=== PATIENT | female | born 1965 | race Caucasian/White ===

== ENCOUNTER 2016-09-07 12:35 | Emergency (ER) | payer BC ==
[2016-09-07 12:40] VITALS: TEMP 97.6
[2016-09-07] MEDS ORDERED: SODIUM CHLORIDE 0.9% 1,000 ML IV STA (13:43)
[2016-09-07 14:39] LABS: Basophils # (A) 0.1 k/uL (0-0.2); Basophils % (A) 1 %; CH 27.9; CHCM 32.5; Eosinophils # (A) 0.1 k/uL (0-0.7); Eosinophils % (A) 1 %; HCT 41.3 % (34.0-46.0); HDW 2.52; HGB 13.2 gm/dL (11.4-16.0); Luc # (Auto) 0.19; Luc % (Auto) 2; Lymphocytes # (A) 1.8 k/uL (1.0-4.8); Lymphocytes % (A) 20 %; MCH 27.5 pg (25.0-35.0); MCHC 31.9 g/dL (31.0-37.0); MCV 86.3 fL (80.0-100.0); Mean Platelet Volume 6.8; Monocytes # (A) 0.5 k/uL (0-1.0); Monocytes % (A) 5 %; Neutrophils # (A) 6.7 k/uL (1.3-7.7); Neutrophils % (A) 72 %; RBC 4.79 m/uL (3.80-5.40); RDW 14.1 % (11.5-15.5); WBC 9.3 k/uL (3.8-10.6); WBC (Perox) 9.73
--- NOTE | 2016-09-07 14:43 | XR ---
EXAMINATION TYPE: XR chest 2V DATE OF EXAM: 09/07/2016 2:33 PM COMPARISON: 05/20/2016 INDICATION: Shortness of breath, history of pulmonary fibrosis TECHNIQUE: Frontal and lateral views of the chest are obtained. FINDINGS: The heart size is normal. The pulmonary vasculature is normal. The lungs are clear. Typical changes of pulmonary fibrosis are not radiographically apparent. EKG le ads overlie the chest. IMPRESSION: 1. No acute pulmonary process.
--- NOTE | 2016-09-07 14:50 | ED ---
General Adult HPI - General Chief complaint: Chest Pain Stated complaint: Chest pain/sob Time Seen by Provider: 09/07/16 13:29 Source: patient, family, RN notes reviewed, old records reviewed Mode of arrival: wheelchair Limitations: no limitations - History of Present Illness Initial comments: Chief complaint and history of present illness is a 51-year-old female with a complaint of discomfort when she takes deep breath or coughs under her left breast area. Pain increases with deep breathing coughing and sometimes palpation. She describes it as having started as a bronchitis several days ago. Patient does have a history of pulmonary fibrosis - Related Data Home Medications Medication Instructions Recorded Confirmed Estradiol 1 mg PO HS 07/16/14 09/07/16 Isosorbide Mononitrate ER [Imdur] 60 mg PO HS 07/16/14 09/07/16 metFORMIN HCL 500 mg PO TID 07/16/14 09/07/16 Albuterol Inhaler [Ventolin Hfa 1 - 2 puff INHALATION RT-Q6H PRN 10/20/15 Inhaler] Aspirin [Adult Low Dose Aspirin EC] 81 mg PO DAILY 10/20/15 09/07/16 Budesonide [Pulmicort] 0.5 mg INHALATION RT-BID 10/20/15 09/07/16 Montelukast [Singulair] 10 mg PO HS 10/20/15 09/07/16 Pantoprazole [Protonix] 40 mg PO DAILY 10/20/15 09/07/16 ALPRAZolam [Xanax] 0.25 mg PO TID PRN 02/27/16 09/07/16 Sertraline [Zoloft] 25 mg PO HS 02/27/16 09/07/16 Albuterol Nebulized [Ventolin 2.5 mg INHALATION RT-QID 09/07/16 09/07/16 Nebulized] Celecoxib [CeleBREX] 200 mg PO BID 09/07/16 09/07/16 Gabapentin [Neurontin] 800 mg PO HS 09/07/16 09/07/16 Hydroxychloroquine Sulfate 200 mg PO BID 09/07/16 09/07/16 [Plaquenil] Latanoprost Ophth [Xalatan 0.005%] 1 drops BOTH EYES HS 09/07/16 09/07/16 Mycophenolate Mofetil [Cellcept] 500 mg PO BID 09/07/16 09/07/16 Previous Rx's Medication Instructions Recorded Azithromycin [Zithromax Z-pack] 250 mg PO DIRECTED #6 tab 09/07/16 methylPREDNISolone Dose Pack 4 mg PO DIRECTED #21 package 09/07/16 [Medrol Dose Pack] Allergies Allergy/AdvReac Type Severity Reaction Status Date / Time meperidine HCl [From Demerol] Allergy Rash/Hives Verified 05/20/16 15:49 propoxyphene napsylate Allergy Dyspnea Verified 05/20/16 15:49 [From Darvocet-N] Review of Systems ROS Statement: Those systems with pertinent positive or pertinent negative responses have been documented in the HPI. Review of systems no complaint of visual acuity changes or headache no neck pain. She has discomfort which is reproducible by taking a deep breath or coughing to the area below her left breast area. No direct injury or trauma no rashes. Early shingles was discussed. No epigastric pain no back pain she is chronically short of breath with pulmonary fibrosis. No nausea no vomiting no significant change in appetite. Lower extremities upper extremity is all normal no neuro deficits complained of. All systems were reviewed. Past medical problems significant for pulmonary fibrosis, COPD for which she uses frequent updrafts. [id number] diabetes mellitus, GERD, hyperlipidemia, hypertension, osteoarthritis, pneumonia, hypothyroidism, patient reports history of heart murmur occasionally. Tract infections. Also scleroderma. Surgeries tonsils and adenoids, gallbladder, heart catheterization 8 years ago without stents being placed. Hysterectomy, right knee replacement left knee osteotomy. Family history cancers include lung, esophagus, thyroid and brain. Patient has ALLERGIES to Darvocet. Patient quit smoking 19 years ago. Denies alcohol use ROS Other: All systems not noted in ROS Statement are negative. Past Medical History Past Medical History: COPD, Diabetes Mellitus, GERD/Reflux, Hyperlipidemia, Hypertension, Osteoarthritis (OA), Pneumonia, Thyroid Disorder Additional Past Medical History / Comment(s): MURMUR, UTI, GOITER, DIASTOLIC DYSFUNCTION,Scleraderma, has had trouble swallowing for past 6 months History of Any Multi-Drug Resistant Organisms: None Reported Past Surgical History: Appendectomy, Cholecystectomy, Heart Catheterization, Hysterectomy, Joint Replacement Additional Past Surgical History / Comment(s): RT KNEE REPLACEMENT, LT KNEE HAS SCREWS IN PLACE Past Anesthesia/Blood Transfusion Reactions: No Reported Reaction Additional Past Anesthesia/Blood Transfusion Reaction / Comment(s): CLAUSTERPHOBIC Past Psychological History: Anxiety Smoking Status: Former smoker Past Alcohol Use History: Occasional Additional Past Alcohol Use History / Comment(s): STARTED SMOKING AT AGE 11, SMOKED 2 PPD THEN QUIT 1997 Past Drug Use History: None Reported - Past Family History Father Family Medical History: Cancer, Diabetes Mellitus Additional Family Medical History / Comment(s): AT AGE 61, CA throughout the body Mother Family Medical History: Cancer, Congestive Heart Failure (CHF), Diabetes Mellitus, Myocardial Infarction ([place]), Thyroid Disorder Additional Family Medical History / Comment(s): Uterine CA General Exam - General Exam Comments Initial Comments: General: The patient is awake and alert, complains of discomfort to the left chest on the left breast area which increases with a deep breathing coughing. No significant change with splinting the area. No rash noted. Mildly productive cough. Vital signs are temperature 97.6 pulse 85 respiratory rate 18 pulse ox 96 room air blood pressure 150/74. Elevated systolic noted. Patient will be following up with her family physician this week. Eye: Pupils are equal, round and reactive to light, extra-ocular movements are intact ; there is normal conjunctiva bilaterally. No signs of icterus. Ears, nose, mouth and throat: There are moist mucous membranes and no oral lesions. Neck: The neck is supple, there is no tenderness . Cardiovascular: There is a regular rate and rhythm. No murmur, rub or gallop is appreciated. Patient reports history of murmur not appreciated on today's exam. Respiratory: Lungs are clear to auscultation, respirations are non-labored, breath sounds are equal. No wheezes, stridor, rales, or rhonchi. History of pulmonary fibrosis. Pain with deep breathing and coughing below the left breast area. Gastrointestinal: Soft, non-distended, non-tender abdomen without masses or organomegaly noted. There is no rebound or guarding present. No CVA tenderness. Bowel sounds are unremarkable. Back: There is no tenderness to palpation in the midline. There is no obvious deformity. No rashes noted. Musculoskeletal: Normal ROM, no tenderness, There is no pedal edema. There is no calf tenderness or swelling. Sensation intact. Pulses equal bilaterally 2+. Neurological: No neuro deficits complained of or noted on exam. Skin: Skin is warm and dry and no rashes or lesions are noted. Limitations: no limitations Course Vital Signs 09/07/16 09/07/16 09/07/16 12:38 12:56 14:42 Temperature 97.6 F Pulse Rate 85 75 Respiratory 18 18 18 Rate Blood Pressure 150/74 142/65 O2 Sat by Pulse 96 100 Oximetry EKG Findings - EKG Comments: EKG Findings:: EKG was done and reviewed at 1244 showing normal sinus rhythm with nonspecific T-wave changes. No acute ST elevation no ectopy. Rate 85 [place] was 148 QRS 84 QT 360 QTc 428. This EKG was compared to one done on 02/27/2016 and they are similar. Medical Decision Making - Medical Decision Making White count is 9.3 hemoglobin 13 hematocrit of 41. Potassium 4.7, BUN 21 creatinine 0.9 with a GFR greater than 60. Troponin less than 0.012. Chest x-ray is done AP and lateral views and reviewed by radiologist his impression is; no acute pulmonary process. As read by Dr. Reed She complains of productive cough. She'll be placed on a Z-Ivan, Medrol Dosepak , also discussed pleuritic pain and costochondritis. She'll take ibuprofen with food. Advised to follow-up with her family physician. - Lab Data Result diagrams: 09/07/16 14:13 09/07/16 14:13 Lab Results 09/07/16 09/07/16 09/07/16 Range/Units 14:13 14:13 14:13 WBC 9.3 (3.8-10.6) k/uL RBC 4.79 (3.80-5.40) m/uL Hgb 13.2 (11.4-16.0) gm/dL Hct 41.3 (34.0-46.0) % MCV 86.3 (80.0-100.0) fL MCH 27.5 (25.0-35.0) pg MCHC 31.9 (31.0-37.0) g/dL RDW 14.1 (11.5-15.5) % Plt Count 305 (150-450) k/uL Neutrophils % 72 % Lymphocytes % 20 % Monocytes % 5 % Eosinophils % 1 % Basophils % 1 % Neutrophils # 6.7 (1.3-7.7) k/uL Lymphocytes # 1.8 (1.0-4.8) k/uL Monocytes # 0.5 (0-1.0) k/uL Eosinophils # 0.1 (0-0.7) k/uL Basophils # 0.1 (0-0.2) k/uL PT (9.0-12.0) sec INR (<1.1) APTT (22.0-30.0) sec Sodium 140 (137-145) mmol/L Potassium 4.7 (3.5-5.1) mmol/L Chloride 102 (98-107) mmol/L Carbon Dioxide 29 (22-30) mmol/L Anion Gap 9 mmol/L BUN 21 H (7-17) mg/dL Creatinine 0.91 (0.52-1.04) mg/dL Est GFR (MDRD) Af Amer >60 (>60 ml/min/1.73 sqM) Est GFR (MDRD) Non-Af >60 (>60 ml/min/1.73 sqM) Glucose 92 (74-99) mg/dL Calcium 9.6 (8.4-10.2) mg/dL Magnesium 1.8 (1.6-2.3) mg/dL Total Bilirubin 0.4 (0.2-1.3) mg/dL AST 18 (14-36) U/L ALT 57 H (9-52) U/L Alkaline Phosphatase 85 (38-126) U/L Total Creatine Kinase 25 L (30-135) U/L CK-MB (CK-2) <0.2 (0.0-2.4) ng/mL CK-MB (CK-2) Rel Index Troponin I <0.012 (0.000-0.034) ng/mL Total Protein 6.7 (6.3-8.2) g/dL Albumin 3.8 (3.5-5.0) g/dL 09/07/16 Range/Units 14:13 WBC (3.8-10.6) k/uL RBC (3.80-5.40) m/uL Hgb (11.4-16.0) gm/dL Hct (34.0-46.0) % MCV (80.0-100.0) fL MCH (25.0-35.0) pg MCHC (31.0-37.0) g/dL RDW (11.5-15.5) % Plt Count (150-450) k/uL Neutrophils % % Lymphocytes % % Monocytes % % Eosinophils % % Basophils % % Neutrophils # (1.3-7.7) k/uL Lymphocytes # (1.0-4.8) k/uL Monocytes # (0-1.0) k/uL Eosinophils # (0-0.7) k/uL Basophils # (0-0.2) k/uL PT 9.7 (9.0-12.0) sec INR 0.9 (<1.1) APTT 22.5 (22.0-30.0) sec Sodium (137-145) mmol/L Potassium (3.5-5.1) mmol/L Chloride (98-107) mmol/L Carbon Dioxide (22-30) mmol/L Anion Gap mmol/L BUN (7-17) mg/dL Creatinine (0.52-1.04) mg/dL Est GFR (MDRD) Af Amer (>60 ml/min/1.73 sqM) Est GFR (MDRD) Non-Af (>60 ml/min/1.73 sqM) Glucose (74-99) mg/dL Calcium (8.4-10.2) mg/dL Magnesium (1.6-2.3) mg/dL Total Bilirubin (0.2-1.3) mg/dL AST (14-36) U/L ALT (9-52) U/L Alkaline Phosphatase (38-126) U/L Total Creatine Kinase (30-135) U/L CK-MB (CK-2) (0.0-2.4) ng/mL CK-MB (CK-2) Rel Index Troponin I (0.000-0.034) ng/mL Total Protein (6.3-8.2) g/dL Albumin (3.5-5.0) g/dL Disposition Clinical Impression: Bronchitis, Costochondritis, acute Disposition: HOME SELF-CARE Condition: Fair Instructions: Costochondritis (ED), Acute Bronchitis (ED) Additional Instructions: Increase adequate fluids. Use ibuprofen with food for muscle aches and pains. Take Z-Ivan until completed as well as Medrol Dosepak. Follow-up with family physician return emergency room as needed Prescriptions: Azithromycin [Zithromax Z-pack] 250 mg PO DIRECTED #6 tab methylPREDNISolone Dose Pack [Medrol Dose Pack] 4 mg PO DIRECTED #21 package Time of Disposition: 15:28
[2016-09-07 14:54] LABS: ALT 57 U/L (9-52); AST 18 U/L (14-36); Alkaline Phosphatase 85 U/L (38-126); Anion Gap 9 mmol/L; Blood Urea Nitrogen 21 mg/dL (7-17); Calcium 9.6 mg/dL (8.4-10.2); Carbon Dioxide 29 mmol/L (22-30); Chloride 102 mmol/L (98-107); Glucose 92 mg/dL (74-99); Magnesium 1.8 mg/dL (1.6-2.3); Non-African American GFR(MDRD) >60 (>60 ml/min/1.73 sqM); Potassium 4.7 mmol/L (3.5-5.1); Sodium 140 mmol/L (137-145); Total Bilirubin 0.4 mg/dL (0.2-1.3); Total Protein 6.7 g/dL (6.3-8.2)
[2016-09-07 14:56] LABS: Creatine Kinase 25 U/L (30-135)
[2016-09-07 15:08] LABS: Creatine Kinase MB <0.2 ng/mL (0.0-2.4); Troponin I <0.012 ng/mL (0.000-0.034)
[2016-09-07] MEDS ORDERED: ACETAMINOPHEN TAB 500 MG TAB PO STA (15:08)
[2016-09-07 15:18] LABS: INR 0.9 (<1.1); Partial Thromboplastin Time 22.5 sec (22.0-30.0); Prothrombin Time 9.7 sec (9.0-12.0)
[2016-09-07 15:53] VITALS: BP 149/72; PULSE 78; RESP 16
== END 2016-09-07 15:53 | disposition home or self-care (01) ==
LOC: EC 12:35
DX: J20.9 Acute bronchitis, unspecified (principal); M94.0 Chondrocostal junction syndrome [Tietze]; J84.10 Pulmonary fibrosis, unspecified; K21.9 Gastro-esophageal reflux disease without esophagitis; E11.9 Type 2 diabetes mellitus without complications; I10 Essential (primary) hypertension; Z98.61 Coronary angioplasty status; Z79.899 Other long term (current) drug therapy; Z79.890 Hormone replacement therapy; Z79.82 Long term (current) use of aspirin; Z79.84 Long term (current) use of oral hypoglycemic drugs; Z79.51 Long term (current) use of inhaled steroids; Z87.891 Personal history of nicotine dependence; Z88.5 Allergy status to narcotic agent
CPT/HCPCS: 36415; 71020; 80053; 82550; 82553; 83735; 83880; 84484; 85025; 85610; 85730; 93005; 96360; 99285

== ENCOUNTER 2016-10-07 18:27 | Emergency (ER) | payer BC ==
[2016-10-07] MEDS ORDERED: IPRATROPIUM-ALBUTEROL 3 ML NEB INHALATION STA (18:51)
[2016-10-07] MEDS ORDERED: methylPREDNISolone SOD SUCCI 125 MG/2 ML VIAL IV STA (18:51)
--- NOTE | 2016-10-07 19:07 | ED ---
General Adult HPI - General Chief complaint: Chest Pain Stated complaint: chest pain Time Seen by Provider: 10/07/16 18:34 Source: patient Mode of arrival: wheelchair Limitations: no limitations - History of Present Illness Initial comments: This is a 51-year-old female with a history of scleroderma with chronic pulmonary disease who presents emergency from for worsening shortness of breath and chest discomfort over the last week. She states that she's been more short of breath and feels like she cannot get air into her lungs. She states that she 's also been having intermittent sharp substernal chest discomfort that is nonradiating. She's had no lightheadedness or nausea or vomiting. She's been using her Pulmicort and albuterol nebulizer at home without any relief. She called her doctor at [facility] who recommended that she come to the emergency room for evaluation. She denies any fevers or chills. No recent sick contacts. She does not have a history of CAD. No history of DVT. No recent travel or surgery. No other complaints. - Related Data Home Medications Medication Instructions Recorded Confirmed Estradiol 1 mg PO HS 07/16/14 10/07/16 Isosorbide Mononitrate ER [Imdur] 60 mg PO HS 07/16/14 10/07/16 metFORMIN HCL 500 mg PO TID 07/16/14 10/07/16 Aspirin [Adult Low Dose Aspirin EC] 81 mg PO DAILY 10/20/15 10/07/16 Budesonide [Pulmicort] 0.5 mg INHALATION RT-BID 10/20/15 10/07/16 Montelukast [Singulair] 10 mg PO HS 10/20/15 10/07/16 Pantoprazole [Protonix] 40 mg PO DAILY 10/20/15 10/07/16 ALPRAZolam [Xanax] 0.25 mg PO TID PRN 02/27/16 10/07/16 Sertraline [Zoloft] 25 mg PO HS 02/27/16 10/07/16 Albuterol Nebulized [Ventolin 2.5 mg INHALATION RT-QID 09/07/16 10/07/16 Nebulized] Celecoxib [CeleBREX] 200 mg PO BID 09/07/16 10/07/16 Gabapentin [Neurontin] 800 mg PO HS 09/07/16 10/07/16 Hydroxychloroquine Sulfate 200 mg PO BID 09/07/16 10/07/16 [Plaquenil] Latanoprost Ophth [Xalatan 0.005%] 1 drops BOTH EYES HS 09/07/16 10/07/16 Mycophenolate Mofetil [Cellcept] 1,000 mg PO BID 09/07/16 10/07/16 Atorvastatin [Lipitor] 10 mg PO HS 10/07/16 10/07/16 amLODIPine [Norvasc] 5 mg PO HS 10/07/16 10/07/16 Previous Rx's Medication Instructions Recorded Ipratropium-Albuterol Nebulize 3 ml INHALATION Q6HR PRN #20 neb 10/07/16 [Duoneb 0.5 mg-3 mg/3 ml Soln] Levofloxacin [Levaquin] 500 mg PO DAILY #6 tab 10/07/16 predniSONE 50 mg PO DAILY #4 tab 10/07/16 Allergies Allergy/AdvReac Type Severity Reaction Status Date / Time meperidine HCl [From Demerol] Allergy Rash/Hives Verified 10/07/16 19:08 propoxyphene napsylate Allergy Dyspnea Verified 10/07/16 19:08 [From Darvocet-N] Review of Systems ROS Statement: Those systems with pertinent positive or pertinent negative responses have been documented in the HPI. ROS Other: All systems not noted in ROS Statement are negative. Past Medical History Past Medical History: COPD, Diabetes Mellitus, GERD/Reflux, Hyperlipidemia, Hypertension, Osteoarthritis (OA), Pneumonia, Thyroid Disorder Additional Past Medical History / Comment(s): MURMUR, UTI, GOITER, DIASTOLIC DYSFUNCTION,Scleraderma, has had trouble swallowing for past 6 months History of Any Multi-Drug Resistant Organisms: None Reported Past Surgical History: Appendectomy, Cholecystectomy, Heart Catheterization, Hysterectomy, Joint Replacement Additional Past Surgical History / Comment(s): RT KNEE REPLACEMENT, LT KNEE HAS SCREWS IN PLACE Past Anesthesia/Blood Transfusion Reactions: No Reported Reaction Additional Past Anesthesia/Blood Transfusion Reaction / Comment(s): CLAUSTERPHOBIC Past Psychological History: Anxiety Smoking Status: Former smoker Past Alcohol Use History: Occasional Additional Past Alcohol Use History / Comment(s): STARTED SMOKING AT AGE 11, SMOKED 2 PPD THEN QUIT 1996 Past Drug Use History: None Reported - Past Family History Father Family Medical History: Cancer, Diabetes Mellitus Additional Family Medical History / Comment(s): AT AGE 61, CA throughout the body Mother Family Medical History: Cancer, Congestive Heart Failure (CHF), Diabetes Mellitus, Myocardial Infarction ([place]), Thyroid Disorder Additional Family Medical History / Comment(s): Uterine CA General Exam - General Exam Comments Initial Comments: Constitutional: Awake alert Appears comfortable Head: Normocephalic atraumatic Eyes: no conjunctival injection No scleral icterus EOMI Neck: No JVD Supple Heart: Regular rate rhythm normal S1-S2 no murmurs Lungs: Decreased breath sounds throughout No wheezing No rales Abdomen: Soft nondistended nontender Extremities: Non edematous DP pulses intact Radial pulses intact Neuro: A&Ox3 No focal neurologic deficits Psych: Appropriate mood and affect Limitations: no limitations Course Vital Signs 10/07/16 10/07/16 10/07/16 18:31 19:08 19:13 Temperature 97.8 F Pulse Rate 88 77 Pulse Rate [ 77 [employer] ] Respiratory 20 18 Rate Blood Pressure 155/69 150/66 O2 Sat by Pulse 99 100 Oximetry 10/07/16 10/07/16 10/07/16 19:15 19:35 20:19 Temperature 97.0 F L Pulse Rate 81 89 90 Pulse Rate [ [employer] ] Respiratory 18 Rate Blood Pressure 149/66 O2 Sat by Pulse 97 Oximetry EKG Findings - EKG Comments: EKG Findings:: EKG showing normal sinus rhythm with a rate of 77. No ST segment changes or T-wave inversions. QTC is 423. No ectopy. Medical Decision Making - Medical Decision Making This is a 51-year-old lady with history of scleroderma who presents emergency department for shortness of breath for the last week. She also has some associated left-sided sharp chest pain. Labwork was reviewed and completely unremarkable. Troponin was negative. X-ray was reviewed and did not show any signs of pneumonia. The patient was able to ambulate around the department without desaturation. She felt improved after DuoNeb. At this time going to send her home with DuoNeb, prednisone, and Levaquin. She'll follow-up with her primary doctor for further evaluation. If she has worsening symptoms she can return the emergency Department. All questions were answered. - Lab Data Result diagrams: 10/07/16 18:50 10/07/16 18:50 Lab Results 10/07/16 10/07/16 10/07/16 Range/Units 18:50 18:50 18:50 WBC (3.8-10.6) k/uL RBC (3.80-5.40) m/uL Hgb (11.4-16.0) gm/dL Hct (34.0-46.0) % MCV (80.0-100.0) fL MCH (25.0-35.0) pg MCHC (31.0-37.0) g/dL RDW (11.5-15.5) % Plt Count (150-450) k/uL Neutrophils % % Lymphocytes % % Monocytes % % Eosinophils % % Basophils % % Neutrophils # (1.3-7.7) k/uL Lymphocytes # (1.0-4.8) k/uL Monocytes # (0-1.0) k/uL Eosinophils # (0-0.7) k/uL Basophils # (0-0.2) k/uL PT 9.5 (9.0-12.0) sec INR 0.9 (<1.1) APTT 22.8 (22.0-30.0) sec D-Dimer 0.36 (<0.60) mg/L FEU Sodium 139 (137-145) mmol/L Potassium 4.7 (3.5-5.1) mmol/L Chloride 104 (98-107) mmol/L Carbon Dioxide 24 (22-30) mmol/L Anion Gap 11 mmol/L BUN 16 (7-17) mg/dL Creatinine 0.99 (0.52-1.04) mg/dL Est GFR (MDRD) Af Amer >60 (>60 ml/min/1.73 sqM) Est GFR (MDRD) Non-Af 59 (>60 ml/min/1.73 sqM) Glucose 119 H (74-99) mg/dL Calcium 9.5 (8.4-10.2) mg/dL Magnesium 1.9 (1.6-2.3) mg/dL Total Bilirubin 0.4 (0.2-1.3) mg/dL AST 40 H (14-36) U/L ALT 66 H (9-52) U/L Alkaline Phosphatase 93 (38-126) U/L CK-MB (CK-2) <0.2 (0.0-2.4) ng/mL Troponin I <0.012 (0.000-0.034) ng/mL Total Protein 7.2 (6.3-8.2) g/dL Albumin 4.0 (3.5-5.0) g/dL Influenza Type A RNA (Not Detectd) Influenza Type B (PCR) (Not Detectd) 10/07/16 10/07/16 Range/Units 18:50 19:00 WBC 7.0 (3.8-10.6) k/uL RBC 4.89 (3.80-5.40) m/uL Hgb 13.4 (11.4-16.0) gm/dL Hct 41.9 (34.0-46.0) % MCV 85.7 (80.0-100.0) fL MCH 27.3 (25.0-35.0) pg MCHC 31.9 (31.0-37.0) g/dL RDW 14.1 (11.5-15.5) % Plt Count 320 (150-450) k/uL Neutrophils % 72 % Lymphocytes % 19 % Monocytes % 4 % Eosinophils % 2 % Basophils % 0 % Neutrophils # 5.0 (1.3-7.7) k/uL Lymphocytes # 1.3 (1.0-4.8) k/uL Monocytes # 0.3 (0-1.0) k/uL Eosinophils # 0.1 (0-0.7) k/uL Basophils # 0.0 (0-0.2) k/uL PT (9.0-12.0) sec INR (<1.1) APTT (22.0-30.0) sec D-Dimer (<0.60) mg/L FEU Sodium (137-145) mmol/L Potassium (3.5-5.1) mmol/L Chloride (98-107) mmol/L Carbon Dioxide (22-30) mmol/L Anion Gap mmol/L BUN (7-17) mg/dL Creatinine (0.52-1.04) mg/dL Est GFR (MDRD) Af Amer (>60 ml/min/1.73 sqM) Est GFR (MDRD) Non-Af (>60 ml/min/1.73 sqM) Glucose (74-99) mg/dL Calcium (8.4-10.2) mg/dL Magnesium (1.6-2.3) mg/dL Total Bilirubin (0.2-1.3) mg/dL AST (14-36) U/L ALT (9-52) U/L Alkaline Phosphatase (38-126) U/L CK-MB (CK-2) (0.0-2.4) ng/mL Troponin I (0.000-0.034) ng/mL Total Protein (6.3-8.2) g/dL Albumin (3.5-5.0) g/dL Influenza Type A RNA Not Detected (Not Detectd) Influenza Type B (PCR) Not Detected (Not Detectd) Disposition Clinical Impression: Scleroderma, Bronchitis Disposition: HOME SELF-CARE Condition: Stable Instructions: Bronchospasm (ED) Prescriptions: Ipratropium-Albuterol Nebulize [Duoneb 0.5 mg-3 mg/3 ml Soln] 3 ml INHALATION Q6HR PRN #20 neb PRN Reason: Shortness Of Breath Levofloxacin [Levaquin] 500 mg PO DAILY #6 tab predniSONE 50 mg PO DAILY #4 tab Referrals: Murray Braun DO [Primary Care Provider] - 1-2 days
[2016-10-07 19:10] VITALS: RESP 18
[2016-10-07 19:19] LABS: ALT 66 U/L (9-52); AST 40 U/L (14-36); Alkaline Phosphatase 93 U/L (38-126); Anion Gap 11 mmol/L; Blood Urea Nitrogen 16 mg/dL (7-17); Calcium 9.5 mg/dL (8.4-10.2); Carbon Dioxide 24 mmol/L (22-30); Chloride 104 mmol/L (98-107); Glucose 119 mg/dL (74-99); Magnesium 1.9 mg/dL (1.6-2.3); Non-African American GFR(MDRD) 59 (>60 ml/min/1.73 sqM); Potassium 4.7 mmol/L (3.5-5.1); Sodium 139 mmol/L (137-145); Total Bilirubin 0.4 mg/dL (0.2-1.3); Total Protein 7.2 g/dL (6.3-8.2)
[2016-10-07 19:20] LABS: Basophils % (A) 0 %; CH 27.5; CHCM 32.2; Eosinophils # (A) 0.1 k/uL (0-0.7); Eosinophils % (A) 2 %; HCT 41.9 % (34.0-46.0); HDW 2.63; HGB 13.4 gm/dL (11.4-16.0); Luc # (Auto) 0.24; Luc % (Auto) 3; Lymphocytes # (A) 1.3 k/uL (1.0-4.8); Lymphocytes % (A) 19 %; MCH 27.3 pg (25.0-35.0); MCHC 31.9 g/dL (31.0-37.0); MCV 85.7 fL (80.0-100.0); Mean Platelet Volume 6.3; Monocytes # (A) 0.3 k/uL (0-1.0); Monocytes % (A) 4 %; Neutrophils % (A) 72 %; RBC 4.89 m/uL (3.80-5.40); RDW 14.1 % (11.5-15.5); WBC (Perox) 7.13
[2016-10-07 19:23] LABS: INR 0.9 (<1.1); Partial Thromboplastin Time 22.8 sec (22.0-30.0); Prothrombin Time 9.5 sec (9.0-12.0)
[2016-10-07 19:37] LABS: Creatine Kinase MB <0.2 ng/mL (0.0-2.4); Troponin I <0.012 ng/mL (0.000-0.034)
[2016-10-07 20:20] VITALS: PULSE 90
[2016-10-07] MEDS ORDERED: LEVOFLOXACIN 500 MG TAB PO STA (20:34)
--- NOTE | 2016-10-07 20:55 | XR ---
EXAMINATION TYPE: XR chest 2V DATE OF EXAM: 10/07/2016 7:53 PM COMPARISON: 09/07/2016 HISTORY: Shortness of breath TECHNIQUE: Frontal and lateral views of the chest are obtained. FINDINGS: Scattered senescent parenchymal changes noted. Hyperinflation compatible with COPD. No evidence for infiltrate. No evidence for atelectasis. Heart size is stable. Mediastinal structures are stable and grossly unremarkable. No evidence for hilar prominence. Degenerative changes dorsal spine. IMPRESSION: 1. No evidence for acute pulmonary disease.
[2016-10-07 21:25] VITALS: BP 150/67; TEMP 97.7
== END 2016-10-07 21:25 | disposition home or self-care (01) ==
LOC: EC 18:27
DX: J40 Bronchitis, not specified as acute or chronic (principal); J98.01 Acute bronchospasm; M34.9 Systemic sclerosis, unspecified; R07.89 Other chest pain; E11.9 Type 2 diabetes mellitus without complications; K21.9 Gastro-esophageal reflux disease without esophagitis; E78.5 Hyperlipidemia, unspecified; I10 Essential (primary) hypertension; M19.90 Unspecified osteoarthritis, unspecified site; F41.9 Anxiety disorder, unspecified; Z87.891 Personal history of nicotine dependence; Z79.3 Long term (current) use of hormonal contraceptives; Z79.82 Long term (current) use of aspirin; Z79.84 Long term (current) use of oral hypoglycemic drugs; Z79.899 Other long term (current) drug therapy; Z88.5 Allergy status to narcotic agent
CPT/HCPCS: 36415; 94640; 93005; 85379; 80053; 82553; 83735; 84484; 85025; 85610; 85730; 87502; 71020; 99285; 96374; J2930

== ENCOUNTER 2017-01-11 11:31 | Emergency (ER) | payer BC ==
[2017-01-11 11:46] VITALS: RESP 18
[2017-01-11] MEDS ORDERED: RX INFO: IV CONTRAST WAS GIVEN 1 EACH MISC MISCELLANE PRN (12:00)
[2017-01-11] MEDS ORDERED: SODIUM CHLORIDE 0.9% 1,000 ML IV STA (12:00)
--- NOTE | 2017-01-11 12:04 | ED ---
General Adult HPI - General Chief complaint: Neuro Symptoms/Deficit Stated complaint: rt side numbness Time Seen by Provider: 01/11/17 11:54 Source: patient, RN notes reviewed Mode of arrival: wheelchair Limitations: no limitations - History of Present Illness Initial comments: Patient is a pleasant 51-year-old female presenting to the emergency department with right sided heaviness. Onset was around 10 AM. Patient's right leg was noticed to be heavy and this remains unchanged. Patient states within the past half hour she has also noticed her right arm having heaviness. Patient feels somewhat dizzy. No loss of sensation. No confusion. No visual change. No history of similar symptoms previously. No trauma. - Related Data Home Medications Medication Instructions Recorded Confirmed Estradiol 1 mg PO HS 07/16/14 01/11/17 Isosorbide Mononitrate ER [Imdur] 60 mg PO HS 07/16/14 01/11/17 metFORMIN HCL 500 mg PO TID 07/16/14 01/11/17 Aspirin [Adult Low Dose Aspirin EC] 81 mg PO DAILY 10/20/15 01/11/17 Budesonide [Pulmicort] 0.5 mg INHALATION RT-BID 10/20/15 01/11/17 Montelukast [Singulair] 10 mg PO HS 10/20/15 01/11/17 Pantoprazole [Protonix] 40 mg PO DAILY 10/20/15 01/11/17 ALPRAZolam [Xanax] 0.25 mg PO TID PRN 02/27/16 01/11/17 Sertraline [Zoloft] 25 mg PO HS 02/27/16 01/11/17 Celecoxib [CeleBREX] 200 mg PO BID PRN 09/07/16 01/11/17 Gabapentin [Neurontin] 400 mg PO BID 09/07/16 01/11/17 Hydroxychloroquine Sulfate 200 mg PO BID 09/07/16 01/11/17 [Plaquenil] Latanoprost Ophth [Xalatan 0.005%] 1 drops BOTH EYES HS 09/07/16 01/11/17 Atorvastatin [Lipitor] 10 mg PO HS 10/07/16 01/11/17 amLODIPine [Norvasc] 5 mg PO HS 10/07/16 01/11/17 Albuterol Inhaler [Ventolin Hfa 2 puff INHALATION RT-Q6H PRN 01/11/17 01/11/17 Inhaler] Diltiazem HCl [Diltiazem ER] 120 mg PO HS 01/11/17 01/11/17 HYDROcodone/APAP 5-325MG [[place] 1 tab PO Q4HR PRN 01/11/17 01/11/17 5-325] Ibuprofen [Motrin] 800 mg PO Q6H PRN 01/11/17 01/11/17 Previous Rx's Medication Instructions Recorded Ipratropium-Albuterol Nebulize 3 ml INHALATION Q6HR PRN #20 neb 10/07/16 [Duoneb 0.5 mg-3 mg/3 ml Soln] Allergies Allergy/AdvReac Type Severity Reaction Status Date / Time meperidine HCl [From Demerol] Allergy Rash/Hives Verified 01/11/17 11:46 propoxyphene napsylate Allergy Dyspnea Verified 01/11/17 11:46 [From Darvocet-N] Review of Systems ROS Statement: Those systems with pertinent positive or pertinent negative responses have been documented in the HPI. ROS Other: All systems not noted in ROS Statement are negative. Constitutional: Denies: fever Eyes: Denies: eye pain ENT: Denies: ear pain Respiratory: Denies: cough Cardiovascular: Denies: chest pain Endocrine: Denies: fatigue Gastrointestinal: Denies: abdominal pain Genitourinary: Denies: dysuria Musculoskeletal: Denies: back pain Skin: Denies: rash Neurological: Reports: weakness. Denies: headache, confusion Past Medical History Past Medical History: COPD, Diabetes Mellitus, GERD/Reflux, Hyperlipidemia, Hypertension, Osteoarthritis (OA), Pneumonia, Thyroid Disorder Additional Past Medical History / Comment(s): MURMUR, UTI, GOITER, DIASTOLIC DYSFUNCTION,Scleraderma, has had trouble swallowing for past 6 months History of Any Multi-Drug Resistant Organisms: None Reported Past Surgical History: Appendectomy, Cholecystectomy, Heart Catheterization, Hysterectomy, Joint Replacement Additional Past Surgical History / Comment(s): RT KNEE REPLACEMENT, LT KNEE HAS SCREWS IN PLACE Past Anesthesia/Blood Transfusion Reactions: No Reported Reaction Additional Past Anesthesia/Blood Transfusion Reaction / Comment(s): CLAUSTERPHOBIC Past Psychological History: Anxiety Smoking Status: Former smoker Past Alcohol Use History: Occasional Additional Past Alcohol Use History / Comment(s): STARTED SMOKING AT AGE 11, SMOKED 2 PPD THEN QUIT 1996 Past Drug Use History: None Reported - Past Family History Father Family Medical History: Cancer, Diabetes Mellitus Additional Family Medical History / Comment(s): AT AGE 61, CA throughout the body Mother Family Medical History: Cancer, Congestive Heart Failure (CHF), Diabetes Mellitus, Myocardial Infarction ([place]), Thyroid Disorder Additional Family Medical History / Comment(s): Uterine CA General Exam Limitations: no limitations General appearance: alert, in no apparent distress Head exam: Present: atraumatic Eye exam: Present: normal appearance, PERRL, EOMI. Absent: nystagmus ENT exam: Present: normal oropharynx Neck exam: Present: normal inspection Respiratory exam: Present: normal lung sounds bilaterally Cardiovascular Exam: Present: regular rate, normal rhythm GI/Abdominal exam: Present: soft. Absent: distended, tenderness Extremities exam: Present: normal inspection Neurological exam: Present: alert Expanded Neurological exam: Present: protecting the airway Speech: Present: fluid speech Cranial nerves: EOM's Intact: Normal, Facial Sensation: Normal Sensory exam: Upper Extremity Light Touch: Normal, Lower Extremity Light Touch: Normal Motor strength exam: RUE: 4, LUE: 5, RLE: 3, LLE: 5 Eye Response: (4) open spontaneously Motor Response: (6) obeys commands Verbal Response: (5) oriented Psychiatric exam: Present: normal affect, normal mood Skin exam: Present: normal color Course Vital Signs 01/11/17 01/11/17 01/11/17 11:41 11:57 12:12 Temperature 97.4 F L Pulse Rate 88 86 84 Respiratory 18 18 18 Rate Blood Pressure 149/68 181/79 148/63 O2 Sat by Pulse 99 99 99 Oximetry 01/11/17 01/11/17 01/11/17 12:27 12:42 12:57 Temperature Pulse Rate 90 86 888 H Respiratory 18 18 18 Rate Blood Pressure 154/70 147/68 169/74 O2 Sat by Pulse 99 98 99 Oximetry - Reevaluation(s) Reevaluation #1: 01/11/17 12:00 Code stroke was called 01/11/17 12:32 CT report still pending 01/11/17 12:45 Patient does not have apparent contraindication to tPA however has a low NIH scale. Recommendation will be deferred to neuro interventionalist . Reportedly he is reviewing the films at this time. 01/11/17 12:58 Dr. Paredes and patient have decided they would like to have TPA done. Patient again reevaluated and has no further questions for me. Patient was warned of risks associated with tPA including or disability. TPA order was placed and pharmacy was notified. Patient will be transferred to [facility]. 01/11/17 13:08 Case was discussed with Dr. Larios at [facility] who will accept transfer. Exclusion criteria for TPA were reviewed. EKG Findings - EKG Comments: EKG Findings:: Normal sinus rhythm 83. CA 160. QRS 78. QT 360. QTC 423. Normal axis. Normal QRS. Normal ST-T. Medical Decision Making - Lab Data Result diagrams: 01/11/17 11:59 01/11/17 11:59 Lab Results 01/11/17 01/11/17 01/11/17 Range/Units 11:59 11:59 11:59 WBC 7.9 (3.8-10.6) k/uL RBC 4.79 (3.80-5.40) m/uL Hgb 13.3 (11.4-16.0) gm/dL Hct 40.1 (34.0-46.0) % MCV 83.6 (80.0-100.0) fL MCH 27.7 (25.0-35.0) pg MCHC 33.2 (31.0-37.0) g/dL RDW 14.1 (11.5-15.5) % Plt Count 290 (150-450) k/uL Neutrophils % 76 % Lymphocytes % 15 % Monocytes % 3 % Eosinophils % 2 % Basophils % 0 % Neutrophils # 6.0 (1.3-7.7) k/uL Lymphocytes # 1.2 (1.0-4.8) k/uL Monocytes # 0.3 (0-1.0) k/uL Eosinophils # 0.2 (0-0.7) k/uL Basophils # 0.0 (0-0.2) k/uL PT (9.0-12.0) sec INR (<1.1) APTT (22.0-30.0) sec Sodium 141 (137-145) mmol/L Potassium 4.7 (3.5-5.1) mmol/L Chloride 108 H (98-107) mmol/L Carbon Dioxide 23 (22-30) mmol/L Anion Gap 10 mmol/L BUN 13 (7-17) mg/dL Creatinine 0.80 (0.52-1.04) mg/dL Est GFR (MDRD) Af Amer >60 (>60 ml/min/1.73 sqM) Est GFR (MDRD) Non-Af >60 (>60 ml/min/1.73 sqM) Glucose 129 H (74-99) mg/dL POC Glucose (mg/dL) (75-99) mg/dL POC Glu Production Laborer ID Calcium 9.7 (8.4-10.2) mg/dL Total Bilirubin 0.3 (0.2-1.3) mg/dL AST 44 H (14-36) U/L ALT 93 H (9-52) U/L Alkaline Phosphatase 114 (38-126) U/L Total Creatine Kinase 55 (30-135) U/L CK-MB (CK-2) 0.4 (0.0-2.4) ng/mL CK-MB (CK-2) Rel Index 0.7 Troponin I <0.012 (0.000-0.034) ng/mL Total Protein 7.0 (6.3-8.2) g/dL Albumin 4.0 (3.5-5.0) g/dL 01/11/17 01/11/17 Range/Units 11:59 12:41 WBC (3.8-10.6) k/uL RBC (3.80-5.40) m/uL Hgb (11.4-16.0) gm/dL Hct (34.0-46.0) % MCV (80.0-100.0) fL MCH (25.0-35.0) pg MCHC (31.0-37.0) g/dL RDW (11.5-15.5) % Plt Count (150-450) k/uL Neutrophils % % Lymphocytes % % Monocytes % % Eosinophils % % Basophils % % Neutrophils # (1.3-7.7) k/uL Lymphocytes # (1.0-4.8) k/uL Monocytes # (0-1.0) k/uL Eosinophils # (0-0.7) k/uL Basophils # (0-0.2) k/uL PT 9.5 (9.0-12.0) sec INR 0.9 (<1.1) APTT 22.6 (22.0-30.0) sec Sodium (137-145) mmol/L Potassium (3.5-5.1) mmol/L Chloride (98-107) mmol/L Carbon Dioxide (22-30) mmol/L Anion Gap mmol/L BUN (7-17) mg/dL Creatinine (0.52-1.04) mg/dL Est GFR (MDRD) Af Amer (>60 ml/min/1.73 sqM) Est GFR (MDRD) Non-Af (>60 ml/min/1.73 sqM) Glucose (74-99) mg/dL POC Glucose (mg/dL) 96 (75-99) mg/dL POC Glu Production Laborer ID Janell Cuevas Calcium (8.4-10.2) mg/dL Total Bilirubin (0.2-1.3) mg/dL AST (14-36) U/L ALT (9-52) U/L Alkaline Phosphatase (38-126) U/L Total Creatine Kinase (30-135) U/L CK-MB (CK-2) (0.0-2.4) ng/mL CK-MB (CK-2) Rel Index Troponin I (0.000-0.034) ng/mL Total Protein (6.3-8.2) g/dL Albumin (3.5-5.0) g/dL - Radiology Data Radiology results: report reviewed (Computed tomography scan of brain shows no acute process) Critical Care Time Critical Care Time: Yes Total Critical Care Time: 44 Disposition Clinical Impression: Cerebrovascular accident Disposition: OTHER INSTITUTION NOT DEFINED Referrals: Murray Braun DO [Primary Care Provider] - 1-2 days Time of Disposition: 12:59 - Out of Hospital Transfer - Req. Specs Out of Hospital Transfer - Requested Specifics: Other Emergency Center
[2017-01-11 12:27] LABS: Basophils % (A) 0 %; CH 27.6; CHCM 33.2; Eosinophils # (A) 0.2 k/uL (0-0.7); Eosinophils % (A) 2 %; HCT 40.1 % (34.0-46.0); HDW 2.78; HGB 13.3 gm/dL (11.4-16.0); Luc # (Auto) 0.22; Luc % (Auto) 3; Lymphocytes # (A) 1.2 k/uL (1.0-4.8); Lymphocytes % (A) 15 %; MCH 27.7 pg (25.0-35.0); MCHC 33.2 g/dL (31.0-37.0); MCV 83.6 fL (80.0-100.0); Mean Platelet Volume 6.1; Monocytes # (A) 0.3 k/uL (0-1.0); Monocytes % (A) 3 %; Neutrophils % (A) 76 %; RBC 4.79 m/uL (3.80-5.40); RDW 14.1 % (11.5-15.5); WBC 7.9 k/uL (3.8-10.6); WBC (Perox) 7.79
[2017-01-11 12:30] LABS: INR 0.9 (<1.1); Partial Thromboplastin Time 22.6 sec (22.0-30.0); Prothrombin Time 9.5 sec (9.0-12.0)
[2017-01-11 12:33] LABS: ALT 93 U/L (9-52); AST 44 U/L (14-36); Alkaline Phosphatase 114 U/L (38-126); Anion Gap 10 mmol/L; Blood Urea Nitrogen 13 mg/dL (7-17); Calcium 9.7 mg/dL (8.4-10.2); Carbon Dioxide 23 mmol/L (22-30); Chloride 108 mmol/L (98-107); Glucose 129 mg/dL (74-99); Non-African American GFR(MDRD) >60 (>60 ml/min/1.73 sqM); Potassium 4.7 mmol/L (3.5-5.1); Sodium 141 mmol/L (137-145); Total Bilirubin 0.3 mg/dL (0.2-1.3)
--- NOTE | 2017-01-11 12:41 | CT ---
EXAMINATION TYPE: CT brain wo con for TPA DATE OF EXAM: 01/11/2017 COMPARISON: NONE HISTORY: Rt side weakness CT DLP: 1755 mGycm Automated exposure control for dose reduction was used. FINDINGS: There is no acute intracranial hemorrhage, mass effect, or midline shift identified. The ventricles and sulci are within normal limits in size. The globes are intact and the visualized sinuses are rem arkable for possible mucus retention cyst left maxillary sinus.. IMPRESSION: No acute intracranial hemorrhage, mass effect, or midline shift is seen.
[2017-01-11 12:42] LABS: Glucose,Whole Blood 96 mg/dL (75-99)
[2017-01-11 12:55] LABS: Creatine Kinase 55 U/L (30-135)
[2017-01-11] MEDS ORDERED: ALTEPLASE BOLUS 9 MG in EMPTY SYRINGE 1 SYR IV STA (12:58)
[2017-01-11] MEDS ORDERED: tPA (Alteplase) PER PHARMACY 1 EACH MISC MISCELLANE PRN (12:58)
[2017-01-11] MEDS ORDERED: ALTEPLASE 79 MG in EMPTY BAG 1 BAG IV STA ×2 (12:58→13:02)
--- NOTE | 2017-01-11 13:04 | CT ---
EXAMINATION TYPE: CT angio head neck DATE OF EXAM: 01/11/2017 HISTORY: Rt side weakness, neuro deficit per order. COMPARISON: NONE CT DLP: 1755 mGycm. Automated Exposure Control for Dose Reduction was Utilized. TECHNIQUE: CTA scan of the neck is performed with IV Contrast, patient injected with 65 mL of Omnipa que 350, axial images are obtained, coronal and sagittal reformatted images are reviewed. Three-D rec onstructed images are created on an independent workstation and reviewed. FINDINGS: Carotid/Vascular Structures: There is three-vessel origin from the aortic arch. Left subclavian arter y shows mild mixed plaque at origin without significant stenosis. No significant plaque in the aortic arch is identified. Right common carotid artery shows normal origin from the right brachiocephalic artery. There is no si gnificant focal plaque or stenosis in right common or internal carotid artery including at level of r ight carotid bulb. Patent right external carotid artery is seen without significant stenosis. The left common carotid artery shows slightly more tortuous medial course distally at roughly C4 vert ebral body level seen near axial image 71. There is no significant focal plaque or stenosis in left c ommon or internal carotid arteries including at level of left carotid bulb. There is patent left exte rnal carotid artery without significant stenosis. Vertebral arteries are patent to basilar junction. There is no significant plaque or stenosis identif ied. There is no significant focal stenosis or aneurysmal change in the posterior circulation. There is small caliber but patent right posterior communicating artery. There is hypoplastic left posterior communicating artery identified. Images of the anterior circulation show hypoplastic anterior communicating artery. No significant foc al stenosis or aneurysmal change is seen. Other: There is 6 mm mucous retention cyst or polyp in the posterior inferior left maxillary sinus. There is straightening of cervical spine with moderate spurring and disc space narrowing at C5-C6 and C6-C7 levels. There is some fat replaced atrophy of submandibular and more prominent involving parotid glands noted bilaterally. IMPRESSION: 1. No significant focal plaque or stenosis in common or internal carotid arteries bilaterally. 2. No aneurysmal change or significant focal stenosis at level of [place].
[2017-01-11 13:06] LABS: Creatine Kinase MB 0.4 ng/mL (0.0-2.4); Troponin I <0.012 ng/mL (0.000-0.034)
--- NOTE | 2017-01-11 13:11 | XR ---
EXAMINATION TYPE: XR chest 1V portable DATE OF EXAM: 01/11/2017 COMPARISON: Prior chest x-ray 10/07/2016 HISTORY: Altered mental status, right-sided numbness TECHNIQUE: Single frontal view of the chest is obtained. FINDINGS: There is no focal air space opacity, pleural effusion, or pneumothorax seen. The cardiac silhouette size is within normal limits. There are overlying cardiac leads. The osseous structures are intact. IMPRESSION: Stable exam, no acute abnormalities evident.
[2017-01-11 13:42] VITALS: BP 165/68; PULSE 88; TEMP 98.2
== END 2017-01-11 13:47 | disposition short-term general hospital (02) ==
LOC: EC 11:31
DX: I63.9 Cerebral infarction, unspecified (principal); E78.5 Hyperlipidemia, unspecified; I10 Essential (primary) hypertension; M19.90 Unspecified osteoarthritis, unspecified site; E11.9 Type 2 diabetes mellitus without complications; J44.9 Chronic obstructive pulmonary disease, unspecified; Z79.51 Long term (current) use of inhaled steroids; Z88.5 Allergy status to narcotic agent; Z87.891 Personal history of nicotine dependence; Z79.82 Long term (current) use of aspirin; Z79.84 Long term (current) use of oral hypoglycemic drugs; Z79.899 Other long term (current) drug therapy
CPT/HCPCS: 99285; 37195; 96360; 36415; 93005; 80053; 82550; 82553; 84484; 85025; 85610; 85730; 71010; 70496; 70450; 70498; J2997; Q9967

== ENCOUNTER → 2017-02-11 | Outpatient (CLI) | payer BC ==
--- NOTE | 2017-02-14 08:43 | MM ---
Reason for exam: screening (asymptomatic). Last mammogram was performed 1 year ago. History: Patient is postmenopausal. Family history of breast cancer in paternal aunt at age 45 and breast cancer in paternal grandmother at age 60. Taking estrogen for 17 years beginning at age 35. Physical Findings: A clinical breast exam by your physician is recommended on an annual basis and results should be correlated with mammographic findings. MG Screening Mammo w CAD Bilateral CC and MLO view(s) were taken. Prior study comparison: February 11, 2016, bilateral MG screening mammo w CAD. February 05, 2015, bilateral MG screening mammo w CAD. January 15, 2013, bilateral digital screening mammo w/CAD. There are scattered fibroglandular densities. There is chronic nodularity in the right breast. There is no discrete abnormality. ASSESSMENT: Benign, BI-RAD 2 RECOMMENDATION: Routine screening mammogram of both breasts in 1 year.
== END | disposition home or self-care (01) ==
LOC: RADMAMWWP 13:26
PROVIDERS: ATTEND Family Medicine
DX: Z12.31 Encounter for screening mammogram for malignant neoplasm of breast (principal)

== ENCOUNTER 2017-04-04 12:47 | Emergency (ER) | payer BC ==
[2017-04-04 12:50] VITALS: BP 145/82; PULSE 97; RESP 18; TEMP 97.5
[2017-04-04] MEDS ORDERED: ORPHENADRINE 30 MG/ML 2 ML VIAL IM STA (13:17)
[2017-04-04] MEDS ORDERED: methylPREDNISolone SOD SUCCI 125 MG/2 ML VIAL IM STA (13:17)
[2017-04-04] MEDS ORDERED: KETOROLAC 60 MG/2 ML VIAL IM STA (13:17)
--- NOTE | 2017-04-04 13:39 | ED ---
General Adult HPI - General Chief complaint: Back Pain/Injury Stated complaint: leg & back pain Time Seen by Provider: 04/04/17 13:11 Source: patient, RN notes reviewed Mode of arrival: wheelchair Limitations: no limitations - History of Present Illness Initial comments: 52-year-old female presents to the emergency Department chief complaint of left- sided back pain. Patient states she's had this back pain for about a month now. Patient states she's had back pain for a long time. Patient states in the left side and radiates down her left leg. Patient denies any loss of bowel or bladder function with this. Patient denies any fever chills. Patient states he is pain. Patient states there is no falls traumas or injuries. Patient denies ever seen a doctor for this back pain in the past. Patient denies any nausea or vomiting associated with the pain. He should not home without much relief to the discomfort. Patient states she was concerned due to the continued pain so she thought that she should be seen. Patient states has appointment with her doctor on the fifth for evaluation. Patient denies any recent fever, chills, shortness of breath, chest pain, abdominal pain, nausea vomiting, numbness or tingling, dysuria or hematuria, constipation or diarrhea, headaches or visual changes, or any other current symptoms. - Related Data Home Medications Medication Instructions Recorded Confirmed Estradiol 1 mg PO HS 07/16/14 01/11/17 Isosorbide Mononitrate ER [Imdur] 60 mg PO HS 07/16/14 01/11/17 metFORMIN HCL 500 mg PO TID 07/16/14 01/11/17 Aspirin [Adult Low Dose Aspirin EC] 81 mg PO DAILY 10/20/15 01/11/17 Budesonide [Pulmicort] 0.5 mg INHALATION RT-BID 10/20/15 01/11/17 Montelukast [Singulair] 10 mg PO HS 10/20/15 01/11/17 Pantoprazole [Protonix] 40 mg PO DAILY 10/20/15 01/11/17 ALPRAZolam [Xanax] 0.25 mg PO TID PRN 02/27/16 01/11/17 Sertraline [Zoloft] 25 mg PO HS 02/27/16 01/11/17 Celecoxib [CeleBREX] 200 mg PO BID PRN 09/07/16 01/11/17 Gabapentin [Neurontin] 400 mg PO BID 09/07/16 01/11/17 Hydroxychloroquine Sulfate 200 mg PO BID 09/07/16 01/11/17 [Plaquenil] Latanoprost Ophth [Xalatan 0.005%] 1 drops BOTH EYES HS 09/07/16 01/11/17 Atorvastatin [Lipitor] 10 mg PO HS 10/07/16 01/11/17 amLODIPine [Norvasc] 5 mg PO HS 10/07/16 01/11/17 Albuterol Inhaler [Ventolin Hfa 2 puff INHALATION RT-Q6H PRN 01/11/17 01/11/17 Inhaler] Diltiazem HCl [Diltiazem ER] 120 mg PO HS 01/11/17 01/11/17 HYDROcodone/APAP 5-325MG [[place] 1 tab PO Q4HR PRN 01/11/17 01/11/17 5-325] Ibuprofen [Motrin] 800 mg PO Q6H PRN 01/11/17 01/11/17 Previous Rx's Medication Instructions Recorded Ipratropium-Albuterol Nebulize 3 ml INHALATION Q6HR PRN #20 neb 10/07/16 [Duoneb 0.5 mg-3 mg/3 ml Soln] Allergies Allergy/AdvReac Type Severity Reaction Status Date / Time meperidine HCl [From Demerol] Allergy Rash/Hives Verified 04/04/17 12:50 propoxyphene napsylate Allergy Dyspnea Verified 04/04/17 12:50 [From Darvocet-N] Review of Systems ROS Statement: Those systems with pertinent positive or pertinent negative responses have been documented in the HPI. ROS Other: All systems not noted in ROS Statement are negative. Past Medical History Past Medical History: COPD, Diabetes Mellitus, GERD/Reflux, Hyperlipidemia, Hypertension, Osteoarthritis (OA), Pneumonia, Thyroid Disorder Additional Past Medical History / Comment(s): MURMUR, UTI, GOITER, DIASTOLIC DYSFUNCTION,Scleraderma, has had trouble swallowing for past 6 months History of Any Multi-Drug Resistant Organisms: None Reported Past Surgical History: Appendectomy, Cholecystectomy, Heart Catheterization, Hysterectomy, Joint Replacement Additional Past Surgical History / Comment(s): RT KNEE REPLACEMENT, LT KNEE HAS SCREWS IN PLACE Past Anesthesia/Blood Transfusion Reactions: No Reported Reaction Additional Past Anesthesia/Blood Transfusion Reaction / Comment(s): CLAUSTERPHOBIC Past Psychological History: Anxiety Smoking Status: Former smoker Past Alcohol Use History: Occasional Past Drug Use History: None Reported - Past Family History Father Family Medical History: Cancer, Diabetes Mellitus Additional Family Medical History / Comment(s): AT AGE 61, CA throughout the body Mother Family Medical History: Cancer, Congestive Heart Failure (CHF), Diabetes Mellitus, Myocardial Infarction ([place]), Thyroid Disorder Additional Family Medical History / Comment(s): Uterine CA General Exam Limitations: no limitations General appearance: alert Head exam: Present: atraumatic, normocephalic, normal inspection ENT exam: Present: normal exam, mucous membranes moist Neck exam: Present: normal inspection. Absent: tenderness, meningismus, lymphadenopathy Respiratory exam: Present: normal lung sounds bilaterally. Absent: respiratory distress, wheezes, rales, rhonchi, stridor Cardiovascular Exam: Present: regular rate, normal rhythm, normal heart sounds. Absent: systolic murmur, diastolic murmur, rubs, gallop, clicks Extremities exam: Present: normal inspection, full ROM, normal capillary refill. Absent: tenderness, pedal edema, joint swelling, calf tenderness Back exam: Present: normal inspection, full ROM, paraspinal tenderness (left). Absent: rash noted Expanded Back exam: Negative Straight Leg Raising: Left, Right Neurological exam: Present: alert, oriented X3 Psychiatric exam: Present: normal affect, normal mood Skin exam: Present: warm, dry, intact, normal color. Absent: rash Course Vital Signs 04/04/17 12:48 Temperature 97.5 F L Pulse Rate 97 Respiratory 18 Rate Blood Pressure 145/82 O2 Sat by Pulse 95 Oximetry Medical Decision Making - Medical Decision Making 52-year-old female presents for left-sided back pain. xray reviewed and discussed results. at this time started on medications and discussed follow up and return parameters. patient in agreement with plan. return parameters and follow up discussed. - Radiology Data Radiology results: report reviewed, image reviewed Disposition Clinical Impression: Sciatica, left side, Degenerative disc disease Disposition: HOME SELF-CARE Condition: Stable Instructions: Sciatica (ED), Lower Back Exercises (ED) Additional Instructions: Please use medication as discussed. Please follow up with family doctor if symptoms have not improved over the next two days. Please return to the emergency room if your symptoms increase or worsen or for any other concerns. Referrals: Murray Braun DO [Primary Care Provider] - 1-2 days Time of Disposition: 14:10
--- NOTE | 2017-04-04 14:03 | XR ---
EXAMINATION TYPE: XR lumbar spine 2 or 3V DATE OF EXAM: 04/04/2017 CLINICAL HISTORY: Chronic back pain with left radiculopathy TECHNIQUE: Frontal, lateral, and oblique images of the lumbar spine are obtained. COMPARISON: 06/04/2010 MR lumbar spine FINDINGS: The right 12th rib is incidentally noted to be hypoplastic. There are 5 lumbar type verteb ral bodies identified. The lumbar spine shows satisfactory alignment without evidence of acute fract ure or dislocation. Vertebral body heights are maintained. Intervertebral disc space narrowing is see n at L4-L5. Mild facet arthropathy is present at L2-L3, L3-L4, L4-5 and L5-S1. Small anterior osteoph ytes are seen within the thoracic spine. Atherosclerosis is noted of the abdominal aorta. The oblique images appear within normal limits. The overlying soft tissue appears unremarkable. Cholecystectomy clips reside within the right upper quadrant. IMPRESSION: 1. No acute fracture or dislocation is seen in the lumbar spine. 2. Multilevel degenerative disc disease as described above.
== END 2017-04-04 14:20 | disposition home or self-care (01) ==
LOC: EC 12:47
DX: M54.32 Sciatica, left side (principal); M51.36 Other intervertebral disc degeneration, lumbar region; E11.9 Type 2 diabetes mellitus without complications; J44.9 Chronic obstructive pulmonary disease, unspecified; K21.9 Gastro-esophageal reflux disease without esophagitis; E78.5 Hyperlipidemia, unspecified; F41.9 Anxiety disorder, unspecified; M19.90 Unspecified osteoarthritis, unspecified site; E07.9 Disorder of thyroid, unspecified; Z79.84 Long term (current) use of oral hypoglycemic drugs; Z87.891 Personal history of nicotine dependence; Z79.82 Long term (current) use of aspirin; Z79.51 Long term (current) use of inhaled steroids; Z79.899 Other long term (current) drug therapy; Z88.5 Allergy status to narcotic agent
CPT/HCPCS: 72100; 99283; 96372 ×3; J2360; J2930; J1885

== ENCOUNTER → 2017-04-09 | Outpatient (CLI) | payer BC ==
--- NOTE | 2017-04-09 17:43 | MR ---
EXAMINATION TYPE: MR lumbar spine wo con DATE OF EXAM: 04/09/2017 COMPARISON: MRI lumbar spine June 04, 2010. Lumbar spine x-ray April 04, 2017. HISTORY: Back pain radiates into lt thigh x 2 mos, no trauma TECHNIQUE: Multiplanar, multisequence imaging of the lumbar spine is performed without IV contrast. FINDINGS: Sagittal images of the lumbar spine show vertebral body heights and alignment to appear sat isfactory. The intervertebral discs demonstrate normal heights and hydration. No suspicious posterio r disc herniations are seen on sagittal images. The conus medullaris is normal remains position and s ignal ending at superior L1 level. The bone marrow signal intensity is within normal limits. No sign ificant spurring is seen. Axial images show the T12-L1 and L1-L2 levels to remain within normal limits. Axial images at L2-L3 and L3-L4 levels redemonstrated mild broad disc bulges but spinal canal is pres erved and bilateral neural foramina are patent. Axial images at L4-L5 level show more prominent mild to moderate facet degenerative changes bilateral ly. Spinal canal is preserved. Bilateral neural foramina are patent. Axial images at L5-S1 level show mild facet degenerative changes bilaterally. Spinal canal is preserv ed. Bilateral neural foramina are patent. No suspicious retroperitoneal findings are seen. IMPRESSION: New facet arthropathy in the lower lumbar spine. Stable mild degenerative changes in the mid lumbar spine. No significant or new finding is seen to account for patient's left-sided radiculop athy type symptoms however.
== END ==
LOC: RADMRIMAIN 13:30
PROVIDERS: ATTEND Family Medicine
DX: M47.26 Other spondylosis with radiculopathy, lumbar region (principal); M46.86 Other specified inflammatory spondylopathies, lumbar region
CPT/HCPCS: 72148

== ENCOUNTER → 2017-04-25 | Outpatient (CLI) | payer BC | END | disposition home or self-care (01) | LOC: RADMRIMAIN 13:06 | PROVIDERS: ATTEND Orthopaedic Surgery Orthopaedic Surgery of the Spine | DX: Z53.9 Procedure and treatment not carried out, unspecified reason (principal) ==

== ENCOUNTER 2017-08-20 18:12 | Emergency (ER) | payer BC, OTHER ==
[2017-08-20] MEDS ORDERED: SODIUM CHLORIDE 0.9% 500 ML IV ONE (18:16)
--- NOTE | 2017-08-20 18:18 | ED ---
General Adult HPI - General Stated complaint: Fall Time Seen by Provider: 08/20/17 18:14 Source: patient, EMS, RN notes reviewed, old records reviewed - History of Present Illness Initial comments: 52-year-old female presents for evaluation of syncopal episode. Patient was standing, reached above her head did feel dizzy and passed out. She does recall hitting her head on the way down. She is complaining of some mild headache and left-sided neck pain. Patient denies any preceding palpitations or chest pain. She denies current chest pain. Denies nausea vomiting or diarrhea. Patient has been eating and drinking normally throughout the day. No fever. Patient has past medical history of scleroderma and tachycardia for which she takes diltiazem. - Related Data Home Medications Medication Instructions Recorded Confirmed Estradiol 1 mg PO HS 07/16/14 08/20/17 Isosorbide Mononitrate ER [Imdur] 60 mg PO HS 07/16/14 08/20/17 metFORMIN HCL 500 mg PO TID 07/16/14 08/20/17 Aspirin [Adult Low Dose Aspirin EC] 81 mg PO DAILY 10/20/15 08/20/17 Budesonide [Pulmicort] 0.5 mg INHALATION RT-BID 10/20/15 08/20/17 Montelukast [Singulair] 10 mg PO HS 10/20/15 08/20/17 Pantoprazole [Protonix] 80 mg PO DAILY 10/20/15 08/20/17 ALPRAZolam [Xanax] 0.25 mg PO TID PRN 02/27/16 08/20/17 Celecoxib [CeleBREX] 200 mg PO BID 09/07/16 08/20/17 Gabapentin [Neurontin] 400 mg PO TID 09/07/16 08/20/17 Hydroxychloroquine Sulfate 200 mg PO BID 09/07/16 08/20/17 [Plaquenil] Latanoprost Ophth [Xalatan 0.005%] 1 drops BOTH EYES HS 09/07/16 08/20/17 Diltiazem HCl [Diltiazem ER] 120 mg PO HS 01/11/17 08/20/17 Ibuprofen [Motrin] 800 mg PO Q6H PRN 01/11/17 08/20/17 Atorvastatin [Lipitor] 40 mg PO DAILY 08/20/17 08/20/17 Cetirizine HCl [Zyrtec] 10 mg PO HS 08/20/17 08/20/17 DULoxetine HCL [Cymbalta] 60 mg PO DAILY 08/20/17 08/20/17 Ipratropium-Albuterol Nebulize 3 ml INHALATION RT-QID PRN 08/20/17 08/20/17 [Duoneb 0.5 mg-3 mg/3 ml Soln] Allergies Allergy/AdvReac Type Severity Reaction Status Date / Time meperidine HCl [From Demerol] Allergy Rash/Hives Verified 08/20/17 18:44 propoxyphene napsylate Allergy Dyspnea Verified 08/20/17 18:44 [From Darvocet-N] Review of Systems ROS Statement: Those systems with pertinent positive or pertinent negative responses have been documented in the HPI. ROS Other: All systems not noted in ROS Statement are negative. Past Medical History Past Medical History: COPD, Diabetes Mellitus, GERD/Reflux, Hyperlipidemia, Hypertension, Osteoarthritis (OA), Pneumonia, Thyroid Disorder Additional Past Medical History / Comment(s): MURMUR, UTI, GOITER, DIASTOLIC DYSFUNCTION,Scleraderma, has had trouble swallowing for past 6 months History of Any Multi-Drug Resistant Organisms: None Reported Past Surgical History: Appendectomy, Cholecystectomy, Heart Catheterization, Hysterectomy, Joint Replacement Additional Past Surgical History / Comment(s): RT KNEE REPLACEMENT, LT KNEE HAS SCREWS IN PLACE Past Anesthesia/Blood Transfusion Reactions: No Reported Reaction Additional Past Anesthesia/Blood Transfusion Reaction / Comment(s): CLAUSTERPHOBIC Past Psychological History: Anxiety Smoking Status: Former smoker Past Alcohol Use History: Occasional Past Drug Use History: None Reported - Past Family History Father Family Medical History: Cancer, Diabetes Mellitus Additional Family Medical History / Comment(s): AT AGE 61, CA throughout the body Mother Family Medical History: Cancer, Congestive Heart Failure (CHF), Diabetes Mellitus, Myocardial Infarction ([place]), Thyroid Disorder Additional Family Medical History / Comment(s): Uterine CA General Exam General appearance: alert, in no apparent distress Head exam: Present: atraumatic, normocephalic Eye exam: Present: normal appearance, PERRL ENT exam: Present: normal exam Neck exam: Present: normal inspection. Absent: tenderness, meningismus Respiratory exam: Present: normal lung sounds bilaterally. Absent: respiratory distress, wheezes Cardiovascular Exam: Present: regular rate, normal rhythm GI/Abdominal exam: Present: soft, distended. Absent: tenderness, guarding Extremities exam: Present: normal inspection, normal capillary refill. Absent: pedal edema Back exam: Present: normal inspection. Absent: full ROM Neurological exam: Present: alert, oriented X3, CN II-XII intact, other (No ataxia). Absent: motor sensory deficit Psychiatric exam: Present: normal affect, normal mood Skin exam: Present: warm, dry, intact Course Vital Signs 08/20/17 08/20/17 08/20/17 18:17 18:43 20:33 Temperature 98 F Pulse Rate 77 78 Pulse Rate [ 85 Sitting] Pulse Rate [ 100 Standing] Pulse Rate [ 83 Supine] Respiratory 18 18 Rate Blood Pressure 139/78 142/65 Blood Pressure 135/86 [Sitting] Blood Pressure 150/100 [Standing] Blood Pressure 132/85 [Supine] O2 Sat by Pulse 97 97 Oximetry EKG Findings - EKG Comments: EKG Findings:: EKG shows normal sinus rhythm, ventricular rate 81, DC 144, QRS duration 80, QTC 446, no signs of ischemia or infarction Medical Decision Making - Medical Decision Making 52-year-old female presenting with syncopal episode and fall while standing and reaching into a cupboard. Patient did have minor head trauma. Head CT is obtained, negative for intracranial hemorrhage, CT cervical spine negative for fracture subluxation. Chest x-ray shows no acute findings. Hemoglobin stable 12.0, white blood cell count mildly elevated 11.4, d-dimer is negative) normal limits, troponin negative, urinalysis is clear no signs of infection, EKG is negative for arrhythmia or ischemia. On reevaluation, patient remains asymptomatic. She does have an implantable manager monitoring. Patient is offered observation for further evaluation, she declines. She prefers to be discharged. She will call her checking clerk on Tuesday and find out if her implantable monitor can be interpreted. She will follow-up with her primary care physician. Patient will not drive until she is further evaluated. Diagnosis syncope - Lab Data Result diagrams: 08/20/17 18:37 08/20/17 18:37 Lab Results 08/20/17 08/20/17 08/20/17 Range/Units 18:37 18:37 18:37 WBC 11.4 H (3.8-10.6) k/uL RBC 4.65 (3.80-5.40) m/uL Hgb 12.0 (11.4-16.0) gm/dL Hct 38.5 (34.0-46.0) % MCV 82.8 (80.0-100.0) fL MCH 25.7 (25.0-35.0) pg MCHC 31.1 (31.0-37.0) g/dL RDW 14.1 (11.5-15.5) % Plt Count 346 (150-450) k/uL Neutrophils % 76 % Lymphocytes % 17 % Monocytes % 4 % Eosinophils % 1 % Basophils % 0 % Neutrophils # 8.8 H (1.3-7.7) k/uL Lymphocytes # 2.0 (1.0-4.8) k/uL Monocytes # 0.4 (0-1.0) k/uL Eosinophils # 0.1 (0-0.7) k/uL Basophils # 0.0 (0-0.2) k/uL Hypochromasia Slight PT (9.0-12.0) sec INR (<1.2) APTT (22.0-30.0) sec D-Dimer (<0.60) mg/L FEU Sodium 140 (137-145) mmol/L Potassium 4.4 (3.5-5.1) mmol/L Chloride 104 (98-107) mmol/L Carbon Dioxide 27 (22-30) mmol/L Anion Gap 9 mmol/L BUN 20 H (7-17) mg/dL Creatinine 0.90 (0.52-1.04) mg/dL Est GFR (MDRD) Af Amer >60 (>60 ml/min/1.73 sqM) Est GFR (MDRD) Non-Af >60 (>60 ml/min/1.73 sqM) Glucose 106 H (74-99) mg/dL Calcium 9.6 (8.4-10.2) mg/dL Magnesium 1.9 (1.6-2.3) mg/dL Total Bilirubin 0.3 (0.2-1.3) mg/dL AST 15 (14-36) U/L ALT 32 (9-52) U/L Alkaline Phosphatase 72 (38-126) U/L Total Creatine Kinase 50 (30-135) U/L CK-MB (CK-2) 0.3 (0.0-2.4) ng/mL CK-MB (CK-2) Rel Index 0.6 Troponin I <0.012 (0.000-0.034) ng/mL Total Protein 6.4 (6.3-8.2) g/dL Albumin 3.7 (3.5-5.0) g/dL Urine Color Urine Appearance (Clear) Urine pH (5.0-8.0) Ur Specific [place] (1.001-1.035) Urine Protein (Negative) Urine Glucose (UA) (Negative) Urine Ketones (Negative) Urine Blood (Negative) Urine Nitrite (Negative) Urine Bilirubin (Negative) Urine Urobilinogen (<2.0) mg/dL Ur Leukocyte Esterase (Negative) 08/20/17 08/20/17 Range/Units 18:37 19:31 WBC (3.8-10.6) k/uL RBC (3.80-5.40) m/uL Hgb (11.4-16.0) gm/dL Hct (34.0-46.0) % MCV (80.0-100.0) fL MCH (25.0-35.0) pg MCHC (31.0-37.0) g/dL RDW (11.5-15.5) % Plt Count (150-450) k/uL Neutrophils % % Lymphocytes % % Monocytes % % Eosinophils % % Basophils % % Neutrophils # (1.3-7.7) k/uL Lymphocytes # (1.0-4.8) k/uL Monocytes # (0-1.0) k/uL Eosinophils # (0-0.7) k/uL Basophils # (0-0.2) k/uL Hypochromasia PT 9.4 (9.0-12.0) sec INR 0.9 (<1.2) APTT 19.5 L (22.0-30.0) sec D-Dimer 0.21 (<0.60) mg/L FEU Sodium (137-145) mmol/L Potassium (3.5-5.1) mmol/L Chloride (98-107) mmol/L Carbon Dioxide (22-30) mmol/L Anion Gap mmol/L BUN (7-17) mg/dL Creatinine (0.52-1.04) mg/dL Est GFR (MDRD) Af Amer (>60 ml/min/1.73 sqM) Est GFR (MDRD) Non-Af (>60 ml/min/1.73 sqM) Glucose (74-99) mg/dL Calcium (8.4-10.2) mg/dL Magnesium (1.6-2.3) mg/dL Total Bilirubin (0.2-1.3) mg/dL AST (14-36) U/L ALT (9-52) U/L Alkaline Phosphatase (38-126) U/L Total Creatine Kinase (30-135) U/L CK-MB (CK-2) (0.0-2.4) ng/mL CK-MB (CK-2) Rel Index Troponin I (0.000-0.034) ng/mL Total Protein (6.3-8.2) g/dL Albumin (3.5-5.0) g/dL Urine Color Light Yellow Urine Appearance Clear (Clear) Urine pH 5.5 (5.0-8.0) Ur Specific [place] 1.006 (1.001-1.035) Urine Protein Negative (Negative) Urine Glucose (UA) Negative (Negative) Urine Ketones Negative (Negative) Urine Blood Negative (Negative) Urine Nitrite Negative (Negative) Urine Bilirubin Negative (Negative) Urine Urobilinogen <2.0 (<2.0) mg/dL Ur Leukocyte Esterase Negative (Negative) Disposition Clinical Impression: Syncope, Syncope and collapse, Dehydration Disposition: HOME SELF-CARE Condition: Stable Instructions: Syncope (ED) Additional Instructions: Patient will follow-up with her checking clerk and primary care physician. Return with worsening or changing symptoms. Referrals: Murray Braun DO [Primary Care Provider] - 1-2 days Time of Disposition: 21:08
[2017-08-20 18:19] VITALS: RESP 18; TEMP 98
[2017-08-20] MEDS ORDERED: SODIUM CHLORIDE 0.9% 1,000 ML IV SCH (18:30)
[2017-08-20 18:53] LABS: Basophils % (A) 0 %; Eosinophils # (A) 0.1 k/uL (0-0.7); Eosinophils % (A) 1 %; HCT 38.5 % (34.0-46.0); Hypochromasia Slight; Lymphocytes % (A) 17 %; MCH 25.7 pg (25.0-35.0); MCHC 31.1 g/dL (31.0-37.0); MCV 82.8 fL (80.0-100.0); Mean Platelet Volume 6.3; Monocytes # (A) 0.4 k/uL (0-1.0); Monocytes % (A) 4 %; Neutrophils # (A) 8.8 k/uL (1.3-7.7); Neutrophils % (A) 76 %; Platelet Count 346 k/uL (150-450); RBC 4.65 m/uL (3.80-5.40); RDW 14.1 % (11.5-15.5); WBC 11.4 k/uL (3.8-10.6)
[2017-08-20 19:04] LABS: ALT 32 U/L (9-52); AST 15 U/L (14-36); Albumin 3.7 g/dL (3.5-5.0); Alkaline Phosphatase 72 U/L (38-126); Anion Gap 9 mmol/L; Blood Urea Nitrogen 20 mg/dL (7-17); Calcium 9.6 mg/dL (8.4-10.2); Carbon Dioxide 27 mmol/L (22-30); Chloride 104 mmol/L (98-107); Glucose 106 mg/dL (74-99); Magnesium 1.9 mg/dL (1.6-2.3); Potassium 4.4 mmol/L (3.5-5.1); Sodium 140 mmol/L (137-145); Total Bilirubin 0.3 mg/dL (0.2-1.3); Total Protein 6.4 g/dL (6.3-8.2)
--- NOTE | 2017-08-20 19:10 | CT ---
EXAMINATION TYPE: CT brain hiro vences DATE OF EXAM: 08/20/2017 COMPARISON: NONE HISTORY: Syncopal episode today with posterior head injury. CT DLP: 1641.90 mGycm Automated exposure control for dose reduction was used. TECHNIQUE: CT scan of the head and cervical spine are performed without contrast. FINDINGS: There is no acute intracranial hemorrhage, mass effect, or midline shift identified. The ventricles and sulci are within normal limits in size. The globes are intact and the visualized sin uses are clear. There are bilateral small frontal hygromas identified. Cervical spine is visualized in its entirety from C1 through upper thoracic levels and demonstrates s atisfactory alignment without evidence of acute fracture or dislocation. Prevertebral soft tissue ap pears within normal limits. The C1-C2 articulation is unremarkable. IMPRESSION: 1. There is no acute fracture or dislocation evident in the cervical spine. 2. No acute intracranial hemorrhage, mass effect, or midline shift is seen.
--- NOTE | 2017-08-20 19:16 | XR ---
EXAMINATION TYPE: XR chest 2V DATE OF EXAM: 08/20/2017 COMPARISON: January 11, 2017 HISTORY: Syncope TECHNIQUE: Frontal and lateral views of the chest are obtained. FINDINGS: There is no focal air space opacity, pleural effusion, or pneumothorax seen. The cardiac silhouette size is within normal limits. The osseous structures are intact. IMPRESSION: No acute cardiopulmonary process.
[2017-08-20 19:20] LABS: Creatine Kinase 50 U/L (30-135)
[2017-08-20 19:32] LABS: Creatine Kinase MB 0.3 ng/mL (0.0-2.4); Troponin I <0.012 ng/mL (0.000-0.034)
[2017-08-20 19:42] LABS: D-Dimer 0.21 mg/L FEU (<0.60); INR 0.9 (<1.2); Prothrombin Time 9.4 sec (9.0-12.0)
[2017-08-20 19:43] LABS: Partial Thromboplastin Time 19.5 sec (22.0-30.0)
[2017-08-20 19:48] LABS: Appearance,Urine Clear (Clear); Bilirubin,Urine Negative (Negative); Blood,Urine Negative (Negative); Color,Urine Light Yellow; Glucose,Urine (UA) Negative (Negative); Ketones,Urine Negative (Negative); Leukocyte Esterase,Urine Negative (Negative); Nitrite,Urine Negative (Negative); PH, Urine 5.5 (5.0-8.0); Protein,Urine Negative (Negative); Specific Gravity,Urine 1.006 (1.001-1.035); Urobilinogen,Urine <2.0 mg/dL (<2.0)
[2017-08-20 21:22] VITALS: BP 144/69; PULSE 73
== END 2017-08-20 21:21 | disposition home or self-care (01) ==
LOC: EC 18:12
DX: S09.90XA Unspecified injury of head, initial encounter (principal); E86.0 Dehydration; R55 Syncope and collapse; M54.2 Cervicalgia; D72.829 Elevated white blood cell count, unspecified; J44.9 Chronic obstructive pulmonary disease, unspecified; E11.9 Type 2 diabetes mellitus without complications; K21.9 Gastro-esophageal reflux disease without esophagitis; E78.5 Hyperlipidemia, unspecified; I10 Essential (primary) hypertension; M19.90 Unspecified osteoarthritis, unspecified site; F41.9 Anxiety disorder, unspecified; Z87.891 Personal history of nicotine dependence; Z88.5 Allergy status to narcotic agent; Z79.82 Long term (current) use of aspirin; Z79.84 Long term (current) use of oral hypoglycemic drugs; Z79.51 Long term (current) use of inhaled steroids; Z79.1 Long term (current) use of non-steroidal anti-inflammatories (NSAID); Z79.899 Other long term (current) drug therapy; W01.198A Fall on same level from slipping, tripping and stumbling with subsequent striking against other object, initial encounter
CPT/HCPCS: 36415; 70450; 71046; 72125; 80053; 81003; 82550; 82553; 83735; 84484; 85025; 85379; 85610; 85730; 93005; 96360; 96361; 99285

== ENCOUNTER 2018-01-30 14:12 | Emergency (ER) | payer OTHER ==
[2018-01-30] MEDS ORDERED: SODIUM CHLORIDE 0.9% 1,000 ML IV STA (14:22)
[2018-01-30 14:26] VITALS: RESP 18
--- NOTE | 2018-01-30 14:27 | ED ---
General Adult HPI - General Stated complaint: head pressure Time Seen by Provider: 01/30/18 14:14 Source: patient, EMS, RN notes reviewed, old records reviewed - History of Present Illness Initial comments: 53-year-old female with multiple medical problems including previous CVA, scleroderma, hypertension, neuromuscular disease, and mitochondrial disease presenting with chief complaint of generalized weakness, head pressure, and worsening right upper extremity weakness. 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 She did receive TPA at that time with no improvement. She was later found to have neuromuscular disease and mitochondrial disease. She does have baseline right-sided weakness, however weakness today is worse. 3-1/2 -4 hours prior to arrival patient states that she developed head pressure and fullness, no specific headache or pain. She also reports some lightheadedness and generalized fatigue and weakness. Patient is currently on aspirin. She does have a portable ventilator that she uses as needed for dyspnea. Denies syncopal episode, denies abdominal pain or nausea vomiting. - Related Data Home Medications Medication Instructions Recorded Confirmed Estradiol 1 mg PO HS 07/16/14 01/30/18 Isosorbide Mononitrate ER [Imdur] 60 mg PO HS 07/16/14 01/30/18 metFORMIN HCL 500 mg PO TID 07/16/14 01/30/18 Aspirin [Adult Low Dose Aspirin EC] 81 mg PO DAILY 10/20/15 01/30/18 Budesonide [Pulmicort] 0.5 mg INHALATION RT-BID 10/20/15 01/30/18 Montelukast [Singulair] 10 mg PO HS 10/20/15 01/30/18 Pantoprazole [Protonix] 80 mg PO DAILY 10/20/15 01/30/18 ALPRAZolam [Xanax] 0.25 mg PO TID PRN 02/27/16 01/30/18 Gabapentin [Neurontin] 800 mg PO TID 09/07/16 01/30/18 Hydroxychloroquine Sulfate 200 mg PO BID 09/07/16 01/30/18 [Plaquenil] Latanoprost Ophth [Xalatan 0.005%] 1 drops BOTH EYES HS 09/07/16 01/30/18 Diltiazem HCl [Diltiazem ER] 120 mg PO HS 01/11/17 01/30/18 Ibuprofen [Motrin] 800 mg PO Q6H PRN 01/11/17 01/30/18 Atorvastatin [Lipitor] 40 mg PO DAILY 08/20/17 01/30/18 Cetirizine HCl [Zyrtec] 10 mg PO HS 08/20/17 01/30/18 Ipratropium-Albuterol Nebulize 3 ml INHALATION RT-QID PRN 08/20/17 01/30/18 [Duoneb 0.5 mg-3 mg/3 ml Soln] Albuterol Nebulized [Ventolin 2.5 mg INHALATION RT-Q6H PRN 11/17/17 01/30/18 Nebulized] DULoxetine HCL [Cymbalta] 30 mg PO DAILY 11/17/17 01/30/18 DULoxetine HCL [Cymbalta] 60 mg PO DAILY 01/30/18 01/30/18 HYDROcodone/APAP 10-325MG [[place] 1 tab PO Q6HR PRN 01/30/18 01/30/18 10-325] Allergies Allergy/AdvReac Type Severity Reaction Status Date / Time meperidine HCl [From Demerol] Allergy Rash/Hives Verified 01/30/18 15:17 propoxyphene napsylate Allergy Dyspnea Verified 01/30/18 15:17 [From Darvocet-N] Review of Systems ROS Statement: Those systems with pertinent positive or pertinent negative responses have been documented in the HPI. ROS Other: All systems not noted in ROS Statement are negative. Past Medical History Past Medical History: COPD, Diabetes Mellitus, GERD/Reflux, Hyperlipidemia, Hypertension, Osteoarthritis (OA), Pneumonia, Thyroid Disorder Additional Past Medical History / Comment(s): MURMUR, UTI, GOITER, DIASTOLIC DYSFUNCTION,Scleraderma, has had trouble swallowing for past 6 months History of Any Multi-Drug Resistant Organisms: None Reported Past Surgical History: Appendectomy, Cholecystectomy, Heart Catheterization, Hysterectomy, Joint Replacement Additional Past Surgical History / Comment(s): RT KNEE REPLACEMENT, LT KNEE HAS SCREWS IN PLACE Past Anesthesia/Blood Transfusion Reactions: No Reported Reaction Additional Past Anesthesia/Blood Transfusion Reaction / Comment(s): CLAUSTERPHOBIC Past Psychological History: Anxiety Smoking Status: Former smoker Past Alcohol Use History: Occasional Past Drug Use History: None Reported - Past Family History Father Family Medical History: Cancer, Diabetes Mellitus Additional Family Medical History / Comment(s): AT AGE 61, CA throughout the body Mother Family Medical History: Cancer, Congestive Heart Failure (CHF), Diabetes Mellitus, Myocardial Infarction ([place]), Thyroid Disorder Additional Family Medical History / Comment(s): Uterine CA General Exam General appearance: alert, in no apparent distress Head exam: Present: atraumatic, normocephalic Eye exam: Present: normal appearance, PERRL, EOMI ENT exam: Present: normal exam, mucous membranes dry Neck exam: Present: normal inspection, tenderness, meningismus Respiratory exam: Present: decreased breath sounds. Absent: respiratory distress Cardiovascular Exam: Present: regular rate, normal rhythm GI/Abdominal exam: Present: soft. Absent: distended, tenderness, guarding Extremities exam: Present: normal inspection, normal capillary refill. Absent: pedal edema Neurological exam: Present: alert, oriented X3, CN II-XII intact, motor sensory deficit (Patient has right upper extremity drift and right lower extremity drift. NIH of 3. With mild ataxia in the right upper extremity) Psychiatric exam: Present: normal affect, normal mood Skin exam: Present: warm, dry, intact. Absent: cyanosis, diaphoretic Course Vital Signs 01/30/18 14:24 Temperature 97.4 F L Pulse Rate 74 Respiratory 18 Rate Blood Pressure 175/74 O2 Sat by Pulse 97 Oximetry - Reevaluation(s) Reevaluation #1: 01/30/18 15:45 Repeat NIH shows improvement of drift in right lower extremity. She has mild drift in the right upper extremity and improved ataxia. EKG Findings - EKG Comments: EKG Findings:: EKG: Normal sinus rhythm, low-voltage QRS rate of 83, [place] interval 154, QRS duration 84, QTC 451, no signs of ST segment elevation or depression Medical Decision Making - Medical Decision Making 53-year-old female presenting with worsening right upper extremity weakness. And head pressure, and lightheadedness. Patient has multiple medical problems including scleroderma, mitochondrial disease, neuromuscular respiratory failure and previous CVA. She follows with neurology at [facility]. On exam patient does have weakness in the right. She states this is worse from her baseline. 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 In my opinion patient is not a TPA candidate given her history and low NIH, as well as improving symptoms while in the emergency department. Head CT is obtained, this is negative for intracranial hemorrhage or mass effect. Chest x-ray negative for acute cardiopulmonary disease. CBC, and CMP are unremarkable. Given the patient's history she will be transferred to [facility] for further evaluation. Accepting physician is Dr. Garcia. - Lab Data Result diagrams: 01/30/18 14:20 01/30/18 14:20 Lab Results 01/30/18 01/30/18 01/30/18 Range/Units 14:20 14:20 14:20 WBC 9.3 (3.8-10.6) k/uL RBC 4.50 (3.80-5.40) m/uL Hgb 11.8 (11.4-16.0) gm/dL Hct 36.4 (34.0-46.0) % MCV 80.8 (80.0-100.0) fL MCH 26.3 (25.0-35.0) pg MCHC 32.5 (31.0-37.0) g/dL RDW 15.8 H (11.5-15.5) % Plt Count 357 (150-450) k/uL Neutrophils % 76 % Lymphocytes % 15 % Monocytes % 4 % Eosinophils % 2 % Basophils % 0 % Neutrophils # 7.1 (1.3-7.7) k/uL Lymphocytes # 1.4 (1.0-4.8) k/uL Monocytes # 0.4 (0-1.0) k/uL Eosinophils # 0.2 (0-0.7) k/uL Basophils # 0.0 (0-0.2) k/uL PT (9.0-12.0) sec INR (<1.2) APTT (22.0-30.0) sec Sodium 136 L (137-145) mmol/L Potassium 4.5 (3.5-5.1) mmol/L Chloride 101 (98-107) mmol/L Carbon Dioxide 23 (22-30) mmol/L Anion Gap 12 mmol/L BUN 18 H (7-17) mg/dL Creatinine 0.88 (0.52-1.04) mg/dL Est GFR (CKD-EPI)AfAm 87 (>60 ml/min/1.73 sqM) Est GFR (CKD-EPI)NonAf 75 (>60 ml/min/1.73 sqM) Glucose 107 H (74-99) mg/dL Calcium 9.4 (8.4-10.2) mg/dL Total Bilirubin 0.4 (0.2-1.3) mg/dL AST 26 (14-36) U/L ALT 41 (9-52) U/L Alkaline Phosphatase 97 (38-126) U/L Total Creatine Kinase 57 (30-135) U/L CK-MB (CK-2) 0.4 (0.0-2.4) ng/mL CK-MB (CK-2) Rel Index 0.7 Troponin I <0.012 (0.000-0.034) ng/mL Total Protein 6.2 L (6.3-8.2) g/dL Albumin 3.7 (3.5-5.0) g/dL Urine Color Urine Appearance (Clear) Urine pH (5.0-8.0) Ur Specific [place] (1.001-1.035) Urine Protein (Negative) Urine Glucose (UA) (Negative) Urine Ketones (Negative) Urine Blood (Negative) Urine Nitrite (Negative) Urine Bilirubin (Negative) Urine Urobilinogen (<2.0) mg/dL Ur Leukocyte Esterase (Negative) 01/30/18 01/30/18 Range/Units 14:20 14:20 WBC (3.8-10.6) k/uL RBC (3.80-5.40) m/uL Hgb (11.4-16.0) gm/dL Hct (34.0-46.0) % MCV (80.0-100.0) fL MCH (25.0-35.0) pg MCHC (31.0-37.0) g/dL RDW (11.5-15.5) % Plt Count (150-450) k/uL Neutrophils % % Lymphocytes % % Monocytes % % Eosinophils % % Basophils % % Neutrophils # (1.3-7.7) k/uL Lymphocytes # (1.0-4.8) k/uL Monocytes # (0-1.0) k/uL Eosinophils # (0-0.7) k/uL Basophils # (0-0.2) k/uL PT 9.5 (9.0-12.0) sec INR 1.0 (<1.2) APTT 21.8 L (22.0-30.0) sec Sodium (137-145) mmol/L Potassium (3.5-5.1) mmol/L Chloride (98-107) mmol/L Carbon Dioxide (22-30) mmol/L Anion Gap mmol/L BUN (7-17) mg/dL Creatinine (0.52-1.04) mg/dL Est GFR (CKD-EPI)AfAm (>60 ml/min/1.73 sqM) Est GFR (CKD-EPI)NonAf (>60 ml/min/1.73 sqM) Glucose (74-99) mg/dL Calcium (8.4-10.2) mg/dL Total Bilirubin (0.2-1.3) mg/dL AST (14-36) U/L ALT (9-52) U/L Alkaline Phosphatase (38-126) U/L Total Creatine Kinase (30-135) U/L CK-MB (CK-2) (0.0-2.4) ng/mL CK-MB (CK-2) Rel Index Troponin I (0.000-0.034) ng/mL Total Protein (6.3-8.2) g/dL Albumin (3.5-5.0) g/dL Urine Color Light Yellow Urine Appearance Clear (Clear) Urine pH 5.5 (5.0-8.0) Ur Specific [place] 1.004 (1.001-1.035) Urine Protein Negative (Negative) Urine Glucose (UA) Negative (Negative) Urine Ketones Negative (Negative) Urine Blood Negative (Negative) Urine Nitrite Negative (Negative) Urine Bilirubin Negative (Negative) Urine Urobilinogen <2.0 (<2.0) mg/dL Ur Leukocyte Esterase Negative (Negative) Disposition Clinical Impression: Right arm weakness Disposition: OTHER INSTITUTION NOT DEFINED Condition: Stable Is patient prescribed a controlled substance at d/c from ED?: No Referrals: Murray Braun DO [Primary Care Provider] - 1-2 days Decision to Admit Reason: Admit from EC Decision Date: 01/30/18 Decision Time: 15:59 - Out of Hospital Transfer - Req. Specs Out of Hospital Transfer - Requested Specifics: Other Emergency Center ( Transfer to [facility])
[2018-01-30 14:50] LABS: Basophils % (A) 0 %; Eosinophils # (A) 0.2 k/uL (0-0.7); Eosinophils % (A) 2 %; HCT 36.4 % (34.0-46.0); HGB 11.8 gm/dL (11.4-16.0); Lymphocytes # (A) 1.4 k/uL (1.0-4.8); Lymphocytes % (A) 15 %; MCH 26.3 pg (25.0-35.0); MCHC 32.5 g/dL (31.0-37.0); MCV 80.8 fL (80.0-100.0); Mean Platelet Volume 6.1; Monocytes # (A) 0.4 k/uL (0-1.0); Monocytes % (A) 4 %; Neutrophils # (A) 7.1 k/uL (1.3-7.7); Neutrophils % (A) 76 %; Platelet Count 357 k/uL (150-450); RDW 15.8 % (11.5-15.5); WBC 9.3 k/uL (3.8-10.6)
[2018-01-30 15:02] LABS: Appearance,Urine Clear (Clear); Bilirubin,Urine Negative (Negative); Blood,Urine Negative (Negative); Color,Urine Light Yellow; Glucose,Urine (UA) Negative (Negative); Ketones,Urine Negative (Negative); Leukocyte Esterase,Urine Negative (Negative); Nitrite,Urine Negative (Negative); PH, Urine 5.5 (5.0-8.0); Protein,Urine Negative (Negative); Specific Gravity,Urine 1.004 (1.001-1.035); Urobilinogen,Urine <2.0 mg/dL (<2.0)
[2018-01-30 15:03] LABS: Albumin 3.7 g/dL (3.5-5.0); Calcium 9.4 mg/dL (8.4-10.2); Potassium 4.5 mmol/L (3.5-5.1); Total Bilirubin 0.4 mg/dL (0.2-1.3); Total Protein 6.2 g/dL (6.3-8.2)
--- NOTE | 2018-01-30 15:09 | CT ---
EXAMINATION TYPE: CT brain wo con DATE OF EXAM: 01/30/2018 COMPARISON: Prior CT brain 08/20/2017 HISTORY: Dizziness and right sided weakness. CT DLP: 1067.8 mGycm Automated exposure control for dose reduction was used. Helical acquisition through the brain. FINDINGS: The calvarium is intact. Minimal inflammatory change noted in the maxillary sinus on the left as on p rior. There is no hemorrhage or hydrocephalus. Brain density is maintained. No mass effect. IMPRESSION: NO ACUTE ABNORMALITY IS EVIDENT
[2018-01-30 15:12] LABS: Creatine Kinase 57 U/L (30-135)
[2018-01-30 15:16] LABS: Prothrombin Time 9.5 sec (9.0-12.0)
--- NOTE | 2018-01-30 15:17 | XR ---
EXAMINATION TYPE: XR chest 2V DATE OF EXAM: 01/30/2018 COMPARISON: Prior chest x-ray 11/17/2017 HISTORY: Altered mental status TECHNIQUE: Frontal and lateral views of the chest are obtained. FINDINGS: There is no focal air space opacity, pleural effusion, or pneumothorax seen. The cardiac silhouette size is unchanged. Surgical clips are present in the right upper quadrant. There are over lying cardiac leads. Elevation of the right hemidiaphragm is stable. The osseous structures are intac t. IMPRESSION: No acute cardiopulmonary process.
[2018-01-30 15:20] LABS: Partial Thromboplastin Time 21.8 sec (22.0-30.0)
[2018-01-30 15:24] LABS: Creatine Kinase MB 0.4 ng/mL (0.0-2.4); Troponin I <0.012 ng/mL (0.000-0.034)
[2018-01-30] MEDS ORDERED: ASPIRIN 325 MG TAB PO STA (15:33)
[2018-01-30] MEDS ORDERED: KETOROLAC 30 MG/ML 1 ML VIAL IVP STA (15:33)
[2018-01-30] MEDS ORDERED: GABAPENTIN 400 MG CAP PO STA (15:34)
[2018-01-30 16:56] VITALS: BP 161/57; PULSE 89
[2018-01-30 16:57] VITALS: TEMP 98
== END 2018-01-30 17:04 | disposition other institution (70) ==
LOC: EC 14:12
DX: R53.1 Weakness (principal); R42 Dizziness and giddiness; J44.9 Chronic obstructive pulmonary disease, unspecified; E11.9 Type 2 diabetes mellitus without complications; K21.9 Gastro-esophageal reflux disease without esophagitis; E78.5 Hyperlipidemia, unspecified; I10 Essential (primary) hypertension; M19.90 Unspecified osteoarthritis, unspecified site; E07.9 Disorder of thyroid, unspecified; F41.9 Anxiety disorder, unspecified; Z87.891 Personal history of nicotine dependence; Z86.73 Personal history of transient ischemic attack (TIA), and cerebral infarction without residual deficits; Z90.49 Acquired absence of other specified parts of digestive tract; Z90.710 Acquired absence of both cervix and uterus; Z96.651 Presence of right artificial knee joint; Z98.890 Other specified postprocedural states; Z79.51 Long term (current) use of inhaled steroids; Z79.82 Long term (current) use of aspirin; Z79.84 Long term (current) use of oral hypoglycemic drugs; Z79.899 Other long term (current) drug therapy; Z88.5 Allergy status to narcotic agent
CPT/HCPCS: 36415; 93005; 80053; 82550; 82553; 84484; 85025; 85610; 85730; 81003; 71046; 70450; 99285; 96374; 96361; J1885

== ENCOUNTER → 2018-03-13 | Outpatient (CLI) | payer OTHER ==
--- NOTE | 2018-03-14 08:23 | MM ---
Reason for exam: clinical finding. Last mammogram was performed 1 year and 1 month ago. History: Patient is postmenopausal. Family history of breast cancer in paternal aunt at age 45 and breast cancer in paternal grandmother at age 60. Taking estrogen for 17 years beginning at age 35. Indicated problem(s): pain in both breasts. Physical Findings: Nurse did not find any significant physical abnormalities on exam. MG Diagnostic Mammo w CAD [place] Bilateral CC and MLO view(s) were taken. Prior study comparison: February 11, 2017, bilateral MG screening mammo w CAD. February 11, 2016, bilateral MG screening mammo w CAD. The breast tissue is almost entirely fat. There is chronic nodularity in the right breast. No significant new findings when compared with previous films. These results were verbally communicated with the patient and result sheet given to the patient on 03/13/18. ASSESSMENT: Negative, BI-RAD 1 RECOMMENDATION: Routine screening mammogram of both breasts in 1 year. Manage on a clinical basis with regard to bilateral breast pain.
== END | disposition home or self-care (01) ==
LOC: RADMAMWWP 15:18
PROVIDERS: ATTEND Family Medicine
DX: N64.4 Mastodynia (principal)
CPT/HCPCS: 77066

== ENCOUNTER → 2019-03-22 | Outpatient (CLI) | payer MEDICARE, OTHER ==
--- NOTE | 2019-03-23 09:04 | MM ---
Reason for exam: screening (asymptomatic). Last mammogram was performed 1 year ago. History: Patient is postmenopausal. Family history of breast cancer in paternal aunt at age 45 and breast cancer in paternal grandmother at age 60. Taking estrogen for 17 years beginning at age 35. Physical Findings: A clinical breast exam by your physician is recommended on an annual basis and results should be correlated with mammographic findings. MG 3D Screening Mammo W/Cad Bilateral CC and MLO view(s) were taken. Prior study comparison: March 13, 2018, bilateral MG diagnostic mammo w CAD [facility]. February 11, 2017, bilateral MG screening mammo w CAD. There are scattered fibroglandular densities. No suspicious abnormality. No significant changes when compared with prior studies. ASSESSMENT: Negative, BI-RAD 1 RECOMMENDATION: Routine screening mammogram of both breasts in 1 year.
== END | disposition home or self-care (01) ==
LOC: RADMAMWWP 15:58
PROVIDERS: ATTEND Family Medicine
DX: Z12.31 Encounter for screening mammogram for malignant neoplasm of breast (principal)
CPT/HCPCS: 77063; 77067

== ENCOUNTER 2019-08-29 16:18 | Inpatient (IN) | payer MEDICARE, OTHER ==
[2019-08-29] MEDS ORDERED: IPRATROPIUM 0.5 MG/2.5 ML NEBU INHALATION STA (16:56)
[2019-08-29] MEDS ORDERED: ALBUTEROL NEBULIZED 2.5 MG/3 ML INHALATION STA (16:56)
--- NOTE | 2019-08-29 17:00 | ED ---
General Adult HPI - General Chief complaint: Shortness of Breath Stated complaint: PENNIE Time Seen by Provider: 08/29/19 16:52 Source: patient, RN notes reviewed, old records reviewed Mode of arrival: wheelchair Limitations: no limitations - History of Present Illness Initial comments: 54-year-old female history of COPD and mitochondrial disease presenting with dyspnea. Patient has had a mild nonproductive cough for several days. She is maintained on a home ventilator which she uses for assistance as well as home oxygen. She follows with pulmonology and follows with [facility]. Patient reports some mild central chest pain which she describes as a tightness. She has no history of CAD, no history of CHF. She has a history of COPD. She denies fever or chills. Denies lower extremity pain or swelling. - Related Data Home Medications Medication Instructions Recorded Confirmed Estradiol 1 mg PO HS 07/16/14 01/30/18 Isosorbide Mononitrate ER [Imdur] 60 mg PO HS 07/16/14 01/30/18 metFORMIN HCL 500 mg PO TID 07/16/14 01/30/18 Aspirin [Adult Low Dose Aspirin EC] 81 mg PO DAILY 10/20/15 01/30/18 Budesonide [Pulmicort] 0.5 mg INHALATION RT-BID 10/20/15 01/30/18 Montelukast [Singulair] 10 mg PO HS 10/20/15 01/30/18 Pantoprazole [Protonix] 80 mg PO DAILY 10/20/15 01/30/18 ALPRAZolam [Xanax] 0.25 mg PO TID PRN 02/27/16 01/30/18 Gabapentin [Neurontin] 800 mg PO TID 09/07/16 01/30/18 Hydroxychloroquine Sulfate 200 mg PO BID 09/07/16 01/30/18 [Plaquenil] Latanoprost Ophth [Xalatan 0.005%] 1 drops BOTH EYES HS 09/07/16 01/30/18 Diltiazem HCl [Diltiazem ER] 120 mg PO HS 01/11/17 01/30/18 Ibuprofen [Motrin] 800 mg PO Q6H PRN 01/11/17 01/30/18 Atorvastatin [Lipitor] 40 mg PO DAILY 08/20/17 01/30/18 Cetirizine HCl [Zyrtec] 10 mg PO HS 08/20/17 01/30/18 Ipratropium-Albuterol Nebulize 3 ml INHALATION RT-QID PRN 08/20/17 01/30/18 [Duoneb 0.5 mg-3 mg/3 ml Soln] Albuterol Nebulized [Ventolin 2.5 mg INHALATION RT-Q6H PRN 11/17/17 01/30/18 Nebulized] DULoxetine HCL [Cymbalta] 30 mg PO DAILY 11/17/17 01/30/18 DULoxetine HCL [Cymbalta] 60 mg PO DAILY 01/30/18 01/30/18 HYDROcodone/APAP 10-325MG [[place] 1 tab PO Q6HR PRN 01/30/18 01/30/18 10-325] Allergies Allergy/AdvReac Type Severity Reaction Status Date / Time meperidine HCl [From Demerol] Allergy Rash/Hives Verified 08/29/19 16:27 propoxyphene napsylate Allergy Dyspnea Verified 08/29/19 16:27 [From Darvocet-N] Review of Systems ROS Statement: Those systems with pertinent positive or pertinent negative responses have been documented in the HPI. ROS Other: All systems not noted in ROS Statement are negative. Past Medical History Past Medical History: COPD, Diabetes Mellitus, GERD/Reflux, Hyperlipidemia, Hypertension, Osteoarthritis (OA), Pneumonia, Thyroid Disorder Additional Past Medical History / Comment(s): MURMUR, UTI, GOITER, DIASTOLIC DYSFUNCTION,Scleraderma, has had trouble swallowing for past 6 months, mitochondrial myopathy, chronic pulmonary failure, kidney disease stage III History of Any Multi-Drug Resistant Organisms: None Reported Past Surgical History: Appendectomy, Cholecystectomy, Heart Catheterization, Hysterectomy, Joint Replacement Additional Past Surgical History / Comment(s): RT KNEE REPLACEMENT, LT KNEE HAS SCREWS IN PLACE Past Anesthesia/Blood Transfusion Reactions: No Reported Reaction Additional Past Anesthesia/Blood Transfusion Reaction / Comment(s): CLAUSTERPHOBIC Past Psychological History: Anxiety Smoking Status: Former smoker Past Alcohol Use History: None Reported, Occasional Past Drug Use History: None Reported - Past Family History Father Family Medical History: Cancer, Diabetes Mellitus Additional Family Medical History / Comment(s): AT AGE 61, CA throughout the body Mother Family Medical History: Cancer, Congestive Heart Failure (CHF), Diabetes Mellitus, Myocardial Infarction ([place]), Thyroid Disorder Additional Family Medical History / Comment(s): Uterine CA General Exam Limitations: no limitations General appearance: alert, in no apparent distress Head exam: Present: atraumatic, normocephalic Eye exam: Present: normal appearance, PERRL ENT exam: Present: normal exam Neck exam: Present: normal inspection. Absent: tenderness, meningismus Respiratory exam: Present: respiratory distress, decreased breath sounds. Absent: wheezes, rhonchi, stridor Cardiovascular Exam: Present: regular rate, normal rhythm GI/Abdominal exam: Present: soft. Absent: distended, tenderness Extremities exam: Present: normal inspection, normal capillary refill. Absent: pedal edema, calf tenderness Neurological exam: Present: alert, oriented X3, CN II-XII intact. Absent: motor sensory deficit Psychiatric exam: Present: normal affect, normal mood Skin exam: Present: warm, dry, intact. Absent: cyanosis, diaphoretic Course Vital Signs 08/29/19 08/29/19 08/29/19 16:27 17:21 17:35 Temperature 97.8 F Pulse Rate 94 87 89 Respiratory 20 20 20 Rate Blood Pressure 139/75 O2 Sat by Pulse 100 Oximetry 08/29/19 18:52 Temperature Pulse Rate 101 H Respiratory 18 Rate Blood Pressure 142/62 O2 Sat by Pulse 98 Oximetry EKG Findings - EKG Comments: EKG Findings:: EKG: Normal sinus rhythm, artifact in V3 and V4, no definitive signs of ischemia, rate of 91, NV interval 162, QRS duration 76, QTC 435 Medical Decision Making - Lab Data Result diagrams: 08/29/19 16:45 08/29/19 16:45 Lab Results 08/29/19 08/29/19 08/29/19 Range/Units 16:45 16:45 16:45 WBC 10.4 (3.8-10.6) k/uL RBC 4.91 (3.80-5.40) m/uL Hgb 12.7 (11.4-16.0) gm/dL Hct 38.8 (34.0-46.0) % MCV 79.1 L (80.0-100.0) fL MCH 25.8 (25.0-35.0) pg MCHC 32.7 (31.0-37.0) g/dL RDW 14.6 (11.5-15.5) % Plt Count 360 (150-450) k/uL Neutrophils % 79 % Lymphocytes % 13 % Monocytes % 3 % Eosinophils % 2 % Basophils % 1 % Neutrophils # 8.3 H (1.3-7.7) k/uL Lymphocytes # 1.4 (1.0-4.8) k/uL Monocytes # 0.3 (0-1.0) k/uL Eosinophils # 0.2 (0-0.7) k/uL Basophils # 0.1 (0-0.2) k/uL Hypochromasia Slight PT (9.0-12.0) sec INR (<1.2) APTT (22.0-30.0) sec Sodium 138 (137-145) mmol/L Potassium 4.4 (3.5-5.1) mmol/L Chloride 102 (98-107) mmol/L Carbon Dioxide 25 (22-30) mmol/L Anion Gap 11 mmol/L BUN 18 H (7-17) mg/dL Creatinine 0.87 (0.52-1.04) mg/dL Est GFR (CKD-EPI)AfAm 87 (>60 ml/min/1.73 sqM) Est GFR (CKD-EPI)NonAf 75 (>60 ml/min/1.73 sqM) Glucose 172 H (74-99) mg/dL Plasma Lactic Acid Carlos 1.9 (0.7-2.0) mmol/L Calcium 9.7 (8.4-10.2) mg/dL Total Bilirubin 0.4 (0.2-1.3) mg/dL AST 35 (14-36) U/L ALT 64 H (4-34) U/L Alkaline Phosphatase 171 H (38-126) U/L Troponin I (0.000-0.034) ng/mL NT-Pro-B Natriuret Pep pg/mL Total Protein 7.5 (6.3-8.2) g/dL Albumin 4.5 (3.5-5.0) g/dL 08/29/19 08/29/19 08/29/19 Range/Units 16:45 16:45 16:45 WBC (3.8-10.6) k/uL RBC (3.80-5.40) m/uL Hgb (11.4-16.0) gm/dL Hct (34.0-46.0) % MCV (80.0-100.0) fL MCH (25.0-35.0) pg MCHC (31.0-37.0) g/dL RDW (11.5-15.5) % Plt Count (150-450) k/uL Neutrophils % % Lymphocytes % % Monocytes % % Eosinophils % % Basophils % % Neutrophils # (1.3-7.7) k/uL Lymphocytes # (1.0-4.8) k/uL Monocytes # (0-1.0) k/uL Eosinophils # (0-0.7) k/uL Basophils # (0-0.2) k/uL Hypochromasia PT 9.4 (9.0-12.0) sec INR 0.9 (<1.2) APTT 21.5 L (22.0-30.0) sec Sodium (137-145) mmol/L Potassium (3.5-5.1) mmol/L Chloride (98-107) mmol/L Carbon Dioxide (22-30) mmol/L Anion Gap mmol/L BUN (7-17) mg/dL Creatinine (0.52-1.04) mg/dL Est GFR (CKD-EPI)AfAm (>60 ml/min/1.73 sqM) Est GFR (CKD-EPI)NonAf (>60 ml/min/1.73 sqM) Glucose (74-99) mg/dL Plasma Lactic Acid Carlos (0.7-2.0) mmol/L Calcium (8.4-10.2) mg/dL Total Bilirubin (0.2-1.3) mg/dL AST (14-36) U/L ALT (4-34) U/L Alkaline Phosphatase (38-126) U/L Troponin I <0.012 (0.000-0.034) ng/mL NT-Pro-B Natriuret Pep 38 pg/mL Total Protein (6.3-8.2) g/dL Albumin (3.5-5.0) g/dL Disposition Clinical Impression: Chest pain, Chronic obstructive pulmonary disease with acute exacerbation, Dysp gabriel Disposition: ADMITTED IP TO THIS HOSP Condition: Stable Is patient prescribed a controlled substance at d/c from ED?: No Referrals: Murray Braun DO [Primary Care Provider] - 1-2 days Decision to Admit Reason: Admit from EC Decision Date: 08/29/19 Decision Time: 19:05
[2019-08-29 17:09] LABS: Basophils # (A) 0.1 k/uL (0-0.2); Basophils % (A) 1 %; Eosinophils # (A) 0.2 k/uL (0-0.7); Eosinophils % (A) 2 %; HCT 38.8 % (34.0-46.0); HGB 12.7 gm/dL (11.4-16.0); Hypochromasia Slight; Lymphocytes # (A) 1.4 k/uL (1.0-4.8); Lymphocytes % (A) 13 %; MCH 25.8 pg (25.0-35.0); MCHC 32.7 g/dL (31.0-37.0); MCV 79.1 fL (80.0-100.0); Mean Platelet Volume 6.7; Monocytes # (A) 0.3 k/uL (0-1.0); Monocytes % (A) 3 %; Neutrophils # (A) 8.3 k/uL (1.3-7.7); Neutrophils % (A) 79 %; Platelet Count 360 k/uL (150-450); RBC 4.91 m/uL (3.80-5.40); RDW 14.6 % (11.5-15.5); WBC 10.4 k/uL (3.8-10.6)
[2019-08-29 17:31] LABS: Albumin 4.5 g/dL (3.5-5.0); Calcium 9.7 mg/dL (8.4-10.2); Potassium 4.4 mmol/L (3.5-5.1); Total Bilirubin 0.4 mg/dL (0.2-1.3); Total Protein 7.5 g/dL (6.3-8.2)
[2019-08-29 17:32] LABS: INR 0.9 (<1.2); Prothrombin Time 9.4 sec (9.0-12.0)
[2019-08-29 17:43] LABS: Partial Thromboplastin Time 21.5 sec (22.0-30.0)
--- NOTE | 2019-08-29 18:05 | XR ---
EXAMINATION TYPE: XR chest 1V portable DATE OF EXAM: 08/29/2019 COMPARISON: 01/30/2018 HISTORY: Altered mental status. Difficulty breathing TECHNIQUE: FINDINGS: There is poor inspiration. There is no definite pleural effusion. There is no heart failure . Heart size is probably normal. There are chest leads. IMPRESSION: Exam limited due to patient size. No definite acute lung disease. Normal heart. No change .
[2019-08-29] MEDS ORDERED: HYDROcodone/APAP 10-325MG 1 EACH TAB PO ONE (18:55)
[2019-08-29] MEDS ORDERED: IPRATROPIUM-ALBUTEROL 3 ML NEB INHALATION PRN (18:59)
[2019-08-29] MEDS ORDERED: ALPRAZolam 0.25 MG TAB PO PRN (19:00)
[2019-08-29] MEDS ORDERED: ASPIRIN 325 MG TAB PO STA (19:02)
[2019-08-29] MEDS: IPRATROPIUM-ALBUTEROL 3 ML NEB INHALATION SCH (20:22)
[2019-08-29 20:51] LABS: Glucose,Whole Blood 204 mg/dL (75-99)
[2019-08-29] MEDS ORDERED: DILTIAZEM CD 120 MG CAP.ER.24H PO SCH (21:00)
[2019-08-29] MEDS: INSULIN ASPART (NovoLOG) 100 UNIT/ML VIAL SQ SCH (21:28)
[2019-08-29] MEDS: LATANOPROST 0.005% OPHTH DROPS 2.5 ML BTL BOTH EYES SCH (21:28)
[2019-08-29] MEDS: GABAPENTIN 400 MG CAP PO SCH (21:29)
[2019-08-29] MEDS: HYDROXYCHLOROQUINE SULFATE 200 MG TAB PO SCH (21:29)
[2019-08-29] MEDS: PANTOPRAZOLE 40 MG TABLET PO SCH (21:29)
[2019-08-29] MEDS: LORATADINE 10 MG TAB PO SCH (21:29)
[2019-08-29] MEDS: MONTELUKAST 10 MG TAB PO SCH (21:29)
[2019-08-29] MEDS: DILTIAZEM CD 240 MG CAP.ER.24H PO SCH (21:29)
[2019-08-29] MEDS: ISOSORBIDE MONONITRATE ER 60 MG TAB.ER.24H PO SCH (21:29)
[2019-08-29] MEDS: DULoxetine HCL 60 MG CAPSULE.DR PO SCH (21:29)
[2019-08-29] MEDS: metFORMIN 500 MG TAB PO SCH (21:29)
[2019-08-30 06:22] LABS: Glucose,Whole Blood 169 mg/dL (75-99)
[2019-08-30] MEDS: INSULIN ASPART (NovoLOG) 100 UNIT/ML VIAL SQ SCH ×4 (06:44→20:51)
[2019-08-30] MEDS: PANTOPRAZOLE 40 MG TABLET PO SCH ×2 (06:44→16:33)
[2019-08-30] MEDS: IPRATROPIUM-ALBUTEROL 3 ML NEB INHALATION SCH ×4 (07:29→20:16)
[2019-08-30] MEDS: GABAPENTIN 400 MG CAP PO SCH ×3 (08:53→20:51)
[2019-08-30] MEDS: ATORVASTATIN 40 MG TAB PO SCH (08:53)
[2019-08-30] MEDS: ASPIRIN 81 MG PO SCH (08:53)
[2019-08-30] MEDS: AZITHROMYCIN 500 MG TAB PO SCH (08:53)
[2019-08-30] MEDS: FUROSEMIDE 20 MG TAB PO SCH (08:53)
[2019-08-30] MEDS: FLUTICASONE 50MCG/SPRAY NASAL 16GM EA NOSTRIL SCH (08:53)
[2019-08-30] MEDS: HYDROXYCHLOROQUINE SULFATE 200 MG TAB PO SCH ×2 (08:54→20:52)
[2019-08-30] MEDS: metFORMIN 500 MG TAB PO SCH ×3 (08:54→20:52)
[2019-08-30] MEDS: HYDROcodone/APAP 10-325MG 1 EACH TAB PO PRN ×2 (08:54→16:33)
--- NOTE | 2019-08-30 12:48 | ECHOF ---
Referral Reason: MEASUREMENTS -------- HEIGHT: 165.1 cm WEIGHT: 102.1 kg BP: 115/56 RVIDd: 2.7 cm (< 3.3) IVSd: 1.3 cm (0.6 - 1.1) LVIDd: 4.1 cm (3.9 - 5.3) LVPWd: 1.3 cm (0.6 - 1.1) IVSs: 2.0 cm LVIDs: 2.7 cm LVPWs: 1.5 cm LA Diam: 3.5 cm (2.7 - 3.8) LAESV Index (A-L): 14.10 ml/m Ao Diam: 2.6 cm (2.0 - 3.7) AV Cusp: 1.7 cm (1.5 - 2.6) MV EXCURSION: 15.944 mm (> 18.000) MV EF SLOPE: 49 mm/s (70 - 150) EPSS: 0.5 cm MV E Federico: 0.75 m/s MV DecT: 256 ms MV A Federico: 1.09 m/s MV E/A Ratio: 0.69 RAP: 5.00 mmHg RVSP: 29.49 mmHg FINDINGS -------- Sinus rhythm. This was a technically difficult study with suboptimal views. The left ventricular size is normal. There is mild concentric left ventricular hypertrophy. Overa ll left ventricular systolic function is normal with, an EF between 60 - 65 %. The right ventricle is normal in size. Normal LA size by volume 22+/-6 ml/m2. The right atrium is normal in size. 5 ml of Lumason was utilized for enhancement of images. Interatrial and interventricular septum intact. The aortic valve is trileaflet and appears structurally normal. There is trace mitral regurgitation. Mild tricuspid regurgitation present. Right ventricular systolic pressure is normal at < 35 mmHg. The pulmonic valve was not well visualized. The aortic root size is normal. IVC Not well visulized. There is no pericardial effusion. CONCLUSIONS -------- 1. Sinus rhythm. 2. This was a technically difficult study with suboptimal views. 3. The left ventricular size is normal. 4. There is mild concentric left ventricular hypertrophy. 5. Overall left ventricular systolic function is normal with, an EF between 60 - 65 %. 6. The right ventricle is normal in size. 7. Normal LA size by volume 22+/-6 ml/m2. 8. The right atrium is normal in size. 9. 5 ml of Lumason was utilized for enhancement of images. 10. Interatrial and interventricular septum intact. 11. The aortic valve is trileaflet and appears structurally normal. 12. There is trace mitral regurgitation. 13. Mild tricuspid regurgitation present. 14. Right ventricular systolic pressure is normal at < 35 mmHg. 15. The pulmonic valve was not well visualized. 16. The aortic root size is normal. 17. IVC Not well visulized. 18. There is no pericardial effusion. OVER[employer] CLE[employer]ER MAINTAINER: Gretta Morris RDCS
[2019-08-30 12:57] LABS: Glucose,Whole Blood 169 mg/dL (75-99)
--- NOTE | 2019-08-30 14:50 | P.CRDCN ---
History of Present Illness History of present illness: This is Fidelia Sanchez PA-C dictating a consult on this patient The patient was interviewed and examined by me as well as by Dr. Grubbs Case discussed with Dr. 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 Atypical chest discomfort, mild tenderness to palpation on exam, troponins negative, no acute changes noted on EKG Mitochondrial myopathy Pulmonary hypertension Diabetes Dyslipidemia Hypertension PLAN: Repeat echocardiogram has been ordered, follow up on results Continue current cardiac medication regimen Repeat lipid panel, consider cutting back on atorvastatin given her history of mitochondrial disease Consider repeating stress test either as an inpatient or as an outpatient once her breathing improves HPI Patient is a 54-year-old female with a past medical history significant for mitochondrial myopathy, COPD, scleroderma, pulmonary hypertension, diabetes, hypertension, and dyslipidemia who presented with complaints of dyspnea. She follows with Dr. Mendez in the office. At the time that the patient was seen and examined she was wearing BiPAP so history was difficult to obtain. He states she has been progressively more short of breath as well as a cough. She has also had intermittent chest tightness. He presented to the emergency department for further evaluation. Chest x-ray showed no definite pleural effusion and no signs of heart failure. EKG showed sinus mechanism with no definite ST or T- wave abnormalities. Troponins have been negative 2. Patient was admitted for treatment of COPD exacerbation and started on BiPAP. Patient seen and examined resting in bed, remains on BiPAP. States her breathing has improved somewhat but she is still short of breath. She continues to admission chest discomfort. No dizziness or palpitations. ROS: No fevers, chills or rigors, Positive for cough, no nausea, vomiting or diarrhea, no hematuria, dysuria, Positive for muscle aches no strokes or seizures, no skin lesions. EXAMINATION: Patient is afebrile, pulse in the 80s, respirations 16, blood pressure 141/66, oxygen saturation 98 percent Patient seen and examined in bed, on BiPAP Mild tenderness to palpation under the left breast over the rib cage to the sternum Breath sounds bilaterally Heart is regular, no audible murmurs No lower extremity edema REVIEW OF LABS, ECG & MEDICAL DATA WBC 10.4, hemoglobin 12.7, platelets 360, potassium 4.4, BUN 18, creatinine 0.87, ALT elevated at 64, alkaline phosphatase elevated at 171 BNP 38 Troponin negative 2 Previous cath in 2013 showed normal coronary arteries Previous echocardiogram in June 2019 showed Past Medical History Past Medical History: COPD, Diabetes Mellitus, GERD/Reflux, Hyperlipidemia, Hypertension, Osteoarthritis (OA), Pneumonia, Thyroid Disorder Additional Past Medical History / Comment(s): MURMUR, UTI, GOITER, DIASTOLIC DYSFUNCTION,Scleraderma, has had trouble swallowing for past 6 months, mitochondrial myopathy, chronic pulmonary failure, kidney disease stage III History of Any Multi-Drug Resistant Organisms: None Reported Past Surgical History: Appendectomy, Cholecystectomy, Heart Catheterization, Hysterectomy, Joint Replacement Additional Past Surgical History / Comment(s): RT KNEE REPLACEMENT, LT KNEE HAS SCREWS IN PLACE Past Anesthesia/Blood Transfusion Reactions: No Reported Reaction Additional Past Anesthesia/Blood Transfusion Reaction / Comment(s): CLAUSTERPHOBIC Past Psychological History: Anxiety Smoking Status: Former smoker Past Alcohol Use History: None Reported, Occasional Additional Past Alcohol Use History / Comment(s): STARTED SMOKING AT AGE 11, SMOKED 2 PPD THEN QUIT 1996 Past Drug Use History: None Reported - Past Family History Father Family Medical History: Cancer, Diabetes Mellitus Additional Family Medical History / Comment(s): AT AGE 61, CA throughout the body Mother Family Medical History: Cancer, Congestive Heart Failure (CHF), Diabetes Mellitus, Myocardial Infarction ([place]), Thyroid Disorder Additional Family Medical History / Comment(s): Uterine CA Medications and Allergies Home Medications Medication Instructions Recorded Confirmed Type Isosorbide Mononitrate ER [Imdur] 60 mg PO HS 07/16/14 08/29/19 History metFORMIN HCL 1,000 mg PO TID 07/16/14 08/29/19 History Aspirin [Adult Low Dose Aspirin EC] 81 mg PO DAILY 10/20/15 08/29/19 History Montelukast [Singulair] 10 mg PO HS 10/20/15 08/29/19 History Pantoprazole [Protonix] 40 mg PO BID 10/20/15 08/29/19 History ALPRAZolam [Xanax] 0.25 mg PO BID PRN 02/27/16 08/29/19 History Gabapentin [Neurontin] 800 mg PO TID 09/07/16 08/29/19 History Hydroxychloroquine Sulfate 200 mg PO BID 09/07/16 08/29/19 History [Plaquenil] Latanoprost Ophth [Xalatan 0.005%] 1 drop BOTH EYES HS 09/07/16 08/29/19 History Ibuprofen [Motrin] 800 mg PO Q8H PRN 01/11/17 08/29/19 History Atorvastatin [Lipitor] 40 mg PO DAILY 08/20/17 08/29/19 History Cetirizine HCl [Zyrtec] 10 mg PO HS 08/20/17 08/29/19 History Ipratropium-Albuterol Nebulize 3 ml INHALATION RT-QID 08/20/17 08/29/19 History [Duoneb 0.5 mg-3 mg/3 ml Soln] DULoxetine HCL [Cymbalta] 120 mg PO HS 01/30/18 08/29/19 History HYDROcodone/APAP 10-325MG [[place] 1 tab PO Q4H PRN 01/30/18 08/29/19 History 10-325] Budesonide [Pulmicort Flexhaler] 2 puff INHALATION RT-BID PRN 08/29/19 08/29/19 History Diltiazem HCl [Diltiazem HCl 24Hr 240 mg PO HS 08/29/19 08/29/19 History ER] Fluticasone Nasal Mark [Flonase 2 spray EA NOSTRIL DAILY 08/29/19 08/29/19 History Nasal Mark] Furosemide [Lasix] 20 mg PO DAILY 08/29/19 08/29/19 History Allergies Allergy/AdvReac Type Severity Reaction Status Date / Time meperidine HCl [From Demerol] Allergy Rash/Hives Verified 08/29/19 19:20 propoxyphene napsylate Allergy Dyspnea Verified 08/29/19 19:20 [From Darvocet-N] Physical Exam Vitals: Vital Signs Temp Pulse Pulse Resp BP BP Pulse Ox 08/30/19 11:37 89 08/30/19 11:27 88 08/30/19 08:35 96.6 F L 85 16 141/66 98 08/30/19 07:41 85 08/30/19 07:32 82 08/30/19 03:28 98.2 F 85 18 115/56 96 08/29/19 23:20 98 F 89 20 130/78 97 08/29/19 21:49 98.1 F 94 22 158/72 94 L 08/29/19 20:22 92 22 08/29/19 18:52 101 H 18 142/62 98 08/29/19 17:35 89 20 08/29/19 17:21 87 20 08/29/19 16:27 97.8 F 94 20 139/75 100 Intake and Output 08/29/19 08/30/19 08/30/19 22:59 06:59 14:59 Intake Total 230 Balance 230 Intake: Oral 230 Other: # Voids 1 Weight 102.058 kg 102.5 kg Results 08/29/19 16:45 08/29/19 16:45 Cardiac Enzymes 08/29/19 08/29/19 08/29/19 Range/Units 16:45 16:45 22:08 AST 35 (14-36) U/L Troponin I <0.012 <0.012 (0.000-0.034) ng/mL Coagulation 08/29/19 Range/Units 16:45 PT 9.4 (9.0-12.0) sec APTT 21.5 L (22.0-30.0) sec CBC 08/29/19 Range/Units 16:45 WBC 10.4 (3.8-10.6) k/uL RBC 4.91 (3.80-5.40) m/uL Hgb 12.7 (11.4-16.0) gm/dL Hct 38.8 (34.0-46.0) % Plt Count 360 (150-450) k/uL Comprehensive Metabolic Panel 08/29/19 Range/Units 16:45 Sodium 138 (137-145) mmol/L Potassium 4.4 (3.5-5.1) mmol/L Chloride 102 (98-107) mmol/L Carbon Dioxide 25 (22-30) mmol/L BUN 18 H (7-17) mg/dL Creatinine 0.87 (0.52-1.04) mg/dL Glucose 172 H (74-99) mg/dL Calcium 9.7 (8.4-10.2) mg/dL AST 35 (14-36) U/L ALT 64 H (4-34) U/L Alkaline Phosphatase 171 H (38-126) U/L Total Protein 7.5 (6.3-8.2) g/dL Albumin 4.5 (3.5-5.0) g/dL Current Medications Generic Name Dose Route Start Last Admin Trade Name Freq PRN Reason Stop Dose Admin Hydrocodone Bitart/Acetaminophen 1 each 08/29/19 19:00 08/30/19 08:54 [place] 10 PO 1 each Q6HR PRN Administration Moderate Pain Albuterol/Ipratropium 3 ml 08/29/19 18:59 Duoneb 0.5 Mg-3 Mg/3 Ml Soln INHALATION RT-Q4H PRN Shortness Of Breath Or Wheezing Albuterol/Ipratropium 3 ml 08/29/19 20:00 08/30/19 11:26 Duoneb 0.5 Mg-3 Mg/3 Ml Soln INHALATION 3 ml RT-QID ROMARIO Administration Alprazolam 0.25 mg 08/29/19 19:00 08/29/19 21:29 Xanax PO 0.25 mg TID PRN Administration Anxiety Aspirin 81 mg 08/30/19 09:00 08/30/19 08:53 Aspirin PO 81 mg DAILY ROMARIO Administration Atorvastatin Calcium 40 mg 08/30/19 09:00 08/30/19 08:53 Lipitor PO 40 mg DAILY ROMARIO Administration Azithromycin 500 mg 08/30/19 09:00 08/30/19 08:53 Zithromax PO 500 mg DAILY ROMARIO Administration Diltiazem HCl 240 mg 08/29/19 21:15 08/29/19 21:29 Cardizem Cd PO 240 mg HS ROMARIO Administration Duloxetine HCl 120 mg 08/29/19 21:00 08/29/19 21:29 Cymbalta PO 120 mg HS ROMARIO Administration Fluticasone Propionate 2 puff 08/29/19 20:59 Flovent 44 Mcg Inhaler INHALATION RT-BID PRN Shortness Of Breath Fluticasone Propionate 2 spray 08/30/19 09:00 08/30/19 08:53 Flonase Nasal Mark EA NOSTRIL 2 spray DAILY ROMARIO Administration Furosemide 20 mg 08/30/19 09:00 08/30/19 08:53 Lasix PO 20 mg DAILY ROMARIO Administration Gabapentin 800 mg 08/29/19 22:00 08/30/19 08:53 Neurontin PO 800 mg TID ROMARIO Administration Hydroxychloroquine Sulfate 200 mg 08/29/19 21:15 08/30/19 08:54 Plaquenil PO 200 mg BID ROMARIO Administration Insulin Aspart 0 unit 08/29/19 21:15 08/30/19 12:52 Novolog SQ 2 unit ACHS ROMARIO Administration Protocol Isosorbide Mononitrate 60 mg 08/29/19 21:00 08/29/19 21:29 Imdur PO 60 mg HS ROMARIO Administration Latanoprost 1 drops 08/29/19 21:00 08/29/19 21:28 Xalatan 0.005% BOTH EYES 1 drops HS ROMARIO Administration Loratadine 10 mg 08/29/19 21:00 08/29/19 21:29 Claritin PO 10 mg HS ROMARIO Administration Metformin HCl 500 mg 08/29/19 22:00 08/30/19 08:54 Glucophage PO 500 mg TID ROMARIO Administration Montelukast Sodium 10 mg 08/29/19 21:00 08/29/19 21:29 Singulair PO 10 mg HS ROMARIO Administration Pantoprazole Sodium 40 mg 08/29/19 21:15 08/30/19 06:44 Protonix PO 40 mg AC-BID ROMARIO Administration Intake and Output 08/29/19 08/30/19 08/30/19 22:59 06:59 14:59 Intake Total 230 Balance 230 Intake: Oral 230 Other: # Voids 1 Weight 102.058 kg 102.5 kg 08/29/19 16:45 08/29/19 16:45
--- NOTE | 2019-08-30 15:20 | P.CNPUL ---
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 causing her to have respiratory failure and requirement for use of noninvasive ventilation at home, patient also has been diagnosed in the past with pulmonary hypertension, scleroderma, hypertension hypertensive cardiovascular disease obesity and obstructive sleep apnea, patient presented into emergency department shortness of breath with chest tightness , chest x-ray is unremarkable, her labs will also unremarkable except for mild hyperglycemia sugar 172 along with alk phos of 171 and mildly elevated ALT, her BNP is normal troponins are normal as well if d- dimer not done, cardio vascular services have evaluated the patient and the echocardiogram is pending Review of Systems All systems: negative Past Medical History Past Medical History: COPD, Diabetes Mellitus, GERD/Reflux, Hyperlipidemia, Hypertension, Osteoarthritis (OA), Pneumonia, Thyroid Disorder Additional Past Medical History / Comment(s): MURMUR, UTI, GOITER, DIASTOLIC DYSFUNCTION,Scleraderma, has had trouble swallowing for past 6 months, mitochondrial myopathy, chronic pulmonary failure, kidney disease stage III History of Any Multi-Drug Resistant Organisms: None Reported Past Surgical History: Appendectomy, Cholecystectomy, Heart Catheterization, Hysterectomy, Joint Replacement Additional Past Surgical History / Comment(s): RT KNEE REPLACEMENT, LT KNEE HAS SCREWS IN PLACE Past Anesthesia/Blood Transfusion Reactions: No Reported Reaction Additional Past Anesthesia/Blood Transfusion Reaction / Comment(s): CLAUSTERPHOBIC Past Psychological History: Anxiety Smoking Status: Former smoker Past Alcohol Use History: None Reported, Occasional Additional Past Alcohol Use History / Comment(s): STARTED SMOKING AT AGE 11, SMOKED 2 PPD THEN QUIT 1996 Past Drug Use History: None Reported - Past Family History Father Family Medical History: Cancer, Diabetes Mellitus Additional Family Medical History / Comment(s): AT AGE 61, CA throughout the body Mother Family Medical History: Cancer, Congestive Heart Failure (CHF), Diabetes Mellitus, Myocardial Infarction ([place]), Thyroid Disorder Additional Family Medical History / Comment(s): Uterine CA Medications and Allergies Home Medications Medication Instructions Recorded Confirmed Type Isosorbide Mononitrate ER [Imdur] 60 mg PO HS 07/16/14 08/29/19 History metFORMIN HCL 1,000 mg PO TID 07/16/14 08/29/19 History Aspirin [Adult Low Dose Aspirin EC] 81 mg PO DAILY 10/20/15 08/29/19 History Montelukast [Singulair] 10 mg PO HS 10/20/15 08/29/19 History Pantoprazole [Protonix] 40 mg PO BID 10/20/15 08/29/19 History ALPRAZolam [Xanax] 0.25 mg PO BID PRN 02/27/16 08/29/19 History Gabapentin [Neurontin] 800 mg PO TID 09/07/16 08/29/19 History Hydroxychloroquine Sulfate 200 mg PO BID 09/07/16 08/29/19 History [Plaquenil] Latanoprost Ophth [Xalatan 0.005%] 1 drop BOTH EYES HS 09/07/16 08/29/19 History Ibuprofen [Motrin] 800 mg PO Q8H PRN 01/11/17 08/29/19 History Atorvastatin [Lipitor] 40 mg PO DAILY 08/20/17 08/29/19 History Cetirizine HCl [Zyrtec] 10 mg PO HS 08/20/17 08/29/19 History Ipratropium-Albuterol Nebulize 3 ml INHALATION RT-QID 08/20/17 08/29/19 History [Duoneb 0.5 mg-3 mg/3 ml Soln] DULoxetine HCL [Cymbalta] 120 mg PO HS 01/30/18 08/29/19 History HYDROcodone/APAP 10-325MG [[place] 1 tab PO Q4H PRN 01/30/18 08/29/19 History 10-325] Budesonide [Pulmicort Flexhaler] 2 puff INHALATION RT-BID PRN 08/29/19 08/29/19 History Diltiazem HCl [Diltiazem HCl 24Hr 240 mg PO HS 08/29/19 08/29/19 History ER] Fluticasone Nasal [place] [Flonase 2 spray EA NOSTRIL DAILY 08/29/19 08/29/19 History Nasal [place]] Furosemide [Lasix] 20 mg PO DAILY 08/29/19 08/29/19 History Allergies Allergy/AdvReac Type Severity Reaction Status Date / Time meperidine HCl [From Demerol] Allergy Rash/Hives Verified 08/29/19 19:20 propoxyphene napsylate Allergy Dyspnea Verified 08/29/19 19:20 [From Darvocet-N] Physical Exam Vitals: Vital Signs Temp Pulse Pulse Resp BP BP Pulse Ox 08/30/19 11:45 96.8 F L 91 18 134/60 96 08/30/19 11:37 89 08/30/19 11:27 88 08/30/19 08:35 96.6 F L 85 16 141/66 98 08/30/19 07:41 85 08/30/19 07:32 82 08/30/19 03:28 98.2 F 85 18 115/56 96 08/29/19 23:20 98 F 89 20 130/78 97 08/29/19 21:49 98.1 F 94 22 158/72 94 L 08/29/19 20:22 92 22 08/29/19 18:52 101 H 18 142/62 98 08/29/19 17:35 89 20 08/29/19 17:21 87 20 08/29/19 16:27 97.8 F 94 20 139/75 100 Intake and Output 08/30/19 08/30/19 08/30/19 06:59 14:59 22:59 Intake Total 230 Balance 230 Intake: Oral 230 Other: # Voids 1 Weight 102.5 kg - Constitutional General appearance: average body habitus, cooperative, disheveled, morbidly obese - EENT Eyes: EOMI, PERRLA, dentition normal, normal appearance Ears: bilateral: normal - Neck Neck: normal ROM Carotids: bilateral: upstroke normal Thyroid: bilateral: normal size - Respiratory Respiratory: bilateral: CTA, diminished, negative: dullness, rales, rhonchi, wheezing, prolonged expiration - Cardiovascular Rhythm: regular Heart sounds: normal: S1, S2 - Integumentary Integumentary: normal turgor - Neurologic Neurologic: CNII-XII intact - Musculoskeletal Musculoskeletal: gait normal, generalized weakness, strength equal bilaterally - Psychiatric Psychiatric: A&O x's 3, appropriate affect, intact judgment & insight Results - Laboratory Findings CBC and BMP: 08/29/19 16:45 08/29/19 16:45 PT/INR, D-dimer PT 9.4 sec (9.0-12.0) 08/29/19 16:45 INR 0.9 (<1.2) 08/29/19 16:45 Abnormal lab findings: Abnormal Labs 08/29/19 08/29/19 08/29/19 16:45 16:45 16:45 MCV 79.1 L Neutrophils # 8.3 H APTT 21.5 L BUN 18 H Glucose 172 H POC Glucose (mg/dL) ALT 64 H Alkaline Phosphatase 171 H 08/29/19 08/30/19 08/30/19 20:49 06:21 12:22 MCV Neutrophils # APTT BUN Glucose POC Glucose (mg/dL) 204 H 169 H 169 H ALT Alkaline Phosphatase - Diagnostic Findings Chest x-ray: report reviewed, image reviewed (Finding as noted above) Assessment and Plan Assessment: Symptoms of chest pain and shortness of breath Acute on chronic respiratory failure due to mitochondrial myopathy Mitochondrial myopathy History of pulmonary hypertension Mild obstructive sleep apnea Scleroderma Morbid obesity Type 2 diabetes mellitus Hypertension hypertensive cardiovascular disease Plan: Continue BiPAP with oxygen Breathing treatment as needed We'll check a d-dimer if elevated we'll do the spiral computed tomography scan of the chest Further recommendations pending plan of care as per clinical response of the p atient Time with Patient: Greater than 30
[2019-08-30 17:23] LABS: Glucose,Whole Blood 133 mg/dL (75-99)
[2019-08-30] MEDS: FLUTICASONE 44 MCG INHALER INHALATION PRN (20:16)
[2019-08-30 20:37] LABS: Glucose,Whole Blood 170 mg/dL (75-99)
[2019-08-30] MEDS: MONTELUKAST 10 MG TAB PO SCH (20:52)
[2019-08-30] MEDS: DULoxetine HCL 60 MG CAPSULE.DR PO SCH (20:52)
[2019-08-30] MEDS: ISOSORBIDE MONONITRATE ER 60 MG TAB.ER.24H PO SCH (20:52)
[2019-08-30] MEDS: DILTIAZEM CD 240 MG CAP.ER.24H PO SCH (20:52)
[2019-08-30] MEDS: LATANOPROST 0.005% OPHTH DROPS 2.5 ML BTL BOTH EYES SCH (20:52)
[2019-08-30] MEDS: LORATADINE 10 MG TAB PO SCH (20:52)
[2019-08-30] MEDS ORDERED: RX INFO: IV CONTRAST WAS GIVEN 1 EACH MISC MISCELLANE PRN (20:55)
--- NOTE | 2019-08-30 21:12 | P.HPIM ---
History of Present Illness H&P Date: 08/30/19 Chief Complaint: Short of breath History of present complaint: This is a pleasant 34-year-old patient of Dr. Braun. Chronic stable medical conditions include herpes, GERD, hypertension, hyperlipidemia, osteoarthritis, scleroderma, mitochondrial myopathy, chronic respiratory failure on home ventilator, chronic kidney disease stage III. Patient does follow with a yoga coordinator ordered [facility] and locally she follows with Dr. Earl Rowe. Patient is an ex-smoker. Patient yesterday became rather short of breath, certainly. And also had some left precordial pain on and off for the sharp. Slight perspiration and dizziness. And decided to come in for the same. No cough or sputum. No obvious fever and chills. Patient normally uses a cane to get about. Review of systems: GEN.: Tired EYES: None HEENT: None NECK: None RESPIRATORY: As above CARDIOVASCULAR: As above GASTROINTESTINAL: None GENITOURINARY: None MUSCULOSKELETAL: None LYMPHATICS: None HEMATOLOGICAL: None PSYCHIATRY: None NEUROLOGICAL: None Past medical history to include: COPD, diabetes, GERD, hyperlipidemia, hypertension, osteoarthritis, goiter, scleroderma, diastolic dysfunction, some difficulty with swallowing, mitochondrial myopathy, chronic respiratory failure, CK stage III Social history: Lives with her son. Does use a cane. Smoked for about 20 years stopped in 1996 . Physical examination: VITAL SIGNS: 97.8, 94, 20, 139/75, 100% on room air GENERAL: BMI 37.6, laying in bed slightly tired. EYES: Pupils equal. Conjunctiva normal. HEENT: External appearance of nose and ears normal, oral cavity grossly normal. NECK: JVD not raised; masses not palpable. HEART: First and second heart sounds are normal; no edema. LUNGS: Respiratory rate increased, decreased breath sounds. ABDOMEN: Soft, nontender, liver spleen not palpable, no masses palpable. PSYCH: [Alert and oriented x3; mood and affect slightly anxious. NEUROLOGICAL: Cranial nerves grossly intact; no facial asymmetry, power and sensation grossly intact. LYMPHATICS: No lymph nodes palpable in the axilla and neck INVESTIGATIONS, reviewed in the clinical context: White count 10.4 hemoglobin 12.7 platelets 360 progression 4.4 creatinine 0.87 Troponin I 2 less than 0.012 ProBNP 38 Chest x-ray film personally reviewed by me-lung hickman clear EKG tracing personally reviewed by me-normal sinus rhythm, questionable ST segment changes Assessment: -Possible acute COPD exacerbation and an ex-smoker -Diabetes mellitus type 2 -GERD -Essential hypertension -Hyperlipidemia -Primary osteoarthritis -Scleroderma -Mitochondrial myopathy -Chronic respiratory failure on home ventilator -Obesity BMI 37.6 -Rule out PE -Anterior chest wall pain, somewhat atypical for cardiac Plan: Home medications are to be resumed. Patient to be on DuoNeb. Also add inhaled steroids. Consultation to both cardiogenic pulmonary is being done. Care was discussed with the patient question were answered. CT chest. Return to rule out PE. Short burst of IV steroids to. Past Medical History Past Medical History: COPD, Diabetes Mellitus, GERD/Reflux, Hyperlipidemia, H ypertension, Osteoarthritis (OA), Pneumonia, Thyroid Disorder Additional Past Medical History / Comment(s): MURMUR, UTI, GOITER, DIASTOLIC DYSFUNCTION,Scleraderma, has had trouble swallowing for past 6 months, mitochondrial myopathy, chronic pulmonary failure, kidney disease stage III History of Any Multi-Drug Resistant Organisms: None Reported Past Surgical History: Appendectomy, Cholecystectomy, Heart Catheterization, H ysterectomy, Joint Replacement Additional Past Surgical History / Comment(s): RT KNEE REPLACEMENT, LT KNEE HAS SCREWS IN PLACE Past Anesthesia/Blood Transfusion Reactions: No Reported Reaction Additional Past Anesthesia/Blood Transfusion Reaction / Comment(s): CLAUSTERPHOBIC Past Psychological History: Anxiety Smoking Status: Former smoker Past Alcohol Use History: None Reported, Occasional Additional Past Alcohol Use History / Comment(s): STARTED SMOKING AT AGE 11, SMOKED 2 PPD THEN QUIT 1996 Past Drug Use History: None Reported - Past Family History Father Family Medical History: Cancer, Diabetes Mellitus Additional Family Medical History / Comment(s): AT AGE 61, CA throughout the body Mother Family Medical History: Cancer, Congestive Heart Failure (CHF), Diabetes [place], Myocardial Infarction ([place]), Thyroid Disorder Additional Family Medical History / Comment(s): Uterine CA Medications and Allergies Home Medications Medication Instructions Recorded Confirmed Type Isosorbide Mononitrate ER [Imdur] 60 mg PO HS 07/16/14 08/29/19 History metFORMIN HCL 1,000 mg PO TID 07/16/14 08/29/19 History Aspirin [Adult Low Dose Aspirin EC] 81 mg PO DAILY 10/20/15 08/29/19 History Montelukast [Singulair] 10 mg PO HS 10/20/15 08/29/19 History Pantoprazole [Protonix] 40 mg PO BID 10/20/15 08/29/19 History ALPRAZolam [Xanax] 0.25 mg PO BID PRN 02/27/16 08/29/19 History Gabapentin [Neurontin] 800 mg PO TID 09/07/16 08/29/19 History Hydroxychloroquine Sulfate 200 mg PO BID 09/07/16 08/29/19 History [Plaquenil] Latanoprost Ophth [Xalatan 0.005%] 1 drop BOTH EYES HS 09/07/16 08/29/19 History Ibuprofen [Motrin] 800 mg PO Q8H PRN 01/11/17 08/29/19 History Atorvastatin [Lipitor] 40 mg PO DAILY 08/20/17 08/29/19 History Cetirizine HCl [Zyrtec] 10 mg PO HS 08/20/17 08/29/19 History Ipratropium-Albuterol Nebulize 3 ml INHALATION RT-QID 08/20/17 08/29/19 History [Duoneb 0.5 mg-3 mg/3 ml Soln] DULoxetine HCL [Cymbalta] 120 mg PO HS 01/30/18 08/29/19 History HYDROcodone/APAP 10-325MG [[place] 1 tab PO Q4H PRN 01/30/18 08/29/19 History 10-325] Budesonide [Pulmicort Flexhaler] 2 puff INHALATION RT-BID PRN 08/29/19 08/29/19 History Diltiazem HCl [Diltiazem HCl 24Hr 240 mg PO HS 08/29/19 08/29/19 History ER] Fluticasone Nasal [place] [Flonase 2 spray EA NOSTRIL DAILY 08/29/19 08/29/19 History Nasal [place]] Furosemide [Lasix] 20 mg PO DAILY 08/29/19 08/29/19 History Allergies Allergy/AdvReac Type Severity Reaction Status Date / Time meperidine HCl [From Demerol] Allergy Rash/Hives Verified 08/29/19 19:20 propoxyphene napsylate Allergy Dyspnea Verified 08/29/19 19:20 [From Darvocet-N] Physical Exam Vitals: Vital Signs Temp Pulse Pulse Resp BP BP Pulse Ox 08/30/19 07:41 85 08/30/19 07:32 82 08/30/19 03:28 98.2 F 85 18 115/56 96 08/29/19 23:20 98 F 89 20 130/78 97 08/29/19 21:49 98.1 F 94 22 158/72 94 L 08/29/19 20:22 92 22 08/29/19 18:52 101 H 18 142/62 98 08/29/19 17:35 89 20 08/29/19 17:21 87 20 08/29/19 16:27 97.8 F 94 20 139/75 100 Intake and Output 08/29/19 08/30/19 08/30/19 22:59 06:59 14:59 Other: Weight 102.058 kg 102.5 kg Results CBC & Chem 7: 08/29/19 16:45 08/29/19 16:45 Labs: Abnormal Lab Results - Last 24 Hours (Table) 08/29/19 08/29/19 08/29/19 Range/Units 16:45 16:45 16:45 MCV 79.1 L (80.0-100.0) fL Neutrophils # 8.3 H (1.3-7.7) k/uL APTT 21.5 L (22.0-30.0) sec BUN 18 H (7-17) mg/dL Glucose 172 H (74-99) mg/dL POC Glucose (mg/dL) (75-99) mg/dL ALT 64 H (4-34) U/L Alkaline Phosphatase 171 H (38-126) U/L 08/29/19 08/30/19 Range/Units 20:49 06:21 MCV (80.0-100.0) fL Neutrophils # (1.3-7.7) k/uL APTT (22.0-30.0) sec BUN (7-17) mg/dL Glucose (74-99) mg/dL POC Glucose (mg/dL) 204 H 169 H (75-99) mg/dL ALT (4-34) U/L Alkaline Phosphatase (38-126) U/L Thrombosis Risk Factor Assmnt - Choose All That Apply Each Factor Represents 1 point: Abnormal pulmonary function (COPD), Age 41-60 years, Obesity (BMI >25), Swollen legs (current) Other Risk Factors: No Other congenital or acquired thrombophilia - If yes, enter type in comment: No Thrombosis Risk Factor Assessment Total Risk Factor Score: 4 Thrombosis Risk Factor Assessment Level: Moderate Risk
--- NOTE | 2019-08-30 22:12 | CT ---
EXAMINATION TYPE: CT angio chest DATE OF EXAM: 08/30/2019 COMPARISON: None HISTORY: Shortness of breath. CT DLP: 721 mGycm Automated exposure control for dose reduction was used. CONTRAST: Performed with IV Contrast, patient injected with 68ml mL of Isovue 370. There are 3-D post processed images. There is some patchy linear density at the lung bases. There is no pleural effusion. Heart is borderl ine enlarged. There is no pericardial effusion. There is no mediastinal adenopathy. There are no hilar masses. Thoracic aorta shows no aneurysm or di ssection. There is normal branching pattern of the great vessels on the aortic arch. There is normal contrast opacification of the pulmonary arteries. I see no filling defect. The bony thorax is intact. Upper abdominal soft tissues are intact. Liver appears enlarged. IMPRESSION: No evidence of pulmonary embolism. There is some patchy atelectasis at the lung bases. There is proba shalonda hepatomegaly.
[2019-08-30] MEDS: ENOXAPARIN 40 MG/0.4 ML SYRINGE SQ SCH (23:05)
[2019-08-31 04:31] LABS: Cholesterol 178 mg/dL (<200); HDL Cholesterol 91 mg/dL (40-60); LDL Cholesterol,Calculated 34 mg/dL (0-99); Triglycerides 266 mg/dL (<150)
[2019-08-31 06:15] LABS: Glucose,Whole Blood 153 mg/dL (75-99)
[2019-08-31] MEDS: PANTOPRAZOLE 40 MG TABLET PO SCH ×2 (06:36→15:48)
[2019-08-31] MEDS: INSULIN ASPART (NovoLOG) 100 UNIT/ML VIAL SQ SCH ×4 (06:36→21:35)
[2019-08-31] MEDS: IPRATROPIUM-ALBUTEROL 3 ML NEB INHALATION SCH ×4 (07:49→20:19)
[2019-08-31] MEDS: FLUTICASONE 44 MCG INHALER INHALATION PRN ×2 (07:49→20:22)
[2019-08-31] MEDS: ASPIRIN 81 MG PO SCH (09:42)
[2019-08-31] MEDS: HYDROXYCHLOROQUINE SULFATE 200 MG TAB PO SCH ×2 (09:42→21:35)
[2019-08-31] MEDS: ATORVASTATIN 40 MG TAB PO SCH (09:42)
[2019-08-31] MEDS: GABAPENTIN 400 MG CAP PO SCH ×3 (09:42→21:35)
[2019-08-31] MEDS: AZITHROMYCIN 500 MG TAB PO SCH (09:42)
[2019-08-31] MEDS: metFORMIN 500 MG TAB PO SCH ×3 (09:42→20:30)
[2019-08-31] MEDS: FUROSEMIDE 20 MG TAB PO SCH (09:42)
[2019-08-31] MEDS: ENOXAPARIN 40 MG/0.4 ML SYRINGE SQ SCH (09:43)
[2019-08-31] MEDS: FLUTICASONE 50MCG/SPRAY NASAL 16GM EA NOSTRIL SCH (09:43)
[2019-08-31 12:30] LABS: Glucose,Whole Blood 142 mg/dL (75-99)
[2019-08-31] MEDS: HYDROcodone/APAP 10-325MG 1 EACH TAB PO PRN ×2 (15:48→21:34)
[2019-08-31 16:58] LABS: Glucose,Whole Blood 180 mg/dL (75-99)
[2019-08-31 17:03] VITALS: RESP 18
--- NOTE | 2019-08-31 17:04 | P.PN ---
Subjective Progress Note Date: 08/31/19 Principal diagnosis: Symptoms of chest pain and shortness of breath Acute on chronic respiratory failure due to mitochondrial myopathy Mitochondrial myopathy History of pulmonary hypertension Mild obstructive sleep apnea Scleroderma Morbid obesity Type 2 diabetes mellitus Hypertension hypertensive cardiovascular disease 08/31/2019, patient seen eval examined during the rounds off of BiPAP currently on supplemental oxygen, oxygen has been helping, patient remains short of breath, require BiPAP support most of the day in between she tries to take rest with supplemental oxygen respiratory status stable though not much change his prescription of home oxygen has been provided which is to be used with BiPAP mom blood cultures have been negative, computed tomography scan of the chest is negative for pulmonary embolism some patchy basal atelectasis cannot be excluded , echocardiogram is done patient has ejection fraction of 60-65%, right ventricle systolic pressure is less than 35, This is a 54-year-old patient well-known to me she has the ongoing problems associated with chronic respiratory failure 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 causing her to have respiratory failure and requirement for use of noninvasive ventilation at home, patient also has been diagnosed in the past with pulmonary hypertension, scleroderma, hypertension hypertensive cardiovascular disease obesity and obstructive sleep apnea, patient presented into emergency department shortness of breath with chest tightness , chest x-ray is unremarkable, her labs will also unremarkable except for mild hyperglycemia sugar 172 along with alk phos of 171 and mildly elevated ALT, her BNP is normal troponins are normal as well if d- dimer not done, cardio vascular services have evaluated the patient and the echocardiogram is pending Objective - Vital Signs Vital signs: Vital Signs Temp 97.7 F 08/31/19 08:20 Pulse 86 08/31/19 16:27 Resp 19 08/31/19 12:25 BP 142/65 08/31/19 12:25 Pulse Ox 98 08/31/19 12:25 Intake & Output 08/30/19 08/31/19 08/31/19 18:59 06:59 18:59 Intake Total 230 420 480 Balance 230 420 480 Weight 101.5 kg Intake: Oral 230 420 480 Other: # Voids 2 1 - Exam - Constitutional General appearance: average body habitus, cooperative, disheveled, morbidly obese - EENT Eyes: EOMI, PERRLA, dentition normal, normal appearance Ears: bilateral: normal - Neck Neck: normal ROM Carotids: bilateral: upstroke normal Thyroid: bilateral: normal size - Respiratory Respiratory: bilateral: CTA, diminished, negative: dullness, rales, rhonchi, wheezing, prolonged expiration - Cardiovascular Rhythm: regular Heart sounds: normal: S1, S2 - Integumentary Integumentary: normal turgor - Neurologic Neurologic: CNII-XII intact - Musculoskeletal Musculoskeletal: gait normal, generalized weakness, strength equal bilaterally - Psychiatric Psychiatric: A&O x's 3, appropriate affect, intact judgment & insight - Labs CBC & Chem 7: 08/29/19 16:45 08/29/19 16:45 Labs: Abnormal Lab Results - Last 24 Hours (Table) 08/29/19 08/30/19 08/30/19 Range/Units 12:20 17:19 20:35 POC Glucose (mg/dL) 133 H 170 H (75-99) mg/dL Triglycerides 266 H (<150) mg/dL HDL Cholesterol 91 H (40-60) mg/dL 08/31/19 08/31/19 08/31/19 Range/Units 06:14 12:16 16:56 POC Glucose (mg/dL) 153 H 142 H 180 H (75-99) mg/dL Triglycerides (<150) mg/dL HDL Cholesterol (40-60) mg/dL Microbiology - Last 24 Hours (Table) 08/29/19 18:35 Blood Culture - Preliminary Blood No Growth after 24 hours Assessment and Plan Assessment: Symptoms of chest pain and shortness of breath Acute on chronic respiratory failure due to mitochondrial myopathy Mitochondrial myopathy History of pulmonary hypertension Mild obstructive sleep apnea Scleroderma Morbid obesity Type 2 diabetes mellitus Hypertension hypertensive cardiovascular disease Plan: Continue BiPAP with oxygen Breathing treatment as needed Computed tomography scan of the chest reviewed Continue supplemental oxygen Prescription has been provided No evidence of significant pulmonary hypertension has been noted Patient can be discharged home with follow-up at in [facility] as well as [facility] Further recommendations pending plan of care as per clinical response of the patient Time with Patient: Greater than 30
--- NOTE | 2019-08-31 18:05 | P.PN ---
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 causing her to have respiratory failure and requirement for use of noninvasive ventilation at home, patient also has been diagnosed in the past with pulmonary hypertension, sclero derma, hypertension hypertensive cardiovascular disease obesity and obstructive sleep apnea, patient presented into emergency department shortness of breath with chest tightness , chest x-ray is unremarkable, her labs will also unremarkable except for mild hyperglycemia sugar 172 along with alk phos of 171 and mildly elevated ALT, her BNP is normal troponins are normal 08/31/2019 Patient is seen eval examined during the rounds off of BiPAP currently on supplemental oxygen, oxygen has been helping, patient remains short of breath, require BiPAP support most of the day in between she tries to take rest with supplemental oxygen respiratory status stable though not much change his prescription of home oxygen has been provided which is to be used with BiPAP mom blood cultures have been negative, computed tomography scan of the chest is negative for pulmonary embolism some patchy basal atelectasis cannot be excluded, echocardiogram is done patient has ejection fraction of 60-65%, right ventricle systolic pressure is less than 35 Continue BiPAP with oxygen; Breathing treatment as needed; Computed tomography scan of the chest reviewed; Continue supplemental oxygen; possible discharge in next 24 hours Objective - Vital Signs Vital signs: Vital Signs Temp 97.7 F 08/31/19 08:20 Pulse 89 08/31/19 08:20 Resp 19 08/31/19 08:20 BP 150/66 08/31/19 08:20 Pulse Ox 95 08/31/19 08:20 Intake & Output 08/30/19 08/31/19 08/31/19 18:59 06:59 18:59 Intake Total 230 420 240 Balance 230 420 240 Weight 101.5 kg Intake: Oral 230 420 240 Other: # Voids 2 - Exam GENERAL: BMI 37.6, laying in bed slightly tired. EYES: Pupils equal. Conjunctiva normal. HEENT: External appearance of nose and ears normal, oral cavity grossly normal. NECK: JVD not raised; masses not palpable. HEART: First and second heart sounds are normal; no edema. LUNGS: Respiratory rate increased, decreased breath sounds. ABDOMEN: Soft, nontender, liver spleen not palpable, no masses palpable. PSYCH: [Alert and oriented x3; mood and affect slightly anxious. NEUROLOGICAL: Cranial nerves grossly intact; no facial asymmetry, power and sensation grossly intact. - Labs CBC & Chem 7: 08/29/19 16:45 08/29/19 16:45 Labs: Abnormal Lab Results - Last 24 Hours (Table) 08/29/19 08/30/19 08/30/19 Range/Units 12:20 12:22 17:19 POC Glucose (mg/dL) 169 H 133 H (75-99) mg/dL Triglycerides 266 H (<150) mg/dL HDL Cholesterol 91 H (40-60) mg/dL 08/30/19 08/31/19 Range/Units 20:35 06:14 POC Glucose (mg/dL) 170 H 153 H (75-99) mg/dL Triglycerides (<150) mg/dL HDL Cholesterol (40-60) mg/dL Microbiology - Last 24 Hours (Table) 08/29/19 18:35 Blood Culture - Preliminary Blood No Growth after 24 hours Assessment and Plan Assessment: -Possible acute COPD exacerbation and an ex-smoker -Diabetes mellitus type 2 -GERD -Essential hypertension -Hyperlipidemia -Primary osteoarthritis -Scleroderma -Mitochondrial myopathy -Chronic respiratory failure on home ventilator -Obesity BMI 37.6 -Rule out PE -Anterior chest wall pain, somewhat atypical for cardiac Plan: Home medications are to be resumed. Patient to be on DuoNeb. Also add inhaled steroids. Consultation to both cardiogenic pulmonary is being done. Care was discussed with the patient question were answered. CT chest. Return to rule out PE. Short burst of IV steroids to.
[2019-08-31 20:47] LABS: Glucose,Whole Blood 155 mg/dL (75-99)
[2019-08-31] MEDS: ISOSORBIDE MONONITRATE ER 60 MG TAB.ER.24H PO SCH (20:48)
[2019-08-31] MEDS: MONTELUKAST 10 MG TAB PO SCH (20:48)
[2019-08-31] MEDS: DILTIAZEM CD 240 MG CAP.ER.24H PO SCH (20:49)
[2019-08-31] MEDS: DULoxetine HCL 60 MG CAPSULE.DR PO SCH (20:49)
[2019-08-31] MEDS: LORATADINE 10 MG TAB PO SCH (20:49)
[2019-08-31] MEDS: LATANOPROST 0.005% OPHTH DROPS 2.5 ML BTL BOTH EYES SCH (20:50)
[2019-09-01 06:24] LABS: Glucose,Whole Blood 128 mg/dL (75-99)
[2019-09-01 06:59] LABS: Basophils % (A) 1 %; Eosinophils # (A) 0.3 k/uL (0-0.7); Eosinophils % (A) 4 %; HCT 39.1 % (34.0-46.0); HGB 12.1 gm/dL (11.4-16.0); Hypochromasia Slight; Lymphocytes # (A) 1.7 k/uL (1.0-4.8); Lymphocytes % (A) 23 %; MCH 24.8 pg (25.0-35.0); MCHC 30.9 g/dL (31.0-37.0); MCV 80.4 fL (80.0-100.0); Mean Platelet Volume 6.7; Monocytes # (A) 0.3 k/uL (0-1.0); Monocytes % (A) 5 %; Neutrophils % (A) 66 %; Platelet Count 345 k/uL (150-450); RBC 4.86 m/uL (3.80-5.40); RDW 14.6 % (11.5-15.5); WBC 7.6 k/uL (3.8-10.6)
[2019-09-01] MEDS: INSULIN ASPART (NovoLOG) 100 UNIT/ML VIAL SQ SCH ×2 (07:04→13:03)
[2019-09-01] MEDS: PANTOPRAZOLE 40 MG TABLET PO SCH (07:05)
[2019-09-01] MEDS: HYDROcodone/APAP 10-325MG 1 EACH TAB PO PRN (07:08)
[2019-09-01 07:31] LABS: Calcium 9.5 mg/dL (8.4-10.2); Potassium 4.7 mmol/L (3.5-5.1)
[2019-09-01] MEDS: IPRATROPIUM-ALBUTEROL 3 ML NEB INHALATION SCH ×3 (08:55→16:05)
[2019-09-01] MEDS: FLUTICASONE 44 MCG INHALER INHALATION PRN (08:56)
[2019-09-01] MEDS: ENOXAPARIN 40 MG/0.4 ML SYRINGE SQ SCH (09:46)
[2019-09-01] MEDS: GABAPENTIN 400 MG CAP PO SCH (09:46)
[2019-09-01] MEDS: ATORVASTATIN 40 MG TAB PO SCH (09:46)
[2019-09-01] MEDS: metFORMIN 500 MG TAB PO SCH (09:46)
[2019-09-01] MEDS: ASPIRIN 81 MG PO SCH (09:47)
[2019-09-01] MEDS: FLUTICASONE 50MCG/SPRAY NASAL 16GM EA NOSTRIL SCH (09:47)
[2019-09-01] MEDS: FUROSEMIDE 20 MG TAB PO SCH (09:47)
[2019-09-01] MEDS: HYDROXYCHLOROQUINE SULFATE 200 MG TAB PO SCH (09:47)
[2019-09-01] MEDS: AZITHROMYCIN 500 MG TAB PO SCH (09:47)
[2019-09-01 11:59] LABS: Glucose,Whole Blood 161 mg/dL (75-99)
--- NOTE | 2019-09-01 12:41 | P.PN ---
Subjective Progress Note Date: 09/01/19 The patient is currently resting comfortably in bed undergoing an albuterol treatment. She states her shortness of breath is back to her baseline. She continues to have occasional chest pains, which are not related to exertion. She denies any palpitations, dizziness, or vertigo. Echocardiogram revealed GENERAL: Well-appearing, well-nourished and in no acute distress. NECK: Supple without JVD or thyromegaly. LUNGS: Breath sounds diminished. Respiration equal and unlabored. No wheezes, rales or rhonchi. HEART: Regular rate and rhythm without murmurs, rubs or gallops. S1 and S2 heard. EXTREMITIES: Normal range of motion, no edema. No clubbing or cyanosis. Peripheral pulses intact and strong. Vital signs: 150/66, SpO2 95 on 2 L nasal cannula, pulse 89, temperature 97.7 Labs: WBC 7.6, hemoglobin 12.1, hematocrit 39.1, platelet 345, sodium 139, potassium 4.7, BUN 21, creatinine 1.01, Impression: #1 chest discomfort, atypical in nature, troponins negative #2 COPD exacerbation, currently using BiPAP #3 mitochondrial disease #4 pulmonary hypertension #5 dyslipidemia #6 hypertension Plan: Continue current medication regimen. Consider adding karan/arb outpatient as she is a diabetic. No further recommendations at this time and will be signed off by cardiology. Thank you kindly for this consultation. Objective - Vital Signs Vital signs: Vital Signs Temp 97.8 F 09/01/19 09:30 Pulse 82 09/01/19 12:16 Resp 18 09/01/19 09:30 BP 132/61 09/01/19 09:30 Pulse Ox 94 L 09/01/19 09:30 Intake & Output 08/31/19 09/01/19 09/01/19 18:59 06:59 18:59 Intake Total 720 240 218 Output Total 900 Balance 720 -660 218 Weight 102.1 kg Intake: Oral 720 240 218 Output: Urine 900 Other: Voiding Method Toilet # Voids 1 3 - Labs CBC & Chem 7: 09/01/19 05:55 09/01/19 05:55 Labs: Abnormal Lab Results - Last 24 Hours (Table) 08/31/19 08/31/19 09/01/19 Range/Units 16:56 20:46 05:55 MCH 24.8 L (25.0-35.0) pg MCHC 30.9 L (31.0-37.0) g/dL BUN (7-17) mg/dL Glucose (74-99) mg/dL POC Glucose (mg/dL) 180 H 155 H (75-99) mg/dL 09/01/19 09/01/19 09/01/19 Range/Units 05:55 06:23 11:57 MCH (25.0-35.0) pg MCHC (31.0-37.0) g/dL BUN 21 H (7-17) mg/dL Glucose 140 H (74-99) mg/dL POC Glucose (mg/dL) 128 H 161 H (75-99) mg/dL Microbiology - Last 24 Hours (Table) 08/29/19 18:35 Blood Culture - Preliminary Blood No Growth after 48 hours
[2019-09-01 13:45] VITALS: BP 127/59; PULSE 80; TEMP 97.6
--- NOTE | 2019-09-01 15:54 | P.DS ---
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 causing her to have respiratory failure and requirement for use of noninvasive ventilation at home, patient also has been diagnosed in the past with pulmonary hypertension, scleroderma, hypertension hypertensive cardiovascular disease obesity and obstructive sleep apnea, patient presented into emergency department shortness of breath with chest tightness , chest x-ray is unremarkable, her labs will also unremarkable except for mild hyperglycemia sugar 172 along with alk phos of 171 and mildly elevated ALT, her BNP is normal troponins are normal as well if d-dimer not done, cardio vascular services have evaluated the patient and the echocardiogram is pending Patient was admitted to the hospital with acute on chronic respiratory failure due to mitochondrial myopathy; pulmonary service is consulted and patient was recommended to continue BiPAP with oxygen, bronchodilator nebulizer treatments and a burst IV steroid; inhaled steroids were added; CT of the chest was done which was negative for PE; patient did respond well to above treatment and was discharged home to 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 at [facility] Patient Condition at Discharge: Stable Plan - Discharge Summary Discharge Rx Participant: No New Discharge Prescriptions: New Azithromycin [Zithromax] 500 mg PO DAILY #7 tab Continue metFORMIN HCL 1,000 mg PO TID Isosorbide Mononitrate ER [Imdur] 60 mg PO HS Montelukast [Singulair] 10 mg PO HS Pantoprazole [Protonix] 40 mg PO BID Aspirin [Adult Low Dose Aspirin EC] 81 mg PO DAILY ALPRAZolam [Xanax] 0.25 mg PO BID PRN PRN Reason: Anxiety Hydroxychloroquine Sulfate [Plaquenil] 200 mg PO BID Latanoprost Ophth [Xalatan 0.005%] 1 drop BOTH EYES HS Gabapentin [Neurontin] 800 mg PO TID Ibuprofen [Motrin] 800 mg PO Q8H PRN PRN Reason: Pain Ipratropium-Albuterol Nebulize [Duoneb 0.5 mg-3 mg/3 ml Soln] 3 ml INHALATION RT-QID Cetirizine HCl [Zyrtec] 10 mg PO HS Atorvastatin [Lipitor] 40 mg PO DAILY HYDROcodone/APAP 10-325MG [[place] 10-325] 1 tab PO Q4H PRN PRN Reason: Pain DULoxetine HCL [Cymbalta] 120 mg PO HS Diltiazem HCl [Diltiazem HCl 24Hr ER] 240 mg PO HS Fluticasone Nasal [place] [Flonase Nasal [place]] 2 spray EA NOSTRIL DAILY Furosemide [Lasix] 20 mg PO DAILY Budesonide [Pulmicort Flexhaler] 2 puff INHALATION RT-BID PRN PRN Reason: Shortness Of Breath Discharge Medication List Isosorbide Mononitrate ER [Imdur] 60 mg PO HS 07/16/14 [History] metFORMIN HCL 1,000 mg PO TID 07/16/14 [History] Aspirin [Adult Low Dose Aspirin EC] 81 mg PO DAILY 10/20/15 [History] Montelukast [Singulair] 10 mg PO HS 10/20/15 [History] Pantoprazole [Protonix] 40 mg PO BID 10/20/15 [History] ALPRAZolam [Xanax] 0.25 mg PO BID PRN 02/27/16 [History] Gabapentin [Neurontin] 800 mg PO TID 09/07/16 [History] Hydroxychloroquine Sulfate [Plaquenil] 200 mg PO BID 09/07/16 [History] Latanoprost Ophth [Xalatan 0.005%] 1 drop BOTH EYES HS 09/07/16 [History] Ibuprofen [Motrin] 800 mg PO Q8H PRN 01/11/17 [History] Atorvastatin [Lipitor] 40 mg PO DAILY 08/20/17 [History] Cetirizine HCl [Zyrtec] 10 mg PO HS 08/20/17 [History] Ipratropium-Albuterol Nebulize [Duoneb 0.5 mg-3 mg/3 ml Soln] 3 ml INHALATION RT-QID 08/20/17 [History] DULoxetine HCL [Cymbalta] 120 mg PO HS 01/30/18 [History] HYDROcodone/APAP 10-325MG [[place] 10-325] 1 tab PO Q4H PRN 01/30/18 [History] Budesonide [Pulmicort Flexhaler] 2 puff INHALATION RT-BID PRN 08/29/19 [History] Diltiazem HCl [Diltiazem HCl 24Hr ER] 240 mg PO HS 08/29/19 [History] Fluticasone Nasal [place] [Flonase Nasal [place]] 2 spray EA NOSTRIL DAILY 08/29/19 [History] Furosemide [Lasix] 20 mg PO DAILY 08/29/19 [History] Azithromycin [Zithromax] 500 mg PO DAILY #7 tab 09/01/19 [Rx] Follow up Appointment(s)/Referral(s): Murray Braun DO [Primary Care Provider] - 1-2 days Patient Instructions/Handouts: COPD (Chronic Obstructive Pulmonary Disease) (DC), Chronic Lung Disease and Infection Prevention (DC) Discharge Disposition: HOME SELF-CARE
== END 2019-09-01 16:20 | disposition home or self-care (01) | DRG 189 ==
LOC: EC 16:18 → 3SCARD 19:00
PROVIDERS: ADMIT Hospitalist; ATTEND Hospitalist
PROC: 5A09457 Assistance with Respiratory Ventilation, 24-96 Consecutive Hours, Continuous Positive Airway Pressure (ICD-10-PCS; principal; 2019-08-29)
DX: J96.21 Acute and chronic respiratory failure with hypoxia (principal); J44.1 Chronic obstructive pulmonary disease with (acute) exacerbation; G71.3 Mitochondrial myopathy, not elsewhere classified; B00.9 Herpesviral infection, unspecified; E11.22 Type 2 diabetes mellitus with diabetic chronic kidney disease; E11.65 Type 2 diabetes mellitus with hyperglycemia; E66.01 Morbid (severe) obesity due to excess calories; Z68.37 Body mass index [BMI] 37.0-37.9, adult; E78.5 Hyperlipidemia, unspecified; F41.9 Anxiety disorder, unspecified; G47.33 Obstructive sleep apnea (adult) (pediatric); I13.10 Hypertensive heart and chronic kidney disease without heart failure, with stage 1 through stage 4 chronic kidney disease, or unspecified chronic kidney disease; I27.20 Pulmonary hypertension, unspecified; K21.9 Gastro-esophageal reflux disease without esophagitis; M19.91 Primary osteoarthritis, unspecified site; M34.9 Systemic sclerosis, unspecified; N18.3 Chronic kidney disease, stage 3 (moderate); Z79.82 Long term (current) use of aspirin; Z79.84 Long term (current) use of oral hypoglycemic drugs; Z79.899 Other long term (current) drug therapy; Z80.49 Family history of malignant neoplasm of other genital organs; Z82.49 Family history of ischemic heart disease and other diseases of the circulatory system; Z83.3 Family history of diabetes mellitus; Z87.891 Personal history of nicotine dependence; Z90.710 Acquired absence of both cervix and uterus; Z96.651 Presence of right artificial knee joint; Z90.49 Acquired absence of other specified parts of digestive tract; Z87.01 Personal history of pneumonia (recurrent); Z87.440 Personal history of urinary (tract) infections; Z88.5 Allergy status to narcotic agent; Z99.89 Dependence on other enabling machines and devices
CPT/HCPCS: 36415; 71045; 71275; 80048; 80053; 80061; 83605; 83880; 84484; 85025; 85379; 85610; 85730; 87040; 93005; 93306; 94640; 94660; 94760; 99285

== ENCOUNTER 2019-09-24 18:22 | Inpatient (IN) | payer MEDICARE ==
[2019-09-24] MEDS ORDERED: IPRATROPIUM-ALBUTEROL 3 ML NEB INHALATION STA (18:45)
[2019-09-24] MEDS ORDERED: methylPREDNISolone SOD SUCCI 125 MG/2 ML VIAL IV STA (18:45)
--- NOTE | 2019-09-24 18:49 | ED ---
SOB HPI - General Chief Complaint: Shortness of Breath Stated Complaint: PENNIE Time Seen by Provider: 09/24/19 18:33 Source: patient, RN notes reviewed Mode of arrival: wheelchair Limitations: no limitations - History of Present Illness Initial Comments: This is a 54-year-old female history of COPD and mitochondrial dysfunction who presents with complaints of shortness of breath which is been going on all day. He has exertional dyspnea no overt fevers chills sweats or cough and no phlegm production no chest pain. She states she has exertional dyspnea. She does use oxygen at home as well as nebulizer she's not gotten any relief. No other modifying factors. MD Complaint: shortness of breath - Related Data Home Medications Medication Instructions Recorded Confirmed Isosorbide Mononitrate ER [Imdur] 60 mg PO HS 07/16/14 09/24/19 metFORMIN HCL 1,000 mg PO HS 07/16/14 09/24/19 Aspirin [Adult Low Dose Aspirin EC] 81 mg PO DAILY 10/20/15 09/24/19 Montelukast [Singulair] 10 mg PO HS 10/20/15 09/24/19 Pantoprazole [Protonix] 40 mg PO BID 10/20/15 09/24/19 ALPRAZolam [Xanax] 0.25 mg PO BID PRN 02/27/16 09/24/19 Gabapentin [Neurontin] 800 mg PO TID 09/07/16 09/24/19 Hydroxychloroquine Sulfate 200 mg PO BID 09/07/16 09/24/19 [Plaquenil] Latanoprost Ophth [Xalatan 0.005%] 1 drop BOTH EYES HS 09/07/16 09/24/19 Ibuprofen [Motrin] 800 mg PO Q8H PRN 01/11/17 09/24/19 Atorvastatin [Lipitor] 40 mg PO DAILY 08/20/17 09/24/19 Ipratropium-Albuterol Nebulize 3 ml INHALATION RT-QID 08/20/17 09/24/19 [Duoneb 0.5 mg-3 mg/3 ml Soln] DULoxetine HCL [Cymbalta] 120 mg PO HS 01/30/18 09/24/19 HYDROcodone/APAP 10-325MG [[place] 1 tab PO Q4H PRN 01/30/18 09/24/19 10-325] Budesonide [Pulmicort Flexhaler] 2 puff INHALATION RT-BID PRN 08/29/19 09/24/19 Diltiazem HCl [Diltiazem HCl 24Hr 240 mg PO HS 08/29/19 09/24/19 ER] Fluticasone Nasal [place] [Flonase 2 spray EA NOSTRIL DAILY 08/29/19 09/24/19 Nasal [place]] Furosemide [Lasix] 20 mg PO DAILY 08/29/19 09/24/19 Ipratropium [place] [Ipratropium 1 - 2 sprays EA NOSTRIL BID 09/24/19 09/24/19 [place] 0.03%] Repaglinide 1 mg PO TID 09/24/19 09/24/19 metFORMIN HCL [Glucophage] 500 mg PO QAM 09/24/19 09/24/19 Allergies Allergy/AdvReac Type Severity Reaction Status Date / Time meperidine HCl [From Demerol] Allergy Rash/Hives Verified 09/24/19 20:37 propoxyphene napsylate Allergy Dyspnea Verified 09/24/19 20:37 [From Darvocet-N] Review of Systems ROS Statement: Those systems with pertinent positive or pertinent negative responses have been documented in the HPI. ROS Other: All systems not noted in ROS Statement are negative. Past Medical History Past Medical History: COPD, Diabetes Mellitus, GERD/Reflux, Hyperlipidemia, Hypertension, Osteoarthritis (OA), Pneumonia, Thyroid Disorder Additional Past Medical History / Comment(s): MURMUR, UTI, GOITER, DIASTOLIC DYSFUNCTION,Scleraderma, has had trouble swallowing for past 6 months, mitochondrial myopathy, chronic pulmonary failure, kidney disease stage III History of Any Multi-Drug Resistant Organisms: None Reported Past Surgical History: Appendectomy, Cholecystectomy, Heart Catheterization, Hysterectomy, Joint Replacement Additional Past Surgical History / Comment(s): RT KNEE REPLACEMENT, LT KNEE HAS SCREWS IN PLACE Past Anesthesia/Blood Transfusion Reactions: No Reported Reaction Additional Past Anesthesia/Blood Transfusion Reaction / Comment(s): CLAUSTERPHOBIC Past Psychological History: Anxiety Smoking Status: Former smoker Past Alcohol Use History: None Reported, Occasional Past Drug Use History: None Reported - Past Family History Father Family Medical History: Cancer, Diabetes Mellitus Additional Family Medical History / Comment(s): AT AGE 61, CA throughout the body Mother Family Medical History: Cancer, Congestive Heart Failure (CHF), Diabetes Mellitus, Myocardial Infarction (PA), Thyroid Disorder Additional Family Medical History / Comment(s): Uterine CA General Exam - General Exam Comments Initial Comments: This is a well-developed well-nourished awake alert oriented x 3 female Limitations: no limitations General appearance: alert, anxious Head exam: Present: atraumatic, normocephalic, normal inspection Eye exam: Present: normal appearance, PERRL, EOMI. Absent: scleral icterus, co njunctival injection, periorbital swelling ENT exam: Present: normal exam, mucous membranes moist Neck exam: Present: normal inspection. Absent: tenderness, meningismus, lymphadenopathy Respiratory exam: Present: decreased breath sounds. Absent: respiratory distress, wheezes, rales, rhonchi, stridor Cardiovascular Exam: Present: normal rhythm, tachycardia, normal heart sounds. Absent: systolic murmur, diastolic murmur, rubs, gallop, clicks GI/Abdominal exam: Present: soft, normal bowel sounds. Absent: distended, tenderness, guarding, rebound, rigid Extremities exam: Present: normal inspection, full ROM, normal capillary refill. Absent: tenderness, pedal edema, joint swelling, calf tenderness Back exam: Present: normal inspection Neurological exam: Present: alert, oriented X3, CN II-XII intact Psychiatric exam: Present: normal affect, normal mood Skin exam: Present: warm, dry, intact, normal color. Absent: rash Course Vital Signs 09/24/19 09/24/19 09/24/19 18:23 18:45 19:15 Temperature 98.7 F 98.2 F Pulse Rate 101 H 96 Respiratory 20 20 20 Rate Blood Pressure 164/77 144/84 O2 Sat by Pulse 99 98 Oximetry 09/24/19 09/24/19 19:27 20:05 Temperature Pulse Rate 102 H 92 Respiratory 20 Rate Blood Pressure 136/71 O2 Sat by Pulse 97 Oximetry Medical Decision Making - Medical Decision Making Patient was reevaluated by me and several occasions she still having some dyspnea and exertional dyspnea. I had discussed the case with earlier. Patient be admitted with continued updrafts and BiPAP to be used. - Lab Data Result diagrams: 09/24/19 18:45 09/24/19 18:45 Lab Results 09/24/19 09/24/19 09/24/19 Range/Units 18:45 18:45 18:45 WBC 10.2 (3.8-10.6) k/uL RBC 4.85 (3.80-5.40) m/uL Hgb 12.2 (11.4-16.0) gm/dL Hct 38.5 (34.0-46.0) % MCV 79.4 L (80.0-100.0) fL MCH 25.1 (25.0-35.0) pg MCHC 31.6 (31.0-37.0) g/dL RDW 15.5 (11.5-15.5) % Plt Count 331 (150-450) k/uL Neutrophils % 80 % Lymphocytes % 12 % Monocytes % 3 % Eosinophils % 2 % Basophils % 0 % Neutrophils # 8.2 H (1.3-7.7) k/uL Lymphocytes # 1.2 (1.0-4.8) k/uL Monocytes # 0.3 (0-1.0) k/uL Eosinophils # 0.2 (0-0.7) k/uL Basophils # 0.0 (0-0.2) k/uL PT (9.0-12.0) sec INR (<1.2) APTT (22.0-30.0) sec D-Dimer (<0.60) mg/L FEU VBG pH 7.40 (7.31-7.41) VBG pCO2 47 (37-51) mmHg VBG HCO3 28 (24-28) mmol/L Sodium 137 (137-145) mmol/L Potassium 4.5 (3.5-5.1) mmol/L Chloride 99 (98-107) mmol/L Carbon Dioxide 28 (22-30) mmol/L Anion Gap 10 mmol/L BUN 16 (7-17) mg/dL Creatinine 0.87 (0.52-1.04) mg/dL Est GFR (CKD-EPI)AfAm 87 (>60 ml/min/1.73 sqM) Est GFR (CKD-EPI)NonAf 75 (>60 ml/min/1.73 sqM) Glucose 252 H (74-99) mg/dL Plasma Lactic Acid Carlos (0.7-2.0) mmol/L Calcium 9.6 (8.4-10.2) mg/dL Magnesium 2.0 (1.6-2.3) mg/dL Total Bilirubin 0.4 (0.2-1.3) mg/dL AST 43 H (14-36) U/L ALT 76 H (4-34) U/L Alkaline Phosphatase 174 H (38-126) U/L Creatine Kinase 63 (30-135) U/L Troponin I (0.000-0.034) ng/mL NT-Pro-B Natriuret Pep pg/mL Total Protein 7.1 (6.3-8.2) g/dL Albumin 4.2 (3.5-5.0) g/dL 09/24/19 09/24/19 09/24/19 Range/Units 18:45 18:45 18:45 WBC (3.8-10.6) k/uL RBC (3.80-5.40) m/uL Hgb (11.4-16.0) gm/dL Hct (34.0-46.0) % MCV (80.0-100.0) fL MCH (25.0-35.0) pg MCHC (31.0-37.0) g/dL RDW (11.5-15.5) % Plt Count (150-450) k/uL Neutrophils % % Lymphocytes % % Monocytes % % Eosinophils % % Basophils % % Neutrophils # (1.3-7.7) k/uL Lymphocytes # (1.0-4.8) k/uL Monocytes # (0-1.0) k/uL Eosinophils # (0-0.7) k/uL Basophils # (0-0.2) k/uL PT 9.4 (9.0-12.0) sec INR 0.9 (<1.2) APTT 20.9 L (22.0-30.0) sec D-Dimer 0.23 (<0.60) mg/L FEU VBG pH (7.31-7.41) VBG pCO2 (37-51) mmHg VBG HCO3 (24-28) mmol/L Sodium (137-145) mmol/L Potassium (3.5-5.1) mmol/L Chloride (98-107) mmol/L Carbon Dioxide (22-30) mmol/L Anion Gap mmol/L BUN (7-17) mg/dL Creatinine (0.52-1.04) mg/dL Est GFR (CKD-EPI)AfAm (>60 ml/min/1.73 sqM) Est GFR (CKD-EPI)NonAf (>60 ml/min/1.73 sqM) Glucose (74-99) mg/dL Plasma Lactic Acid Carlos 1.9 (0.7-2.0) mmol/L Calcium (8.4-10.2) mg/dL Magnesium (1.6-2.3) mg/dL Total Bilirubin (0.2-1.3) mg/dL AST (14-36) U/L ALT (4-34) U/L Alkaline Phosphatase (38-126) U/L Creatine Kinase (30-135) U/L Troponin I (0.000-0.034) ng/mL NT-Pro-B Natriuret Pep 30 pg/mL Total Protein (6.3-8.2) g/dL Albumin (3.5-5.0) g/dL 09/24/19 Range/Units 18:45 WBC (3.8-10.6) k/uL RBC (3.80-5.40) m/uL Hgb (11.4-16.0) gm/dL Hct (34.0-46.0) % MCV (80.0-100.0) fL MCH (25.0-35.0) pg MCHC (31.0-37.0) g/dL RDW (11.5-15.5) % Plt Count (150-450) k/uL Neutrophils % % Lymphocytes % % Monocytes % % Eosinophils % % Basophils % % Neutrophils # (1.3-7.7) k/uL Lymphocytes # (1.0-4.8) k/uL Monocytes # (0-1.0) k/uL Eosinophils # (0-0.7) k/uL Basophils # (0-0.2) k/uL PT (9.0-12.0) sec INR (<1.2) APTT (22.0-30.0) sec D-Dimer (<0.60) mg/L FEU VBG pH (7.31-7.41) VBG pCO2 (37-51) mmHg VBG HCO3 (24-28) mmol/L Sodium (137-145) mmol/L Potassium (3.5-5.1) mmol/L Chloride (98-107) mmol/L Carbon Dioxide (22-30) mmol/L Anion Gap mmol/L BUN (7-17) mg/dL Creatinine (0.52-1.04) mg/dL Est GFR (CKD-EPI)AfAm (>60 ml/min/1.73 sqM) Est GFR (CKD-EPI)NonAf (>60 ml/min/1.73 sqM) Glucose (74-99) mg/dL Plasma Lactic Acid Carlos (0.7-2.0) mmol/L Calcium (8.4-10.2) mg/dL Magnesium (1.6-2.3) mg/dL Total Bilirubin (0.2-1.3) mg/dL AST (14-36) U/L ALT (4-34) U/L Alkaline Phosphatase (38-126) U/L Creatine Kinase (30-135) U/L Troponin I <0.012 (0.000-0.034) ng/mL NT-Pro-B Natriuret Pep pg/mL Total Protein (6.3-8.2) g/dL Albumin (3.5-5.0) g/dL - EKG Data -: EKG Interpreted by [place] EKG shows normal: sinus rhythm (Sinus rhythm rate of 98. Interval 150 QRS duration 74 QT since QTC 362/[address] configuration) - Radiology Data Radiology results: report reviewed (Review the imaging and report no acute findings.), image reviewed Disposition Clinical Impression: Acute exacerbation of chronic obstructive pulmonary disease Disposition: ADMITTED IP TO THIS [facility] Condition: Fair Referrals: Murray Braun DO [Primary Care Provider] - 1-2 days
[2019-09-24 19:10] LABS: Basophils % (A) 0 %; Eosinophils # (A) 0.2 k/uL (0-0.7); Eosinophils % (A) 2 %; HCT 38.5 % (34.0-46.0); HGB 12.2 gm/dL (11.4-16.0); Lymphocytes # (A) 1.2 k/uL (1.0-4.8); Lymphocytes % (A) 12 %; MCH 25.1 pg (25.0-35.0); MCHC 31.6 g/dL (31.0-37.0); MCV 79.4 fL (80.0-100.0); Mean Platelet Volume 6.8; Monocytes # (A) 0.3 k/uL (0-1.0); Monocytes % (A) 3 %; Neutrophils # (A) 8.2 k/uL (1.3-7.7); Neutrophils % (A) 80 %; Platelet Count 331 k/uL (150-450); RBC 4.85 m/uL (3.80-5.40); RDW 15.5 % (11.5-15.5); VBG PH 7.4 (7.31-7.41); WBC 10.2 k/uL (3.8-10.6)
[2019-09-24 19:22] LABS: Albumin 4.2 g/dL (3.5-5.0); Calcium 9.6 mg/dL (8.4-10.2); Potassium 4.5 mmol/L (3.5-5.1); Total Bilirubin 0.4 mg/dL (0.2-1.3); Total Protein 7.1 g/dL (6.3-8.2)
--- NOTE | 2019-09-24 19:35 | XR ---
EXAMINATION TYPE: XR chest 2V DATE OF EXAM: 09/24/2019 COMPARISON: 08/29/2019 HISTORY: Short of breath TECHNIQUE: 2 views FINDINGS: Heart is normal. Lungs are clear of infiltrate. There is no pleural effusion. Bony thorax i s intact. IMPRESSION: Normal chest. There is improved inspiration compared to last exam.
[2019-09-24 19:50] LABS: D-Dimer 0.23 mg/L FEU (<0.60); INR 0.9 (<1.2); Prothrombin Time 9.4 sec (9.0-12.0)
[2019-09-24 19:53] LABS: Partial Thromboplastin Time 20.9 sec (22.0-30.0)
[2019-09-24] MEDS ORDERED: ALPRAZolam 0.25 MG TAB PO PRN (20:52)
[2019-09-24] MEDS ORDERED: IBUPROFEN 800 MG TAB PO PRN (20:52)
[2019-09-24] MEDS: DILTIAZEM CD 240 MG CAP.ER.24H PO SCH (22:50)
[2019-09-24] MEDS: DULoxetine HCL 60 MG CAPSULE.DR PO SCH (22:51)
[2019-09-24] MEDS: ISOSORBIDE MONONITRATE ER 60 MG TAB.ER.24H PO SCH (22:51)
[2019-09-24] MEDS: HYDROXYCHLOROQUINE SULFATE 200 MG TAB PO SCH (22:51)
[2019-09-24] MEDS: metFORMIN 500 MG TAB PO SCH (22:51)
[2019-09-24] MEDS: MONTELUKAST 10 MG TAB PO SCH (22:52)
[2019-09-24] MEDS: LATANOPROST 0.005% OPHTH DROPS 2.5 ML BTL BOTH EYES SCH (22:52)
[2019-09-24] MEDS: PANTOPRAZOLE 40 MG TABLET PO SCH (22:52)
[2019-09-24] MEDS: HYDROcodone/APAP 10-325MG 1 EACH TAB PO PRN (22:56)
[2019-09-24] MEDS: GABAPENTIN 400 MG CAP PO SCH (23:19)
[2019-09-24] MEDS: IPRATROPIUM-ALBUTEROL 3 ML NEB INHALATION SCH (23:23)
[2019-09-25] MEDS: IPRATROPIUM-ALBUTEROL 3 ML NEB INHALATION SCH ×6 (03:39→23:24)
[2019-09-25 06:59] LABS: Glucose,Whole Blood 162 mg/dL (75-99)
[2019-09-25] MEDS: INSULIN ASPART (NovoLOG) 100 UNIT/ML VIAL SQ SCH ×4 (07:01→20:40)
[2019-09-25] MEDS: REPAGLINIDE 1 MG TAB PO SCH ×3 (07:02→18:10)
[2019-09-25] MEDS: FLUTICASONE 110 MCG INHALER INHALATION PRN (07:50)
[2019-09-25] MEDS: FUROSEMIDE 20 MG TAB PO SCH (08:33)
[2019-09-25] MEDS: metFORMIN 500 MG TAB PO SCH ×2 (08:33→20:18)
[2019-09-25] MEDS: GABAPENTIN 400 MG CAP PO SCH ×3 (08:33→20:18)
[2019-09-25] MEDS: HYDROXYCHLOROQUINE SULFATE 200 MG TAB PO SCH ×2 (08:34→20:20)
[2019-09-25] MEDS: ASPIRIN 81 MG PO SCH (08:34)
[2019-09-25] MEDS: PANTOPRAZOLE 40 MG TABLET PO SCH ×2 (08:34→20:19)
[2019-09-25] MEDS: FLUTICASONE 50MCG/SPRAY NASAL 16GM EA NOSTRIL SCH (08:35)
[2019-09-25] MEDS: HYDROcodone/APAP 10-325MG 1 EACH TAB PO PRN ×3 (08:39→22:25)
[2019-09-25 11:53] LABS: Hemoglobin A1C 8.8 % (4.0-6.0)
[2019-09-25 12:55] LABS: Glucose,Whole Blood 158 mg/dL (75-99)
[2019-09-25] MEDS: ATORVASTATIN 40 MG TAB PO SCH (13:19)
[2019-09-25 18:01] LABS: Glucose,Whole Blood 165 mg/dL (75-99)
[2019-09-25] MEDS: NYSTATIN 100,000 UNIT/ML SUSP 500,000 UNIT/5 ML CUP PO SCH ×2 (18:13→20:18)
[2019-09-25] MEDS: methylPREDNISolone SOD SUCCI 125 MG/2 ML VIAL IV SCH ×2 (19:30→21:55)
[2019-09-25] MEDS: LATANOPROST 0.005% OPHTH DROPS 2.5 ML BTL BOTH EYES SCH (20:17)
--- NOTE | 2019-09-25 20:17 | HP ---
HISTORY AND PHYSICAL DATE OF SERVICE: 09/25/2019 CHIEF COMPLAINT: Shortness of breath. HISTORY OF PRESENT ILLNESS: This 54-year-old woman with a past medical history of multiple medical problems including history of COPD, history of diabetes, GERD, hypertension, history of DJD, history of mitochondrial disorder, scleroderma, history of anxiety, history of nicotine dependence being followed by Dr. Braun in the outpatient setting was complaining of shortness of breath. The patient has also fever and chills, some cough with without any phlegm production. Because of increasing difficulties, the patient came to [facility] and was admitted for further evaluation and treatment. The portable chest x-ray was done which was personally reviewed by me and showed some increased bronchovascular markings and no acute abnormalities and no active pneumonia. There is no history of any fever, rigors or chills. No history of headache, loss of consciousness or seizures at this time. PAST MEDICAL HISTORY: COPD, history of diabetes, GERD, hypertension, hyperlipidemia, history of DJD, mitochondrial disorder, history of goiter. MEDICATIONS: Medications prior to admission include home medications are: 1. Atrovent 1 to 2 sprays in the nostril b.i.d. 2. Repaglinide 1 mg p.o. t.i.d. 3. Metformin 1000 mg q.h.s. 4. Protonix 40 mg p.o. b.i.d. 5. Glucophage 500 mg q.a.m. 6. DuoNeb q.i.d. 7. [place] 1 tab q.4h p.r.n. 8. Neurontin 800 mg p.o. t.i.d. 9. Flonase 2 sprays daily. 10.Pulmicort 2 puffs b.i.d. p.r.n. 11.Xanax 0.5 b.i.d. p.r.n. 12.Singulair 10 mg q.h.s. 13.Xalatan 0.05% 1 drop both eyes q.h.s. 14.Imdur 60 mg p.o. q.h.s. 15.Plaquenil 200 mg p.o. b.i.d. 16.Lasix 20 mg p.o. daily. 17.Cardizem 240 mg q.h.s. 18.Cymbalta 120 mg q.h.s. 19.Lipitor 40 mg p.o. daily. 20.Aspirin 81 mg p.o. daily. ALLERGIES: ANTIGENIC AND ANABOLIC STEROIDS.DEMEROL.DARVOCET N100. FAMILY HISTORY: History of cancer, diabetes mellitus. SOCIAL HISTORY: Previous history of smoking. No history of alcohol intake. REVIEW OF SYSTEMS: ENT: No diminished vision. No diminished hearing. CARDIOVASCULAR: As mentioned earlier. RESPIRATORY: As mentioned earlier. GI no nausea or vomiting. : No dysuria. CENTRAL NERVOUS SYSTEM: No numbness or weakness. ALLERGY/IMMUNOLOGY: No asthma or hayfever. MUSCULOSKELETAL as mentioned earlier. HEMATOLOGY/ONCOLOGY: No history of anemia. ENDOCRINE: No history of diabetes or hypothyroidism. CONSTITUTIONAL: As mentioned earlier. DERMATOLOGY: Negative. RHEUMATOLOGY: Negative. PSYCHIATRY: As mentioned earlier. PHYSICAL EXAMINATION: Alert and oriented x3. Pulse is 88. Blood pressure 111/60, respiration 20, temperature 97.4, pulse ox 98% on room air. HEENT: Conjunctivae normal. NECK: No JVD. CARDIOVASCULAR: S1, S2 muffled. RESPIRATIONS: Breath sounds diminished in the bases. Scattered rhonchi and crackles. ABDOMEN: Soft, nontender. No mass palpable. LEGS: No edema. No swelling. NERVOUS SYSTEM: Higher functions as mentioned earlier. Moves all four limbs. No focal motor or sensory deficits. SKIN: No ulcer, rash or bleeding. JOINTS: No active deforming arthropathy. LABS: CBC within normal limits. MCV 17.9. Otherwise glucose 250-162 and AST 73, ALT 76. Hemoglobin is 8.8. ASSESSMENT: 1. Chronic obstructive pulmonary disease acute exacerbation with acute purulent tracheobronchitis. 2. Increased AST/ALT. 3. History of diabetes type 2. 4. Gastroesophageal reflux disease. 5. Hypertension. 6. Hyperlipidemia. 7. History of degenerative joint disease. 8. History of pneumonia. 9. History of urinary tract infection. 10.History of goiter. 11.History of diastolic dysfunction. 12.History of scleroderma. 13.History of mitochondrial myopathy. 14.History of chronic kidney disease stage III. 15.History of cholecystectomy. 16.History of degenerative joint disease. 17.History of anxiety. 18.Remote history of nicotine dependence. 19.Obesity with body mass of 38.3. RECOMMENDATIONS AND DISCUSSION: In this 54-year-old woman who presented with multiple complex medical issues, we will monitor the patient closely, continue the current medications, management and symptomatic treatment. Optimize bronchodilator treatment. Continue steroids. Continue empiric antibiotics. Pulmonary, Dr. Rowe will be consulted who is following the outpatient setting. Prognosis guarded. Further recommendations to follow. A copy of dictation being forwarded to Dr. Braun who is the primary care physician. MMSHALAL / MARTIN: [id number] / [id number]
[2019-09-25] MEDS: DILTIAZEM CD 240 MG CAP.ER.24H PO SCH (20:19)
[2019-09-25] MEDS: MONTELUKAST 10 MG TAB PO SCH (20:19)
[2019-09-25] MEDS: HEPARIN SODIUM,PORCINE 5,000 UNIT/ML 1 ML VIAL SQ SCH (20:19)
[2019-09-25] MEDS: DULoxetine HCL 60 MG CAPSULE.DR PO SCH (20:19)
[2019-09-25] MEDS: ISOSORBIDE MONONITRATE ER 60 MG TAB.ER.24H PO SCH (20:19)
[2019-09-25 20:29] LABS: Glucose,Whole Blood 135 mg/dL (75-99)
[2019-09-25] MEDS ORDERED: SIMETHICONE 80 MG CHEWABLE PO PRN (22:15)
[2019-09-25] MEDS: CALCIUM CARBONATE 500 MG CHEWABLE PO PRN (22:23)
[2019-09-26] MEDS: IPRATROPIUM-ALBUTEROL 3 ML NEB INHALATION SCH ×5 (03:46→20:54)
[2019-09-26 06:36] LABS: Glucose,Whole Blood 146 mg/dL (75-99)
[2019-09-26] MEDS: REPAGLINIDE 1 MG TAB PO SCH ×3 (06:40→16:48)
[2019-09-26] MEDS: INSULIN ASPART (NovoLOG) 100 UNIT/ML VIAL SQ SCH ×4 (06:40→21:37)
[2019-09-26] MEDS: HEPARIN SODIUM,PORCINE 5,000 UNIT/ML 1 ML VIAL SQ SCH ×2 (08:13→21:38)
[2019-09-26] MEDS: NYSTATIN 100,000 UNIT/ML SUSP 500,000 UNIT/5 ML CUP PO SCH ×4 (08:13→21:38)
[2019-09-26] MEDS: ATORVASTATIN 40 MG TAB PO SCH (08:14)
[2019-09-26] MEDS: ASPIRIN 81 MG PO SCH (08:14)
[2019-09-26] MEDS: metFORMIN 500 MG TAB PO SCH ×2 (08:14→21:34)
[2019-09-26] MEDS: GABAPENTIN 400 MG CAP PO SCH ×3 (08:14→21:52)
[2019-09-26] MEDS: FUROSEMIDE 20 MG TAB PO SCH (08:14)
[2019-09-26] MEDS: FLUTICASONE 50MCG/SPRAY NASAL 16GM EA NOSTRIL SCH (08:15)
[2019-09-26] MEDS: HYDROXYCHLOROQUINE SULFATE 200 MG TAB PO SCH ×2 (08:17→21:35)
[2019-09-26] MEDS: FLUTICASONE 110 MCG INHALER INHALATION PRN (08:33)
[2019-09-26 09:56] LABS: Basophils % (A) 0 %; Eosinophils # (A) 0.2 k/uL (0-0.7); Eosinophils % (A) 3 %; HGB 11.9 gm/dL (11.4-16.0); Hypochromasia Slight; Lymphocytes # (A) 1.2 k/uL (1.0-4.8); Lymphocytes % (A) 15 %; MCHC 31.3 g/dL (31.0-37.0); MCV 79.9 fL (80.0-100.0); Mean Platelet Volume 6.6; Monocytes # (A) 0.3 k/uL (0-1.0); Monocytes % (A) 4 %; Neutrophils # (A) 6.1 k/uL (1.3-7.7); Neutrophils % (A) 76 %; Platelet Count 294 k/uL (150-450); RBC 4.76 m/uL (3.80-5.40); RDW 15.5 % (11.5-15.5)
[2019-09-26 10:07] LABS: Calcium 9.7 mg/dL (8.4-10.2); Potassium 4.7 mmol/L (3.5-5.1)
[2019-09-26] MEDS: PANTOPRAZOLE 40 MG TABLET PO SCH ×2 (11:30→21:35)
[2019-09-26] MEDS: BUDESONIDE 0.5 MG/2 ML NEBU INHALATION SCH ×2 (12:00→20:54)
--- NOTE | 2019-09-26 12:46 | P.CNPUL ---
History of Present Illness Consult date: 09/25/19 Reason for consult: dyspnea Chief complaint: Shortness of breath for one day History of present illness: This is a 54-year-old morbidly obese female well-known to me she has a history of sleep apnea, also have a history of the connective tissue disease, patient has been diagnosed as mitral mitochondrial myopathy and associated respiratory failure related to that she is on home noninvasive ventilation with [facility], she has progressive shortness of breath for last 1 day no cough congestion or sputum production has been associated with that due to progressive shortness of breath and decided to come into the hospital oxygen and nebulizer treatments were not helping her, patient has been treated with BiPAP initial setting was 14/532% oxygen, her friend which event has been requested from home, she denies any chills fever and denies any sputum production denies any chest pain except some nonspecific chest tightness Review of Systems All systems: negative Past Medical History Past Medical History: COPD, Diabetes Mellitus, GERD/Reflux, Hyperlipidemia, Hypertension, Osteoarthritis (OA), Pneumonia, Thyroid Disorder Additional Past Medical History / Comment(s): MURMUR, UTI, GOITER, DIASTOLIC DYSFUNCTION,Scleraderma, has had trouble swallowing for past 6 months, mitochondrial myopathy, chronic pulmonary failure, kidney disease stage III History of Any Multi-Drug Resistant Organisms: None Reported Past Surgical History: Appendectomy, Cholecystectomy, Heart Catheterization, Hysterectomy, Joint Replacement Additional Past Surgical History / Comment(s): RT KNEE REPLACEMENT, LT KNEE HAS SCREWS IN PLACE Past Anesthesia/Blood Transfusion Reactions: No Reported Reaction Additional Past Anesthesia/Blood Transfusion Reaction / Comment(s): CLAUSTERPHOBIC Past Psychological History: Anxiety Smoking Status: Former smoker Past Alcohol Use History: None Reported, Occasional Additional Past Alcohol Use History / Comment(s): STARTED SMOKING AT AGE 11, SMOKED 2 PPD THEN QUIT 1996 Past Drug Use History: None Reported - Past Family History Father Family Medical History: Cancer, Diabetes Mellitus Additional Family Medical History / Comment(s): AT AGE 61, CA throughout the body Mother Family Medical History: Cancer, Congestive Heart Failure (CHF), Diabetes Mellitus, Myocardial Infarction (SD), Thyroid Disorder Additional Family Medical History / Comment(s): Uterine CA Medications and Allergies Home Medications Medication Instructions Recorded Confirmed Type Isosorbide Mononitrate ER [Imdur] 60 mg PO HS 07/16/14 09/24/19 History metFORMIN HCL 1,000 mg PO HS 07/16/14 09/24/19 History Aspirin [Adult Low Dose Aspirin EC] 81 mg PO DAILY 10/20/15 09/24/19 History Montelukast [Singulair] 10 mg PO HS 10/20/15 09/24/19 History Pantoprazole [Protonix] 40 mg PO BID 10/20/15 09/24/19 History ALPRAZolam [Xanax] 0.25 mg PO BID PRN 02/27/16 09/24/19 History Gabapentin [Neurontin] 800 mg PO TID 09/07/16 09/24/19 History Hydroxychloroquine Sulfate 200 mg PO BID 09/07/16 09/24/19 History [Plaquenil] Latanoprost Ophth [Xalatan 0.005%] 1 drop BOTH EYES HS 09/07/16 09/24/19 History Ibuprofen [Motrin] 800 mg PO Q8H PRN 01/11/17 09/24/19 History Atorvastatin [Lipitor] 40 mg PO DAILY 08/20/17 09/24/19 History Ipratropium-Albuterol Nebulize 3 ml INHALATION RT-QID 08/20/17 09/24/19 History [Duoneb 0.5 mg-3 mg/3 ml Soln] DULoxetine HCL [Cymbalta] 120 mg PO HS 01/30/18 09/24/19 History HYDROcodone/APAP 10-325MG [[place] 1 tab PO Q4H PRN 01/30/18 09/24/19 History 10-325] Budesonide [Pulmicort Flexhaler] 2 puff INHALATION RT-BID PRN 08/29/19 09/24/19 History Diltiazem HCl [Diltiazem HCl 24Hr 240 mg PO HS 08/29/19 09/24/19 History ER] Fluticasone Nasal [place] [Flonase 2 spray EA NOSTRIL DAILY 08/29/19 09/24/19 H istory Nasal [place]] Furosemide [Lasix] 20 mg PO DAILY 08/29/19 09/24/19 History Ipratropium [place] [Ipratropium 1 - 2 sprays EA NOSTRIL BID 09/24/19 09/24/19 History [place] 0.03%] Repaglinide 1 mg PO TID 09/24/19 09/24/19 History metFORMIN HCL [Glucophage] 500 mg PO QAM 09/24/19 09/24/19 History Allergies Allergy/AdvReac Type Severity Reaction Status Date / Time Androgenic Anabolic Steroid Allergy Unknown Verified 09/24/19 20:48 meperidine HCl [From Demerol] Allergy Rash/Hives Verified 09/24/19 20:37 propoxyphene napsylate Allergy Dyspnea Verified 09/24/19 20:37 [From Darvocet-N] Physical Exam Vitals: Vital Signs Temp Pulse Pulse Resp BP BP BP 09/25/19 12:42 85 09/25/19 12:31 85 09/25/19 11:59 97.7 F 80 20 127/74 09/25/19 08:09 97.6 F 85 20 120/68 09/25/19 08:04 88 09/25/19 08:00 22 09/25/19 07:50 86 09/25/19 03:55 88 09/25/19 03:50 98.0 F 77 18 108/65 09/25/19 03:39 84 09/24/19 23:42 88 09/24/19 23:24 84 09/24/19 22:25 20 09/24/19 22:15 97.6 F 94 20 157/84 09/24/19 21:00 98 18 139/70 09/24/19 20:05 92 20 136/71 09/24/19 19:27 102 H 09/24/19 19:15 98.2 F 96 20 144/84 09/24/19 18:45 20 09/24/19 18:23 98.7 F 101 H 20 164/77 Pulse Ox 09/25/19 12:42 09/25/19 12:31 09/25/19 11:59 97 09/25/19 08:09 93 L 09/25/19 08:04 09/25/19 08:00 09/25/19 07:50 09/25/19 03:55 09/25/19 03:50 97 09/25/19 03:39 09/24/19 23:42 09/24/19 23:24 09/24/19 22:25 09/24/19 22:15 98 02/17/20 21:00 98 09/24/19 20:05 97 09/24/19 19:27 09/24/19 19:15 98 09/24/19 18:45 09/24/19 18:23 99 Intake and Output 09/24/19 09/25/19 09/25/19 22:59 06:59 14:59 Other: # Voids 1 1 Weight 104.326 kg - Constitutional General appearance: disheveled, mild distress, morbidly obese - EENT Eyes: EOMI, PERRLA ENT: normal oropharynx Ears: bilateral: normal - Neck Carotids: bilateral: upstroke normal Thyroid: bilateral: normal size - Respiratory Respiratory: bilateral: CTA, diminished, negative: dullness, rales, rhonchi, wheezing, prolonged expiration, prolonged inspiration - Cardiovascular Rhythm: regular Heart sounds: normal: S1, S2 - Gastrointestinal General gastrointestinal: normal bowel sounds - Integumentary Integumentary: normal turgor - Neurologic Neurologic: CNII-XII intact - Musculoskeletal Musculoskeletal: gait normal, generalized weakness, strength equal bilaterally - Psychiatric Psychiatric: A&O x's 3, appropriate affect, intact judgment & insight Results - Laboratory Findings CBC and BMP: 09/26/19 09:21 09/26/19 09:21 PT/INR, D-dimer PT 9.4 sec (9.0-12.0) 09/24/19 18:45 INR 0.9 (<1.2) 09/24/19 18:45 D-Dimer 0.23 mg/L FEU (<0.60) 09/24/19 18:45 Abnormal lab findings: Abnormal Labs 09/24/19 09/24/19 09/24/19 07:45 18:45 18:45 MCV 79.4 L Neutrophils # 8.2 H APTT Glucose 252 H POC Glucose (mg/dL) Hemoglobin A1c 8.8 H AST 43 H ALT 76 H Alkaline Phosphatase 174 H 09/24/19 09/25/19 09/25/19 18:45 06:56 12:52 MCV Neutrophils # APTT 20.9 L Glucose POC Glucose (mg/dL) 162 H 158 H Hemoglobin A1c AST ALT Alkaline Phosphatase - Diagnostic Findings Chest x-ray: report reviewed, image reviewed (No acute process identified) Assessment and Plan Assessment: Shortness of breath progressive likely due to mitochondrial myopathy Acute exacerbation of asthma History of chronic persistent asthma Mitochondrial myopathy Mixed connective tissue disease Tracheobronchitis Morbid obesity and sleep-disordered breathing and sleep apnea Plan: Will get her Trilogy noninvasive ventilator from home Continue BiPAP in the meantime with supplemental oxygen Bronchodilators Deep breathing sense incentive spirometry Antibiotics Resume home medications Follow clinical course closely further recommendations pending plan of care as per clinical response of the patient Time with Patient: Greater than 30
--- NOTE | 2019-09-26 12:49 | P.PN ---
Subjective Progress Note Date: 09/26/19 Principal diagnosis: Shortness of breath progressive likely due to mitochondrial myopathy Acute exacerbation of asthma History of chronic persistent asthma Mitochondrial myopathy Mixed connective tissue disease Tracheobronchitis Morbid obesity and sleep-disordered breathing and sleep apnea 09/26/2019, patient seen eval examined during the rounds labs reviewed medications reviewed shortness of breath slightly improved now able to get out of the bed, had a better sleep last night, patient has a her noninvasive ventilator from home has been resumed on that, cough congestion has improved though patient has received antibiotics This is a 54-year-old morbidly obese female well-known to me she has a history of sleep apnea, also have a history of the connective tissue disease, patient has been diagnosed as mitral mitochondrial myopathy and associated respiratory failure related to that she is on home noninvasive ventilation with Trilogy event, she has progressive shortness of breath for last 1 day no cough congestion or sputum production has been associated with that due to progressive shortness of breath and decided to come into the hospital oxygen and nebulizer treatments were not helping her, patient has been treated with BiPAP initial setting was 14/532% oxygen, her friend which event has been requested from home, she denies any chills fever and denies any sputum production denies any chest pain except some nonspecific chest tightness Objective - Vital Signs Vital signs: Vital Signs Temp 97.7 F 09/26/19 08:04 Pulse 84 09/26/19 12:17 Resp 20 09/26/19 08:04 BP 114/70 09/26/19 08:04 Pulse Ox 96 09/26/19 08:04 Intake & Output 09/25/19 09/26/19 09/26/19 18:59 06:59 18:59 Intake Total 60 630 Balance 60 630 Intake: Oral 60 630 Other: # Voids 2 - Exam - Constitutional General appearance: disheveled, mild distress, morbidly obese - EENT Eyes: EOMI, PERRLA ENT: normal oropharynx Ears: bilateral: normal - Neck Carotids: bilateral: upstroke normal Thyroid: bilateral: normal size - Respiratory Respiratory: bilateral: CTA, diminished, negative: dullness, rales, rhonchi, wheezing, prolonged expiration, prolonged inspiration - Cardiovascular Rhythm: regular Heart sounds: normal: S1, S2 - Gastrointestinal General gastrointestinal: normal bowel sounds - Integumentary Integumentary: normal turgor - Neurologic Neurologic: CNII-XII intact - Musculoskeletal Musculoskeletal: gait normal, generalized weakness, strength equal bilaterally - Psychiatric Psychiatric: A&O x's 3, appropriate affect, intact judgment & insight - Labs CBC & Chem 7: 09/26/19 09:21 09/26/19 09:21 Labs: Abnormal Lab Results - Last 24 Hours (Table) 09/25/19 09/25/19 09/25/19 Range/Units 12:52 17:58 20:28 MCV (80.0-100.0) fL Sodium (137-145) mmol/L Chloride (98-107) mmol/L BUN (7-17) mg/dL Glucose (74-99) mg/dL POC Glucose (mg/dL) 158 H 165 H 135 H (75-99) mg/dL 09/26/19 09/26/19 09/26/19 Range/Units 06:34 09:21 09:21 MCV 79.9 L (80.0-100.0) fL Sodium 135 L (137-145) mmol/L Chloride 97 L (98-107) mmol/L BUN 20 H (7-17) mg/dL Glucose 212 H (74-99) mg/dL POC Glucose (mg/dL) 146 H (75-99) mg/dL Assessment and Plan Assessment: Shortness of breath progressive likely due to mitochondrial myopathy Acute exacerbation of asthma History of chronic persistent asthma Mitochondrial myopathy Mixed connective tissue disease Tracheobronchitis Morbid obesity and sleep-disordered breathing and sleep apnea Plan: Continue Trilogy noninvasive ventilator from home Bronchodilators Hold on IV steroids for now Deep breathing sense incentive spirometry Antibiotics Continue home medications Follow clinical course closely further recommendations pending plan of care as per clinical response of the patient If patient remains stable can be discharged home in next 24-48 hours Time with Patient: Greater than 30
[2019-09-26 12:52] LABS: Glucose,Whole Blood 175 mg/dL (75-99)
[2019-09-26] MEDS: HYDROcodone/APAP 10-325MG 1 EACH TAB PO PRN ×2 (13:03→21:52)
[2019-09-26 16:50] LABS: Glucose,Whole Blood 134 mg/dL (75-99)
[2019-09-26 17:08] VITALS: TEMP 97.8
[2019-09-26 20:23] LABS: Glucose,Whole Blood 166 mg/dL (75-99)
[2019-09-26 20:24] VITALS: RESP 20
[2019-09-26] MEDS: DILTIAZEM CD 240 MG CAP.ER.24H PO SCH (21:33)
[2019-09-26] MEDS: ISOSORBIDE MONONITRATE ER 60 MG TAB.ER.24H PO SCH (21:34)
[2019-09-26] MEDS: MONTELUKAST 10 MG TAB PO SCH (21:35)
[2019-09-26] MEDS: DULoxetine HCL 60 MG CAPSULE.DR PO SCH (21:36)
[2019-09-26] MEDS: LATANOPROST 0.005% OPHTH DROPS 2.5 ML BTL BOTH EYES SCH (22:00)
--- NOTE | 2019-09-26 23:04 | P.PN ---
Progress Note - Text Progress Note Date: 09/26/19 Chief Complaint: Short of breath Interval history: This is a pleasant 54-year-old patient of Dr. Braun. Chronic stable medical conditions include herpes, GERD, hypertension, hyperlipidemia, osteoarthritis, scleroderma, mitochondrial myopathy, chronic respiratory failure on home ventilator, chronic kidney disease stage III. Patient does follow with a barrel raiser -[facility] and locally she follows with Dr. Earl Rowe. (Patient cannot take oral steroids-because of mitochondrial myopathy) Patient is an ex-smoker. Patient normally uses a cane to get about. Presented with shortness of breath, cough Today-denies any fever or chills. Slight cough. No expectoration. Did tolerate some diet. Some wheezing. Review of systems: Was done for constitutional, cardiovascular, GI, pulmonary. relevant finding as above Active Medications Hydrocodone Bitart/Acetaminophen ([place] 10) 1 each PO Q4H PRN PRN Reason: Pain Last Admin: 09/26/19 21:52 Dose: 1 each Documented by: Albuterol/Ipratropium (Duoneb 0.5 Mg-3 Mg/3 Ml Soln) 3 ml INHALATION RT-Q4H [facility] Last Admin: 09/26/19 20:54 Dose: 3 ml Documented by: Alprazolam (Xanax) 0.25 mg PO BID PRN PRN Reason: Anxiety Aspirin (Aspirin) 81 mg PO DAILY [facility] Last Admin: 09/26/19 08:14 Dose: 81 mg Documented by: Atorvastatin Calcium (Lipitor) 40 mg PO DAILY [facility] Last Admin: 09/26/19 08:14 Dose: 40 mg Documented by: Budesonide (Pulmicort) 0.5 mg INHALATION RT-BID [facility] Last Admin: 09/26/19 20:54 Dose: 0.5 mg Documented by: Calcium Carbonate/Glycine (Tums) 500 mg PO QID PRN PRN Reason: Heartburn Last Admin: 09/25/19 22:23 Dose: 500 mg Documented by: Diltiazem HCl (Cardizem Cd) 240 mg PO [facility] Last Admin: 09/26/19 21:33 Dose: 240 mg Documented by: Duloxetine HCl (Cymbalta) 120 mg PO [facility] Last Admin: 09/26/19 21:36 Dose: 120 mg Documented by: Fluticasone Propionate (Flonase Nasal [place]) 2 spray EA NOSTRIL DAILY [facility] Last Admin: 09/26/19 08:15 Dose: 2 spray Documented by: Furosemide (Lasix) 20 mg PO DAILY [facility] Last Admin: 09/26/19 08:14 Dose: 20 mg Documented by: Gabapentin (Neurontin) 800 mg PO TID [facility] Last Admin: 09/26/19 21:52 Dose: 800 mg Documented by: Heparin Sodium (Porcine) (Heparin) 5,000 unit SQ Q12HR [facility] Last Admin: 09/26/19 21:38 Dose: 5,000 unit Documented by: Hydroxychloroquine Sulfate (Plaquenil) 200 mg PO BID [facility] Last Admin: 09/26/19 21:35 Dose: 200 mg Documented by: Ceftriaxone Sodium 1 gm/ (Sodium Chloride) 50 mls @ 100 mls/hr IVPB Q24HR [facility] Last Admin: 09/26/19 08:15 Dose: 100 mls/hr Documented by: Ibuprofen (Motrin) 800 mg PO Q8H PRN PRN Reason: Pain Insulin Aspart (Novolog) 0 unit SQ ACHS [facility]; Protocol Last Admin: 09/26/19 21:37 Dose: 2 unit Documented by: Isosorbide Mononitrate (Imdur) 60 mg PO [facility] Last Admin: 09/26/19 21:34 Dose: 60 mg Documented by: Latanoprost (Xalatan 0.005%) 1 drops BOTH EYES [facility] Last Admin: 09/26/19 22:00 Dose: Not Given Documented by: Metformin HCl (Glucophage) 1,000 mg PO [facility] Last Admin: 09/26/19 21:34 Dose: 1,000 mg Documented by: Metformin HCl (Glucophage) 500 mg PO QAM [facility] Last Admin: 09/26/19 08:14 Dose: 500 mg Documented by: Montelukast Sodium (Singulair) 10 mg PO [facility] Last Admin: 09/26/19 21:35 Dose: 10 mg Documented by: Nystatin (Mycostatin Oral Susp) 500,000 unit PO QID [facility] Last Admin: 09/26/19 21:38 Dose: 500,000 unit Documented by: Pantoprazole Sodium (Protonix) 40 mg PO BID [facility] Last Admin: 09/26/19 21:35 Dose: 40 mg Documented by: Repaglinide (Prandin) 1 mg PO AC-TID [facility] Last Admin: 02/19/20 16:48 Dose: 1 mg Documented by: Simethicone (Mylicon Chew) 80 mg PO QID PRN PRN Reason: GI Upset Last Admin: 09/25/19 22:23 Dose: 80 mg Documented by: Physical examination: VITAL SIGNS: 97.4, 90, 20, 11 9/69, 98% on 3 L GENERAL: Laying in bed, but tired. EYES: Pupils equal. Conjunctiva normal. HEENT: External appearance of nose and ears normal, oral cavity grossly normal. NECK: JVD not raised; masses not palpable. HEART: First and second heart sounds are normal; no edema. LUNGS: Respiratory rate increased, decreased breath sounds. Mild wheezing ABDOMEN: Soft, nontender, liver spleen not palpable, no masses palpable. PSYCH: [Alert and oriented x3; mood and affect slightly anxious. INVESTIGATIONS, reviewed in the clinical context: White count 8 hemoglobin 11.9 platelets 294 potassium 4.7 creatinine 0.97 EKG tracing normal sinus rhythm. No specific findings. Assessment: -acute COPD exacerbation in an ex-smoker -Diabetes mellitus type 2 -GERD -Essential hypertension -Hyperlipidemia -Primary osteoarthritis -Scleroderma -Mitochondrial myopathy-old supposed to take oral steroids -Chronic respiratory failure on home ventilator -Obesity BMI 37.6 Plan: Continue with bronchodilators. Add inhaled steroids. Other medications to continue. Care was discussed with the patient. She is okay with inhaled steroids. Encouraged to be up in a chair and and use incentive spirometry.
[2019-09-27] MEDS: IPRATROPIUM-ALBUTEROL 3 ML NEB INHALATION SCH ×4 (00:14→11:43)
[2019-09-27 06:06] VITALS: BP 117/63
[2019-09-27] MEDS: FUROSEMIDE 20 MG TAB PO SCH (06:45)
[2019-09-27] MEDS: FLUTICASONE 50MCG/SPRAY NASAL 16GM EA NOSTRIL SCH (06:46)
[2019-09-27] MEDS: HEPARIN SODIUM,PORCINE 5,000 UNIT/ML 1 ML VIAL SQ SCH (06:46)
[2019-09-27] MEDS: ASPIRIN 81 MG PO SCH (06:46)
[2019-09-27] MEDS: ATORVASTATIN 40 MG TAB PO SCH (06:46)
[2019-09-27] MEDS: PANTOPRAZOLE 40 MG TABLET PO SCH (06:46)
[2019-09-27] MEDS: metFORMIN 500 MG TAB PO SCH (06:46)
[2019-09-27] MEDS: NYSTATIN 100,000 UNIT/ML SUSP 500,000 UNIT/5 ML CUP PO SCH ×2 (06:47→12:14)
[2019-09-27] MEDS: HYDROXYCHLOROQUINE SULFATE 200 MG TAB PO SCH (06:47)
[2019-09-27 07:11] LABS: Glucose,Whole Blood 165 mg/dL (75-99)
[2019-09-27] MEDS: GABAPENTIN 400 MG CAP PO SCH (07:29)
[2019-09-27] MEDS: REPAGLINIDE 1 MG TAB PO SCH ×2 (07:30→11:03)
[2019-09-27] MEDS: INSULIN ASPART (NovoLOG) 100 UNIT/ML VIAL SQ SCH ×2 (07:30→12:13)
[2019-09-27] MEDS: BUDESONIDE 0.5 MG/2 ML NEBU INHALATION SCH (08:02)
[2019-09-27] MEDS: CALCIUM CARBONATE 500 MG CHEWABLE PO PRN (09:02)
[2019-09-27 09:45] LABS: Basophils % (A) 1 %; Eosinophils # (A) 0.2 k/uL (0-0.7); Eosinophils % (A) 3 %; HCT 38.9 % (34.0-46.0); HGB 12.3 gm/dL (11.4-16.0); Lymphocytes # (A) 1.5 k/uL (1.0-4.8); Lymphocytes % (A) 24 %; MCH 25.3 pg (25.0-35.0); MCHC 31.7 g/dL (31.0-37.0); MCV 79.8 fL (80.0-100.0); Mean Platelet Volume 6.7; Monocytes # (A) 0.2 k/uL (0-1.0); Monocytes % (A) 4 %; Neutrophils # (A) 4.1 k/uL (1.3-7.7); Neutrophils % (A) 66 %; Platelet Count 307 k/uL (150-450); RBC 4.87 m/uL (3.80-5.40); RDW 15.4 % (11.5-15.5); WBC 6.2 k/uL (3.8-10.6)
[2019-09-27 10:00] LABS: Calcium 9.4 mg/dL (8.4-10.2); Potassium 4.9 mmol/L (3.5-5.1)
[2019-09-27 11:57] VITALS: PULSE 88
[2019-09-27 11:57] LABS: Glucose,Whole Blood 171 mg/dL (75-99)
--- NOTE | 2019-09-27 12:16 | CDI ---
Documentation Clarification Form Date: 09/27/2019 11:51:59 AM From: Adalgisa Vincent RN, CCDS Admit Date: 09/25/2019 03:21:00 PM Patient Name: Tisha San Visit Number: [id number] Discharge Date: ATTENTION: The Clinical Documentation Specialists (CDI) and [facility] Coding Staff appreciate your assistance in clarifying documentation. Please respond to the clarification below the line at the bottom and electronically sign. The CDI & [facility] Coding staff will review the response and follow-up if needed. Please note: Queries are made part of the Legal Health Record. If you have any questions, please contact the author of this message via ITS. Dr. Earl Rowe Acute Asthma Exacerbation is documented in your consult on 09/25 and ongoing progress noted. History of chronic persistent asthma and clarification is needed for the severity. History/risk factors: Chronic persistent asthma, Mitral mitochondrial Myopathy, Chronic respiratory failure, COPD Clinical Indicators: 54-year-old female presents to ED with complaints of shortness of breath. She has exertional dyspnea. 09/24 ED respiratory exam: Decreased breath sounds. 09/24 Vital signs 164/77 101 20 98.7. 99 % 2/L NC Chest x-ray: Normal chest. Treatment: Albuterol/Ipratropium Duoneb 0.5 mg Q 4H Pumicort 0.5 mg Inhalation BID Rocephin 1 gm IV Q 24HR Monitor 02 sats (titrate) In your professional opinion, can you please further specify acute asthma severity, if known? Acute Asthma Exacerbation, with chronic persistent asthma Mild Moderate Severe Other, please specify Unable to determine (Last Revision: November 2017) MTDD
--- NOTE | 2019-09-27 17:23 | P.DS ---
Providers Date of admission: 09/25/19 15:21 Expected date of discharge: 09/27/19 Attending physician: Law Adamson Consults: 09/24/19 20:49 Consult Physician Routine Consulting Provider: Earl Landeros Consult Reason/Comments: COPD Do you want consulting provider notified?: Already Contacted Primary care physician: Murray [facility] Course: Chief Complaint: Short of breath Interval history: This is a pleasant 54-year-old patient of Dr. Braun. Chronic stable medical conditions include herpes, GERD, hypertension, hyperlipidemia, osteoarthritis, scleroderma, mitochondrial myopathy, chronic respiratory failure on home ventilator, chronic kidney disease stage III. 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 Earl Landeros. (Patient cannot take oral steroids-because of mitochondrial myopathy) Patient is an ex-smoker. Patient normally uses a cane to get about. Presented with shortness of breath, cough. Admitted with acute COPD exacerbation. Treated with bronchodilators and inhaled steroids. Today-doing better. Tolerating a diet. No new issues. Discussed with the patient. Consultation: Dr. Missael Landeros from pulmonary Physical examination: VITAL SIGNS: 97.8, 86, 20, 11 7/63, GENERAL: sitting up in a chair, comfortable EYES: Pupils equal. Conjunctiva normal. HEENT: External appearance of nose and ears normal, oral cavity grossly normal. NECK: JVD not raised; masses not palpable. HEART: First and second heart sounds are normal; no edema. LUNGS: Respiratory rate normal fair air entry ABDOMEN: Soft, nontender, liver spleen not palpable, no masses palpable. PSYCH: [Alert and oriented x3; mood and affect slightly anxious. INVESTIGATIONS, reviewed in the clinical context: White count 8 hemoglobin 11.9 platelets 294 potassium 4.7 creatinine 0.97 EKG tracing normal sinus rhythm. No specific findings. Assessment: -acute COPD exacerbation in an ex-smoker -Diabetes mellitus type 2, oral hypoglycemic -GERD -Essential hypertension -Hyperlipidemia -Primary osteoarthritis -Scleroderma -Mitochondrial myopathy-old supposed to take oral steroids -Chronic respiratory failure on home ventilator -Obesity BMI 37.6 Plan: home Patient Condition at Discharge: Fair Plan - Discharge Summary Discharge Rx Participant: No New Discharge Prescriptions: Continue metFORMIN HCL 1,000 mg PO HS Isosorbide Mononitrate ER [Imdur] 60 mg PO HS Montelukast [Singulair] 10 mg PO HS Pantoprazole [Protonix] 40 mg PO BID Aspirin [Adult Low Dose Aspirin EC] 81 mg PO DAILY ALPRAZolam [Xanax] 0.25 mg PO BID PRN PRN Reason: Anxiety Hydroxychloroquine Sulfate [Plaquenil] 200 mg PO BID Latanoprost Ophth [Xalatan 0.005%] 1 drop BOTH EYES HS Gabapentin [Neurontin] 800 mg PO TID Ibuprofen [Motrin] 800 mg PO Q8H PRN PRN Reason: Pain Ipratropium-Albuterol Nebulize [Duoneb 0.5 mg-3 mg/3 ml Soln] 3 ml INHALATION RT-QID Atorvastatin [Lipitor] 40 mg PO DAILY HYDROcodone/APAP 10-325MG [[place] 10-325] 1 tab PO Q4H PRN PRN Reason: Pain DULoxetine HCL [Cymbalta] 120 mg PO HS Diltiazem HCl [Diltiazem HCl 24Hr ER] 240 mg PO HS Fluticasone Nasal [place] [Flonase Nasal [place]] 2 spray EA NOSTRIL DAILY Furosemide [Lasix] 20 mg PO DAILY Budesonide [Pulmicort Flexhaler] 2 puff INHALATION RT-BID PRN PRN Reason: Shortness Of Breath metFORMIN HCL [Glucophage] 500 mg PO QAM Repaglinide 1 mg PO TID Ipratropium [place] [Ipratropium [place] 0.03%] 1 - 2 sprays EA NOSTRIL BID Discharge Medication List Isosorbide Mononitrate ER [Imdur] 60 mg PO HS 07/16/14 [History] metFORMIN HCL 1,000 mg PO HS 07/16/14 [History] Aspirin [Adult Low Dose Aspirin EC] 81 mg PO DAILY 10/20/15 [History] Montelukast [Singulair] 10 mg PO HS 10/20/15 [History] Pantoprazole [Protonix] 40 mg PO BID 10/20/15 [History] ALPRAZolam [Xanax] 0.25 mg PO BID PRN 02/27/16 [History] Gabapentin [Neurontin] 800 mg PO TID 09/07/16 [History] Hydroxychloroquine Sulfate [Plaquenil] 200 mg PO BID 09/07/16 [History] Latanoprost Ophth [Xalatan 0.005%] 1 drop BOTH EYES HS 09/07/16 [History] Ibuprofen [Motrin] 800 mg PO Q8H PRN 01/11/17 [History] Atorvastatin [Lipitor] 40 mg PO DAILY 08/20/17 [History] Ipratropium-Albuterol Nebulize [Duoneb 0.5 mg-3 mg/3 ml Soln] 3 ml INHALATION RT-QID 08/20/17 [History] DULoxetine HCL [Cymbalta] 120 mg PO HS 01/30/18 [History] HYDROcodone/APAP 10-325MG [[place] 10-325] 1 tab PO Q4H PRN 01/30/18 [History] Budesonide [Pulmicort Flexhaler] 2 puff INHALATION RT-BID PRN 08/29/19 [History] Diltiazem HCl [Diltiazem HCl 24Hr ER] 240 mg PO HS 08/29/19 [History] Fluticasone Nasal [place] [Flonase Nasal [place]] 2 spray EA NOSTRIL DAILY 08/29/19 [History] Furosemide [Lasix] 20 mg PO DAILY 08/29/19 [History] Ipratropium [place] [Ipratropium [place] 0.03%] 1 - 2 sprays EA NOSTRIL BID 09/24/19 [History] Repaglinide 1 mg PO TID 09/24/19 [History] metFORMIN HCL [Glucophage] 500 mg PO QAM 09/24/19 [History] Follow up Appointment(s)/Referral(s): Murray Braun DO [Primary Care Provider] - 10/02/19 1:00 pm Earl Landeros MD [STAFF PHYSICIAN] - 1 Week Patient Instructions/Handouts: COPD (Chronic Obstructive Pulmonary Disease) (DC) Activity/Diet/Wound Care/Special Instructions: get f/u orders from dr landeros Discharge Disposition: HOME SELF-CARE
--- NOTE | 2019-09-28 15:16 | P.PN ---
Subjective Progress Note Date: 09/27/19 Principal diagnosis: Shortness of breath progressive likely due to mitochondrial myopathy Acute exacerbation of asthma History of chronic persistent asthma Mitochondrial myopathy Mixed connective tissue disease Tracheobronchitis Morbid obesity and sleep-disordered breathing and sleep apnea 09/27/2019, patient seen eval examined during the rounds overall doing well is still short of breath which is almost back to baseline agree with discharge planning follow-up in outpatient setting 09/26/2019, patient seen eval examined during the rounds labs reviewed medications reviewed shortness of breath slightly improved now able to get out of the bed, had a better sleep last night, patient has a her noninvasive ventilator from home has been resumed on that, cough congestion has improved though patient has received antibiotics This is a 54-year-old morbidly obese female well-known to me she has a history of sleep apnea, also have a history of the connective tissue disease, patient has been diagnosed as mitral mitochondrial myopathy and associated respiratory failure related to that she is on home noninvasive ventilation with Trilogy event, she has progressive shortness of breath for last 1 day no cough congestion or sputum production has been associated with that due to progressive shortness of breath and decided to come into the hospital oxygen and nebulizer treatments were not helping her, patient has been treated with BiPAP initial setting was 14/532% oxygen, her friend which event has been requested from home, she denies any chills fever and denies any sputum production denies any chest pain except some nonspecific chest tightness Objective - Vital Signs Vital signs: Vital Signs Temp 97.8 F 09/27/19 06:04 Pulse 88 09/27/19 11:56 Resp 20 09/27/19 06:04 BP 117/63 09/27/19 06:04 Pulse Ox 98 09/27/19 08:05 Intake & Output 09/27/19 09/28/19 09/28/19 18:59 06:59 18:59 Intake Total 540 Balance 540 Intake: Oral 540 Other: Voiding Method Toilet # Voids 2 - Exam - Constitutional General appearance: disheveled, mild distress, morbidly obese - EENT Eyes: EOMI, PERRLA ENT: normal oropharynx Ears: bilateral: normal - Neck Carotids: bilateral: upstroke normal Thyroid: bilateral: normal size - Respiratory Respiratory: bilateral: CTA, diminished, negative: dullness, rales, rhonchi, w heezing, prolonged expiration, prolonged inspiration - Cardiovascular Rhythm: regular Heart sounds: normal: S1, S2 - Gastrointestinal General gastrointestinal: normal bowel sounds - Integumentary Integumentary: normal turgor - Neurologic Neurologic: CNII-XII intact - Musculoskeletal Musculoskeletal: gait normal, generalized weakness, strength equal bilaterally - Psychiatric Psychiatric: A&O x's 3, appropriate affect, intact judgment & insight - Labs CBC & Chem 7: 09/27/19 08:58 09/27/19 08:58 Assessment and Plan Assessment: Shortness of breath progressive likely due to mitochondrial myopathy Acute exacerbation of asthma History of chronic persistent asthma Mitochondrial myopathy Mixed connective tissue disease Tracheobronchitis Morbid obesity and sleep-disordered breathing and sleep apnea Plan: Continue Trilogy noninvasive ventilator from home Bronchodilators Hold on IV steroids for now, agree with discharge planning Deep breathing sense incentive spirometry Antibiotics Continue home medications Follow clinical course closely further recommendations pending plan of care as per clinical response of the patient Time with Patient: Greater than 30
--- NOTE | 2019-10-16 00:04 | CDI ---
Documentation Clarification Form Date: 10/16/2019 From: Sergio Collazo Phone: If you have a question about this query, please contact Haley Ragsdale [employer]r at [phone] between 8am and 5pm. Admit Date: 09/25/2019 Discharge Date: 09/27/2019 Patient Name: Tisha San Visit Number: [id number] ATTENTION: The Clinical Documentation Specialists (CDI) and [facility] Coding Staff appreciate your assistance in clarifying documentation. Please respond to the clarification below the line at the bottom and electronically sign. The CDI & [facility] Coding staff will review the response and follow-up if needed. Please note: Queries are made part of the Legal Health Record. If you have any questions, please contact the author of this message via ITS. Dear Law Sherwood., The patients principal diagnosis has not been clearly identified and requires clarification. She presented with the SOB. History/Risk factors: Mitochondrial Myopathy Radiology findings: Normal chest.There is improved inspiration compared to last exam. Vital Signs:Pulse Rate 101 H 96 Respiratory 20 20 20 Treatment:Will get her Trilogy noninvasive ventilator from home, Bronchodilators Consults: Dr. Soledad Elliott. Other tx: Continue BiPAP in the meantime with supplemental oxygen. patient has been diagnosed as mitral mitochondrial myopathy and associated respiratory failure related to that she is on home noninvasive ventilation with Trilogy. In Dr. Soledad Elliott consult note mentioned "Shortness of breath progressive likely due to mitochondrial myopathy - Continue Trilogy noninvasive ventilator from home". In your professional opinion, can you please clarify which diagnosis, after study, accounted for the patients presenting symptoms and was the reason chiefly responsible for the admission? SOB related to Chronic obstructive pulmonary disease acute exacerbation. SOB related to Mitochondrial Myopathy. Other, Please Specify Shortness of breath related to COPD exacerbation acute, and mitochondrial myopathy MTDD
== END 2019-09-27 12:28 | disposition home or self-care (01) | DRG 92 ==
LOC: EC 18:22 → 6PED 20:49 → OBSVTOIN 09-25 15:21 → 6NMEDSUR 09-26 16:41
PROVIDERS: ADMIT Hospitalist; ATTEND Hospitalist
PROC: 5A09357 Assistance with Respiratory Ventilation, Less than 24 Consecutive Hours, Continuous Positive Airway Pressure (ICD-10-PCS; principal; 2019-09-25)
DX: G71.3 Mitochondrial myopathy, not elsewhere classified (principal); J44.1 Chronic obstructive pulmonary disease with (acute) exacerbation; J45.901 Unspecified asthma with (acute) exacerbation; J96.10 Chronic respiratory failure, unspecified whether with hypoxia or hypercapnia; M35.1 Other overlap syndromes; B00.9 Herpesviral infection, unspecified; E11.22 Type 2 diabetes mellitus with diabetic chronic kidney disease; E66.01 Morbid (severe) obesity due to excess calories; E78.5 Hyperlipidemia, unspecified; G47.30 Sleep apnea, unspecified; I12.9 Hypertensive chronic kidney disease with stage 1 through stage 4 chronic kidney disease, or unspecified chronic kidney disease; K21.9 Gastro-esophageal reflux disease without esophagitis; M19.91 Primary osteoarthritis, unspecified site; M34.9 Systemic sclerosis, unspecified; N18.3 Chronic kidney disease, stage 3 (moderate); Z96.651 Presence of right artificial knee joint; M19.90 Unspecified osteoarthritis, unspecified site; F41.9 Anxiety disorder, unspecified; Z68.37 Body mass index [BMI] 37.0-37.9, adult; Z79.82 Long term (current) use of aspirin; Z79.84 Long term (current) use of oral hypoglycemic drugs; Z79.899 Other long term (current) drug therapy; Z80.49 Family history of malignant neoplasm of other genital organs; Z82.49 Family history of ischemic heart disease and other diseases of the circulatory system; Z83.3 Family history of diabetes mellitus; Z87.01 Personal history of pneumonia (recurrent); Z87.440 Personal history of urinary (tract) infections; Z87.891 Personal history of nicotine dependence; Z90.49 Acquired absence of other specified parts of digestive tract; Z90.710 Acquired absence of both cervix and uterus; Z99.81 Dependence on supplemental oxygen; Z88.5 Allergy status to narcotic agent; Z88.8 Allergy status to other drugs, medicaments and biological substances; Z90.89 Acquired absence of other organs
CPT/HCPCS: 36415; 71046; 80048; 80053; 82550; 82803; 83036; 83605; 83735; 83880; 84484; 85025; 85379; 85610; 85730; 93005; 94640; 94660; 94760; 99285

== ENCOUNTER 2019-10-30 13:21 | Emergency (ER) | payer MEDICARE ==
[2019-10-30 13:37] VITALS: TEMP 98.7
[2019-10-30] MEDS ORDERED: SODIUM CHLORIDE 0.9% 500 ML 500 ML IV STA (14:01)
[2019-10-30 14:22] LABS: Basophils % (A) 0 %; Eosinophils # (A) 0.1 k/uL (0-0.7); Eosinophils % (A) 2 %; HCT 36.9 % (34.0-46.0); HGB 11.6 gm/dL (11.4-16.0); Lymphocytes # (A) 0.7 k/uL (1.0-4.8); Lymphocytes % (A) 10 %; MCH 24.6 pg (25.0-35.0); MCHC 31.4 g/dL (31.0-37.0); MCV 78.3 fL (80.0-100.0); Mean Platelet Volume 6.6; Microcytosis Slight; Monocytes # (A) 0.3 k/uL (0-1.0); Monocytes % (A) 4 %; Neutrophils # (A) 5.6 k/uL (1.3-7.7); Neutrophils % (A) 82 %; Platelet Count 291 k/uL (150-450); RBC 4.71 m/uL (3.80-5.40); RDW 15.7 % (11.5-15.5); WBC 6.9 k/uL (3.8-10.6)
[2019-10-30 14:38] LABS: ALT 79 U/L (4-34); AST 50 U/L (14-36); African American GFR (CKD) >90 (>60 ml/min/1.73 sqM); Albumin 3.9 g/dL (3.5-5.0); Alkaline Phosphatase 162 U/L (38-126); Anion Gap 10 mmol/L; Blood Urea Nitrogen 12 mg/dL (7-17); Calcium 9.3 mg/dL (8.4-10.2); Carbon Dioxide 26 mmol/L (22-30); Chloride 100 mmol/L (98-107); Glucose 201 mg/dL (74-99); Magnesium 1.7 mg/dL (1.6-2.3); Non-African American GFR(CKD) 80 (>60 ml/min/1.73 sqM); Potassium 4.3 mmol/L (3.5-5.1); Sodium 136 mmol/L (137-145); Total Bilirubin 0.3 mg/dL (0.2-1.3); Total Protein 6.7 g/dL (6.3-8.2)
--- NOTE | 2019-10-30 14:44 | XR ---
EXAMINATION TYPE: XR chest 1V DATE OF EXAM: 10/30/2019 HISTORY: Shortness of breath. COMPARISON: 09/24/2019 TECHNIQUE: Single view of the chest is submitted. FINDINGS: Demonstrated are scattered senescent parenchymal change. There is no evidence for focal infiltrate. The heart is stable. Hilar and mediastinal structures are within normal limits. Degenerative changes are seen of the dorsal spine. IMPRESSION: 1. Chronic changes without evidence for acute pulmonary disease.
[2019-10-30 14:46] LABS: D-Dimer 0.27 mg/L FEU (<0.60); INR 0.9 (<1.2); Prothrombin Time 9.3 sec (9.0-12.0)
[2019-10-30 14:54] LABS: Partial Thromboplastin Time 21.9 sec (22.0-30.0)
--- NOTE | 2019-10-30 14:56 | ED ---
General Adult HPI - General Chief complaint: Upper Respiratory Infection Stated complaint: difficulty breathing/cough/congestion Source: patient, RN notes reviewed, old records reviewed Mode of arrival: wheelchair Limitations: no limitations - History of Present Illness Initial comments: This a 54-year-old female presents emergency department with past medical history for COPD, diabetes mild cardiomyopathy and shows up today complaining of a two-week history of cough and some shortness of breath. Patient denies any fever or chills. Patient denies any chest pain. Patient denies any sputum production. Patient denies any contact with the COVID positive patient. Patient denies any abdominal pain patient's nausea vomiting diarrhea. Patient denies any headache patient denies numbness weakness. Patient states she's been on antibiotics prophylactically from her physician's. - Related Data Home Medications Medication Instructions Recorded Confirmed Isosorbide Mononitrate ER [Imdur] 60 mg PO HS 07/16/14 10/30/19 metFORMIN HCL 1,000 mg PO HS 07/16/14 10/30/19 Aspirin [Adult Low Dose Aspirin EC] 81 mg PO DAILY 10/20/15 10/30/19 Montelukast [Singulair] 10 mg PO HS 10/20/15 10/30/19 Pantoprazole [Protonix] 40 mg PO BID 10/20/15 10/30/19 ALPRAZolam [Xanax] 0.25 mg PO BID PRN 02/27/16 10/30/19 Gabapentin [Neurontin] 800 mg PO TID 09/07/16 10/30/19 Hydroxychloroquine Sulfate 200 mg PO BID 09/07/16 10/30/19 [Plaquenil] Latanoprost Ophth [Xalatan 0.005%] 1 drop BOTH EYES HS 09/07/16 10/30/19 Ibuprofen [Motrin] 800 mg PO Q8H PRN 01/11/17 10/30/19 Atorvastatin [Lipitor] 40 mg PO DAILY 08/20/17 10/30/19 Ipratropium-Albuterol Nebulize 3 ml INHALATION RT-QID 08/20/17 10/30/19 [Duoneb 0.5 mg-3 mg/3 ml Soln] DULoxetine HCL [Cymbalta] 120 mg PO HS 01/30/18 10/30/19 HYDROcodone/APAP 10-325MG [[place] 1 tab PO Q4H PRN 01/30/18 10/30/19 10-325] Budesonide [Pulmicort Flexhaler] 2 puff INHALATION RT-BID PRN 08/29/19 10/30/19 Diltiazem HCl [Diltiazem HCl 24Hr 240 mg PO HS 08/29/19 10/30/19 ER] Fluticasone Nasal [place] [Flonase 2 spray EA NOSTRIL DAILY 08/29/19 10/30/19 Nasal [place]] Furosemide [Lasix] 20 mg PO DAILY 08/29/19 10/30/19 Ipratropium [place] [Ipratropium 1 - 2 sprays EA NOSTRIL BID 09/24/19 10/30/19 [place] 0.03%] Repaglinide 1 mg PO TID 09/24/19 10/30/19 metFORMIN HCL [Glucophage] 500 mg PO QAM 09/24/19 10/30/19 Allergies Allergy/AdvReac Type Severity Reaction Status Date / Time Androgenic Anabolic Steroid Allergy Unknown Verified 10/30/19 13:37 meperidine HCl [From Demerol] Allergy Rash/Hives Verified 10/30/19 13:37 propoxyphene napsylate Allergy Dyspnea Verified 10/30/19 13:37 [From Darvocet-N] Review of Systems ROS Statement: Those systems with pertinent positive or pertinent negative responses have been documented in the HPI. ROS Other: All systems not noted in ROS Statement are negative. Past Medical History Past Medical History: COPD, Diabetes Mellitus, GERD/Reflux, Hyperlipidemia, Hypertension, Osteoarthritis (OA), Pneumonia, Thyroid Disorder Additional Past Medical History / Comment(s): MURMUR, UTI, GOITER, DIASTOLIC DYSFUNCTION,Scleraderma, has had trouble swallowing for past 6 months, mitochondrial myopathy, chronic pulmonary failure, kidney disease stage III History of Any Multi-Drug Resistant Organisms: None Reported Past Surgical History: Appendectomy, Cholecystectomy, Heart Catheterization, Hysterectomy, Joint Replacement Additional Past Surgical History / Comment(s): RT KNEE REPLACEMENT, LT KNEE HAS SCREWS IN PLACE Past Anesthesia/Blood Transfusion Reactions: No Reported Reaction Additional Past Anesthesia/Blood Transfusion Reaction / Comment(s): CLAUSTERPHOBIC Past Psychological History: Anxiety Smoking Status: Former smoker Past Alcohol Use History: Occasional Past Drug Use History: None Reported - Past Family History Father Family Medical History: Cancer, Diabetes Mellitus Additional Family Medical History / Comment(s): AT AGE 61, CA throughout the body Mother Family Medical History: Cancer, Congestive Heart Failure (CHF), Diabetes Mellitus, Myocardial Infarction ([place]), Thyroid Disorder Additional Family Medical History / Comment(s): Uterine CA General Exam - General Exam Comments Initial Comments: GENERAL: Patient is well-developed and well-nourished. Patient is nontoxic and well-hy drated and is in mild distress. ENT: Neck is soft and supple. No significant lymphadenopathy is noted. Oropharynx is clear. Moist mucous membranes. Neck has full range of motion without eliciting any pain. EYES: The sclera were anicteric and conjunctiva were pink and moist. Extraocular movements were intact and pupils were equal round and reactive to light. Eyelids were unremarkable. PULMONARY: Unlabored respirations. Good breath sounds bilaterally. No audible rales rhonchi or wheezing was noted. CARDIOVASCULAR: There is a regular rate and rhythm without any murmurs gallops or rubs. ABDOMEN: Soft and nontender with normal bowel sounds. SKIN: Skin is clear with no lesions or rashes and otherwise unremarkable. NEUROLOGIC: Patient is alert and oriented x3. Cranial nerves II through XII are grossly intact. Motor and sensory are also intact. Normal speech, volume and content. Symmetrical smile. MUSCULOSKELETAL: Normal extremities with adequate strength and full range of motion. No lower extremity swelling or edema. No calf tenderness. LYMPHATICS: No significant lymphadenopathy is noted PSYCHIATRIC: Normal psychiatric evaluation. Limitations: no limitations Course Vital Signs 10/30/19 10/30/19 13:33 14:30 Temperature 98.7 F Pulse Rate 115 H 104 H Respiratory 26 H 24 Rate Blood Pressure 150/69 186/70 O2 Sat by Pulse 98 100 Oximetry Medical Decision Making - Medical Decision Making EKG shows sinus tachycardia at 101 bpm MS interval 134 QRS is 82 QT interval 350 QTC is 453. Patient's EKG shows no ST segment elevation or depression. Chest x-ray shows no acute abnormality. I will begin the room to reevaluate the patient she was oxygenating 100% on room air. - Lab Data Result diagrams: 10/30/19 14:10 10/30/19 14:10 Lab Results 10/30/19 10/30/19 10/30/19 Range/Units 14:10 14:10 14:10 WBC (3.8-10.6) k/uL RBC (3.80-5.40) m/uL Hgb (11.4-16.0) gm/dL Hct (34.0-46.0) % MCV (80.0-100.0) fL MCH (25.0-35.0) pg MCHC (31.0-37.0) g/dL RDW (11.5-15.5) % Plt Count (150-450) k/uL Neutrophils % % Lymphocytes % % Monocytes % % Eosinophils % % Basophils % % Neutrophils # (1.3-7.7) k/uL Lymphocytes # (1.0-4.8) k/uL Monocytes # (0-1.0) k/uL Eosinophils # (0-0.7) k/uL Basophils # (0-0.2) k/uL Microcytosis PT 9.3 (9.0-12.0) sec INR 0.9 (<1.2) APTT 21.9 L (22.0-30.0) sec D-Dimer 0.27 (<0.60) mg/L FEU Sodium 136 L (137-145) mmol/L Potassium 4.3 (3.5-5.1) mmol/L Chloride 100 (98-107) mmol/L Carbon Dioxide 26 (22-30) mmol/L Anion Gap 10 mmol/L BUN 12 (7-17) mg/dL Creatinine 0.83 (0.52-1.04) mg/dL Est GFR (CKD-EPI)AfAm >90 (>60 ml/min/1.73 sqM) Est GFR (CKD-EPI)NonAf 80 (>60 ml/min/1.73 sqM) Glucose 201 H (74-99) mg/dL Plasma Lactic Acid Carlos (0.7-2.0) mmol/L Calcium 9.3 (8.4-10.2) mg/dL Magnesium 1.7 (1.6-2.3) mg/dL Total Bilirubin 0.3 (0.2-1.3) mg/dL AST 50 H (14-36) U/L ALT 79 H (4-34) U/L Alkaline Phosphatase 162 H (38-126) U/L Troponin I (0.000-0.034) ng/mL NT-Pro-B Natriuret Pep 28 pg/mL Total Protein 6.7 (6.3-8.2) g/dL Albumin 3.9 (3.5-5.0) g/dL 10/30/19 10/30/19 10/30/19 Range/Units 14:10 14:10 14:10 WBC 6.9 (3.8-10.6) k/uL RBC 4.71 (3.80-5.40) m/uL Hgb 11.6 (11.4-16.0) gm/dL Hct 36.9 (34.0-46.0) % MCV 78.3 L (80.0-100.0) fL MCH 24.6 L (25.0-35.0) pg MCHC 31.4 (31.0-37.0) g/dL RDW 15.7 H (11.5-15.5) % Plt Count 291 (150-450) k/uL Neutrophils % 82 % Lymphocytes % 10 % Monocytes % 4 % Eosinophils % 2 % Basophils % 0 % Neutrophils # 5.6 (1.3-7.7) k/uL Lymphocytes # 0.7 L (1.0-4.8) k/uL Monocytes # 0.3 (0-1.0) k/uL Eosinophils # 0.1 (0-0.7) k/uL Basophils # 0.0 (0-0.2) k/uL Microcytosis Slight PT (9.0-12.0) sec INR (<1.2) APTT (22.0-30.0) sec D-Dimer (<0.60) mg/L FEU Sodium (137-145) mmol/L Potassium (3.5-5.1) mmol/L Chloride (98-107) mmol/L Carbon Dioxide (22-30) mmol/L Anion Gap mmol/L BUN (7-17) mg/dL Creatinine (0.52-1.04) mg/dL Est GFR (CKD-EPI)AfAm (>60 ml/min/1.73 sqM) Est GFR (CKD-EPI)NonAf (>60 ml/min/1.73 sqM) Glucose (74-99) mg/dL Plasma Lactic Acid Carlos 2.0 (0.7-2.0) mmol/L Calcium (8.4-10.2) mg/dL Magnesium (1.6-2.3) mg/dL Total Bilirubin (0.2-1.3) mg/dL AST (14-36) U/L ALT (4-34) U/L Alkaline Phosphatase (38-126) U/L Troponin I <0.012 (0.000-0.034) ng/mL NT-Pro-B Natriuret Pep pg/mL Total Protein (6.3-8.2) g/dL Albumin (3.5-5.0) g/dL Disposition Clinical Impression: Upper respiratory tract infection Disposition: HOME SELF-CARE Condition: Good Instructions (If sedation given, give patient instructions): Upper Respiratory Infection (ED) Additional Instructions: Patient was instructed to come back if any symptoms worsen. Is patient prescribed a controlled substance at d/c from ED?: No Referrals: Murray Braun DO [Primary Care Provider] - 1-2 days Time of Disposition: 15:36
[2019-10-30 15:00] VITALS: BP 186/70; PULSE 104; RESP 24
== END 2019-10-30 16:04 | disposition home or self-care (01) ==
LOC: EC 13:21
DX: J06.9 Acute upper respiratory infection, unspecified (principal); R00.0 Tachycardia, unspecified; I13.10 Hypertensive heart and chronic kidney disease without heart failure, with stage 1 through stage 4 chronic kidney disease, or unspecified chronic kidney disease; E11.22 Type 2 diabetes mellitus with diabetic chronic kidney disease; N18.3 Chronic kidney disease, stage 3 (moderate); J96.10 Chronic respiratory failure, unspecified whether with hypoxia or hypercapnia; G71.3 Mitochondrial myopathy, not elsewhere classified; I43 Cardiomyopathy in diseases classified elsewhere; J44.9 Chronic obstructive pulmonary disease, unspecified; K21.9 Gastro-esophageal reflux disease without esophagitis; E78.5 Hyperlipidemia, unspecified; M19.90 Unspecified osteoarthritis, unspecified site; E07.9 Disorder of thyroid, unspecified; F41.9 Anxiety disorder, unspecified; Z79.51 Long term (current) use of inhaled steroids; Z79.82 Long term (current) use of aspirin; Z79.84 Long term (current) use of oral hypoglycemic drugs; Z79.899 Other long term (current) drug therapy; Z88.8 Allergy status to other drugs, medicaments and biological substances; Z88.5 Allergy status to narcotic agent; Z95.5 Presence of coronary angioplasty implant and graft; Z96.651 Presence of right artificial knee joint; Z87.891 Personal history of nicotine dependence
CPT/HCPCS: 36415; 71045; 80053; 83605; 83735; 83880; 84484; 85025; 85379; 85610; 85730; 93005; 96360; 99285

== ENCOUNTER 2020-02-18 15:40 | Observation (INO) | payer MEDICARE ==
--- NOTE | 2020-02-18 16:06 | ED ---
General Adult HPI - General Chief complaint: Chest Pain Stated complaint: Chest Pain Time Seen by Provider: 02/18/20 15:49 Source: patient Mode of arrival: wheelchair Limitations: physical limitation - History of Present Illness Initial comments: Dictation was produced using An[employer] dictation software. please excuse any grammatical, word or spelling errors. This patient was cared for during a federal and state declared state of emergency secondary to Covid 19 Chief Complaint: 55-year-old female past medical history of mitochondrial lung disease, diabetes presents with chest pain and shortness of breath. History of Present Illness: 55-year-old female she states that her symptoms began approximately one week ago. Her symptoms got worse today. They're to come to the emergency department. Patient states she has substernal chest pain that radiates to the left shoulder. Denies any history of coronary artery disease or heart attack. Patient denies any history of blood clots. She does report that this pain causes her to sweat. Denies any obvious exacerbating or mitigating factors. She does feel more short of breath than usual. Patient has chronic lung disease. She sees multiple specialists. Patient states that she has a positive airway pressure machine and wears chronic oxygen. Her oxygen is set at 3 L. Denies any numbness and paresthesias to the arms or legs. She does not report that her pain worsens with deep inspiration. The ROS documented in this emergency department record has been reviewed and confirmed by me. Those systems with pertinent positive or negative responses have been documented in the HPI. All other systems are other negative and/or noncontributory. PHYSICAL EXAM: General Impression: Alert and oriented x3, not in acute distress HEENT: Normocephalic atraumatic, extra-ocular movements intact, pupils equal and reactive to light bilaterally, mucous membranes moist. Cardiovascular: Heart regular rate and rhythm Chest: Able to complete full sentences, no retractions, no tachypnea Abdomen: abdomen soft, non-tender, non-distended, no organomegaly Musculoskeletal: Pulses present and equal in all extremities, no peripheral edema Motor: no focal deficits noted Neurological: CN II-XII grossly intact, no focal motor or sensory deficits noted Skin: Intact with no visualized rashes Psych: Normal affect and mood ED course: 55-year-old female presents with atypical chest pain typical features. Signs upon arrival are within acceptable limits. Patient appears comfortable. Chart Review shows that patient had cardiac catheterization performed July 2014 after having any concerning to be any stress echocardiogram. She does have coronary artery disease in the right coronary artery. Laboratory evaluation obtained. CBC, coag panel unremarkable. D-dimer 0.22. Metabolic panel is negative. Troponins negative. Chest x-ray shows chronic changes without any acute pulmonary processes. Patient given aspirin. Concerning patient's history of coronary artery disease seen on cardiac cath in 2013 patient be admitted for surgical troponins and cardiology consultation. Discussed patient case with Dr. Cheung who is willing to accept patient care on behalf of [facility]. EKG interpretation: Ventricular rate 91, normal sinus rhythm, ID interval 162, QRS 82, QTC 418. No ID prolongation, no QTC prolongation, no ST or T-wave changes noted. EKG compared to 10/30/2019 showing no changes. Overall, this EKG is unremarkable - Related Data Home Medications Medication Instructions Recorded Confirmed Isosorbide Mononitrate ER [Imdur] 60 mg PO HS 07/16/14 10/30/19 metFORMIN HCL 1,000 mg PO HS 07/16/14 10/30/19 Aspirin [Adult Low Dose Aspirin EC] 81 mg PO DAILY 10/20/15 10/30/19 Montelukast [Singulair] 10 mg PO HS 10/20/15 10/30/19 Pantoprazole [Protonix] 40 mg PO BID 10/20/15 10/30/19 ALPRAZolam [Xanax] 0.25 mg PO BID PRN 02/27/16 10/30/19 Gabapentin [Neurontin] 800 mg PO TID 09/07/16 10/30/19 Hydroxychloroquine Sulfate 200 mg PO BID 09/07/16 10/30/19 [Plaquenil] Latanoprost Ophth [Xalatan 0.005%] 1 drop BOTH EYES HS 09/07/16 10/30/19 Ibuprofen [Motrin] 800 mg PO Q8H PRN 01/11/17 10/30/19 Atorvastatin [Lipitor] 40 mg PO DAILY 08/20/17 10/30/19 Ipratropium-Albuterol Nebulize 3 ml INHALATION RT-QID 08/20/17 10/30/19 [Duoneb 0.5 mg-3 mg/3 ml Soln] DULoxetine HCL [Cymbalta] 120 mg PO HS 01/30/18 10/30/19 HYDROcodone/APAP 10-325MG [[place] 1 tab PO Q4H PRN 01/30/18 10/30/19 10-325] Budesonide [Pulmicort Flexhaler] 2 puff INHALATION RT-BID PRN 08/29/19 10/30/19 Diltiazem HCl [Diltiazem HCl 24Hr 240 mg PO HS 08/29/19 10/30/19 ER] Fluticasone Nasal [place] [Flonase 2 spray EA NOSTRIL DAILY 08/29/19 10/30/19 Nasal [place]] Furosemide [Lasix] 20 mg PO DAILY 08/29/19 10/30/19 Ipratropium [place] [Ipratropium 1 - 2 sprays EA NOSTRIL BID 09/24/19 10/30/19 [place] 0.03%] Repaglinide 1 mg PO TID 09/24/19 10/30/19 metFORMIN HCL [Glucophage] 500 mg PO QAM 09/24/19 10/30/19 Allergies Allergy/AdvReac Type Severity Reaction Status Date / Time Androgenic Anabolic Steroid Allergy Unknown Verified 02/18/20 15:47 meperidine HCl [From Demerol] Allergy Rash/Hives Verified 02/18/20 15:47 propoxyphene napsylate Allergy Dyspnea Verified 02/18/20 15:47 [From Darvocet-N] Review of Systems ROS Statement: Those systems with pertinent positive or pertinent negative responses have been documented in the HPI. ROS Other: All systems not noted in ROS Statement are negative. Past Medical History Past Medical History: COPD, Diabetes Mellitus, GERD/Reflux, Hyperlipidemia, Hypertension, Osteoarthritis (OA), Pneumonia, Thyroid Disorder Additional Past Medical History / Comment(s): MURMUR, UTI, GOITER, DIASTOLIC DYSFUNCTION,Scleraderma, has had trouble swallowing for past 6 months, mitochondrial myopathy, chronic pulmonary failure, kidney disease stage III History of Any Multi-Drug Resistant Organisms: None Reported Past Surgical History: Appendectomy, Cholecystectomy, Heart Catheterization, Hysterectomy, Joint Replacement Additional Past Surgical History / Comment(s): RT KNEE REPLACEMENT, LT KNEE HAS SCREWS IN PLACE Past Anesthesia/Blood Transfusion Reactions: No Reported Reaction Additional Past Anesthesia/Blood Transfusion Reaction / Comment(s): CLAUSTERPHOBIC Past Psychological History: Anxiety Smoking Status: Former smoker Past Alcohol Use History: Occasional Past Drug Use History: None Reported - Past Family History Father Family Medical History: Cancer, Diabetes Mellitus Additional Family Medical History / Comment(s): AT AGE 61, CA throughout the body Mother Family Medical History: Cancer, Congestive Heart Failure (CHF), Diabetes Mellitus, Myocardial Infarction (NE), Thyroid Disorder Additional Family Medical History / Comment(s): Uterine CA General Exam Limitations: physical limitation Course Vital Signs 02/18/20 02/18/20 15:44 16:18 Temperature 98.2 F Pulse Rate 92 86 Respiratory 18 22 Rate Blood Pressure 142/74 161/72 O2 Sat by Pulse 99 99 Oximetry Medical Decision Making - Lab Data Result diagrams: 02/18/20 16:11 02/18/20 16:16 Lab Results 02/18/20 02/18/20 02/18/20 Range/Units 16:11 16:16 16:16 WBC 7.9 (3.8-10.6) k/uL RBC 4.50 (3.80-5.40) m/uL Hgb 11.3 L (11.4-16.0) gm/dL Hct 35.3 (34.0-46.0) % MCV 78.5 L (80.0-100.0) fL MCH 25.1 (25.0-35.0) pg MCHC 32.0 (31.0-37.0) g/dL RDW 15.6 H (11.5-15.5) % Plt Count 320 (150-450) k/uL Neutrophils % 74 % Lymphocytes % 16 % Monocytes % 5 % Eosinophils % 3 % Basophils % 1 % Neutrophils # 5.9 (1.3-7.7) k/uL Lymphocytes # 1.3 (1.0-4.8) k/uL Monocytes # 0.4 (0-1.0) k/uL Eosinophils # 0.2 (0-0.7) k/uL Basophils # 0.0 (0-0.2) k/uL Hypochromasia Moderate Microcytosis Slight PT 9.5 (9.0-12.0) sec INR 0.9 (<1.2) APTT 21.7 L (22.0-30.0) sec D-Dimer 0.22 (<0.60) mg/L FEU Sodium 135 L (137-145) mmol/L Potassium 4.0 (3.5-5.1) mmol/L Chloride 99 (98-107) mmol/L Carbon Dioxide 27 (22-30) mmol/L Anion Gap 9 mmol/L BUN 15 (7-17) mg/dL Creatinine 0.78 (0.52-1.04) mg/dL Est GFR (CKD-EPI)AfAm >90 (>60 ml/min/1.73 sqM) Est GFR (CKD-EPI)NonAf 86 (>60 ml/min/1.73 sqM) Glucose 283 H (74-99) mg/dL Calcium 9.2 (8.4-10.2) mg/dL Total Bilirubin 0.4 (0.2-1.3) mg/dL AST 26 (14-36) U/L ALT 33 (4-34) U/L Alkaline Phosphatase 155 H (38-126) U/L Troponin I (0.000-0.034) ng/mL NT-Pro-B Natriuret Pep pg/mL Total Protein 6.6 (6.3-8.2) g/dL Albumin 4.0 (3.5-5.0) g/dL 02/18/20 02/18/20 Range/Units 16:16 16:16 WBC (3.8-10.6) k/uL RBC (3.80-5.40) m/uL Hgb (11.4-16.0) gm/dL Hct (34.0-46.0) % MCV (80.0-100.0) fL MCH (25.0-35.0) pg MCHC (31.0-37.0) g/dL RDW (11.5-15.5) % Plt Count (150-450) k/uL Neutrophils % % Lymphocytes % % Monocytes % % Eosinophils % % Basophils % % Neutrophils # (1.3-7.7) k/uL Lymphocytes # (1.0-4.8) k/uL Monocytes # (0-1.0) k/uL Eosinophils # (0-0.7) k/uL Basophils # (0-0.2) k/uL Hypochromasia Microcytosis PT (9.0-12.0) sec INR (<1.2) APTT (22.0-30.0) sec D-Dimer (<0.60) mg/L FEU Sodium (137-145) mmol/L Potassium (3.5-5.1) mmol/L Chloride (98-107) mmol/L Carbon Dioxide (22-30) mmol/L Anion Gap mmol/L BUN (7-17) mg/dL Creatinine (0.52-1.04) mg/dL Est GFR (CKD-EPI)AfAm (>60 ml/min/1.73 sqM) Est GFR (CKD-EPI)NonAf (>60 ml/min/1.73 sqM) Glucose (74-99) mg/dL Calcium (8.4-10.2) mg/dL Total Bilirubin (0.2-1.3) mg/dL AST (14-36) U/L ALT (4-34) U/L Alkaline Phosphatase (38-126) U/L Troponin I <0.012 (0.000-0.034) ng/mL NT-Pro-B Natriuret Pep 53 pg/mL Total Protein (6.3-8.2) g/dL Albumin (3.5-5.0) g/dL Disposition Clinical Impression: Chest pain Disposition: ADMITTED IP TO THIS HOSP Condition: Fair Referrals: Murray Braun DO [Primary Care Provider] - 1-2 days Decision Time: 17:47
[2020-02-18 16:23] LABS: Basophils % (A) 1 %; Eosinophils # (A) 0.2 k/uL (0-0.7); Eosinophils % (A) 3 %; HCT 35.3 % (34.0-46.0); HGB 11.3 gm/dL (11.4-16.0); Hypochromasia Moderate; Lymphocytes # (A) 1.3 k/uL (1.0-4.8); Lymphocytes % (A) 16 %; MCH 25.1 pg (25.0-35.0); MCV 78.5 fL (80.0-100.0); Mean Platelet Volume 6.7; Microcytosis Slight; Monocytes # (A) 0.4 k/uL (0-1.0); Monocytes % (A) 5 %; Neutrophils # (A) 5.9 k/uL (1.3-7.7); Neutrophils % (A) 74 %; Platelet Count 320 k/uL (150-450); RDW 15.6 % (11.5-15.5); WBC 7.9 k/uL (3.8-10.6)
[2020-02-18 16:33] LABS: ALT 33 U/L (4-34); AST 26 U/L (14-36); African American GFR (CKD) >90 (>60 ml/min/1.73 sqM); Alkaline Phosphatase 155 U/L (38-126); Anion Gap 9 mmol/L; Blood Urea Nitrogen 15 mg/dL (7-17); Calcium 9.2 mg/dL (8.4-10.2); Carbon Dioxide 27 mmol/L (22-30); Chloride 99 mmol/L (98-107); Glucose 283 mg/dL (74-99); Non-African American GFR(CKD) 86 (>60 ml/min/1.73 sqM); Sodium 135 mmol/L (137-145); Total Bilirubin 0.4 mg/dL (0.2-1.3); Total Protein 6.6 g/dL (6.3-8.2)
--- NOTE | 2020-02-18 16:39 | XR ---
EXAMINATION TYPE: XR chest 1V portable DATE OF EXAM: 02/18/2020 COMPARISON: Chest x-ray October 30, 2019. CTA chest August 30, 2019. HISTORY: Chest pain. TECHNIQUE: Single AP portable frontal upright view of the chest is obtained. FINDINGS: Somewhat low lung volumes redemonstrated. There is chronic parenchymal changes without susp icious new focal air space opacity, pleural effusion, or pneumothorax seen. The cardiac silhouette s ize is stable and enlarged. The osseous structures are intact. IMPRESSION: Chronic changes and cardiomegaly without new acute pulmonary process.
[2020-02-18 16:45] LABS: D-Dimer 0.22 mg/L FEU (<0.60); INR 0.9 (<1.2); Prothrombin Time 9.5 sec (9.0-12.0)
[2020-02-18 16:52] LABS: Partial Thromboplastin Time 21.7 sec (22.0-30.0)
[2020-02-18] MEDS ORDERED: FLUTICASONE 110 MCG INHALER INHALATION PRN (18:38)
[2020-02-18] MEDS: IPRATROPIUM-ALBUTEROL 3 ML NEB INHALATION SCH (20:19)
[2020-02-18] MEDS: NITROGLYCERIN SL TABS 0.4 MG TAB SUBLINGUAL PRN ×3 (20:29→23:43)
[2020-02-18] MEDS: GABAPENTIN 400 MG CAP PO SCH (20:29)
[2020-02-18] MEDS ORDERED: LATANOPROST 0.005% OPHTH DROPS 2.5 ML BTL BOTH EYES SCH (21:00)
[2020-02-18] MEDS ORDERED: metFORMIN 500 MG TAB PO SCH (21:00)
[2020-02-18] MEDS ORDERED: DILTIAZEM CD 240 MG CAP.ER.24H PO SCH (21:00)
[2020-02-18] MEDS ORDERED: MONTELUKAST 10 MG TAB PO SCH (21:00)
[2020-02-18] MEDS ORDERED: DULoxetine HCL 60 MG CAPSULE.DR PO SCH (21:00)
[2020-02-18] MEDS ORDERED: ISOSORBIDE MONONITRATE ER 60 MG TAB.ER.24H PO SCH (21:00)
[2020-02-19] MEDS: NITROGLYCERIN SL TABS 0.4 MG TAB SUBLINGUAL PRN (04:38)
[2020-02-19] MEDS ORDERED: HYDROcodone/APAP 5-325MG 1 EACH TAB PO STA (04:47)
[2020-02-19 05:28] LABS: Cholesterol 139 mg/dL (<200); HDL Cholesterol 79 mg/dL (40-60); LDL Cholesterol,Calculated 29 mg/dL (0-99); Triglycerides 155 mg/dL (<150)
[2020-02-19 05:54] LABS: Glucose,Whole Blood 160 mg/dL (75-99)
[2020-02-19] MEDS ORDERED: PANTOPRAZOLE 40 MG TABLET PO SCH (07:30)
[2020-02-19] MEDS ORDERED: REPAGLINIDE 1 MG TAB PO SCH (07:30)
[2020-02-19] MEDS ORDERED: DOBUTamine DRIP for NUC MED 500 MG in DEXTROSE/WATER 1 250ML.BAG IV ONE (07:37)
[2020-02-19] MEDS: IPRATROPIUM-ALBUTEROL 3 ML NEB INHALATION SCH ×3 (07:37→16:51)
[2020-02-19 08:12] VITALS: BP 133/73; RESP 16; TEMP 97.8
[2020-02-19] MEDS ORDERED: metFORMIN 500 MG TAB PO SCH (09:00)
[2020-02-19] MEDS ORDERED: ASPIRIN 325 MG TAB PO SCH (09:00)
[2020-02-19] MEDS ORDERED: FLUCONAZOLE 100 MG TAB PO SCH (09:00)
[2020-02-19] MEDS ORDERED: FLUTICASONE 50MCG/SPRAY NASAL 16GM EA NOSTRIL SCH (09:00)
[2020-02-19] MEDS ORDERED: ASPIRIN 81 MG PO SCH (09:00)
[2020-02-19] MEDS ORDERED: ATORVASTATIN 40 MG TAB PO SCH (09:00)
[2020-02-19] MEDS ORDERED: FUROSEMIDE 20 MG TAB PO SCH (09:00)
[2020-02-19] MEDS: GABAPENTIN 400 MG CAP PO SCH (09:43)
--- NOTE | 2020-02-19 10:20 | CONS ---
CONSULTATION Mrs. San is a 55-year-old female who presented with symptoms of chest discomfort. Patient follows with Dr. Mendez, has a known history of mitochondrial lung disease followed by Dr. Rowe and the [facility]. She also had a history of hypertension. She presented with symptoms of chest discomfort going on for the last month. Some of the discomfort is at rest and some of it worsened with physical activity. Patient has underwent a cardiac catheterization in 2013 and at that time had no evidence of obstructive coronary artery disease and there was a question of vasospastic disease. Her discomfort for the last week has been getting worse and much worse yesterday. The discomfort was worse with taking a deep breath at times and at times, it can get worse walking. She has worsening dyspnea. She has dizziness, no signal peripheral edema. No syncope. She denies any clear PND or orthopnea. Her coronary risk factors are positive for remote history of smoking which she stopped in 1996, history of diabetes, hyperlipidemia. MEDICATIONS: At home include Xanax Lipitor 40 mg daily, Pulmicort, diltiazem 240 mg daily, Cymbalta, Lasix, Neurontin, [place], Plaquenil, Imdur, Xalatan, Singulair 10 mg daily, Protonix, metformin, Diflucan, and ipratropium bromide and DuoNeb. REVIEW OF SYSTEMS: RESPIRATORY SYSTEM: She has dyspnea on exertion, history of mitochondrial lung disease. GI SYSTEM: No recent GI bleeding, no peptic ulcer disease. SYSTEM. No dysuria hematuria. NERVOUS SYSTEM: No stroke or seizure. PHYSICAL EXAMINATION: A 55-year-old female, alert, oriented, in no apparent distress. Blood pressure 108/60 with a heart rate in the 80s. HEAD: Normocephalic. EYES: Sclerae nonicteric. NECK: Good upstroke, no bruit, no venous distention. LUNGS: Clear to auscultation. HEART: Regular rhythm S1, S2. No S3. No S4. No murmur or rub. ABDOMEN: Soft, obese, nontender. Positive bowel sounds no organomegaly. EXTREMITIES: No edema. intact distal pulses. LAB DATA: Revealed troponin less than 0.012 for 3 samples. BUN and creatinine 15 and 0.78. Cholesterol 139, LDL of 29, hemoglobin of 11.3 EKG revealed a sinus mechanism, normal axis and intervals with minor nonspecific ST-T wave changes chest x-ray revealed no acute infiltrate. IMPRESSION: 1. Chest discomfort has atypical features for ischemic heart disease probably noncardiac. The patient had no history of obstructive coronary disease in the past and there was a question of vasospastic disease at 2 history of hypertension. 2. Hyperlipidemia. 3. Diabetes mellitus. 4. History of cough. 5. History of mitochondrial lung disease. RECOMMENDATION: I have recommended to proceed with a stress dobutamine echocardiogram next restart a transthoracic echo to evaluate her status and guide her treatment and depending on the results of testing, further recommendation will be made. Thank you for this consult. We will follow with you end dictation. MMODL / IJN: [id number] /
--- NOTE | 2020-02-19 10:57 | ECHOF ---
Referral Reason:chest pain MEASUREMENTS -------- HEIGHT: 165.1 cm WEIGHT: 104.3 kg BP: 108/62 IVSd: 1.3 cm (0.6 - 1.1) LVIDd: 4.4 cm (3.9 - 5.3) LVPWd: 1.2 cm (0.6 - 1.1) IVSs: 1.6 cm LVIDs: 2.7 cm LVPWs: 2.0 cm LAESV Index (A-L): 22.43 ml/m Ao Diam: 2.9 cm (2.0 - 3.7) AV Cusp: 1.8 cm (1.5 - 2.6) MV EXCURSION: 15.965 mm (> 18.000) MV EF SLOPE: 133 mm/s (70 - 150) EPSS: 0.3 cm MV E Federico: 0.81 m/s MV DecT: 196 ms MV A Fedreico: 1.11 m/s MV E/A Ratio: 0.73 RAP: 5.00 mmHg RVSP: 35.47 mmHg FINDINGS -------- Sinus rhythm. This was a technically difficult study with suboptimal views. The left ventricular size is normal. There is mild concentric left ventricular hypertrophy. Overa ll left ventricular systolic function is normal with, an EF between 55 - 60 %. The diastolic fillin g pattern is normal for the age of the patient {E/E'}. The RV was not well visualized. Normal LA size by volume 22+/-6 ml/m2. The right atrium was not well visualized. xx ml of Lumason was utilized for enhancement of images. Interatrial and interventricular septum intact. The aortic valve is trileaflet, and appears structurally normal. No aortic stenosis or regurgitation. There is no evidence of aortic stenosis. The mitral valve is normal. No mitral regurgitation. Mild tricuspid regurgitation present. There is mild pulmonary hypertension. The right ventricular systolic pressure, as measured by Doppler, is 35.47mmHg. The pulmonic valve was not well visualized. There is no pulmonic regurgitation present. The aortic root size is normal. IVC Not well visulized. There is no pericardial effusion. CONCLUSIONS -------- 1. There is mild concentric left ventricular hypertrophy. 2. Overall left ventricular systolic function is normal with, an EF between 55 - 60 %. 3. The diastolic filling pattern is normal for the age of the patient {E/E'} 4. Normal LA size by volume 22+/-6 ml/m2. 5. xx ml of Lumason was utilized for enhancement of images. 6. The aortic valve is trileaflet, and appears structurally normal. No aortic stenosis or regurgitati on. 7. No mitral regurgitation. 8. Mild tricuspid regurgitation present. 9. There is mild pulmonary hypertension. 10. There is no pericardial effusion. GLASS SETTER: Margarita Mitchell RDCS
[2020-02-19 11:18] VITALS: PULSE 76
[2020-02-19 12:20] LABS: Glucose,Whole Blood 169 mg/dL (75-99)
--- NOTE | 2020-02-19 12:26 | P.HPIM ---
History of Present Illness Please consider this note as combined H&P and discharge summary Diagnoses: Chest pain and tenderness which could be musculoskeletal , cardiac causes ruled out. Negative d-dimer Chronic neck pain and left shoulder pain with no trauma for about one month, could be related to her connective tissue disease within his follow-up as an outpatient Diabetes mellitus Hypertension Hyperlipidemia Chronic hypoxic respiratory failure on home oxygen , patient does not know why she has chronic respiratory failure, COPD suspected. Patient's follow-up with human resources office manager at [facility] GERD Osteoarthritis Hypothyroidism Scleroderma with chronic With difficulty swallowing for 6 months History of chronic persistent asthma Mitochondrial myopathy Hospital course This is a pleasant 55 years old female with past medical history of diabetes mellitus, hypertension, hyperlipidemia, COPD, GERD, osteoarthritis,chronic hypoxic respiratory failure, hypothyroidism and goiter, Scleroderma with chronic difficulty swallowing for the past [address], chronic kidney disease stage III. Patient presents because of chest pain for the last 2 weeks which gets worse yesterday, patient is on the left side, nonradiating, no specific associated with some dyspnea, pain was 9/10 yesterday however is better now. Also patient complains from chronic neck and left shoulder pain for about a month, but no weakness or numbness. Patient follow-up with Dr. Benitez human resources office manager and [facility] for her chronic respiratory failure, also she follows with Dr. Mayes, cancer spec at [facility] Vital signs stable and patient is afebrile. CBC is unremarkable. INR is 0.9, d-dimer is negative at 0.22, sodium is 135, rest of BMP is unremarkable with normal creatinine 0.7, glucose is elevated at 283, serial troponins are negative with less than 0.0123, liver enzymes not elevated. EKG showing normal sinus rhythm at [address]-T changes, chest x-ray: No acute process as per radiologist Patient has been admitted for chest pain with dental internship consulted, who recommended stress testWhich came back negative and cardiology cleared the patient for discharge. Also patient has negative d-dimer at 0.22, suspicion of PE is very low and any further testing or treatment may have more risks than benefits. Patient was cleared for discharge by dental internship Problems and management plan were discussed with the patient and he verbalized understanding and acceptance Patient was found stable and can be discharged home however he needs follow-up as an outpatient. Patient was instructed to follow up with PCP within one week and patient agrees. I discussed with the patient and she agrees to follow up with her PCP Dr. Braun on 02/20, dental internship Dr. Langley on and her [facility] matologist Dr. Betancourt on 04/24. Also follow-up with her neurologist Dr. mathews in 1-2 weeks to which she agrees to call and make appointment Review of systems: CONSTITUTIONAL: No fever, no malaise, no fatigue. HEENT: No recent visual problems or hearing problems. Denied any sore throat. CARDIOVASCULAR: No orthopnea, PND, no palpitations, no syncope. PULMONARY: No shortness of breath, no cough, no hemoptysis. GASTROINTESTINAL: No diarrhea, no nausea, no vomiting, no abdominal pain. Normoactive bowel sounds. NEUROLOGICAL: No headaches, no weakness, no numbness. HEMATOLOGICAL: Denies any bleeding or petechiae. GENITOURINARY: Denies any burning micturition, frequency, or urgency. MUSCULOSKELETAL/RHEUMATOLOGICAL: Denies any joint pain, swelling, or any muscle pain. ENDOCRINE: Denies any polyuria or polydipsia. Physical exam Gen: patient is a AAOx3, no distress CVS: S1-S2, RRR, no murmur Lungs: B/L CTA, no wheezing. Has nasal cannula with oxygen at 3 L/m Abdomen: soft, no distention, no tenderness, positive bowel sounds Extremity: no leg edema or induration Time spent more than 35 minutes Past Medical History Past Medical History: COPD, Diabetes Mellitus, GERD/Reflux, Hyperlipidemia, Hypertension, Osteoarthritis (OA), Pneumonia, Thyroid Disorder Additional Past Medical History / Comment(s): MURMUR, UTI, GOITER, DIASTOLIC DYSFUNCTION,Scleraderma, has had trouble swallowing for past 6 months, anisha chondrial myopathy, chronic pulmonary failure, kidney disease stage III History of Any Multi-Drug Resistant Organisms: None Reported Past Surgical History: Appendectomy, Cholecystectomy, Heart Catheterization, Hysterectomy, Joint Replacement Additional Past Surgical History / Comment(s): RT KNEE REPLACEMENT, LT KNEE HAS SCREWS IN PLACE Past Anesthesia/Blood Transfusion Reactions: No Reported Reaction Additional Past Anesthesia/Blood Transfusion Reaction / Comment(s): CLA USTERPHOBIC Past Psychological History: Anxiety Smoking Status: Former smoker Past Alcohol Use History: Occasional Additional Past Alcohol Use History / Comment(s): STARTED SMOKING AT AGE 11, SMOKED 2 PPD THEN QUIT 1996 Past Drug Use History: None Reported - Past Family History Father Family Medical History: Cancer, Diabetes Mellitus Additional Family Medical History / Comment(s): AT AGE 61, CA throughout the body Mother Family Medical History: Cancer, Congestive Heart Failure (CHF), Diabetes Mellitus, Myocardial Infarction ([place]), Thyroid Disorder Additional Family Medical History / Comment(s): Uterine CA Medications and Allergies Home Medications Medication Instructions Recorded Confirmed Type Isosorbide Mononitrate ER [Imdur] 60 mg PO HS 07/16/14 02/18/20 History metFORMIN HCL 1,000 mg PO HS 07/16/14 02/18/20 History Montelukast [Singulair] 10 mg PO HS 10/20/15 02/18/20 History Pantoprazole [Protonix] 40 mg PO BID 10/20/15 02/18/20 History ALPRAZolam [Xanax] 0.25 mg PO BID PRN 02/27/16 02/18/20 History Gabapentin [Neurontin] 800 mg PO TID 09/07/16 02/18/20 History Hydroxychloroquine Sulfate 200 mg PO BID 09/07/16 02/18/20 History [Plaquenil] Latanoprost Ophth [Xalatan 0.005%] 1 drop BOTH EYES HS 09/07/16 02/18/20 History Ibuprofen [Motrin] 800 mg PO Q8H PRN 01/11/17 02/18/20 History Atorvastatin [Lipitor] 40 mg PO DAILY 08/20/17 02/18/20 History Ipratropium-Albuterol Nebulize 3 ml INHALATION RT-QID 08/20/17 02/18/20 History [Duoneb 0.5 mg-3 mg/3 ml Soln] DULoxetine HCL [Cymbalta] 120 mg PO HS 01/30/18 02/18/20 History HYDROcodone/APAP 10-325MG [[place] 1 tab PO Q6H PRN 01/30/18 02/18/20 History 10-325] Budesonide [Pulmicort Flexhaler] 2 puff INHALATION RT-BID PRN 08/29/19 02/18/20 History Diltiazem HCl [Diltiazem HCl 24Hr 240 mg PO HS 08/29/19 02/18/20 History ER] Fluticasone Nasal [place] [Flonase 2 spray EA NOSTRIL DAILY 08/29/19 02/18/20 History Nasal [place]] Furosemide [Lasix] 20 mg PO DAILY 08/29/19 02/18/20 History Ipratropium [place] [Ipratropium 1 - 2 sprays EA NOSTRIL BID 09/24/19 02/18/20 History [place] 0.03%] Repaglinide 1 mg PO AC-TID 09/24/19 02/18/20 History metFORMIN HCL [Glucophage] 500 mg PO QAM 09/24/19 02/18/20 History Fluconazole [Diflucan] 100 mg PO DAILY 02/18/20 02/18/20 History Allergies Allergy/AdvReac Type Severity Reaction Status Date / Time Androgenic Anabolic Steroid Allergy Unknown Verified 02/18/20 18:15 meperidine HCl [From Demerol] Allergy Rash/Hives Verified 02/18/20 18:15 propoxyphene napsylate Allergy Dyspnea Verified 02/18/20 18:15 [From Darvocet-N] Physical Exam Vitals: Vital Signs Temp Pulse Pulse Resp BP BP Pulse Ox 02/19/20 08:08 97.8 F 78 16 133/73 97 02/19/20 07:51 72 02/19/20 07:37 71 100 02/19/20 05:11 97.6 F 81 20 108/62 98 02/19/20 00:36 98 F 70 20 138/72 100 02/18/20 20:28 76 02/18/20 20:20 78 02/18/20 19:30 97.8 F 88 16 146/70 100 02/18/20 18:30 98.0 F 84 16 127/64 97 02/18/20 16:18 86 22 161/72 99 02/18/20 15:44 98.2 F 92 18 142/74 99 Intake and Output 02/18/20 02/19/20 02/19/20 22:59 06:59 14:59 Intake Total 900 0 Balance 900 0 Intake: Oral 900 0 Other: Voiding Method Toilet Toilet Toilet # Voids 1 Weight 104.326 kg 104.33 kg Results CBC & Chem 7: 02/18/20 16:11 02/18/20 16:16 Labs: Abnormal Lab Results - Last 24 Hours (Table) 02/18/20 02/18/20 02/18/20 Range/Units 16:11 16:16 16:16 Hgb 11.3 L (11.4-16.0) gm/dL MCV 78.5 L (80.0-100.0) fL RDW 15.6 H (11.5-15.5) % APTT 21.7 L (22.0-30.0) sec Sodium 135 L (137-145) mmol/L Glucose 283 H (74-99) mg/dL POC Glucose (mg/dL) (75-99) mg/dL Alkaline Phosphatase 155 H (38-126) U/L Triglycerides (<150) mg/dL HDL Cholesterol (40-60) mg/dL 02/19/20 02/19/20 Range/Units 04:37 05:51 Hgb (11.4-16.0) gm/dL MCV (80.0-100.0) fL RDW (11.5-15.5) % APTT (22.0-30.0) sec Sodium (137-145) mmol/L Glucose (74-99) mg/dL POC Glucose (mg/dL) 160 H (75-99) mg/dL Alkaline Phosphatase (38-126) U/L Triglycerides 155 H (<150) mg/dL HDL Cholesterol 79 H (40-60) mg/dL
--- NOTE | 2020-02-19 12:41 | ECHOS ---
STRESS ECHOCARDIOGRAM LUMASON: INDICATIONS: Chest pain MEDICATIONS: BASELINE HEART RATE: 74 BASELINE BLOOD PRESSURE: 429/49 MAXIMUM HEART RATE: 101 MAXIMUM BLOOD PRESSURE: 197/83 85% MPHR: 139 100% MPHR: 164 METS: MAXIMUM STAGE REACHED: TOTAL EXERCISE TIME: CLINICAL INFORMATION: Baseline rhythm is sinus mechanism rate of 74, normal axis and intervals, minor nonspecific ST-T wave changes, baseline blood pressure 129/49 mmHg. The patient received an infusion of dobutamine per protocol. Her peak rate was 101 beats per minute which is equal to 65% maximum predicted heart rate. Peak blood pressure 197/83 mmHg. Electrocardiograph monitoring revealed no evidence of diagnostic ischemic ST deviation, rare PVCs were noted. FINDINGS: Baseline echocardiogram revealed normal wall motion. At peak infusion, there was normal wall motion and augmentation with no hypokinesis or dyskinesis. CONCLUSION: 1. Nondiagnostic electrocardiograph stress testing secondary to the inability to achieve 85% maximum predicted heart rate with rare PVCs. 2. Nondiagnostic stress echocardiogram secondary to the inability to achieve 85% maximum predicted heart rate. At the rate achieved, there was no evidence of stress-induced ischemia. MMODL / IJN: [id number] /
[2020-02-19] MEDS ORDERED: HEPARIN SODIUM,PORCINE 5,000 UNIT/ML 1 ML VIAL SQ SCH (21:00)
[2020-02-19] MEDS ORDERED: FAMOTIDINE 20 MG TAB PO SCH (21:00)
[2020-02-19] MEDS ORDERED: FAMOTIDINE 20 MG/2 ML VIAL IV SCH (21:00)
== END 2020-02-19 16:46 | disposition home or self-care (01) ==
LOC: EC 15:40 → 3NCARDOBS 17:06
PROVIDERS: ADMIT Internal Medicine; ATTEND Internal Medicine
DX: R07.89 Other chest pain (principal); G89.29 Other chronic pain; M54.2 Cervicalgia; M25.512 Pain in left shoulder; E11.22 Type 2 diabetes mellitus with diabetic chronic kidney disease; I13.0 Hypertensive heart and chronic kidney disease with heart failure and stage 1 through stage 4 chronic kidney disease, or unspecified chronic kidney disease; E78.5 Hyperlipidemia, unspecified; J96.11 Chronic respiratory failure with hypoxia; J44.9 Chronic obstructive pulmonary disease, unspecified; K21.9 Gastro-esophageal reflux disease without esophagitis; M19.90 Unspecified osteoarthritis, unspecified site; E03.9 Hypothyroidism, unspecified; M34.9 Systemic sclerosis, unspecified; R13.10 Dysphagia, unspecified; G71.3 Mitochondrial myopathy, not elsewhere classified; J98.4 Other disorders of lung; I25.10 Atherosclerotic heart disease of native coronary artery without angina pectoris; E04.9 Nontoxic goiter, unspecified; N18.3 Chronic kidney disease, stage 3 (moderate); I50.30 Unspecified diastolic (congestive) heart failure; F40.240 Claustrophobia; F41.9 Anxiety disorder, unspecified; I49.3 Ventricular premature depolarization; I07.1 Rheumatic tricuspid insufficiency; Z03.818 Encounter for observation for suspected exposure to other biological agents ruled out; Z98.890 Other specified postprocedural states; Z79.899 Other long term (current) drug therapy; Z79.1 Long term (current) use of non-steroidal anti-inflammatories (NSAID); Z79.891 Long term (current) use of opiate analgesic; Z79.84 Long term (current) use of oral hypoglycemic drugs; Z79.82 Long term (current) use of aspirin; Z79.51 Long term (current) use of inhaled steroids; Z88.8 Allergy status to other drugs, medicaments and biological substances; Z88.5 Allergy status to narcotic agent; Z87.01 Personal history of pneumonia (recurrent); Z87.440 Personal history of urinary (tract) infections; Z90.49 Acquired absence of other specified parts of digestive tract; Z90.710 Acquired absence of both cervix and uterus; Z96.651 Presence of right artificial knee joint; Z87.891 Personal history of nicotine dependence; Z80.8 Family history of malignant neoplasm of other organs or systems; Z83.3 Family history of diabetes mellitus; Z80.49 Family history of malignant neoplasm of other genital organs; Z82.49 Family history of ischemic heart disease and other diseases of the circulatory system; Z83.49 Family history of other endocrine, nutritional and metabolic diseases
CPT/HCPCS: 99285; 36415; 94660 ×2; 94640 ×3; 94760; 93005; 85379; 83880; 80061; 80053; 84484; 85025; 85610; 85730; 71045; G0378 ×2; C8929; C8930; U0003; J1250; Q9950; 93306; 93351

== ENCOUNTER → 2020-04-24 | Outpatient (CLI) | payer MEDICARE | END | disposition home or self-care (01) | LOC: LABWHC1 11:07 | PROVIDERS: ATTEND Nurse Practitioner | DX: Z01.812 Encounter for preprocedural laboratory examination (principal); G72.9 Myopathy, unspecified | CPT/HCPCS: U0003; C9803 ==

== ENCOUNTER → 2020-04-25 | Outpatient (CLI) | payer MEDICARE | END | disposition home or self-care (01) | LOC: LABWHC1 15:43 | DX: Z20.828 Contact with and (suspected) exposure to other viral communicable diseases (principal) ==

== ENCOUNTER 2020-05-16 15:57 | Emergency (ER) | payer MEDICARE ==
[2020-05-16 16:07] VITALS: TEMP 97.9
[2020-05-16] MEDS ORDERED: ONDANSETRON 4 MG/2 ML VIAL IVP STA (16:30)
[2020-05-16] MEDS ORDERED: diphenhydrAMINE 50 MG/ML 1 ML VIAL IVP STA (16:30)
[2020-05-16] MEDS ORDERED: SODIUM CHLORIDE 0.9% 1,000 ML IV STA (16:30)
[2020-05-16] MEDS ORDERED: KETOROLAC 15 MG/ML 1 ML VIAL IVP STA (16:30)
--- NOTE | 2020-05-16 16:33 | ED ---
General Adult HPI - General Chief complaint: Dizziness Stated complaint: dizziness/head pressure Time Seen by Provider: 05/16/20 16:09 Source: patient Mode of arrival: wheelchair Limitations: no limitations - History of Present Illness Initial comments: Dictation was produced using Live[employer] dictation software. please excuse any grammatical, word or spelling errors. This patient was cared for during a federal and state declared state of emergency secondary to Covid 19 Chief Complaint: 55-year-old female presents with 1 week of dizziness, head pressure 1 week. History of Present Illness: Vision 55-year-old female presents today with 1 week of headache. Patient states the headache is to her bilateral parietal areas. To her occiput. Patient states it's like a pressure sensation. She does report sensitivity to light. No vision loss patient is full dizziness. She denies any sensation of the room spinning. No numbness and paresthesias to the arms or legs. No pain with chewing. She has history of mitochondrial myopathy for which she requires supplemental oxygen regularly. Patient has headaches in the past however this is significantly different. She denies that her pain is worse with standing. It is improved however with lying down. She does not have any runny nose. No dental pain. The ROS documented in this emergency department record has been reviewed and confirmed by me. Those systems with pertinent positive or negative responses have been documented in the HPI. All other systems are other negative and/or noncontributory. PHYSICAL EXAM: General Impression: Alert and oriented x3, not in acute distress HEENT: Normocephalic atraumatic, extra-ocular movements intact, pupils equal and reactive to light bilaterally, mucous membranes moist. Cardiovascular: Heart regular rate and rhythm Chest: Able to complete full sentences, no retractions, no tachypnea Abdomen: abdomen soft, non-tender, non-distended, no organomegaly Musculoskeletal: Pulses present and equal in all extremities, no peripheral edema Motor: no focal deficits noted Neurological: CN II-XII grossly intact, no focal motor or sensory deficits noted, no nystagmus Skin: Intact with no visualized rashes Psych: Normal affect and mood ED course: 55-year-old female presents with 1 week of headache. She does appear to be well-appearing at bedside. Vital signs upon arrival are within acceptable limits. Laboratory evaluation obtained. CBC unremarkable. Metabolic panel within acceptable limits. Computed tomography scan of the brain is unremarkable. Patient given headache cocktail reevaluated with improvement of symptoms. More history was obtained. Patient states she's been doing a lot of artwork recently forcing her to look down and put strain in her neck and the back of her head. She does not have much of a history of doing this type of positioning. Patient told that she had neck could cause headaches that she is experiencing. Nonetheless she continues to be improved. She is agreeable for discharge. Return parameters discussed. EKG interpretation: Ventricular rate 93, normal sinus rhythm, AL interval 154, QRS 80, QTc 457. No AL prolongation, no QTC prolongation, no ST or T-wave changes noted. Overall, this EKG is unremarkable - Related Data Home Medications Medication Instructions Recorded Confirmed Isosorbide Mononitrate ER [Imdur] 60 mg PO HS 07/16/14 02/18/20 metFORMIN HCL 1,000 mg PO HS 07/16/14 02/18/20 Montelukast [Singulair] 10 mg PO HS 10/20/15 02/18/20 Pantoprazole [Protonix] 40 mg PO BID 10/20/15 02/18/20 ALPRAZolam [Xanax] 0.25 mg PO BID PRN 02/27/16 02/18/20 Gabapentin [Neurontin] 800 mg PO TID 09/07/16 02/18/20 Hydroxychloroquine Sulfate 200 mg PO BID 09/07/16 02/18/20 [Plaquenil] Latanoprost Ophth [Xalatan 0.005%] 1 drop BOTH EYES HS 09/07/16 02/18/20 Ibuprofen [Motrin] 800 mg PO Q8H PRN 01/11/17 02/18/20 Atorvastatin [Lipitor] 40 mg PO DAILY 08/20/17 02/18/20 Ipratropium-Albuterol Nebulize 3 ml INHALATION RT-QID 08/20/17 02/18/20 [Duoneb 0.5 mg-3 mg/3 ml Soln] DULoxetine HCL [Cymbalta] 120 mg PO HS 01/30/18 02/18/20 HYDROcodone/APAP 10-325MG [[place] 1 tab PO Q6H PRN 01/30/18 02/18/20 10-325] Budesonide [Pulmicort Flexhaler] 2 puff INHALATION RT-BID PRN 08/29/19 02/18/20 Diltiazem HCl [Diltiazem HCl 24Hr 240 mg PO HS 08/29/19 02/18/20 ER] Fluticasone Nasal [place] [Flonase 2 spray EA NOSTRIL DAILY 08/29/19 02/18/20 Nasal [place]] Furosemide [Lasix] 20 mg PO DAILY 08/29/19 02/18/20 Ipratropium [place] [Ipratropium 1 - 2 sprays EA NOSTRIL BID 09/24/19 02/18/20 [place] 0.03%] Repaglinide 1 mg PO AC-TID 09/24/19 02/18/20 metFORMIN HCL [Glucophage] 500 mg PO QAM 09/24/19 02/18/20 Fluconazole [Diflucan] 100 mg PO DAILY 02/18/20 02/18/20 Allergies Allergy/AdvReac Type Severity Reaction Status Date / Time Androgenic Anabolic Steroid Allergy Unknown Verified 05/16/20 16:07 meperidine HCl [From Demerol] Allergy Rash/Hives Verified 05/16/20 16:07 propoxyphene napsylate Allergy Dyspnea Verified 05/16/20 16:07 [From Darvocet-N] Review of Systems ROS Statement: Those systems with pertinent positive or pertinent negative responses have been documented in the HPI. ROS Other: All systems not noted in ROS Statement are negative. Past Medical History Past Medical History: COPD, Diabetes Mellitus, GERD/Reflux, Hyperlipidemia, Hypertension, Osteoarthritis (OA), Pneumonia, Thyroid Disorder Additional Past Medical History / Comment(s): MURMUR, UTI, GOITER, DIASTOLIC DYSFUNCTION,Scleraderma, has had trouble swallowing for past 6 months, mitochondrial myopathy, chronic pulmonary failure, kidney disease stage III History of Any Multi-Drug Resistant Organisms: None Reported Past Surgical History: Appendectomy, Cholecystectomy, Heart Catheterization, Hysterectomy, Joint Replacement Additional Past Surgical History / Comment(s): RT KNEE REPLACEMENT, LT KNEE HAS SCREWS IN PLACE Past Anesthesia/Blood Transfusion Reactions: No Reported Reaction Additional Past Anesthesia/Blood Transfusion Reaction / Comment(s): CLAUSTERPHOBIC Past Psychological History: Anxiety Smoking Status: Former smoker Past Alcohol Use History: Occasional Past Drug Use History: None Reported - Past Family History Father Family Medical History: Cancer, Diabetes Mellitus Additional Family Medical History / Comment(s): AT AGE 61, CA throughout the body Mother Family Medical History: Cancer, Congestive Heart Failure (CHF), Diabetes Mellitus, Myocardial Infarction ([place]), Thyroid Disorder Additional Family Medical History / Comment(s): Uterine CA General Exam Limitations: no limitations Course Vital Signs 05/16/20 05/16/20 16:04 18:22 Temperature 97.9 F Pulse Rate 95 87 Respiratory 18 16 Rate Blood Pressure 145/76 155/71 O2 Sat by Pulse 99 99 Oximetry Medical Decision Making - Lab Data Result diagrams: 05/16/20 18:20 05/16/20 17:04 Lab Results 05/16/20 05/16/20 Range/Units 17:04 18:20 WBC 9.2 (3.8-10.6) k/uL RBC 4.49 (3.80-5.40) m/uL Hgb 10.7 L (11.4-16.0) gm/dL Hct 34.9 (34.0-46.0) % MCV 77.9 L (80.0-100.0) fL MCH 23.7 L (25.0-35.0) pg MCHC 30.5 L (31.0-37.0) g/dL RDW 15.7 H (11.5-15.5) % Plt Count 342 (150-450) k/uL Neutrophils % 78 % Lymphocytes % 16 % Monocytes % 3 % Eosinophils % 2 % Basophils % 0 % Neutrophils # 7.1 (1.3-7.7) k/uL Lymphocytes # 1.5 (1.0-4.8) k/uL Monocytes # 0.3 (0-1.0) k/uL Eosinophils # 0.2 (0-0.7) k/uL Basophils # 0.0 (0-0.2) k/uL Hypochromasia Slight Microcytosis Slight Sodium 135 L (137-145) mmol/L Potassium 5.1 (3.5-5.1) mmol/L Chloride 101 (98-107) mmol/L Carbon Dioxide 25 (22-30) mmol/L Anion Gap 9 mmol/L BUN 15 (7-17) mg/dL Creatinine 0.96 (0.52-1.04) mg/dL Est GFR (CKD-EPI)AfAm 77 (>60 ml/min/1.73 sqM) Est GFR (CKD-EPI)NonAf 66 (>60 ml/min/1.73 sqM) Glucose 160 H (74-99) mg/dL Calcium 9.7 (8.4-10.2) mg/dL Total Bilirubin 1.0 (0.2-1.3) mg/dL AST 66 H (14-36) U/L ALT 47 H (4-34) U/L Alkaline Phosphatase 140 H (38-126) U/L Total Protein 7.9 (6.3-8.2) g/dL Albumin 4.6 (3.5-5.0) g/dL Disposition Clinical Impression: Head ache Disposition: HOME SELF-CARE Condition: Good Instructions (If sedation given, give patient instructions): Dizziness (ED), Acute Headache (ED) Is patient prescribed a controlled substance at d/c from ED?: No Referrals: Murray Braun DO [Primary Care Provider] - 1-2 days Time of Disposition: 18:40
[2020-05-16 17:27] LABS: Albumin 4.6 g/dL (3.5-5.0); Calcium 9.7 mg/dL (8.4-10.2); Total Protein 7.9 g/dL (6.3-8.2)
[2020-05-16 17:31] LABS: Potassium 5.1 mmol/L (3.5-5.1)
[2020-05-16] MEDS ORDERED: MORPHINE SULFATE 4 MG/ML SYRINGE IV STA (18:07)
[2020-05-16] MEDS ORDERED: DEXAMETHASONE SOD PHOSPHATE 10 MG/ML 1 ML VIAL IV STA (18:07)
--- NOTE | 2020-05-16 18:08 | CT ---
EXAMINATION TYPE: CT brain wo con DATE OF EXAM: 05/16/2020 COMPARISON: 01/30/2018 HISTORY: Headache with dizziness and weakness. CT DLP: 1142.4 mGycm Automated exposure control for dose reduction was used. The ventricles and sulci appear within normal limits. There is no mass effect nor midline shift. Ther e is no sign of intracranial hemorrhage. The calvarium is intact. IMPRESSION: Mild atrophy appropriate for age. No acute intracranial abnormality. No change.
[2020-05-16 18:22] VITALS: BP 155/71; PULSE 87; RESP 16
[2020-05-16 18:26] LABS: Basophils % (A) 0 %; Eosinophils # (A) 0.2 k/uL (0-0.7); Eosinophils % (A) 2 %; HCT 34.9 % (34.0-46.0); HGB 10.7 gm/dL (11.4-16.0); Hypochromasia Slight; Lymphocytes # (A) 1.5 k/uL (1.0-4.8); Lymphocytes % (A) 16 %; MCH 23.7 pg (25.0-35.0); MCHC 30.5 g/dL (31.0-37.0); MCV 77.9 fL (80.0-100.0); Mean Platelet Volume 6.3; Microcytosis Slight; Monocytes # (A) 0.3 k/uL (0-1.0); Monocytes % (A) 3 %; Neutrophils # (A) 7.1 k/uL (1.3-7.7); Neutrophils % (A) 78 %; Platelet Count 342 k/uL (150-450); RBC 4.49 m/uL (3.80-5.40); RDW 15.7 % (11.5-15.5); WBC 9.2 k/uL (3.8-10.6)
== END 2020-05-16 18:56 | disposition home or self-care (01) ==
LOC: EC 15:57
DX: R51.9 Headache, unspecified (principal); R42 Dizziness and giddiness; F41.9 Anxiety disorder, unspecified; N18.30 Chronic kidney disease, stage 3 unspecified; J44.9 Chronic obstructive pulmonary disease, unspecified; E11.9 Type 2 diabetes mellitus without complications; K21.9 Gastro-esophageal reflux disease without esophagitis; E78.5 Hyperlipidemia, unspecified; M19.90 Unspecified osteoarthritis, unspecified site; I12.9 Hypertensive chronic kidney disease with stage 1 through stage 4 chronic kidney disease, or unspecified chronic kidney disease; Z79.51 Long term (current) use of inhaled steroids; Z79.899 Other long term (current) drug therapy; Z79.84 Long term (current) use of oral hypoglycemic drugs; Z88.5 Allergy status to narcotic agent; Z88.8 Allergy status to other drugs, medicaments and biological substances; Z90.710 Acquired absence of both cervix and uterus; Z87.891 Personal history of nicotine dependence; Z95.5 Presence of coronary angioplasty implant and graft; Z96.651 Presence of right artificial knee joint
CPT/HCPCS: 99284 ×2; 96374 ×2; 96375 ×5; 96361 ×2; 36415; 93005; 80053; 85025; 70450; J2270; J1200; J1100; J2405; J1885

== ENCOUNTER → 2020-05-16 | Outpatient (CLI) | payer MEDICARE ==
--- NOTE | 2020-05-20 12:17 | MM ---
Reason for exam: screening (asymptomatic). Last mammogram was performed 1 year and 2 months ago. History: Patient is postmenopausal. Family history of breast cancer in paternal aunt at age 45 and breast cancer in paternal grandmother at age 60. Taking estrogen for 17 years beginning at age 35. Physical Findings: A clinical breast exam by your physician is recommended on an annual basis and results should be correlated with mammographic findings. MG 3D Screening Mammo W/Cad Bilateral CC and MLO view(s) were taken. Prior study comparison: March 22, 2019, bilateral MG 3d screening mammo w/cad. March 13, 2018, bilateral MG diagnostic mammo w CAD [place]. There are scattered fibroglandular densities. Previous mammotome biopsy in the right breast. 9mm circumscribed nodule far posteriorly and laterally right CC view. On 3D images, it does not seem to localize to the skin. ASSESSMENT: Incomplete: need additional imaging evaluation, BI-RAD 0 RECOMMENDATION: Special view mammogram of the right breast. If lesion persists on supplemental views, image directed ultrasound is recommended. [facility] will attempt to contact patient to return for supplemental views and ultrasound if indicated.
== END | disposition home or self-care (01) ==
LOC: RADMAMWWP 13:07
PROVIDERS: ATTEND Family Medicine
DX: Z12.31 Encounter for screening mammogram for malignant neoplasm of breast (principal)
CPT/HCPCS: 77063; 77067

== ENCOUNTER → 2020-05-26 | Outpatient (CLI) | payer MEDICARE ==
--- NOTE | 2020-05-26 11:31 | USB ---
Reason for exam: additional evaluation requested from abnormal screening. History: Patient is postmenopausal. Family history of breast cancer in paternal aunt at age 45 and breast cancer in paternal grandmother at age 60. Taking estrogen for 17 years beginning at age 35. US Breast Workup Limited RT Right limited breast ultrasound including focal area of concern, retroareolar and axilla demonstrates a 5 x 3 x 5mm oval, hypoechoic lymph node at 9 o'clock, intramammary node on mammogram and a 11 x 0.7 x 10mm hyperechoic lymph node at 11 o'clock, questionably corresponds to the mammographic finding. Precautionary 6 month follow up mammogram. These results were verbally communicated with the patient and result sheet given to the patient on 05/26/20. ASSESSMENT: Probably benign, BI-RAD 3 RECOMMENDATION: Follow-up diagnostic mammogram of the right breast in 6 months. (include far posterior tissue)
--- NOTE | 2020-05-26 11:37 | MM ---
Reason for exam: additional evaluation requested from abnormal screening. Last mammogram was performed less than 1 month ago. History: Patient is postmenopausal. Family history of breast cancer in paternal aunt at age 45, breast cancer in paternal grandmother at age 60, and breast cancer in maternal aunt. Took estrogen for 17 years beginning at age 35. Physical Findings: Nurse did not find any significant physical abnormalities on exam. MG 3D Work Up W/Cad RT Spot compression CC and spot compression MLO view(s) were taken of the right breast. Prior study comparison: May 16, 2020, bilateral MG 3d screening mammo w/cad. March 22, 2019, bilateral MG 3d screening mammo w/cad. There are scattered fibroglandular densities. The 9mm nodularity does not appear to persist on spot CC view. May relate to a fold in the muscuature. These results were verbally communicated with the patient and result sheet given to the patient on 05/26/20. ASSESSMENT: Incomplete: need additional imaging evaluation, BI-RAD 0 RECOMMENDATION: Ultrasound of the right breast. (7-11 o'clock)
== END | disposition home or self-care (01) ==
LOC: RADMAMWWP 09:29
PROVIDERS: ATTEND Family Medicine
DX: R92.8 Other abnormal and inconclusive findings on diagnostic imaging of breast (principal)
CPT/HCPCS: 77065; 76642; G0279; 77061

== ENCOUNTER 2020-07-18 13:39 | Emergency (ER) | payer MEDICARE ==
[2020-07-18 13:49] VITALS: RESP 18; TEMP 97.9
[2020-07-18] MEDS ORDERED: KETOROLAC 15 MG/ML 1 ML VIAL IVP STA (14:33)
--- NOTE | 2020-07-18 14:36 | ED ---
Chest Pain HPI - General Chief Complaint: Chest Pain Stated Complaint: Chest Pain/SOB Time Seen by Provider: 07/18/20 14:15 Source: patient, RN notes reviewed, old records reviewed Mode of arrival: wheelchair Limitations: physical limitation - History of Present Illness Initial Comments: This is a 55-year-old female history of pulmonary hypertension among other issues including COPD who presents with complaints of the sudden onset of left- sided midsternal chest pain while taking a shower. She states her was some radiation to her left arm she had somewhat nauseated and diaphoretic. She states it is better now the pain was reasonably 10/10 severity now is 8/10 it is worse with palpation of the area. No recent cold or flu symptoms no trauma no h eavy lifting or overhead work. MD Complaint: chest pain - Related Data Home Medications Medication Instructions Recorded Confirmed Isosorbide Mononitrate ER [Imdur] 60 mg PO HS 07/16/14 02/18/20 metFORMIN HCL 1,000 mg PO HS 07/16/14 02/18/20 Montelukast [Singulair] 10 mg PO HS 10/20/15 02/18/20 Pantoprazole [Protonix] 40 mg PO BID 10/20/15 02/18/20 ALPRAZolam [Xanax] 0.25 mg PO BID PRN 02/27/16 02/18/20 Gabapentin [Neurontin] 800 mg PO TID 09/07/16 02/18/20 Hydroxychloroquine Sulfate 200 mg PO BID 09/07/16 02/18/20 [Plaquenil] Latanoprost Ophth [Xalatan 0.005%] 1 drop BOTH EYES HS 09/07/16 02/18/20 Ibuprofen [Motrin] 800 mg PO Q8H PRN 01/11/17 02/18/20 Atorvastatin [Lipitor] 40 mg PO DAILY 08/20/17 02/18/20 Ipratropium-Albuterol Nebulize 3 ml INHALATION RT-QID 08/20/17 02/18/20 [Duoneb 0.5 mg-3 mg/3 ml Soln] DULoxetine HCL [Cymbalta] 120 mg PO HS 01/30/18 02/18/20 HYDROcodone/APAP 10-325MG [[place] 1 tab PO Q6H PRN 01/30/18 02/18/20 10-325] Budesonide [Pulmicort Flexhaler] 2 puff INHALATION RT-BID PRN 08/29/19 02/18/20 Diltiazem HCl [Diltiazem HCl 24Hr 240 mg PO HS 08/29/19 02/18/20 ER] Fluticasone Nasal [place] [Flonase 2 spray EA NOSTRIL DAILY 08/29/19 02/18/20 Nasal [place]] Furosemide [Lasix] 20 mg PO DAILY 08/29/19 02/18/20 Ipratropium [place] [Ipratropium 1 - 2 sprays EA NOSTRIL BID 09/24/19 02/18/20 [place] 0.03%] Repaglinide 1 mg PO AC-TID 09/24/19 02/18/20 metFORMIN HCL [Glucophage] 500 mg PO QAM 09/24/19 02/18/20 Fluconazole [Diflucan] 100 mg PO DAILY 02/18/20 02/18/20 Previous Rx's Medication Instructions Recorded Ibuprofen 800 mg PO Q6HR PRN #20 tablet 07/18/20 Orphenadrine [Norflex] 100 mg PO Q12H #7 tablet.er 07/18/20 Allergies Allergy/AdvReac Type Severity Reaction Status Date / Time Androgenic Anabolic Steroid Allergy Unknown Verified 07/18/20 13:49 meperidine HCl [From Demerol] Allergy Rash/Hives Verified 07/18/20 13:49 propoxyphene napsylate Allergy Dyspnea Verified 07/18/20 13:49 [From Darvocet-N] Review of Systems ROS Statement: Those systems with pertinent positive or pertinent negative responses have been documented in the HPI. ROS Other: All systems not noted in ROS Statement are negative. Past Medical History Past Medical History: COPD, Diabetes Mellitus, GERD/Reflux, Hyperlipidemia, Hypertension, Osteoarthritis (OA), Pneumonia, Thyroid Disorder Additional Past Medical History / Comment(s): MURMUR, UTI, GOITER, DIASTOLIC DYSFUNCTION,Scleraderma, has had trouble swallowing for past 6 months, jaky ochondrial myopathy, chronic pulmonary failure, kidney disease stage III History of Any Multi-Drug Resistant Organisms: None Reported Past Surgical History: Appendectomy, Cholecystectomy, Heart Catheterization, Hysterectomy, Joint Replacement Additional Past Surgical History / Comment(s): RT KNEE REPLACEMENT, LT KNEE HAS SCREWS IN PLACE Past Anesthesia/Blood Transfusion Reactions: No Reported Reaction Additional Past Anesthesia/Blood Transfusion Reaction / Comment(s): CL AUSTERPHOBIC Past Psychological History: Anxiety Smoking Status: Former smoker Past Alcohol Use History: Occasional Past Drug Use History: None Reported - Past Family History Father Family Medical History: Cancer, Diabetes Mellitus Additional Family Medical History / Comment(s): AT AGE 61, CA throughout the body Mother Family Medical History: Cancer, Congestive Heart Failure (CHF), Diabetes Mellitus, Myocardial Infarction ([place]), Thyroid Disorder Additional Family Medical History / Comment(s): Uterine CA General Exam - General Exam Comments Initial Comments: This is a well-developed well-nourished awake alert oriented 3 female Limitations: physical limitation General appearance: alert, anxious Head exam: Present: atraumatic, normocephalic, normal inspection Eye exam: Present: normal appearance, PERRL, EOMI. Absent: scleral icterus, conjunctival injection, periorbital swelling ENT exam: Present: normal exam, mucous membranes moist Neck exam: Present: normal inspection, full ROM, other (No stridor JVD or bruits). Absent: tenderness, meningismus, lymphadenopathy Respiratory exam: Present: normal lung sounds bilaterally, chest wall tenderness (Reproducible tenderness palpation of the left costal sternal margin no step-off no crepitation this does reproduce the patient's pain). Absent: respiratory distress, wheezes, rales, rhonchi, stridor Cardiovascular Exam: Present: regular rate, normal rhythm, normal heart sounds. Absent: systolic murmur, diastolic murmur, rubs, gallop, clicks GI/Abdominal exam: Present: soft, normal bowel sounds. Absent: distended, tenderness, guarding, rebound, rigid Extremities exam: Present: normal inspection, full ROM, normal capillary refill. Absent: tenderness, pedal edema, joint swelling, calf tenderness Back exam: Present: normal inspection Neurological exam: Present: alert, oriented X3, CN II-XII intact Psychiatric exam: Present: normal affect, normal mood Skin exam: Present: warm, dry, intact, normal color. Absent: rash Course Vital Signs 07/18/20 13:47 Temperature 97.9 F Pulse Rate 84 Respiratory 18 Rate Blood Pressure 151/75 O2 Sat by Pulse 99 Oximetry Chest Pain MDM - MDM Imaging reviewed no acute findings patient did get relief from the IV Toradol the presentation consistent with musculoskeletal chest wall pain costochondritic origin he'll be discharged on appropriate NSAIDs and muscle relaxant. We did discuss the elevation seen on her liver enzymes. She does not want any further testing at this time. He did discuss that this could be viral origin. Disposition Clinical Impression: Costochondritis, Chest wall syndrome Disposition: HOME SELF-CARE Condition: Good Instructions (If sedation given, give patient instructions): Costochondritis (ED) Prescriptions: Ibuprofen 800 mg PO Q6HR PRN #20 tablet PRN Reason: Pain Orphenadrine [Norflex] 100 mg PO Q12H #7 tablet.er Is patient prescribed a controlled substance at d/c from ED?: No Referrals: Murray Braun DO [Primary Care Provider] - 1-2 days
[2020-07-18 15:00] LABS: Anisocytosis Slight; Basophils % (A) 0 %; Eosinophils # (A) 0.1 k/uL (0-0.7); Eosinophils % (A) 2 %; HCT 38.1 % (34.0-46.0); HGB 11.8 gm/dL (11.4-16.0); Hypochromasia Slight; Lymphocytes # (A) 1.1 k/uL (1.0-4.8); Lymphocytes % (A) 13 %; MCH 24.6 pg (25.0-35.0); MCHC 30.9 g/dL (31.0-37.0); MCV 79.6 fL (80.0-100.0); Mean Platelet Volume 6.9; Monocytes # (A) 0.3 k/uL (0-1.0); Monocytes % (A) 3 %; Neutrophils # (A) 6.3 k/uL (1.3-7.7); Neutrophils % (A) 80 %; Platelet Count 307 k/uL (150-450); RBC 4.78 m/uL (3.80-5.40); RDW 16.1 % (11.5-15.5); WBC 7.9 k/uL (3.8-10.6)
[2020-07-18 15:08] LABS: Albumin 4.1 g/dL (3.5-5.0); Calcium 9.5 mg/dL (8.4-10.2); Magnesium 1.7 mg/dL (1.6-2.3); Potassium 4.3 mmol/L (3.5-5.1); Total Bilirubin 0.4 mg/dL (0.2-1.3); Total Protein 6.9 g/dL (6.3-8.2)
--- NOTE | 2020-07-18 15:21 | XR ---
EXAMINATION TYPE: XR chest 2V DATE OF EXAM: 07/18/2020 COMPARISON: 02/18/2020 INDICATION: Chest pain short of breath TECHNIQUE: Frontal and lateral views of the chest are obtained. FINDINGS: The heart size is normal. The pulmonary vasculature is normal. The lungs are clear. IMPRESSION: 1. No acute pulmonary process.
[2020-07-18 15:25] LABS: D-Dimer 0.2 mg/L FEU (<0.60); INR 0.9 (<1.2); Prothrombin Time 9.6 sec (9.0-12.0)
[2020-07-18 17:55] VITALS: BP 134/67; PULSE 79
== END 2020-07-18 17:55 | disposition home or self-care (01) ==
LOC: EC 13:39
DX: M94.0 Chondrocostal junction syndrome [Tietze] (principal); I13.0 Hypertensive heart and chronic kidney disease with heart failure and stage 1 through stage 4 chronic kidney disease, or unspecified chronic kidney disease; E11.22 Type 2 diabetes mellitus with diabetic chronic kidney disease; N18.30 Chronic kidney disease, stage 3 unspecified; I50.30 Unspecified diastolic (congestive) heart failure; J44.9 Chronic obstructive pulmonary disease, unspecified; K21.9 Gastro-esophageal reflux disease without esophagitis; E78.5 Hyperlipidemia, unspecified; M19.90 Unspecified osteoarthritis, unspecified site; F41.9 Anxiety disorder, unspecified; J96.10 Chronic respiratory failure, unspecified whether with hypoxia or hypercapnia; Z79.51 Long term (current) use of inhaled steroids; Z79.84 Long term (current) use of oral hypoglycemic drugs; Z79.899 Other long term (current) drug therapy; Z88.8 Allergy status to other drugs, medicaments and biological substances; Z82.49 Family history of ischemic heart disease and other diseases of the circulatory system; Z87.891 Personal history of nicotine dependence; Z88.5 Allergy status to narcotic agent; Z96.651 Presence of right artificial knee joint; I27.20 Pulmonary hypertension, unspecified
CPT/HCPCS: 36415; 93005; 85379; 83880; 80053; 83735; 84484; 85025; 85610; 85730; 71046; 99285; 96374; J1885

== ENCOUNTER 2020-10-15 17:45 | Emergency (ER) | payer MEDICARE ==
[2020-10-15 17:57] VITALS: RESP 20; TEMP 97.8
[2020-10-15] MEDS ORDERED: SODIUM CHLORIDE 0.9% 1,000 ML IV STA (19:43)
[2020-10-15] MEDS ORDERED: ONDANSETRON 4 MG/2 ML VIAL IVP STA (19:43)
--- NOTE | 2020-10-15 20:06 | ED ---
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 Patient states she has been having left upper quadrant epigastric abdominal pain for the past several months this seems to be exacerbated after postprandial episodes. Patient reports feels like a burning sensation about 10 minutes after eating. Does report nausea but no vomiting. Patient also reports some dysuria but denies any increased urgency or frequency for the past week. Patient also reports darker stools than usual for the past week period but denies any hematochezia or hematuria. Denies any fevers or chills. Denies any chest pain or shortness of breath. She does have history of GERD and takes Pepcid and PPIs with no significant improvement in symptoms. Denies any vaginal symptoms. Surgical history of cholecystectomy and hysterectomy. - Related Data Home Medications Medication Instructions Recorded Confirmed Isosorbide Mononitrate ER [Imdur] 60 mg PO HS 07/16/14 02/18/20 metFORMIN HCL 1,000 mg PO HS 07/16/14 02/18/20 Montelukast [Singulair] 10 mg PO HS 10/20/15 02/18/20 Pantoprazole [Protonix] 40 mg PO BID 10/20/15 02/18/20 ALPRAZolam [Xanax] 0.25 mg PO BID PRN 02/27/16 02/18/20 Gabapentin [Neurontin] 800 mg PO TID 09/07/16 02/18/20 Hydroxychloroquine Sulfate 200 mg PO BID 09/07/16 02/18/20 [Plaquenil] Latanoprost Ophth [Xalatan 0.005%] 1 drop BOTH EYES HS 09/07/16 02/18/20 Ibuprofen [Motrin] 800 mg PO Q8H PRN 01/11/17 02/18/20 Atorvastatin [Lipitor] 40 mg PO DAILY 08/20/17 02/18/20 Ipratropium-Albuterol Nebulize 3 ml INHALATION RT-QID 08/20/17 02/18/20 [Duoneb 0.5 mg-3 mg/3 ml Soln] DULoxetine HCL [Cymbalta] 120 mg PO HS 01/30/18 02/18/20 HYDROcodone/APAP 10-325MG [[place] 1 tab PO Q6H PRN 01/30/18 02/18/20 10-325] Budesonide [Pulmicort Flexhaler] 2 puff INHALATION RT-BID PRN 08/29/19 02/18/20 Diltiazem HCl [Diltiazem HCl 24Hr 240 mg PO HS 08/29/19 02/18/20 ER] Fluticasone Nasal [place] [Flonase 2 spray EA NOSTRIL DAILY 08/29/19 02/18/20 Nasal [place]] Furosemide [Lasix] 20 mg PO DAILY 08/29/19 02/18/20 Ipratropium [place] [Ipratropium 1 - 2 sprays EA NOSTRIL BID 09/24/19 02/18/20 [place] 0.03%] Repaglinide 1 mg PO AC-TID 09/24/19 02/18/20 metFORMIN HCL [Glucophage] 500 mg PO QAM 09/24/19 02/18/20 Fluconazole [Diflucan] 100 mg PO DAILY 02/18/20 02/18/20 Previous Rx's Medication Instructions Recorded Ibuprofen 800 mg PO Q6HR PRN #20 tablet 07/18/20 Orphenadrine [Norflex] 100 mg PO Q12H #7 tablet.er 07/18/20 Ondansetron Odt [Zofran Odt] 4 mg PO Q8HR PRN #10 tab 10/15/20 Allergies Allergy/AdvReac Type Severity Reaction Status Date / Time Androgenic Anabolic Steroid Allergy Unknown Verified 10/15/20 17:57 meperidine HCl [From Demerol] Allergy Rash/Hives Verified 10/15/20 17:57 propoxyphene napsylate Allergy Dyspnea Verified 10/15/20 17:57 [From Darvocet-N] Review of Systems ROS Statement: Those systems with pertinent positive or pertinent negative responses have been documented in the HPI. ROS Other: All systems not noted in ROS Statement are negative. Past Medical History Past Medical History: COPD, Diabetes Mellitus, GERD/Reflux, Hyperlipidemia, Hypertension, Osteoarthritis (OA), Pneumonia, Thyroid Disorder Additional Past Medical History / Comment(s): MURMUR, UTI, GOITER, DIASTOLIC DYSFUNCTION,Scleraderma, has had trouble swallowing for past 6 months, mitochondrial myopathy, chronic pulmonary failure, kidney disease stage III History of Any Multi-Drug Resistant Organisms: None Reported Past Surgical History: Appendectomy, Cholecystectomy, Heart Catheterization, Hysterectomy, Joint Replacement Additional Past Surgical History / Comment(s): RT KNEE REPLACEMENT, LT KNEE HAS SCREWS IN PLACE Past Anesthesia/Blood Transfusion Reactions: No Reported Reaction Additional Past Anesthesia/Blood Transfusion Reaction / Comment(s): CLAUSTERPHOBIC Past Psychological History: Anxiety Smoking Status: Former smoker Past Alcohol Use History: Occasional Past Drug Use History: None Reported - Past Family History Father Family Medical History: Cancer, Diabetes Mellitus Additional Family Medical History / Comment(s): AT AGE 61, CA throughout the body Mother Family Medical History: Cancer, Congestive Heart Failure (CHF), Diabetes Mellitus, Myocardial Infarction ([place]), Thyroid Disorder Additional Family Medical History / Comment(s): Uterine CA General Exam Limitations: no limitations General appearance: alert, in no apparent distress, obese Head exam: Present: atraumatic, normocephalic, normal inspection Eye exam: Present: normal appearance, PERRL, EOMI Pupils: Present: normal accommodation ENT exam: Present: normal exam, normal oropharynx, mucous membranes moist Neck exam: Present: normal inspection, full ROM. Absent: tenderness Respiratory exam: Present: normal lung sounds bilaterally. Absent: respiratory distress, rhonchi, stridor, chest wall tenderness Cardiovascular Exam: Present: regular rate, normal rhythm, normal heart sounds GI/Abdominal exam: Present: soft, tenderness (Epigastric and left upper quadrant abdominal tenderness), normal bowel sounds. Absent: distended, guarding, rebound Rectal exam: Present: normal inspection, normal rectal tone Extremities exam: Present: normal inspection, full ROM. Absent: tenderness Back exam: Present: normal inspection, full ROM. Absent: tenderness Neurological exam: Present: alert, oriented X3, normal gait Psychiatric exam: Present: normal affect, normal mood Skin exam: Present: warm, dry, intact, normal color Course Vital Signs 10/15/20 10/15/20 10/15/20 17:54 20:34 21:21 Temperature 97.8 F Pulse Rate 100 90 88 Respiratory 20 20 20 Rate Blood Pressure 145/70 168/77 152/66 O2 Sat by Pulse 97 100 100 Oximetry Medical Decision Making - Medical Decision Making 55-year-old male presents to the emergency department with a chief complaint of abdominal pain. On physical examination, left upper quadrant epigastric abdominal tenderness. No CVA tenderness. Patient was given IV fluids, antiemetics and analgesia. CBC unremarkable. CMP reveals mild transaminitis. UA unremarkable. Stool occult is negative. CT of abdomen and pelvis with contrast unremarkable. Patient will be discharged with outpatient follow-up. I suspect possible peptic ulcer considering she continues to have this pain about 10 minutes after eating. She does not have a gallbladder. She currently takes antacids and PPIs. Advised to continue doing that. Advised to avoid eating acidic foods, dairy, carbonated drinks coffee or alcohol. Strict return parameters were thoroughly discussed the patient was understanding and agreeable. Will be discharged with [place]. Case discussed with Dr. Beach. - Lab Data Result diagrams: 10/15/20 20:12 10/15/20 20:12 Lab Results 10/15/20 10/15/20 10/15/20 Range/Units 20:12 20:12 20:12 WBC 10.5 (3.8-10.6) k/uL RBC 5.15 (3.80-5.40) m/uL Hgb 13.1 (11.4-16.0) gm/dL Hct 40.1 (34.0-46.0) % MCV 77.9 L (80.0-100.0) fL MCH 25.4 (25.0-35.0) pg MCHC 32.6 (31.0-37.0) g/dL RDW 15.0 (11.5-15.5) % Plt Count 351 (150-450) k/uL MPV 6.5 Neutrophils % 73 % Lymphocytes % 20 % Monocytes % 4 % Eosinophils % 2 % Basophils % 1 % Neutrophils # 7.6 (1.3-7.7) k/uL Lymphocytes # 2.1 (1.0-4.8) k/uL Monocytes # 0.4 (0-1.0) k/uL Eosinophils # 0.2 (0-0.7) k/uL Basophils # 0.1 (0-0.2) k/uL Sodium 136 L (137-145) mmol/L Potassium 4.4 (3.5-5.1) mmol/L Chloride 98 (98-107) mmol/L Carbon Dioxide 26 (22-30) mmol/L Anion Gap 12 mmol/L BUN 14 (7-17) mg/dL Creatinine 0.96 (0.52-1.04) mg/dL Est GFR (CKD-EPI)AfAm 77 (>60 ml/min/1.73 sqM) Est GFR (CKD-EPI)NonAf 66 (>60 ml/min/1.73 sqM) Glucose 131 H (74-99) mg/dL Plasma Lactic Acid [place] (0.7-2.0) mmol/L Calcium 9.9 (8.4-10.2) mg/dL Total Bilirubin 0.4 (0.2-1.3) mg/dL AST 50 H (14-36) U/L ALT 74 H (4-34) U/L Alkaline Phosphatase 172 H (38-126) U/L Total Protein 7.2 (6.3-8.2) g/dL Albumin 4.4 (3.5-5.0) g/dL Lipase 168 (23-300) U/L Urine Color Light Yellow Urine Appearance Cloudy H (Clear) Urine pH 5.5 (5.0-8.0) Ur Specific [place] 1.010 (1.001-1.035) Urine Protein Negative (Negative) Urine Glucose (UA) Negative (Negative) Urine Ketones Negative (Negative) Urine Blood Negative (Negative) Urine Nitrite Negative (Negative) Urine Bilirubin Negative (Negative) Urine Urobilinogen <2.0 (<2.0) mg/dL Ur Leukocyte Esterase Moderate H (Negative) Urine WBC 6 H (0-5) /hpf Ur Squamous Epith Cells 9 H (0-4) /hpf Urine Mucus Rare H (None) /hpf Stool Occult Blood (Negative) 10/15/20 10/15/20 Range/Units 20:12 20:12 WBC (3.8-10.6) k/uL RBC (3.80-5.40) m/uL Hgb (11.4-16.0) gm/dL Hct (34.0-46.0) % MCV (80.0-100.0) fL MCH (25.0-35.0) pg MCHC (31.0-37.0) g/dL RDW (11.5-15.5) % Plt Count (150-450) k/uL MPV Neutrophils % % Lymphocytes % % Monocytes % % Eosinophils % % Basophils % % Neutrophils # (1.3-7.7) k/uL Lymphocytes # (1.0-4.8) k/uL Monocytes # (0-1.0) k/uL Eosinophils # (0-0.7) k/uL Basophils # (0-0.2) k/uL Sodium (137-145) mmol/L Potassium (3.5-5.1) mmol/L Chloride (98-107) mmol/L Carbon Dioxide (22-30) mmol/L Anion Gap mmol/L BUN (7-17) mg/dL Creatinine (0.52-1.04) mg/dL Est GFR (CKD-EPI)AfAm (>60 ml/min/1.73 sqM) Est GFR (CKD-EPI)NonAf (>60 ml/min/1.73 sqM) Glucose (74-99) mg/dL Plasma Lactic Acid [place] 2.0 (0.7-2.0) mmol/L Calcium (8.4-10.2) mg/dL Total Bilirubin (0.2-1.3) mg/dL AST (14-36) U/L ALT (4-34) U/L Alkaline Phosphatase (38-126) U/L Total Protein (6.3-8.2) g/dL Albumin (3.5-5.0) g/dL Lipase (23-300) U/L Urine Color Urine Appearance (Clear) Urine pH (5.0-8.0) Ur Specific [place] (1.001-1.035) Urine Protein (Negative) Urine Glucose (UA) (Negative) Urine Ketones (Negative) Urine Blood (Negative) Urine Nitrite (Negative) Urine Bilirubin (Negative) Urine Urobilinogen (<2.0) mg/dL Ur Leukocyte Esterase (Negative) Urine WBC (0-5) /hpf Ur Squamous Epith Cells (0-4) /hpf Urine Mucus (None) /hpf Stool Occult Blood Negative (Negative) - EKG Data EKG Comments: Sinus rhythm with no significant ST-T wave changes ventricular rate 85, LA 162, QRS 70, QTC 464. Disposition Clinical Impression: Abdominal pain, Nausea Disposition: HOME SELF-CARE Condition: Stable Instructions (If sedation given, give patient instructions): Abdominal Pain (ED) Additional Instructions: Please return to the Emergency Department if symptoms worsen or any other concerns.. Follow up with a GI specialist. Prescriptions: Ondansetron Odt [Zofran Odt] 4 mg PO Q8HR PRN #10 tab PRN Reason: Nausea Is patient prescribed a controlled substance at d/c from ED?: No Referrals: Murray Braun DO [Primary Care Provider] - 1-2 days Saurabh Wyman MD [STAFF PHYSICIAN] - 1-2 days Time of Disposition: 21:50
[2020-10-15 20:19] LABS: Basophils # (A) 0.1 k/uL (0-0.2); Basophils % (A) 1 %; Eosinophils # (A) 0.2 k/uL (0-0.7); Eosinophils % (A) 2 %; HCT 40.1 % (34.0-46.0); HGB 13.1 gm/dL (11.4-16.0); Lymphocytes # (A) 2.1 k/uL (1.0-4.8); Lymphocytes % (A) 20 %; MCH 25.4 pg (25.0-35.0); MCHC 32.6 g/dL (31.0-37.0); MCV 77.9 fL (80.0-100.0); Mean Platelet Volume 6.5; Monocytes # (A) 0.4 k/uL (0-1.0); Monocytes % (A) 4 %; Neutrophils # (A) 7.6 k/uL (1.3-7.7); Neutrophils % (A) 73 %; Platelet Count 351 k/uL (150-450); RBC 5.15 m/uL (3.80-5.40); WBC 10.5 k/uL (3.8-10.6)
[2020-10-15] MEDS ORDERED: MORPHINE SULFATE 4 MG/ML SYRINGE IVP STA (20:23)
[2020-10-15 20:28] LABS: Albumin 4.4 g/dL (3.5-5.0); Calcium 9.9 mg/dL (8.4-10.2); Potassium 4.4 mmol/L (3.5-5.1); Total Bilirubin 0.4 mg/dL (0.2-1.3); Total Protein 7.2 g/dL (6.3-8.2)
[2020-10-15 20:37] LABS: Appearance,Urine Cloudy (Clear); Bilirubin,Urine Negative (Negative); Blood,Urine Negative (Negative); Color,Urine Light Yellow; Glucose,Urine (UA) Negative (Negative); Ketones,Urine Negative (Negative); Leukocyte Esterase,Urine Moderate (Negative); Mucus,Urine Rare /hpf; Nitrite,Urine Negative (Negative); PH, Urine 5.5 (5.0-8.0); Protein,Urine Negative (Negative); Squamous Epithelial Cell,Urine 9 /hpf (0-4); Urobilinogen,Urine <2.0 mg/dL (<2.0); WBC,Urine 6 /hpf (0-5)
--- NOTE | 2020-10-15 21:27 | CT ---
EXAMINATION TYPE: CT abdomen pelvis w con DATE OF EXAM: 10/15/2020 COMPARISON: 03/24/2016 HISTORY: LUQ pain CT DLP: 2172.1 mGycm Automated exposure control for dose reduction was used. TECHNIQUE: Helical acquisition of images was performed from the lung bases through the pelvis. CONTRAST: Performed without Oral Contrast and with IV Contrast, patient injected with 100 mL of Isovue 300. FINDINGS: LUNG BASES: No significant abnormality is appreciated. LIVER/GB: No significant abnormality is appreciated. Gallbladder has been removed. PANCREAS: No significant abnormality is seen. SPLEEN: No significant abnormality is seen. ADRENALS: No significant abnormality is seen. KIDNEYS: No significant abnormality is seen. FREE AIR: No free air is visualized. RETROPERITONEAL ADENOPATHY: None visualized REPRODUCTIVE ORGANS: No significant abnormality is seen URINARY BLADDER: No significant abnormality is seen. PELVIC ADENOPATHY: None visualized. OSSEOUS STRUCTURES: No significant abnormality is seen. BOWEL: No significant abnormality is seen. OTHER: Mild atherosclerotic disease of the abdominal aorta. No abdominal aortic aneurysm. IMPRESSION: NO ACUTE ABDOMINAL PROCESS. ETIOLOGY FOR PATIENT'S SYMPTOMS UNCLEAR.
[2020-10-15] MEDS ORDERED: ONDANSETRON 4 MG ODT STARTER PACK 2 TAB BTL PO STA (21:43)
[2020-10-15 22:04] VITALS: BP 147/70; PULSE 81
== END 2020-10-15 22:04 | disposition home or self-care (01) ==
LOC: EC 17:45
DX: R11.0 Nausea (principal); R10.9 Unspecified abdominal pain; E11.9 Type 2 diabetes mellitus without complications; E78.5 Hyperlipidemia, unspecified; F41.9 Anxiety disorder, unspecified; I10 Essential (primary) hypertension; J44.9 Chronic obstructive pulmonary disease, unspecified; K21.9 Gastro-esophageal reflux disease without esophagitis; Z79.1 Long term (current) use of non-steroidal anti-inflammatories (NSAID); Z79.51 Long term (current) use of inhaled steroids; Z79.84 Long term (current) use of oral hypoglycemic drugs; Z79.899 Other long term (current) drug therapy; Z87.891 Personal history of nicotine dependence
CPT/HCPCS: 36415; 93005; 80053; 83605; 83690; 85025; 82272; 81001; 74177; 99284; 96374; 96375; 96361; J2270; J2405; S0119; Q9967

== ENCOUNTER → 2020-11-25 | Outpatient (CLI) | payer MEDICARE ==
--- NOTE | 2020-11-25 13:54 | MM ---
Reason for exam: follow-up at short interval from prior study. Last mammogram was performed 6 months ago. History: Patient is postmenopausal. Family history of breast cancer in paternal aunt at age 45, breast cancer in paternal grandmother at age 60, and breast cancer in maternal aunt. Took estrogen for 17 years beginning at age 35. Physical Findings: Nurse did not find any significant physical abnormalities on exam. MG 3D Diag Mammo W/Cad RT CC and MLO view(s) were taken of the right breast. Prior study comparison: May 26, 2020, right breast MG 3d work up w/cad RT. May 16, 2020, bilateral MG 3d screening mammo w/cad. March 22, 2019, bilateral MG 3d screening mammo w/cad. March 13, 2018, bilateral MG diagnostic mammo w CAD [place]. There are scattered fibroglandular densities. There is chronic nodularity in the right breast. Far posterior lateral nodularity partially visualized projecting over the pectoralis muscle on the CC view. Unchanged for 6 months. Continued follow up recommended. These results were verbally communicated with the patient and result sheet given to the patient on 11/25/20. ASSESSMENT: Probably benign, BI-RAD 3 RECOMMENDATION: Follow-up diagnostic mammogram of both breasts in 6 months. Back on schedule.
== END | disposition home or self-care (01) ==
LOC: RADMAMWWP 13:06
PROVIDERS: ATTEND Family Medicine
DX: R92.8 Other abnormal and inconclusive findings on diagnostic imaging of breast (principal)
CPT/HCPCS: 77065; G0279; 77061

== ENCOUNTER 2021-03-31 18:57 | Observation (INO) | payer MEDICARE, OTHER ==
[2021-03-31 19:39] LABS: Basophils % (A) 1 %; Eosinophils # (A) 0.2 k/uL (0-0.7); Eosinophils % (A) 2 %; HCT 37.6 % (34.0-46.0); HGB 12.1 gm/dL (11.4-16.0); Lymphocytes # (A) 1.3 k/uL (1.0-4.8); Lymphocytes % (A) 16 %; MCH 25.7 pg (25.0-35.0); MCHC 32.1 g/dL (31.0-37.0); MCV 80.1 fL (80.0-100.0); Mean Platelet Volume 6.7; Monocytes # (A) 0.3 k/uL (0-1.0); Monocytes % (A) 4 %; Neutrophils # (A) 6.4 k/uL (1.3-7.7); Neutrophils % (A) 77 %; Platelet Count 356 k/uL (150-450); RDW 15.4 % (11.5-15.5); WBC 8.4 k/uL (3.8-10.6)
[2021-03-31 19:49] LABS: Albumin 4.2 g/dL (3.5-5.0); Calcium 9.2 mg/dL (8.4-10.2); Total Bilirubin 1.1 mg/dL (0.2-1.3); Total Protein 6.8 g/dL (6.3-8.2)
[2021-03-31 19:52] LABS: Potassium 4.6 mmol/L (3.5-5.1)
[2021-03-31 19:54] LABS: INR 0.9 (<1.2); Prothrombin Time 9.5 sec (9.0-12.0)
[2021-03-31 19:55] LABS: Partial Thromboplastin Time 20.9 sec (22.0-30.0)
--- NOTE | 2021-03-31 21:15 | XR ---
EXAMINATION TYPE: XR chest 2V DATE OF EXAM: 03/31/2021 CLINICAL HISTORY: possible infiltrate. TECHNIQUE: Frontal and lateral view of the chest. COMPARISON: 07/18/2020 FINDINGS: Low lung volumes accentuates the cardiac silhouette and lung markings. The cardiomediastin al silhouette is within normal limits for size. Pulmonary vasculature is normal. There is no focal ai r space opacity. No pleural effusion. No pneumothorax seen. No acute displaced osseous fracture. IMPRESSION: No acute cardiopulmonary process.
[2021-03-31] MEDS ORDERED: ONDANSETRON 4 MG/2 ML VIAL IVP STA (22:16)
--- NOTE | 2021-03-31 22:16 | ED ---
Chest Pain HPI - General Chief Complaint: Chest Pain Stated Complaint: chest pain & SOB Time Seen by Provider: 03/31/21 20:28 Source: patient Mode of arrival: ambulatory Limitations: no limitations - History of Present Illness Initial Comments: This 56-year-old female presents with a complaint of chest pain and shortness of breath. This came on over the last 1 day. It is described as a pressure type sensation in her mid to left chest without radiation. He states that it is moderate in severity. She has some moderate shortness of breath as well. She does have a history of scleroderma and she states that this does also affect her chest. She does have a history of COPD as well. Her last stress test was approximately one year ago. She denies any leg pain or swelling or history of DVT or PE. There's been no fevers or chills. No other complaints or modifying factors. - Related Data Home Medications Medication Instructions Recorded Confirmed Isosorbide Mononitrate ER [Imdur] 60 mg PO DAILY 07/16/14 03/31/21 metFORMIN HCL 1,000 mg PO HS 07/16/14 03/31/21 Montelukast [Singulair] 10 mg PO HS 10/20/15 03/31/21 Gabapentin [Neurontin] 800 mg PO TID 09/07/16 03/31/21 Hydroxychloroquine Sulfate 200 mg PO BID 09/07/16 03/31/21 [Plaquenil] Latanoprost Ophth [Xalatan 0.005%] 1 drop BOTH EYES HS 09/07/16 03/31/21 Atorvastatin [Lipitor] 40 mg PO HS 08/20/17 03/31/21 Ipratropium-Albuterol Nebulize 3 ml INHALATION RT-QID PRN 08/20/17 03/31/21 [Duoneb 0.5 mg-3 mg/3 ml Soln] DULoxetine HCL [Cymbalta] 120 mg PO HS 01/30/18 03/31/21 HYDROcodone/APAP 10-325MG [[place] 1 tab PO Q4H PRN 01/30/18 03/31/21 10-325] Budesonide [Pulmicort Flexhaler] 2 puff INHALATION RT-BID PRN 08/29/19 03/31/21 Diltiazem HCl [Diltiazem HCl 24Hr 240 mg PO DAILY 08/29/19 03/31/21 ER] Fluticasone Nasal [place] [Flonase 2 spray EA NOSTRIL DAILY 08/29/19 03/31/21 Nasal [place]] Furosemide [Lasix] 20 mg PO DAILY 08/29/19 03/31/21 metFORMIN HCL [Glucophage] 500 mg PO QAM 09/24/19 03/31/21 Aspirin EC [Ecotrin Low Dose] 81 mg PO DAILY 03/31/21 03/31/21 Exenatide Microspheres [Bydureon 2 mg SQ FR 03/31/21 03/31/21 Bcise Auto-Injector] Famotidine 40 mg PO DAILY 03/31/21 03/31/21 Glimepiride [Amaryl] 2 mg PO BID 03/31/21 03/31/21 Insulin Glargine,Hum.rec.anlog 8 unit SQ HS 03/31/21 03/31/21 [Lantus Solostar Pen] Losartan Potassium [Cozaar] 25 mg PO DAILY 03/31/21 03/31/21 Allergies Allergy/AdvReac Type Severity Reaction Status Date / Time Androgenic Anabolic Steroid Allergy Unknown Verified 03/31/21 21:09 meperidine HCl [From Demerol] Allergy Rash/Hives Verified 03/31/21 21:09 propoxyphene napsylate Allergy Dyspnea Verified 03/31/21 21:09 [From Darvocet-N] Review of Systems ROS Statement: Those systems with pertinent positive or pertinent negative responses have been documented in the HPI. ROS Other: All systems not noted in ROS Statement are negative. Past Medical History Past Medical History: COPD, Diabetes Mellitus, GERD/Reflux, Hyperlipidemia, Hypertension, Osteoarthritis (OA), Pneumonia, Thyroid Disorder Additional Past Medical History / Comment(s): MURMUR, UTI, GOITER, DIASTOLIC DYSFUNCTION,Scleraderma, has had trouble swallowing for past 6 months, mitochondrial myopathy, chronic pulmonary failure, kidney disease stage III History of Any Multi-Drug Resistant Organisms: None Reported Past Surgical History: Appendectomy, Cholecystectomy, Heart Catheterization, Hysterectomy, Joint Replacement Additional Past Surgical History / Comment(s): RT KNEE REPLACEMENT, LT KNEE HAS SCREWS IN PLACE Past Anesthesia/Blood Transfusion Reactions: No Reported Reaction Additional Past Anesthesia/Blood Transfusion Reaction / Comment(s): CLAUSTERPHOBIC Past Psychological History: Anxiety Smoking Status: Former smoker Past Alcohol Use History: Occasional Past Drug Use History: None Reported - Past Family History Father Family Medical History: Cancer, Diabetes Mellitus Additional Family Medical History / Comment(s): AT AGE 61, CA throughout the body Mother Family Medical History: Cancer, Congestive Heart Failure (CHF), Diabetes Mellitus, Myocardial Infarction ([place]), Thyroid Disorder Additional Family Medical History / Comment(s): Uterine CA General Exam - General Exam Comments Initial Comments: GENERAL: The patient is well nourished and well hydrated. VITAL SIGNS: Heart rate, blood pressure, respiratory rate reviewed as recorded in nurse's notes. EYES: Pupils are round and reactive. Extraocular movements are intact. No conjunctival / lid redness or swelling. ENT: No external evidence of injury, swelling, or ecchymosis. Airway is patent. Throat is clear. NECK: Nontender. No swelling or evidence of injury. No subcutaneous emphysema. Trachea is midline. No thyroid mass. HEART: Regular rate and rhythm. Good peripheral pulses. LUNGS/CHEST: Breath sounds clear and equal bilaterally. No rales, rhonchi, or wheezes. No ecchymosis, subcutaneous emphysema, or tenderness. ABDOMEN: Abdomen soft without tenderness. No palpable masses or organomegaly. No peritoneal signs. No abdominal wall swelling or ecchymosis. EXTREMITIES: No extremity tenderness. Normal muscle tone and function. No thoracolumbar tenderness. NEUROLOGIC: Sensation is grossly intact. Cranial nerve exam reveals face is symmetrical, tongue is midline, speech is clear. SKIN: No abrasions or ecchymosis is noted. No induration or masses noted. PSYCHIATRIC: Alert and oriented. Appropriate behavior and judgment. Limitations: no limitations Course Vital Signs 03/31/21 19:07 Temperature 97.9 F Pulse Rate 87 Respiratory 18 Rate Blood Pressure 149/80 O2 Sat by Pulse 98 Oximetry Chest Pain MDM - MDM The patient was seen and examined. All diagnostics were reviewed. The EKG shows a normal sinus rhythm at a rate of 88. There is no acute ST-T wave changes identified. The DC intervals 162, the QRS duration is 78, and the QTC intervals 459. Patient receives some aspirin as well as some Nitropaste. She later is nauseated and received some Zofran intravenously. The chest x-ray did not show any acute processes. The laboratory shows elevation of the glucose at 245 and mild transaminitis. It is felt as though the patient would benefit from admission to the hospital as an observation for further cardiac rule out. Case is discussed with he's [facility] hospitalist and they are agreeable to admission to rule out the possibility of acute coronary syndrome. Disposition Clinical Impression: Unstable angina pectoris, Chest pain, Dyspnea, Scleroderma, Hypertension, Hyperglycemia Disposition: ADMITTED IP TO THIS [facility] Condition: Fair Is patient prescribed a controlled substance at d/c from ED?: No Referrals: Murray Braun DO [Primary Care Provider] - 1-2 days Time of Disposition: 22:16 Decision Date: 03/31/21 Decision Time: 22:16
[2021-03-31] MEDS ORDERED: NITROGLYCERIN SL TABS 0.4 MG TAB SUBLINGUAL PRN (22:21)
[2021-03-31] MEDS ORDERED: ONDANSETRON 4 MG/2 ML VIAL IVP PRN (22:25)
[2021-03-31] MEDS: FLUTICASONE 44 MCG INHALER INHALATION SCH (23:51)
[2021-04-01] MEDS: HYDROcodone/APAP 10-325MG 1 EACH TAB PO PRN ×2 (00:10→21:36)
[2021-04-01] MEDS: metFORMIN 500 MG TAB PO SCH (08:28)
[2021-04-01] MEDS: LOSARTAN 25 MG TAB PO SCH (08:28)
[2021-04-01] MEDS: NITROGLYCERIN OINT 1 INCH/GM PACKET TOPICAL SCH ×2 (08:28)
[2021-04-01] MEDS: FUROSEMIDE 20 MG TAB PO SCH (08:28)
[2021-04-01] MEDS: FAMOTIDINE 20 MG TAB PO SCH (08:28)
[2021-04-01] MEDS: ENOXAPARIN 40 MG/0.4 ML SYRINGE SQ SCH (08:29)
[2021-04-01] MEDS: GABAPENTIN 400 MG CAP PO SCH ×3 (08:31→21:30)
[2021-04-01] MEDS ORDERED: AMINOPHYLLINE 500 MG/20 ML VIAL IV PRN (08:55)
[2021-04-01] MEDS ORDERED: REGADENOSON 0.4 MG/5 ML SYRINGE IV PRN (08:55)
[2021-04-01] MEDS ORDERED: CAFFEINE CITRATE 60 MG/3 ML VIAL IV PRN (08:55)
[2021-04-01] MEDS ORDERED: ASPIRIN 81 MG PO SCH (09:00)
[2021-04-01] MEDS ORDERED: ASPIRIN 325 MG TAB PO SCH (09:00)
[2021-04-01] MEDS: FLUTICASONE 44 MCG INHALER INHALATION SCH ×2 (09:01→20:14)
[2021-04-01] MEDS: IPRATROPIUM-ALBUTEROL 3 ML NEB INHALATION PRN ×3 (09:01→20:13)
[2021-04-01 09:05] LABS: Albumin 3.9 g/dL (3.5-5.0); Bilirubin, Delta 0.1 mg/dL (0.0-0.2); Bilirubin,Unconjugated 0.2 mg/dL (0.0-1.1); Total Bilirubin 0.3 mg/dL (0.2-1.3); Total Protein 6.5 g/dL (6.3-8.2)
--- NOTE | 2021-04-01 09:35 | US ---
EXAMINATION TYPE: US liver DATE OF EXAM: 04/01/2021 COMPARISON: NONE CLINICAL HISTORY: elevated enzymes. elevated labs, chest and abd pain, cholecystectomy EXAM MEASUREMENTS: Liver Length: 15.5 cm Gallbladder Wall: Surgically absent CBD: not seen Right Kidney: 12.0 x 4.7 x 5.2 cm overly bowel gas limits exam Pancreas: not seen Liver: limited views, intercostal images were nondiagnostic Gallbladder: Surgically absent Evidence for sonographic [place]'s sign: no CBD: not seen Right Kidney: wnl IMPRESSION: No significant abnormality is noted.
[2021-04-01] MEDS: DILTIAZEM CD 240 MG CAP.ER.24H PO SCH (09:40)
[2021-04-01] MEDS: GLIMEPIRIDE 2 MG TAB PO SCH ×2 (09:40→21:30)
[2021-04-01] MEDS: HYDROXYCHLOROQUINE SULFATE 200 MG TAB PO SCH ×2 (09:40→21:29)
[2021-04-01 09:41] LABS: Glucose,Whole Blood 136 mg/dL (75-99)
[2021-04-01] MEDS: INSULIN ASPART (NovoLOG) 100 UNIT/ML VIAL SQ SCH ×4 (09:41→21:26)
[2021-04-01] MEDS: FLUTICASONE 50MCG/SPRAY NASAL 16GM EA NOSTRIL SCH (09:41)
[2021-04-01 09:58] LABS: Chol/HDL Ratio 2.36
--- NOTE | 2021-04-01 10:12 | P.CRDCN ---
History of Present Illness History of present illness: HISTORY OF PRESENTING ILLNESS This is a pleasant 56-year-old female past medical history significant for scleroderma, pulmonary hypertension, hypertension, dyslipidemia, diabetes mellitus and obesity. She follows in the office with Dr. Mendez as well as pulmonary hypertension specialist at [facility]. We have been asked to see in consultation for shortness of breath. She states over the previous couple of days she has noticed increased shortness of breath specifically with exertion or activity. She has some associated pressure in the midsternal region that radiates over to the left at times. DIAGNOSTICS EKG reveals sinus mechanism heart rate is 88 with nonspecific abnormalities. Ultrasound of the liver is negative for significant abnormality. Chest xray negative for an acute cardiopulmonary process. Laboratory reviewed, CBC unremarkable, d-dimer negative, sodium 136, potassium 4.6, creatinine 0.92, alkaline phosphatase 271, cardiac enzymes negative 3, LDL 56. Current cardiac medications include atorvastatin 40 mg daily, diltiazem 240 mg daily, Lasix 20 mg daily, Imdur 60 mg daily, losartan 25 mg daily and aspirin 81 mg daily. Most recent echocardiogram obtained 2019 reveals preserved LV systolic function with ejection fraction 55%. Most recent stress test performed 02/2020 was inconclusive secondary to inability to achieve 85% of maximum predicted heart rate. However asked peak infusion there was normal wall motion and augmentation with no hypokinesia noted. REVIEW OF SYSTEMS At the time of my exam: CONSTITUTIONAL: Denies fever or chills. CARDIOVASCULAR: Denies chest pain, shortness of breath, orthopnea, PND or palpitations. RESPIRATORY: Denies cough. GASTROINTESTINAL: Denies abdominal pain, diarrhea, constipation, nausea or vomit ing. MUSCULOSKELETAL: Denies myalgias. NEUROLOGIC: Denies numbness, tingling, headache or weakness. ENDOCRINE: Denies fatigue, weight change, polydipsia or polyurina. GENITOURINARY: Denies burning, hematuria or urgency with micturation. HEMATOLOGIC: Denies history of anemia or bleeding. PHYSICAL EXAMINATION Blood pressure 158/77 heart rate 86 afebrile and maintaining oxygen saturation on nasal cannula. CONSTITUTIONAL: No apparent distress. Obese. HEENT: Head is normocephalic. Pupils are equal, round. Sclerae anicteric. Mucous membranes of the mouth are moist. No JVD. No carotid bruit. CHEST EXAMINATION: Lungs are clear to auscultation. No chest wall tenderness is noted on palpation or with deep breathing. HEART EXAMINATION: Regular rate and rhythm. S1, S2 heard. No murmurs, gallops or rub. ABDOMEN: Soft, nontender. EXTREMITIES: 2+ peripheral pulses, no lower extremity edema and no calf tenderness. NEUROLOGIC EXAMINATION: Patient is awake, alert and oriented x3. ASSESSMENT Chest pain and shortness of breath Scleroderma Pulmonary hypertension Hypertension Dyslipidemia Diabetes mellitus Obesity, BMI 38 PLAN An acute coronary event has been ruled out. Obtain 2-D echocardiogram and Doppler study to assess cardiac structure and function. Obtain Lexiscan stress test to assess for stress-induced reversible cardiac ischemia. Decrease aspirin to 81 mg daily. If stress test is normal she may be discharged from a cardiac perspective to follow-up with Dr. Mendez in the office. Thank you kindly for this consultation. Nurse Practitioner note has been reviewed, I agree with a documented findings and plan of care. Patient was seen and examined. Past Medical History Past Medical History: COPD, Diabetes Mellitus, GERD/Reflux, Hyperlipidemia, Hypertension, Osteoarthritis (OA), Pneumonia, Thyroid Disorder Additional Past Medical History / Comment(s): MURMUR, UTI, GOITER, DIASTOLIC DYSFUNCTION,Scleraderma, has had trouble swallowing for past 6 months, mitochondrial myopathy, chronic pulmonary failure, kidney disease stage III History of Any Multi-Drug Resistant Organisms: None Reported Past Surgical History: Appendectomy, Cholecystectomy, Heart Catheterization, Hysterectomy, Joint Replacement Additional Past Surgical History / Comment(s): RT KNEE REPLACEMENT, LT KNEE HAS SCREWS IN PLACE Past Anesthesia/Blood Transfusion Reactions: No Reported Reaction Additional Past Anesthesia/Blood Transfusion Reaction / Comment(s): CLAUSTERPHOBIC Past Psychological History: Anxiety Smoking Status: Former smoker Past Alcohol Use History: Occasional Past Drug Use History: None Reported - Past Family History Father Family Medical History: Cancer, Diabetes Mellitus Additional Family Medical History / Comment(s): AT AGE 61, CA throughout the body Mother Family Medical History: Cancer, Congestive Heart Failure (CHF), Diabetes Mellitus, Myocardial Infarction ([place]), Thyroid Disorder Additional Family Medical History / Comment(s): Uterine CA Medications and Allergies Home Medications Medication Instructions Recorded Confirmed Type Isosorbide Mononitrate ER [Imdur] 60 mg PO DAILY 07/16/14 03/31/21 History metFORMIN HCL 1,000 mg PO HS 07/16/14 03/31/21 History Montelukast [Singulair] 10 mg PO HS 10/20/15 03/31/21 History Gabapentin [Neurontin] 800 mg PO TID 09/07/16 03/31/21 History Hydroxychloroquine Sulfate 200 mg PO BID 09/07/16 03/31/21 History [Plaquenil] Latanoprost Ophth [Xalatan 0.005%] 1 drop BOTH EYES HS 09/07/16 03/31/21 History Atorvastatin [Lipitor] 40 mg PO HS 08/20/17 03/31/21 History Ipratropium-Albuterol Nebulize 3 ml INHALATION RT-QID PRN 08/20/17 03/31/21 History [Duoneb 0.5 mg-3 mg/3 ml Soln] DULoxetine HCL [Cymbalta] 120 mg PO HS 01/30/18 03/31/21 History HYDROcodone/APAP 10-325MG [[place] 1 tab PO Q4H PRN 01/30/18 03/31/21 History 10-325] Budesonide [Pulmicort Flexhaler] 2 puff INHALATION RT-BID PRN 08/29/19 03/31/21 History Diltiazem HCl [Diltiazem HCl 24Hr 240 mg PO DAILY 08/29/19 03/31/21 History ER] Fluticasone Nasal [place] [Flonase 2 spray EA NOSTRIL DAILY 08/29/19 03/31/21 History Nasal [place]] Furosemide [Lasix] 20 mg PO DAILY 08/29/19 03/31/21 History metFORMIN HCL [Glucophage] 500 mg PO QAM 09/24/19 03/31/21 History Aspirin EC [Ecotrin Low Dose] 81 mg PO DAILY 03/31/21 03/31/21 History Exenatide Microspheres [Bydureon 2 mg SQ FR 03/31/21 03/31/21 History Bcise Auto-Injector] Famotidine 40 mg PO DAILY 03/31/21 03/31/21 History Glimepiride [Amaryl] 2 mg PO BID 03/31/21 03/31/21 History Insulin Glargine,Hum.rec.anlog 8 unit SQ HS 03/31/21 03/31/21 History [Lantus Solostar Pen] Losartan Potassium [Cozaar] 25 mg PO DAILY 03/31/21 03/31/21 History Allergies Allergy/AdvReac Type Severity Reaction Status Date / Time Androgenic Anabolic Steroid Allergy Unknown Verified 03/31/21 21:09 meperidine HCl [From Demerol] Allergy Rash/Hives Verified 03/31/21 21:09 propoxyphene napsylate Allergy Dyspnea Verified 03/31/21 21:09 [From Darvocet-N] Physical Exam Vitals: Vital Signs Temp Pulse Pulse Resp BP Pulse Ox 04/01/21 01:00 72 18 158/77 99 03/31/21 22:00 82 03/31/21 19:07 97.9 F 87 18 149/80 98 Intake and Output 03/31/21 04/01/21 04/01/21 22:59 06:59 14:59 Other: Weight 104.326 kg Results 03/31/21 19:24 03/31/21 19:24 Cardiac Enzymes 03/31/21 03/31/21 03/31/21 Range/Units 19:24 19:24 22:51 AST 61 H (14-36) U/L Troponin I <0.012 <0.012 (0.000-0.034) ng/mL 04/01/21 Range/Units 01:54 AST (14-36) U/L Troponin I <0.012 (0.000-0.034) ng/mL Coagulation 03/31/21 Range/Units 19:24 PT 9.5 (9.0-12.0) sec APTT 20.9 L (22.0-30.0) sec CBC 03/31/21 Range/Units 19:24 WBC 8.4 (3.8-10.6) k/uL RBC 4.70 (3.80-5.40) m/uL Hgb 12.1 (11.4-16.0) gm/dL Hct 37.6 (34.0-46.0) % Plt Count 356 (150-450) k/uL Comprehensive Metabolic Panel 03/31/21 Range/Units 19:24 Sodium 136 L (137-145) mmol/L Potassium 4.6 (3.5-5.1) mmol/L Chloride 101 (98-107) mmol/L Carbon Dioxide 25 (22-30) mmol/L BUN 14 (7-17) mg/dL Creatinine 0.92 (0.52-1.04) mg/dL Glucose 245 H (74-99) mg/dL Calcium 9.2 (8.4-10.2) mg/dL AST 61 H (14-36) U/L ALT 45 H (4-34) U/L Alkaline Phosphatase 271 H (38-126) U/L Total Protein 6.8 (6.3-8.2) g/dL Albumin 4.2 (3.5-5.0) g/dL Current Medications Generic Name Dose Route Start Last Admin Trade Name Freq PRN Reason Stop Dose Admin Hydrocodone Bitart/Acetaminophen 1 each 03/31/21 22:23 04/01/21 00:10 Hydrocodone/Apap 10-325mg 1 Each Tab PO 1 each Q4H PRN Administration Pain Albuterol/Ipratropium 3 ml 03/31/21 22:23 Ipratropium-Albuterol 3 Ml Neb INHALATION RT-QID PRN Shortness Of Breath Aspirin 325 mg 04/01/21 09:00 04/01/21 08:28 Aspirin 325 Mg Tab PO 325 mg DAILY ROMARIO Administration Atorvastatin Calcium 40 mg 04/01/21 21:00 Atorvastatin 40 Mg Tab PO HS ROMARIO Diltiazem HCl 240 mg 04/01/21 09:00 Diltiazem Cd 240 Mg Cap.Er.24h PO DAILY ROMARIO Duloxetine HCl 120 mg 04/01/21 21:00 Duloxetine Hcl 60 Mg Capsule.Dr PO HS ROMARIO Enoxaparin Sodium 40 mg 04/01/21 09:00 04/01/21 08:29 Enoxaparin 40 Mg/0.4 Ml Syringe SQ 40 mg DAILY ROMARIO Administration Famotidine 40 mg 04/01/21 09:00 04/01/21 08:28 Famotidine 20 Mg Tab PO 40 mg DAILY ROMARIO Administration Fluticasone Propionate 1 puff 03/31/21 22:23 03/31/21 23:51 Fluticasone 44 Mcg Inhaler INHALATION Not Given RT-BID ROMARIO Fluticasone Propionate 2 spray 04/01/21 09:00 Fluticasone 50mcg/[place] Nasal 16gm EA NOSTRIL DAILY ROMARIO Furosemide 20 mg 04/01/21 09:00 04/01/21 08:28 Furosemide 20 Mg Tab PO 20 mg DAILY ROMARIO Administration Gabapentin 800 mg 04/01/21 09:00 04/01/21 08:31 Gabapentin 400 Mg Cap PO 800 mg TID ROMARIO Administration Glimepiride 2 mg 04/01/21 09:00 Glimepiride 2 Mg Tab PO BID ROMARIO Hydroxychloroquine Sulfate 200 mg 04/01/21 09:00 Hydroxychloroquine Sulfate 200 Mg Tab PO BID ROMARIO Insulin Aspart 0 unit 04/01/21 07:30 Insulin Aspart (Novolog) 100 Unit/Ml Vial SQ ACHS ROMARIO Protocol Insulin Detemir 8 unit 04/01/21 21:00 Insulin Detemir (Levemir) 100 Unit/Ml Syr SQ HS ROMARIO Latanoprost 1 drops 04/01/21 21:00 Latanoprost 0.005% Ophth Drops 2.5 Ml Btl BOTH EYES HS ROMARIO Losartan Potassium 25 mg 04/01/21 09:00 04/01/21 08:28 Losartan 25 Mg Tab PO 25 mg DAILY ROMARIO Administration Metformin HCl 500 mg 04/01/21 09:00 04/01/21 08:28 Metformin 500 Mg Tab PO 500 mg QAM ROMARIO Administration Metformin HCl 1,000 mg 04/01/21 21:00 Metformin 500 Mg Tab PO HS ROMARIO Montelukast Sodium 10 mg 04/01/21 21:00 Montelukast 10 Mg Tab PO HS ROMARIO Nitroglycerin 0.4 mg 03/31/21 22:21 Nitroglycerin Sl Tabs 0.4 Mg Tab SUBLINGUAL Q5M PRN Chest Pain Nitroglycerin 1 inch 04/01/21 00:00 04/01/21 08:28 Nitroglycerin Oint 1 Inch/Gm Packet TOPICAL 1 inch Q6HR ROMARIO Administration Non-Formulary Medication 2 mg 04/03/21 09:00 Exenatide Microspheres [Bydurereggie Bcise Auto-Injector] SQ FR ROMARIO Ondansetron HCl 8 mg 03/31/21 22:25 Ondansetron 4 Mg/2 Ml Vial IVP Q8H PRN Nausea Intake and Output 03/31/21 04/01/21 04/01/21 22:59 06:59 14:59 Other: Weight 104.326 kg 03/31/21 19:24 03/31/21 19:24
[2021-04-01] MEDS ORDERED: KETOROLAC 15 MG/ML 1 ML VIAL IVP STA (11:24)
--- NOTE | 2021-04-01 13:01 | ECHOF ---
Referral Reason:cp MEASUREMENTS -------- HEIGHT: 165.1 cm WEIGHT: 104.3 kg BP: 158/77 RVIDd: 3.9 cm (< 3.3) IVSd: 1.2 cm (0.6 - 1.1) LVIDd: 3.9 cm (3.9 - 5.3) LVPWd: 1.2 cm (0.6 - 1.1) IVSs: 1.4 cm LVIDs: 2.8 cm LVPWs: 1.3 cm LAESV Index (A-L): 12.48 ml/m Ao Diam: 2.6 cm (2.0 - 3.7) AV Cusp: 2.0 cm (1.5 - 2.6) MV EXCURSION: 15.293 mm (> 18.000) MV EF SLOPE: 46 mm/s (70 - 150) EPSS: 0.3 cm MV E Federico: 0.80 m/s MV DecT: 222 ms MV A Federico: 1.05 m/s MV E/A Ratio: 0.77 RAP: 5.00 mmHg RVSP: 21.80 mmHg FINDINGS -------- Sinus rhythm. This was a technically difficult study with suboptimal apical views. The left ventricular size is normal. There is mild concentric left ventricular hypertrophy. Overa ll left ventricular systolic function is normal with, an EF between 55 - 60 %. The right ventricle is mild to moderately enlarged. Normal LA size by volume 22+/-6 ml/m2. The right atrial size is normal. Lumason used Interatrial and interventricular septum intact. There is no evidence of aortic regurgitation. There is no evidence of aortic stenosis. There is trace to mild mitral regurgitation. Mild tricuspid regurgitation present. There is no evidence of pulmonary hypertension. The right v entricular systolic pressure, as measured by Doppler, is 21.80mmHg. There is no pulmonic regurgitation present. The aortic root size is normal. IVC Not well visulized. There is no pericardial effusion. CONCLUSIONS -------- 1. The left ventricular size is normal. 2. There is mild concentric left ventricular hypertrophy. 3. Overall left ventricular systolic function is normal with, an EF between 55 - 60 %. 4. The right ventricle is mild to moderately enlarged. 5. There is trace to mild mitral regurgitation. 6. Mild tricuspid regurgitation present. [employer] CASHIER: Donita Mcleod RDCS
[2021-04-01 13:30] LABS: Glucose,Whole Blood 143 mg/dL (75-99)
--- NOTE | 2021-04-01 13:38 | NM ---
EXAMINATION TYPE: NM stress lexiscan cardiolite DATE OF EXAM: 04/01/2021 COMPARISON: NONE HISTORY: Precordial chest pain and abnormal EKG TECHNIQUE: After the intravenous administration of 9.8 mCi Tc 99m Sestamibi - Cardiolite resting SPE CT images acquired 45 minutes post injection. The patient received 0.4mg Lexiscan, 25.8 mCi Tc 99m Sestamibi - Stress images obtained [address] injection FINDINGS: Review of stress and rest SPECT images demonstrates decreased perfusion involving the anterior and an terolateral lateral wall for which I cannot exclude stress-induced ischemia. No fixed defects are see n. Gated analysis shows normal wall motion with an estimated left ventricular ejection fraction of 85 %. IMPRESSION: Decreased perfusion involving the anterior and anterolateral lateral wall for which I cannot exclude stress-induced ischemia.
--- NOTE | 2021-04-01 14:00 | EST ---
EXERCISE STRESS AGE: 56 SEX: F HT: 5'5" WT: 230 lbs. PROTOCOL: Lexiscan STAGE: NA DURATION OF EXERCISE: NA HEART RATE REST: 84 BLOOD PRESSURE REST: 151/62 MAXIMUM HEART RATE ACHIEVED: 113 MAXIMUM BLOOD PRESSURE: 151/57 85% MPHR: 139 100% MPHR: 163 METS: NA INDICATIONS: NA CLINICAL INFORMATION: Baseline EKG revealed normal sinus rhythm without significant ST-T changes. With Lexiscan administration, heart rate changed from 84 to 113 beats per minute and blood pressure changed from 150/62 to 130/57. EKG remained unremarkable. Patient did not have any symptoms of angina. By EKG criteria, this is an unremarkable Lexiscan stress test. The nuclear scan results, which are more pertinent, will be reported by the radiologist. MMSHALAL / IJN: [id number] /
[2021-04-01] MEDS ORDERED: ALPRAZolam 0.25 MG TAB PO PRN (14:24)
[2021-04-01] MEDS ORDERED: ALPRAZolam 0.5 MG TAB PO PRN (14:24)
[2021-04-01 16:46] LABS: Glucose,Whole Blood 128 mg/dL (75-99)
[2021-04-01] MEDS ORDERED: DULoxetine HCL 60 MG CAPSULE.DR PO SCH (21:00)
[2021-04-01] MEDS ORDERED: INSULIN DETEMIR (LEVEMIR) 100 UNIT/ML SYR SQ SCH (21:00)
[2021-04-01] MEDS ORDERED: LATANOPROST 0.005% OPHTH DROPS 2.5 ML BTL BOTH EYES SCH (21:00)
[2021-04-01] MEDS ORDERED: metFORMIN 500 MG TAB PO SCH (21:00)
[2021-04-01] MEDS ORDERED: ATORVASTATIN 40 MG TAB PO SCH (21:00)
[2021-04-01] MEDS ORDERED: MONTELUKAST 10 MG TAB PO SCH (21:00)
[2021-04-01 21:30] LABS: Glucose,Whole Blood 182 mg/dL (75-99)
--- NOTE | 2021-04-01 22:51 | P.HPIM ---
History of Present Illness This is a pleasant [age] years old female with past medical history of diabetes mellitus, hypertension, hyperlipidemia, osteoarthritis, hypothyroidism, scleroderma with difficulty swallowing for the past 6 months, mitochondrial myopathy and chronic kidney disease stage III. Presents because of chest pain of one-day duration, central, nonradiating about 10/10 in severity when she came in and currently is 8/10 when I saw her this morning, felt like squeezing in character. Patient was not tachypneic or dyspneic when I saw the patient. She has some nausea but no vomiting. Mild tenderness on the right side of the abdomen with n o rebound tenderness or guarding. Liver ultrasound was checked and was negative, widely elevated and bilirubin is normal. Smoking, alcohol or illicit drugs Vital signs stable on presentation. Labs including CBC, BMP are unremarkable. AST slightly elevated at 61, ALT slightly elevated at 45, bilirubin is normal at 1.1 Serial troponins are negative was then 0.012. She has a negative stress test last year on 02/2020, echocardiogram at that time showed ejection fraction of 55-60% EKG showing normal sinus rhythm at [address]-T changes Chest x-ray: No acute process. Liver ultrasound is negative Review of Systems CONSTITUTIONAL: No fever, no malaise, no fatigue. HEENT: No recent visual problems or hearing problems. Denied any sore throat. CARDIOVASCULAR: No orthopnea, PND, no palpitations, no syncope. PULMONARY: No shortness of breath, no cough, no hemoptysis. GASTROINTESTINAL: No diarrhea, no nausea, no vomiting, no abdominal pain. Normoactive bowel sounds. NEUROLOGICAL: No headaches, no weakness, no numbness. HEMATOLOGICAL: Denies any bleeding or petechiae. GENITOURINARY: Denies any burning micturition, frequency, or urgency. MUSCULOSKELETAL/RHEUMATOLOGICAL: Denies any joint pain, swelling, or any muscle pain. ENDOCRINE: Denies any polyuria or polydipsia. Past Medical History Past Medical History: COPD, Diabetes Mellitus, GERD/Reflux, Hyperlipidemia, Hypertension, Osteoarthritis (OA), Pneumonia, Thyroid Disorder Additional Past Medical History / Comment(s): MURMUR, UTI, GOITER, DIASTOLIC DYSFUNCTION,Scleraderma, has had trouble swallowing for past 6 months, mitochondrial myopathy, chronic pulmonary failure, kidney disease stage III History of Any Multi-Drug Resistant Organisms: None Reported Past Surgical History: Appendectomy, Cholecystectomy, Heart Catheterization, Hysterectomy, Joint Replacement Additional Past Surgical History / Comment(s): RT KNEE REPLACEMENT, LT KNEE HAS SCREWS IN PLACE Past Anesthesia/Blood Transfusion Reactions: No Reported Reaction Additional Past Anesthesia/Blood Transfusion Reaction / Comment(s): CLAUSTERPHOBIC Past Psychological History: Anxiety Smoking Status: Former smoker Past Alcohol Use History: Occasional Past Drug Use History: None Reported - Past Family History Father Family Medical History: Cancer, Diabetes Mellitus Additional Family Medical History / Comment(s): AT AGE 61, CA throughout th e body Mother Family Medical History: Cancer, Congestive Heart Failure (CHF), Diabetes Mellitus, Myocardial Infarction (NH), Thyroid Disorder Additional Family Medical History / Comment(s): Uterine CA Medications and Allergies Home Medications Medication Instructions Recorded Confirmed Type Isosorbide Mononitrate ER [Imdur] 60 mg PO DAILY 07/16/14 03/31/21 History metFORMIN HCL 1,000 mg PO HS 07/16/14 03/31/21 History Montelukast [Singulair] 10 mg PO HS 10/20/15 03/31/21 History Gabapentin [Neurontin] 800 mg PO TID 09/07/16 03/31/21 History Hydroxychloroquine Sulfate 200 mg PO BID 09/07/16 03/31/21 History [Plaquenil] Latanoprost Ophth [Xalatan 0.005%] 1 drop BOTH EYES HS 09/07/16 03/31/21 History Atorvastatin [Lipitor] 40 mg PO HS 08/20/17 03/31/21 History Ipratropium-Albuterol Nebulize 3 ml INHALATION RT-QID PRN 08/20/17 03/31/21 History [Duoneb 0.5 mg-3 mg/3 ml Soln] DULoxetine HCL [Cymbalta] 120 mg PO HS 01/30/18 03/31/21 History HYDROcodone/APAP 10-325MG [[place] 1 tab PO Q4H PRN 01/30/18 03/31/21 History 10-325] Budesonide [Pulmicort Flexhaler] 2 puff INHALATION RT-BID PRN 08/29/19 03/31/21 History Diltiazem HCl [Diltiazem HCl 24Hr 240 mg PO DAILY 08/29/19 03/31/21 History ER] Fluticasone Nasal [place] [Flonase 2 spray EA NOSTRIL DAILY 08/29/19 03/31/21 History Nasal [place]] Furosemide [Lasix] 20 mg PO DAILY 08/29/19 03/31/21 History metFORMIN HCL [Glucophage] 500 mg PO QAM 09/24/19 03/31/21 History Aspirin EC [Ecotrin Low Dose] 81 mg PO DAILY 03/31/21 03/31/21 History Exenatide Microspheres [Bydureon 2 mg SQ FR 03/31/21 03/31/21 History Bcise Auto-Injector] Famotidine 40 mg PO DAILY 03/31/21 03/31/21 History Glimepiride [Amaryl] 2 mg PO BID 03/31/21 03/31/21 History Insulin Glargine,Hum.rec.anlog 8 unit SQ HS 03/31/21 03/31/21 History [Lantus Solostar Pen] Losartan Potassium [Cozaar] 25 mg PO DAILY 03/31/21 03/31/21 History Allergies Allergy/AdvReac Type Severity Reaction Status Date / Time Androgenic Anabolic Steroid Allergy Unknown Verified 03/31/21 21:09 meperidine HCl [From Demerol] Allergy Rash/Hives Verified 03/31/21 21:09 propoxyphene napsylate Allergy Dyspnea Verified 03/31/21 21:09 [From Darvocet-N] Physical Exam Vitals: Vital Signs Temp Pulse Pulse Resp BP Pulse Ox 04/01/21 01:00 72 18 158/77 99 03/31/21 22:00 82 03/31/21 19:07 97.9 F 87 18 149/80 98 Intake and Output 03/31/21 04/01/21 04/01/21 22:59 06:59 14:59 Other: Weight 104.326 kg GENERAL: The patient is alert and oriented x3, not in any acute distress. Well developed, well nourished. HEENT: Pupils are round and equally reacting to light. EOMI. No scleral icterus. No conjunctival pallor. Normocephalic, atraumatic. No pharyngeal erythema. No thyromegaly. -CARDIOVASCULAR: S1 and S2 present. No murmurs, rubs, or gallops. Mild ten derness in the middle of the chest anteriorly PULMONARY: Chest is clear to auscultation, no wheezing or crackles. ABDOMEN: Soft, nontender, nondistended, normoactive bowel sounds. No palpable organomegaly. MUSCULOSKELETAL: No joint swelling or deformity. EXTREMITIES: No cyanosis, clubbing, or pedal edema. NEUROLOGICAL: Gross neurological examination did not reveal any focal deficits. SKIN: No rashes. No petechiae Results CBC & Chem 7: 03/31/21 19:24 03/31/21 19:24 Labs: Abnormal Lab Results - Last 24 Hours (Table) 03/31/21 03/31/21 Range/Units 19:24 19:24 APTT 20.9 L (22.0-30.0) sec Sodium 136 L (137-145) mmol/L Glucose 245 H (74-99) mg/dL AST 61 H (14-36) U/L ALT 45 H (4-34) U/L Alkaline Phosphatase 271 H (38-126) U/L Assessment and Plan Assessment: Chest pain, rule out cardiac causes mildly elevated liver enzymes, with negative ultrasound of the liver Diabetes mellitus Hypertension Hyperlipidemia History of breast arthritis Hypothyroidism history of scleroderma with difficulty swallowing for 6 months Mitochondrial myopathy Kidney disease stage III Plan: This is a pleasant 56 years old female who presents with chest pain. rule out Cardiac causes. Cardiology consult Labs and medication were reviewed.. Continue same treatment. Continue with symptomatic treatment. Resume home medication. Monitor lytes and vitals. DVT and GI prophylaxis. Further recommendations depends on the clinical course of the patient DVT prophylaxis: Subcutaneous Lovenox GI Prophylaxis: Pepcid Prognosis is guarded
[2021-04-01] MEDS ORDERED: SODIUM CHLORIDE 0.9% 1,000 ML in EMPTY BAG 1 BAG IV ONE (23:59)
[2021-04-01] MEDS ORDERED: ASPIRIN 325 MG TAB PO ONE (23:59)
[2021-04-02] MEDS ORDERED: HEPARIN SODIUM,PORCINE 2,500 UNIT in SODIUM CHLORIDE 0.9% 250 ML IRRIGATION PRN (07:00)
[2021-04-02] MEDS ORDERED: HEPARIN SODIUM,PORCINE 10,000 UNIT in SODIUM CHLORIDE 0.9% 1,000 ML IRRIGATION PRN (07:00)
[2021-04-02 07:18] LABS: Glucose,Whole Blood 130 mg/dL (75-99)
[2021-04-02] MEDS: INSULIN ASPART (NovoLOG) 100 UNIT/ML VIAL SQ SCH ×3 (07:51→17:24)
[2021-04-02] MEDS: metFORMIN 500 MG TAB PO SCH (07:51)
[2021-04-02] MEDS: GLIMEPIRIDE 2 MG TAB PO SCH (07:51)
[2021-04-02] MEDS: LOSARTAN 25 MG TAB PO SCH (07:55)
[2021-04-02] MEDS: HYDROXYCHLOROQUINE SULFATE 200 MG TAB PO SCH (07:55)
[2021-04-02] MEDS: GABAPENTIN 400 MG CAP PO SCH ×2 (07:55→15:34)
[2021-04-02] MEDS: FAMOTIDINE 20 MG TAB PO SCH (07:55)
[2021-04-02] MEDS: DILTIAZEM CD 240 MG CAP.ER.24H PO SCH (07:55)
[2021-04-02] MEDS: FLUTICASONE 50MCG/SPRAY NASAL 16GM EA NOSTRIL SCH (07:56)
[2021-04-02] MEDS: ENOXAPARIN 40 MG/0.4 ML SYRINGE SQ SCH (08:00)
[2021-04-02] MEDS: IPRATROPIUM-ALBUTEROL 3 ML NEB INHALATION PRN (08:27)
[2021-04-02] MEDS: FLUTICASONE 44 MCG INHALER INHALATION SCH (08:27)
[2021-04-02] MEDS ORDERED: ASPIRIN 81 MG PO SCH (09:00)
[2021-04-02 09:01] VITALS: TEMP 97.8
--- NOTE | 2021-04-02 10:14 | P.PN ---
Progress Note - Text Abnormal stress test findings discussed with the patient. We recommend proceeding with cardiac catheterization. I have discussed the risks, benefits and alternative therapies for the above-mentioned procedure and for both sedation/analgesia as well as necessary blood product administration, if indicated, as they pertain to this patient. The patient has indicated understanding and acceptance of the risks and procedures discussed. Questions have been answered appropriately and she is agreeable to move forward with the above stated procedure.
[2021-04-02] MEDS ORDERED: IV FLUID CONTINUATION 800 ML IV ONE (11:15)
[2021-04-02] MEDS ORDERED: LIDOCAINE 1% INJ 10MG/ML (20 ML MDV) SQ ONE (11:47)
[2021-04-02] MEDS ORDERED: MIDAZOLAM 2 MG/2 ML VIAL IVP ONE (11:47)
[2021-04-02] MEDS ORDERED: fentaNYL (PF) 50 MCG/ML 2 ML AMP IVP ONE (11:50)
[2021-04-02] MEDS ORDERED: HEPARIN SODIUM 1,000 UN/ML (10ML VL) IV ONE (11:50)
[2021-04-02] MEDS ORDERED: VERAPAMIL SYRINGE (5 MG/10 ML) INTRAARTER ONE ×2 (11:50→12:02)
[2021-04-02] MEDS ORDERED: IOPAMIDOL-370 100ML BTL INJ ONE (12:02)
[2021-04-02] MEDS ORDERED: SODIUM CHLORIDE 0.9% 1,000 ML IV SCH (12:20)
[2021-04-02 12:51] LABS: Glucose,Whole Blood 130 mg/dL (75-99)
[2021-04-02] MEDS ORDERED: KETOROLAC 15 MG/ML 1 ML VIAL IVP STA (13:01)
[2021-04-02] MEDS: FUROSEMIDE 20 MG TAB PO SCH (13:15)
[2021-04-02 13:22] VITALS: RESP 14
--- NOTE | 2021-04-02 13:26 | CC ---
CARDIAC CATHETERIZATION REPORT DATE OF SERVICE: 04/02/2021 PROCEDURE: Left heart catheterization and coronary angiography. PERFORMED BY: Dr. Mike Collazo. Moderate conscious sedation time was 18 minutes. Patient was administered Versed and fentanyl. Oxygen saturation, hemodynamics and EKG were monitored closely. CLINICAL INFORMATION: Mrs. Tisha San is a 56-year-old lady with history of hypertension, diabetes, hyperlipidemia and pulmonary hypertension who sees a pulmonary hypertension specialist at [facility]. She sees Dr. Mendez in the outpatient setting. She came into the hospital with very atypical chest pain but had an abnormal stress test suggestive ischemia in the anterior wall. Therefore she was advised cardiac cath after due discussion regarding risks, benefits and options. Patient wished to proceed with the procedure. PROCEDURE NOTE: Under local anesthesia and strict aseptic precautions, a 6-Leb[place] introducer was placed in the right radial artery. Using a JL3.5 and JR4 catheters, I performed coronary angiography, and the same right catheter was used to check LV pressures, but LV gram was not performed. The sheath was taken out and TR band applied as per protocol, with saturation in the fingers of the right hand of about 90%. Patient tolerated the procedure well without complications. CARDIAC CATHETERIZATION FINDINGS: The left ventricular end-diastolic pressure was 5 mmHg without any gradient across the aortic valve. CORONARY ANGIOGRAPHY FINDINGS: RIGHT CORONARY ARTERY: Large dominant vessel has no significant disease in the proximal and mid portion. Distally bifurcates into a larger PLV and smaller PDA. PDA has mild diffuse disease but no critical focal stenosis. There is mild diffuse disease in the entire PDA. The proximal portion of the PDA has some 50% to 55% narrowing. The PLV is free of significant disease. LEFT MAIN CORONARY ARTERY: This is a short patent vessel, free of significant disease, that bifurcates into LAD and circumflex. LEFT ANTERIOR DESCENDING CORONARY ARTERY: Good-caliber vessel extends along the anterior wall, gives off septal and diagonal branches, runs all the way to the apex. No significant disease. LEFT POSTERIOR CIRCUMFLEX CORONARY ARTERY: Nondominant vessel, small in caliber and distribution, has minor irregularities. No significant disease. Left ventriculogram was not performed. FINAL IMPRESSION: This patient has a right-dominant system, moderate diffuse disease in the PDA branch which is small. LAD and circumflex are free of significant disease and PLV branch of RCA is free of significant disease. Filling pressures are somewhat low and no gradient across the aortic valve. RECOMMENDATIONS: I am recommending continued medical therapy with risk factor modification. No intervention is necessary, but aggressive risk factor modification, including lipid- lowering strategies and good control of diabetes is advised. The patient can be discharged later this evening and follow up with her PCP, and Dr. Mendez will see her in the office in one week. MMODL / MARTIN: [id number] /
[2021-04-02 15:05] VITALS: PULSE 74
[2021-04-02 16:06] VITALS: BP 120/71
[2021-04-02 17:24] LABS: Glucose,Whole Blood 135 mg/dL (75-99)
--- NOTE | 2021-04-02 21:59 | P.DS ---
Providers Date of admission: 03/31/21 22:21 Attending physician: Selina Lipscomb Consults: 03/31/21 22:21 Consult Physician Urgent Consulting Provider: Justin Mendez Consult Reason/Comments: cp Do you want consulting provider notified?: Yes Primary care physician: Murray Braun [facility] Course: Diagnoses: Chest pain, secondary to costochondritis of the level of the second left rib, negative cardiac cath and negative d-dimer was less than 0.17 mildly elevated liver enzymes, with negative ultrasound of the liver, improving Diabetes mellitus Hypertension Hyperlipidemia History of breast arthritis Hypothyroidism history of scleroderma with difficulty swallowing for 6 months Mitochondrial myopathy Kidney disease stage III Hospital course: This is a pleasant [age] years old female with past medical history of diabetes mellitus, hypertension, hyperlipidemia, osteoarthritis, hypothyroidism, scleroderma with difficulty swallowing for the past 6 months, mitochondrial myopathy and chronic kidney disease stage III. Presents because of chest pain of one-day duration, central, to the left of the sternum, nonradiating about 10/10 in severity when she came in and currently is 5/10 on discharge. Her pain is improved with IV Toradol D-dimer was negative with less than 0.17. She had negative cardiac cath with Dr. Collazo today who cleared her for discharge this evening. Patient denies any other symptoms and agreeable to go home and follow-up as an outpatient. Because of her cardiac cath and she's getting and since as she got Toradol and she will be discharged on short course of ibuprofen. This recommended for her to hold metformin for risk of contrast-induced nephropathy and lactic acidosis. Patient agrees. It is tender without patient will be discharged on sliding scale, patient already knows how to inject herself with long-acting insulin at home. Patient was started on sliding scale by nurse and prescription was sent to the pharmacy for NovoLog. Patient's was instructed to check her creatinine level with Dr. Braun and if his normal she can resume her metformin in one week and she agrees Patient was cleared for discharge by appeals writer Problems and management plan were discussed with the patient and he verbalized understanding and acceptance Patient was found stable and can be discharged home however he needs follow-up as an outpatient. Patient was instructed to follow up with PCP within one week and patient agrees with the appointments with Dr. Braun on 04/06. Patient will follow up. He agrees with the appointments made for her with Dr. Langley on 04/07 and states she will follow-up Physical exam Gen: patient is a AAOx3, no distress -CVS: S1-S2, RRR, no murmur. Mild chest tenderness of the level of the left second rib close to the sternal Lungs: B/L CTA, no wheezing Abdomen: soft, no distention, no tenderness, positive bowel sounds Extremity: no leg edema or induration Time spent more than 35 minutes Patient Condition at Discharge: Fair Plan - Discharge Summary New Discharge Prescriptions: New Insulin Aspart [NovoLOG] 0 units SQ ACHS #1 vial Ibuprofen 400 mg PO Q8H PRN 3 Days #9 tab PRN Reason: Chest Pain Continue Isosorbide Mononitrate ER [Imdur] 60 mg PO DAILY Montelukast [Singulair] 10 mg PO HS Hydroxychloroquine Sulfate [Plaquenil] 200 mg PO BID Latanoprost Ophth [Xalatan 0.005%] 1 drop BOTH EYES HS Gabapentin [Neurontin] 800 mg PO TID Ipratropium-Albuterol Nebulize [Duoneb 0.5 mg-3 mg/3 ml Soln] 3 ml INHALATION RT-QID PRN PRN Reason: Shortness Of Breath Atorvastatin [Lipitor] 40 mg PO HS HYDROcodone/APAP 10-325MG [[place] 10-325] 1 tab PO Q4H PRN PRN Reason: Pain DULoxetine HCL [Cymbalta] 120 mg PO HS Diltiazem HCl [Diltiazem HCl 24Hr ER] 240 mg PO DAILY Fluticasone Nasal [place] [Flonase Nasal [place]] 2 spray EA NOSTRIL DAILY Furosemide [Lasix] 20 mg PO DAILY Budesonide [Pulmicort Flexhaler] 2 puff INHALATION RT-BID PRN PRN Reason: Shortness Of Breath Exenatide Microspheres [Bydureon Bcise Auto-Injector] 2 mg SQ FR Famotidine 40 mg PO DAILY Insulin Glargine,Hum.rec.anlog [Lantus Solostar Pen] 8 unit SQ HS Losartan Potassium [Cozaar] 25 mg PO DAILY Aspirin EC [Ecotrin Low Dose] 81 mg PO DAILY Glimepiride [Amaryl] 2 mg PO BID Discontinued metFORMIN HCL 1,000 mg PO HS metFORMIN HCL [Glucophage] 500 mg PO QAM Discharge Medication List Isosorbide Mononitrate ER [Imdur] 60 mg PO DAILY 07/16/14 [History] Montelukast [Singulair] 10 mg PO HS 10/20/15 [History] Gabapentin [Neurontin] 800 mg PO TID 09/07/16 [History] Hydroxychloroquine Sulfate [Plaquenil] 200 mg PO BID 09/07/16 [History] Latanoprost Ophth [Xalatan 0.005%] 1 drop BOTH EYES HS 09/07/16 [History] Atorvastatin [Lipitor] 40 mg PO HS 08/20/17 [History] Ipratropium-Albuterol Nebulize [Duoneb 0.5 mg-3 mg/3 ml Soln] 3 ml INHALATION RT-QID PRN 08/20/17 [History] DULoxetine HCL [Cymbalta] 120 mg PO HS 01/30/18 [History] HYDROcodone/APAP 10-325MG [[place] 10-325] 1 tab PO Q4H PRN 01/30/18 [History] Budesonide [Pulmicort Flexhaler] 2 puff INHALATION RT-BID PRN 08/29/19 [History] Diltiazem HCl [Diltiazem HCl 24Hr ER] 240 mg PO DAILY 08/29/19 [History] Fluticasone Nasal [place] [Flonase Nasal [place]] 2 spray EA NOSTRIL DAILY 08/29/19 [History] Furosemide [Lasix] 20 mg PO DAILY 08/29/19 [History] Aspirin EC [Ecotrin Low Dose] 81 mg PO DAILY 03/31/21 [History] Exenatide Microspheres [Bydureon Bcise Auto-Injector] 2 mg SQ FR 03/31/21 [History] Famotidine 40 mg PO DAILY 03/31/21 [History] Glimepiride [Amaryl] 2 mg PO BID 03/31/21 [History] Insulin Glargine,Hum.rec.anlog [Lantus Solostar Pen] 8 unit SQ HS 03/31/21 [History] Losartan Potassium [Cozaar] 25 mg PO DAILY 03/31/21 [History] Ibuprofen 400 mg PO Q8H PRN 3 Days #9 tab 04/02/21 [Rx] Insulin Aspart [NovoLOG] 0 units SQ ACHS #1 vial 04/02/21 [Rx] Follow up Appointment(s)/Referral(s): Murray Braun DO [Primary Care Provider] - 04/06/21 4:40 pm Justin Mendez MD [STAFF PHYSICIAN] - 04/07/21 4:15 pm Patient Instructions/Handouts: *Surgery [facility] - After Heart Catheterization - [facility]b [facility]acker Instructions Activity/Diet/Wound Care/Special Instructions: Low carbohydrate diet 1600 kcal per day Activity is restricted till do see your doctor we recommend to check her glucose 4 times a day, before each meal and at bedtime, keep the results in a log book and bring it to your doctor on your appointment date if Glucose more than 400 or less than 70, on 911 on come to emergency room INSULIN SCALE GIVEN Check your creatinine, kidney function in about a week with your primary care doctor Dr. Braun and if you're creatinine is normal he can resume metformin back right wrist TR band removed at 1700, keep puncture site clean and dry Discharge Disposition: HOME SELF-CARE
[2021-04-03] MEDS ORDERED: [UNRECOGNIZED DRUG - OTHER] SQ SCH (09:00)
[2021-04-03] MEDS ORDERED: EXENATIDE MICROSPHERES 2 MG/0.85 ML SQ SCH (09:00)
== END 2021-04-02 19:00 | disposition home or self-care (01) ==
LOC: EC 18:57 → 1SOBS 22:21 → 6NMEDSUR 04-01 17:05
PROVIDERS: ADMIT Hospitalist; ATTEND Hospitalist
DX: M94.0 Chondrocostal junction syndrome [Tietze] (principal); E78.5 Hyperlipidemia, unspecified; M19.90 Unspecified osteoarthritis, unspecified site; E03.9 Hypothyroidism, unspecified; M34.9 Systemic sclerosis, unspecified; I27.20 Pulmonary hypertension, unspecified; J44.9 Chronic obstructive pulmonary disease, unspecified; Z87.01 Personal history of pneumonia (recurrent); G71.3 Mitochondrial myopathy, not elsewhere classified; K21.9 Gastro-esophageal reflux disease without esophagitis; Z87.440 Personal history of urinary (tract) infections; E04.9 Nontoxic goiter, unspecified; R01.1 Cardiac murmur, unspecified; E11.22 Type 2 diabetes mellitus with diabetic chronic kidney disease; I12.9 Hypertensive chronic kidney disease with stage 1 through stage 4 chronic kidney disease, or unspecified chronic kidney disease; N18.30 Chronic kidney disease, stage 3 unspecified; E11.65 Type 2 diabetes mellitus with hyperglycemia; R74.8 Abnormal levels of other serum enzymes; E66.9 Obesity, unspecified; Z68.38 Body mass index [BMI] 38.0-38.9, adult; F41.9 Anxiety disorder, unspecified; Z79.82 Long term (current) use of aspirin; Z79.84 Long term (current) use of oral hypoglycemic drugs; Z79.899 Other long term (current) drug therapy; Z88.5 Allergy status to narcotic agent; Z87.891 Personal history of nicotine dependence; Z88.8 Allergy status to other drugs, medicaments and biological substances; Z90.710 Acquired absence of both cervix and uterus; Z96.651 Presence of right artificial knee joint; Z90.49 Acquired absence of other specified parts of digestive tract; Z83.3 Family history of diabetes mellitus; Z80.49 Family history of malignant neoplasm of other genital organs; Z82.49 Family history of ischemic heart disease and other diseases of the circulatory system
CPT/HCPCS: 93458; 99285; 96376; 96372; 96374; 36415; 94640 ×3; 94760; 93005 ×2; 93017; 85379; 80061; 80053; 80076; 84484 ×2; 85025; 85610; 85730; 71046; 76705; 78452; G0378 ×3; C8929; C1769; C1894; A9500; J2250; J2405; J2001; J1650; J3010; J1644; J2785; J1885; Q9950; Q9967; 93306

== ENCOUNTER 2021-05-04 16:38 | Emergency (ER) | payer MEDICARE ==
[2021-05-04] MEDS ORDERED: SODIUM CHLORIDE 0.9% 500 ML 500 ML IV STA (17:29)
[2021-05-04] MEDS ORDERED: MORPHINE SULFATE 4 MG/ML SYRINGE IV STA (17:29)
[2021-05-04] MEDS ORDERED: ACETAMINOPHEN TAB 500 MG TAB PO STA (17:30)
[2021-05-04] MEDS ORDERED: METOCLOPRAMIDE 5 MG/ML 2 ML VIAL IVP STA (17:30)
--- NOTE | 2021-05-04 18:09 | ED ---
General Adult HPI - General Chief complaint: Headache Stated complaint: Headache, dizziness, nausea Time Seen by Provider: 05/04/21 17:24 Source: patient, EMS, RN notes reviewed, old records reviewed Mode of arrival: EMS Limitations: no limitations - History of Present Illness Initial comments: 56-year-old female presenting for evaluation of headache. Patient had developed headache this morning. She states this was after taking a shower. She states that this was relatively sudden onset headache which did travel to the occipital region and neck. She denies chest pain or dyspnea. She denies fever or chills. Denies vomiting. Denies focal numbness or weakness. She does report generalized weakness and fatigue. - Related Data Home Medications Medication Instructions Recorded Confirmed Isosorbide Mononitrate ER [Imdur] 60 mg PO DAILY 07/16/14 05/04/21 Montelukast [Singulair] 10 mg PO HS 10/20/15 05/04/21 Gabapentin [Neurontin] 800 mg PO TID 09/07/16 05/04/21 Hydroxychloroquine Sulfate 200 mg PO BID 09/07/16 05/04/21 [Plaquenil] Latanoprost Ophth [Xalatan 0.005%] 1 drop BOTH EYES HS 09/07/16 05/04/21 Atorvastatin [Lipitor] 40 mg PO HS 08/20/17 05/04/21 Ipratropium-Albuterol Nebulize 3 ml INHALATION RT-QID PRN 08/20/17 05/04/21 [Duoneb 0.5 mg-3 mg/3 ml Soln] DULoxetine HCL [Cymbalta] 120 mg PO HS 01/30/18 05/04/21 HYDROcodone/APAP 10-325MG [[place] 1 tab PO Q4H PRN 01/30/18 05/04/21 10-325] Budesonide [Pulmicort Flexhaler] 2 puff INHALATION RT-BID PRN 08/29/19 05/04/21 Diltiazem HCl [Diltiazem HCl 24Hr 240 mg PO DAILY 08/29/19 05/04/21 ER] Fluticasone Nasal [place] [Flonase 2 spray EA NOSTRIL DAILY 08/29/19 05/04/21 Nasal [place]] Furosemide [Lasix] 20 mg PO DAILY 08/29/19 05/04/21 Aspirin EC [Ecotrin Low Dose] 81 mg PO DAILY 03/31/21 05/04/21 Exenatide Microspheres [Bydureon 2 mg SQ FR 03/31/21 05/04/21 Bcise Auto-Injector] Famotidine 40 mg PO DAILY 03/31/21 05/04/21 Glimepiride [Amaryl] 2 mg PO BID 03/31/21 05/04/21 Insulin Glargine,Hum.rec.anlog 8 unit SQ HS 03/31/21 05/04/21 [Lantus Solostar Pen] Losartan Potassium [Cozaar] 25 mg PO DAILY 03/31/21 05/04/21 Insulin Aspart [NovoLOG] See Protocol SQ ACHS 05/04/21 05/04/21 Previous Rx's Medication Instructions Recorded Ibuprofen 400 mg PO Q8H PRN 3 Days #9 tab 04/02/21 Allergies Allergy/AdvReac Type Severity Reaction Status Date / Time Androgenic Anabolic Steroid Allergy Unknown Verified 05/04/21 16:53 meperidine HCl [From Demerol] Allergy Rash/Hives Verified 05/04/21 16:53 propoxyphene napsylate Allergy Dyspnea Verified 05/04/21 16:53 [From Darvocet-N] Review of Systems ROS Statement: Those systems with pertinent positive or pertinent negative responses have been documented in the HPI. ROS Other: All systems not noted in ROS Statement are negative. Past Medical History Past Medical History: COPD, Diabetes Mellitus, GERD/Reflux, Hyperlipidemia, Hypertension, Osteoarthritis (OA), Pneumonia, Thyroid Disorder Additional Past Medical History / Comment(s): MURMUR, UTI, GOITER, DIASTOLIC DYSFUNCTION,Scleraderma, has had trouble swallowing for past 6 months, mitochondrial myopathy, chronic pulmonary failure, kidney disease stage III History of Any Multi-Drug Resistant Organisms: None Reported Past Surgical History: Appendectomy, Cholecystectomy, Heart Catheterization, Hysterectomy, Joint Replacement Additional Past Surgical History / Comment(s): RT KNEE REPLACEMENT, LT KNEE HAS SCREWS IN PLACE Past Anesthesia/Blood Transfusion Reactions: No Reported Reaction Additional Past Anesthesia/Blood Transfusion Reaction / Comment(s): CLAUSTERPHOBIC Past Psychological History: Anxiety Smoking Status: Former smoker Past Alcohol Use History: Occasional Past Drug Use History: None Reported - Past Family History Father Family Medical History: Cancer, Diabetes Mellitus Additional Family Medical History / Comment(s): AT AGE 61, CA throughout the body Mother Family Medical History: Cancer, Congestive Heart Failure (CHF), Diabetes Mellitus, Myocardial Infarction ([place]), Thyroid Disorder Additional Family Medical History / Comment(s): Uterine CA General Exam Limitations: no limitations General appearance: alert, in no apparent distress Head exam: Present: atraumatic, normocephalic Eye exam: Present: normal appearance, PERRL ENT exam: Present: normal exam Neck exam: Present: normal inspection. Absent: tenderness, meningismus Respiratory exam: Present: normal lung sounds bilaterally. Absent: respiratory distress, wheezes Cardiovascular Exam: Present: regular rate, normal rhythm GI/Abdominal exam: Present: soft. Absent: distended, tenderness Extremities exam: Present: normal inspection, normal capillary refill. Absent: pedal edema, calf tenderness Neurological exam: Present: alert, oriented X3, CN II-XII intact. Absent: motor sensory deficit Psychiatric exam: Present: normal affect, normal mood Skin exam: Present: warm, dry, intact. Absent: cyanosis, diaphoretic Course Vital Signs 05/04/21 16:44 Temperature 98.2 F Pulse Rate 78 Respiratory 17 Rate Blood Pressure 112/55 O2 Sat by Pulse 95 Oximetry EKG Findings - EKG Comments: EKG Findings:: EKG: Normal sinus rhythm, rate 76, NM interval 164, QRS duration 76, QTC 443, no ST segment elevation. Medical Decision Making - Medical Decision Making 56-year-old female with headache which began this morning. There was a low suspicion for subarachnoid hemorrhage, CT and CT angiography was performed which is negative. Patient has a nonfocal neurologic exam, well-appearing with stable vitals. She is afebrile with normal white blood cell count, normal hemoglobin, normal x-rays, normal kidney function. She remained stable while in the emergency department, headache significantly improved. - Lab Data Result diagrams: 05/04/21 18:26 05/04/21 18:26 Lab Results 05/04/21 05/04/21 05/04/21 Range/Units 18:26 18:26 18:26 WBC 8.1 (3.8-10.6) k/uL RBC 4.83 (3.80-5.40) m/uL Hgb 12.0 (11.4-16.0) gm/dL Hct 38.3 (34.0-46.0) % MCV 79.4 L (80.0-100.0) fL MCH 24.9 L (25.0-35.0) pg MCHC 31.4 (31.0-37.0) g/dL RDW 15.6 H (11.5-15.5) % Plt Count 364 (150-450) k/uL MPV 6.5 Neutrophils % 73 % Lymphocytes % 19 % Monocytes % 4 % Eosinophils % 3 % Basophils % 1 % Neutrophils # 5.9 (1.3-7.7) k/uL Lymphocytes # 1.5 (1.0-4.8) k/uL Monocytes # 0.3 (0-1.0) k/uL Eosinophils # 0.2 (0-0.7) k/uL Basophils # 0.0 (0-0.2) k/uL PT 9.5 (9.0-12.0) sec INR 0.9 (<1.2) APTT 19.8 L (22.0-30.0) sec Sodium (137-145) mmol/L Potassium (3.5-5.1) mmol/L Chloride (98-107) mmol/L Carbon Dioxide (22-30) mmol/L Anion Gap mmol/L BUN (7-17) mg/dL Creatinine (0.52-1.04) mg/dL Est GFR (CKD-EPI)AfAm (>60 ml/min/1.73 sqM) Est GFR (CKD-EPI)NonAf (>60 ml/min/1.73 sqM) Glucose (74-99) mg/dL Plasma Lactic Acid Carlos (0.7-2.0) mmol/L Calcium (8.4-10.2) mg/dL Magnesium (1.6-2.3) mg/dL Total Bilirubin (0.2-1.3) mg/dL AST (14-36) U/L ALT (4-34) U/L Alkaline Phosphatase (38-126) U/L Troponin I (0.000-0.034) ng/mL Total Protein (6.3-8.2) g/dL Albumin (3.5-5.0) g/dL Urine Color Light Yellow Urine Appearance Clear (Clear) Urine pH 6.5 (5.0-8.0) Ur Specific [place] 1.008 (1.001-1.035) Urine Protein Negative (Negative) Urine Glucose (UA) Negative (Negative) Urine Ketones Negative (Negative) Urine Blood Negative (Negative) Urine Nitrite Negative (Negative) Urine Bilirubin Negative (Negative) Urine Urobilinogen <2.0 (<2.0) mg/dL Ur Leukocyte Esterase Negative (Negative) Coronavirus (PCR) (Not Detectd) 05/04/21 05/04/21 05/04/21 Range/Units 18:26 18:26 18:26 WBC (3.8-10.6) k/uL RBC (3.80-5.40) m/uL Hgb (11.4-16.0) gm/dL Hct (34.0-46.0) % MCV (80.0-100.0) fL MCH (25.0-35.0) pg MCHC (31.0-37.0) g/dL RDW (11.5-15.5) % Plt Count (150-450) k/uL MPV Neutrophils % % Lymphocytes % % Monocytes % % Eosinophils % % Basophils % % Neutrophils # (1.3-7.7) k/uL Lymphocytes # (1.0-4.8) k/uL Monocytes # (0-1.0) k/uL Eosinophils # (0-0.7) k/uL Basophils # (0-0.2) k/uL PT (9.0-12.0) sec INR (<1.2) APTT (22.0-30.0) sec Sodium 136 L (137-145) mmol/L Potassium 4.6 (3.5-5.1) mmol/L Chloride 99 (98-107) mmol/L Carbon Dioxide 27 (22-30) mmol/L Anion Gap 10 mmol/L BUN 13 (7-17) mg/dL Creatinine 0.92 (0.52-1.04) mg/dL Est GFR (CKD-EPI)AfAm 80 (>60 ml/min/1.73 sqM) Est GFR (CKD-EPI)NonAf 70 (>60 ml/min/1.73 sqM) Glucose 163 H (74-99) mg/dL Plasma Lactic Acid Carlos 1.5 (0.7-2.0) mmol/L Calcium 9.9 (8.4-10.2) mg/dL Magnesium 2.2 (1.6-2.3) mg/dL Total Bilirubin 0.5 (0.2-1.3) mg/dL AST 37 H (14-36) U/L ALT 57 H (4-34) U/L Alkaline Phosphatase 197 H (38-126) U/L Troponin I <0.012 (0.000-0.034) ng/mL Total Protein 7.2 (6.3-8.2) g/dL Albumin 4.2 (3.5-5.0) g/dL Urine Color Urine Appearance (Clear) Urine pH (5.0-8.0) Ur Specific [place] (1.001-1.035) Urine Protein (Negative) Urine Glucose (UA) (Negative) Urine Ketones (Negative) Urine Blood (Negative) Urine Nitrite (Negative) Urine Bilirubin (Negative) Urine Urobilinogen (<2.0) mg/dL Ur Leukocyte Esterase (Negative) Coronavirus (PCR) (Not Detectd) 05/04/21 Range/Units 18:26 WBC (3.8-10.6) k/uL RBC (3.80-5.40) m/uL Hgb (11.4-16.0) gm/dL Hct (34.0-46.0) % MCV (80.0-100.0) fL MCH (25.0-35.0) pg MCHC (31.0-37.0) g/dL RDW (11.5-15.5) % Plt Count (150-450) k/uL MPV Neutrophils % % Lymphocytes % % Monocytes % % Eosinophils % % Basophils % % Neutrophils # (1.3-7.7) k/uL Lymphocytes # (1.0-4.8) k/uL Monocytes # (0-1.0) k/uL Eosinophils # (0-0.7) k/uL Basophils # (0-0.2) k/uL PT (9.0-12.0) sec INR (<1.2) APTT (22.0-30.0) sec Sodium (137-145) mmol/L Potassium (3.5-5.1) mmol/L Chloride (98-107) mmol/L Carbon Dioxide (22-30) mmol/L Anion Gap mmol/L BUN (7-17) mg/dL Creatinine (0.52-1.04) mg/dL Est GFR (CKD-EPI)AfAm (>60 ml/min/1.73 sqM) Est GFR (CKD-EPI)NonAf (>60 ml/min/1.73 sqM) Glucose (74-99) mg/dL Plasma Lactic Acid Carlos (0.7-2.0) mmol/L Calcium (8.4-10.2) mg/dL Magnesium (1.6-2.3) mg/dL Total Bilirubin (0.2-1.3) mg/dL AST (14-36) U/L ALT (4-34) U/L Alkaline Phosphatase (38-126) U/L Troponin I (0.000-0.034) ng/mL Total Protein (6.3-8.2) g/dL Albumin (3.5-5.0) g/dL Urine Color Urine Appearance (Clear) Urine pH (5.0-8.0) Ur Specific [place] (1.001-1.035) Urine Protein (Negative) Urine Glucose (UA) (Negative) Urine Ketones (Negative) Urine Blood (Negative) Urine Nitrite (Negative) Urine Bilirubin (Negative) Urine Urobilinogen (<2.0) mg/dL Ur Leukocyte Esterase (Negative) Coronavirus (PCR) Not Detected (Not Detectd) Disposition Clinical Impression: Headache Disposition: HOME SELF-CARE Condition: Good Instructions (If sedation given, give patient instructions): Acute Headache (ED) Is patient prescribed a controlled substance at d/c from ED?: No Referrals: Murray Braun DO [Primary Care Provider] - 1-2 days Mei Cardona MD [Medical Doctor] - 1-2 days Time of Disposition: 20:53
[2021-05-04 18:39] LABS: Basophils % (A) 1 %; Eosinophils # (A) 0.2 k/uL (0-0.7); Eosinophils % (A) 3 %; HCT 38.3 % (34.0-46.0); Lymphocytes # (A) 1.5 k/uL (1.0-4.8); Lymphocytes % (A) 19 %; MCH 24.9 pg (25.0-35.0); MCHC 31.4 g/dL (31.0-37.0); MCV 79.4 fL (80.0-100.0); Mean Platelet Volume 6.5; Monocytes # (A) 0.3 k/uL (0-1.0); Monocytes % (A) 4 %; Neutrophils # (A) 5.9 k/uL (1.3-7.7); Neutrophils % (A) 73 %; Platelet Count 364 k/uL (150-450); RBC 4.83 m/uL (3.80-5.40); RDW 15.6 % (11.5-15.5); WBC 8.1 k/uL (3.8-10.6)
[2021-05-04 18:47] LABS: Albumin 4.2 g/dL (3.5-5.0); Calcium 9.9 mg/dL (8.4-10.2); Magnesium 2.2 mg/dL (1.6-2.3); Potassium 4.6 mmol/L (3.5-5.1); Total Bilirubin 0.5 mg/dL (0.2-1.3); Total Protein 7.2 g/dL (6.3-8.2)
[2021-05-04 18:53] LABS: INR 0.9 (<1.2); Prothrombin Time 9.5 sec (9.0-12.0)
[2021-05-04 18:55] LABS: Partial Thromboplastin Time 19.8 sec (22.0-30.0)
[2021-05-04 19:01] LABS: Appearance,Urine Clear (Clear); Bilirubin,Urine Negative (Negative); Blood,Urine Negative (Negative); Color,Urine Light Yellow; Glucose,Urine (UA) Negative (Negative); Ketones,Urine Negative (Negative); Leukocyte Esterase,Urine Negative (Negative); Nitrite,Urine Negative (Negative); PH, Urine 6.5 (5.0-8.0); Protein,Urine Negative (Negative); Specific Gravity,Urine 1.008 (1.001-1.035); Urobilinogen,Urine <2.0 mg/dL (<2.0)
--- NOTE | 2021-05-04 20:31 | CT ---
EXAMINATION TYPE: CT brain wo con DATE OF EXAM: 05/04/2021 COMPARISON: 05/16/2020 HISTORY: Headache today. CT DLP: 1084.4 mGycm Automated exposure control for dose reduction was used. There is cerebral cortical atrophy. There is no mass effect nor midline shift. There is no sign of in tracranial hemorrhage. Calvarium is intact. Skull base is intact. IMPRESSION: Mild cerebral atrophy. No acute intracranial abnormality. No change.
--- NOTE | 2021-05-04 20:40 | CT ---
EXAMINATION TYPE: CT angio COW [facility] DATE OF EXAM: 05/04/2021 COMPARISON: None HISTORY: Headache today. CT DLP: 1136 mGycm Automated exposure control for dose reduction was used. CONTRAST: Performed with IV Contrast, patient injected with 100 mL of Isovue 370. Images obtained from the skull base to the vertex of the brain with IV contrast. There are 3-D post p rocessed images. There is arterial flow in both distal internal carotid arteries. There is arterial flow in the verteb robasilar artery system. Vertebral arteries are symmetric. There is arterial flow in the anterior mid dle and posterior cerebral arteries. There is no mass effect. There is no evidence of intracranial an eurysm or neovascularity. There is normal enhancement of the venous sinuses. There is no evidence of hemodynamic stenosis. IMPRESSION: Negative CT angiogram of the brain.
[2021-05-04] MEDS ORDERED: HYDROmorphone 0.5 MG/0.5 ML SYRINGE IVP STA (20:43)
[2021-05-04] MEDS ORDERED: diphenhydrAMINE 50 MG/ML 1 ML VIAL IVP STA (20:43)
[2021-05-04 21:38] VITALS: BP 116/54; PULSE 75; RESP 16; TEMP 97.5
== END 2021-05-04 21:39 | disposition home or self-care (01) ==
LOC: EC 16:38
DX: R51.9 Headache, unspecified (principal); E11.22 Type 2 diabetes mellitus with diabetic chronic kidney disease; I12.9 Hypertensive chronic kidney disease with stage 1 through stage 4 chronic kidney disease, or unspecified chronic kidney disease; N18.2 Chronic kidney disease, stage 2 (mild); J44.9 Chronic obstructive pulmonary disease, unspecified; K21.9 Gastro-esophageal reflux disease without esophagitis; E78.5 Hyperlipidemia, unspecified; M19.90 Unspecified osteoarthritis, unspecified site; E07.9 Disorder of thyroid, unspecified; F41.9 Anxiety disorder, unspecified; Z79.82 Long term (current) use of aspirin; Z79.4 Long term (current) use of insulin; Z88.5 Allergy status to narcotic agent; Z87.440 Personal history of urinary (tract) infections; Z90.49 Acquired absence of other specified parts of digestive tract; Z90.710 Acquired absence of both cervix and uterus; Z96.651 Presence of right artificial knee joint; Z87.891 Personal history of nicotine dependence; Z79.899 Other long term (current) drug therapy
CPT/HCPCS: 99285; 96374; 96375 ×3; 36415; 93005; 80053; 83605; 83735; 84484; 85025; 85610; 85730; 81003; 87635; 70496; 70450; J2270; J1200; J2765; J1170; Q9967

== ENCOUNTER 2021-06-22 15:38 | Inpatient (IN) | payer MEDICARE, OTHER ==
[2021-06-22 15:47] VITALS: TEMP 98.7
[2021-06-22] MEDS ORDERED: ALBUTEROL HFA INHALER INHALATION STA (15:52)
[2021-06-22] MEDS ORDERED: SODIUM CHLORIDE 0.9% 1,000 ML IV STA ×4 (15:52→17:20)
--- NOTE | 2021-06-22 16:01 | ED ---
Recheck HPI - General Chief Complaint: Recheck/Abnormal Lab/Rx Stated Complaint: hyperglycemia Time Seen by Provider: 06/22/21 15:38 Source: patient, EMS, RN notes reviewed Mode of arrival: EMS Limitations: no limitations - History of Present Illness Initial Comments: This is a 55-year-old female with a history of being diagnosis: 19 10 days ago who also received antibody infusion 5 days ago who presents today with complaints of elevated blood glucose level of about 578 also increased shortness of breath dizziness nausea diarrhea some confusion and decreased oral intake and basically feeling thrive at home. She did call her doctor who directed her to come this department for further evaluation and treatment. No reports currently fevers chills or sweats no chest pain some equivocal exertional dyspnea. She is on 3 L of oxygen at home at this time. Mild abdominal discomfort no pain with movement. No dysuria no hematuria no other current complaints or modifying factors MD Complaint: abnormal lab - Related Data Home Medications Medication Instructions Recorded Confirmed Isosorbide Mononitrate ER [Imdur] 60 mg PO DAILY 07/16/14 05/04/21 Montelukast [Singulair] 10 mg PO HS 10/20/15 05/04/21 Gabapentin [Neurontin] 800 mg PO TID 09/07/16 05/04/21 Hydroxychloroquine Sulfate 200 mg PO BID 09/07/16 05/04/21 [Plaquenil] Latanoprost Ophth [Xalatan 0.005%] 1 drop BOTH EYES HS 09/07/16 05/04/21 Atorvastatin [Lipitor] 40 mg PO HS 08/20/17 05/04/21 Ipratropium-Albuterol Nebulize 3 ml INHALATION RT-QID PRN 08/20/17 05/04/21 [Duoneb 0.5 mg-3 mg/3 ml Soln] DULoxetine HCL [Cymbalta] 120 mg PO HS 01/30/18 05/04/21 HYDROcodone/APAP 10-325MG [[place] 1 tab PO Q4H PRN 01/30/18 05/04/21 10-325] Budesonide [Pulmicort Flexhaler] 2 puff INHALATION RT-BID PRN 08/29/19 05/04/21 Diltiazem HCl [Diltiazem HCl 24Hr 240 mg PO DAILY 08/29/19 05/04/21 ER] Fluticasone Nasal [place] [Flonase 2 spray EA NOSTRIL DAILY 08/29/19 05/04/21 Nasal [place]] Furosemide [Lasix] 20 mg PO DAILY 08/29/19 05/04/21 Aspirin EC [Ecotrin Low Dose] 81 mg PO DAILY 03/31/21 05/04/21 Exenatide Microspheres [Bydureon 2 mg SQ FR 03/31/21 05/04/21 Bcise Auto-Injector] Famotidine 40 mg PO DAILY 03/31/21 05/04/21 Glimepiride [Amaryl] 2 mg PO BID 03/31/21 05/04/21 Insulin Glargine,Hum.rec.anlog 8 unit SQ HS 03/31/21 05/04/21 [Lantus Solostar Pen] Losartan Potassium [Cozaar] 25 mg PO DAILY 03/31/21 05/04/21 Insulin Aspart [NovoLOG] See Protocol SQ ACHS 05/04/21 05/04/21 Previous Rx's Medication Instructions Recorded Ibuprofen 400 mg PO Q8H PRN 3 Days #9 tab 04/02/21 Allergies Allergy/AdvReac Type Severity Reaction Status Date / Time Androgenic Anabolic Steroid Allergy Unknown Verified 06/22/21 15:47 meperidine HCl [From Demerol] Allergy Rash/Hives Verified 06/22/21 15:47 propoxyphene napsylate Allergy Dyspnea Verified 06/22/21 15:47 [From Darvocet-N] Review of Systems ROS Statement: Those systems with pertinent positive or pertinent negative responses have been documented in the HPI. ROS Other: All systems not noted in ROS Statement are negative. Past Medical History Past Medical History: COPD, Diabetes Mellitus, GERD/Reflux, Hyperlipidemia, Hypertension, Osteoarthritis (OA), Pneumonia, Thyroid Disorder Additional Past Medical History / Comment(s): MURMUR, UTI, GOITER, DIASTOLIC DYSFUNCTION,Scleraderma, has had trouble swallowing for past 6 months, mitochondrial myopathy, chronic pulmonary failure, kidney disease stage III History of Any Multi-Drug Resistant Organisms: None Reported Past Surgical History: Appendectomy, Cholecystectomy, Heart Catheterization, Hysterectomy, Joint Replacement Additional Past Surgical History / Comment(s): RT KNEE REPLACEMENT, LT KNEE HAS SCREWS IN PLACE Past Anesthesia/Blood Transfusion Reactions: No Reported Reaction Additional Past Anesthesia/Blood Transfusion Reaction / Comment(s): CLAUSTERPHOBIC Past Psychological History: Anxiety Smoking Status: Former smoker Past Alcohol Use History: Occasional Past Drug Use History: None Reported - Past Family History Father Family Medical History: Cancer, Diabetes Mellitus Additional Family Medical History / Comment(s): AT AGE 61, CA throughout the body Mother Family Medical History: Cancer, Congestive Heart Failure (CHF), Diabetes Mellitus, Myocardial Infarction ([place]), Thyroid Disorder Additional Family Medical History / Comment(s): Uterine CA General Exam - General Exam Comments Initial Comments: This is a well-developed well-nourished awake alert oriented 3 female Limitations: no limitations General appearance: alert, in no apparent distress Head exam: Present: atraumatic, normocephalic, normal inspection Eye exam: Present: normal appearance, PERRL, EOMI. Absent: scleral icterus, co njunctival injection, periorbital swelling ENT exam: Present: mucous membranes dry Neck exam: Present: normal inspection, full ROM, other. Absent: tenderness, meningismus, lymphadenopathy Respiratory exam: Present: decreased breath sounds. Absent: respiratory distress, wheezes, rales, rhonchi, stridor Cardiovascular Exam: Present: normal rhythm, tachycardia, normal heart sounds. Absent: systolic murmur, diastolic murmur, rubs, gallop, clicks GI/Abdominal exam: Present: soft, normal bowel sounds. Absent: distended, tenderness, guarding, rebound, rigid, bruit, pulsatile mass Extremities exam: Present: normal inspection, full ROM, normal capillary refill. Absent: tenderness, pedal edema, joint swelling, calf tenderness Back exam: Present: normal inspection Neurological exam: Present: alert, oriented X3, CN II-XII intact Psychiatric exam: Present: normal affect, normal mood Skin exam: Present: warm, dry, intact, normal color. Absent: rash Course Vital Signs 06/22/21 15:45 Temperature 98.7 F Pulse Rate 104 H Respiratory 18 Rate Blood Pressure 151/77 O2 Sat by Pulse 98 Oximetry - Reevaluation(s) Reevaluation #1: 06/22/21 18:43 Lactic acid elevation is secondary to dehydration no obvious infectious processes identified at this time other than the patient is recovering from Covid 19. Medical Decision Making - Medical Decision Making I did discuss the findings with the patient and with Dr. Adamson patient does demonstrate evidence of dehydration as well as hyperglycemia. - Lab Data Result diagrams: 06/22/21 16:11 06/22/21 16:11 Lab Results 06/22/21 06/22/21 06/22/21 Range/Units 16:11 16:11 16:11 WBC 8.1 (3.8-10.6) k/uL RBC 4.95 (3.80-5.40) m/uL Hgb 12.5 (11.4-16.0) gm/dL Hct 38.0 (34.0-46.0) % MCV 76.8 L (80.0-100.0) fL MCH 25.3 (25.0-35.0) pg MCHC 33.0 (31.0-37.0) g/dL RDW 15.6 H (11.5-15.5) % Plt Count 392 (150-450) k/uL MPV 6.8 Neutrophils % 89 % Lymphocytes % 7 % Monocytes % 3 % Eosinophils % 0 % Basophils % 0 % Neutrophils # 7.2 (1.3-7.7) k/uL Lymphocytes # 0.6 L (1.0-4.8) k/uL Monocytes # 0.2 (0-1.0) k/uL Eosinophils # 0.0 (0-0.7) k/uL Basophils # 0.0 (0-0.2) k/uL Microcytosis Slight PT 10.1 (9.0-12.0) sec INR 0.9 (<1.2) APTT 17.6 L (22.0-30.0) sec D-Dimer 0.24 (<0.60) mg/L FEU Sodium 135 L (137-145) mmol/L Potassium 4.0 (3.5-5.1) mmol/L Chloride 99 (98-107) mmol/L Carbon Dioxide 23 (22-30) mmol/L Anion Gap 13 mmol/L BUN 19 H (7-17) mg/dL Creatinine 0.86 (0.52-1.04) mg/dL Est GFR (CKD-EPI)AfAm 87 (>60 ml/min/1.73 sqM) Est GFR (CKD-EPI)NonAf 76 (>60 ml/min/1.73 sqM) Glucose 394 H (74-99) mg/dL Plasma Lactic Acid Carlos (0.7-2.0) mmol/L Calcium 9.0 (8.4-10.2) mg/dL Magnesium 1.8 (1.6-2.3) mg/dL Total Bilirubin 0.3 (0.2-1.3) mg/dL AST 22 (14-36) U/L ALT 28 (4-34) U/L Alkaline Phosphatase 154 H (38-126) U/L Troponin I (0.000-0.034) ng/mL NT-Pro-B Natriuret Pep pg/mL Total Protein 6.8 (6.3-8.2) g/dL Albumin 3.9 (3.5-5.0) g/dL Acetone, Qual Negative (Negative) 06/22/21 06/22/21 06/22/21 Range/Units 16:11 16:11 16:11 WBC (3.8-10.6) k/uL RBC (3.80-5.40) m/uL Hgb (11.4-16.0) gm/dL Hct (34.0-46.0) % MCV (80.0-100.0) fL MCH (25.0-35.0) pg MCHC (31.0-37.0) g/dL RDW (11.5-15.5) % Plt Count (150-450) k/uL MPV Neutrophils % % Lymphocytes % % Monocytes % % Eosinophils % % Basophils % % Neutrophils # (1.3-7.7) k/uL Lymphocytes # (1.0-4.8) k/uL Monocytes # (0-1.0) k/uL Eosinophils # (0-0.7) k/uL Basophils # (0-0.2) k/uL Microcytosis PT (9.0-12.0) sec INR (<1.2) APTT (22.0-30.0) sec D-Dimer (<0.60) mg/L FEU Sodium (137-145) mmol/L Potassium (3.5-5.1) mmol/L Chloride (98-107) mmol/L Carbon Dioxide (22-30) mmol/L Anion Gap mmol/L BUN (7-17) mg/dL Creatinine (0.52-1.04) mg/dL Est GFR (CKD-EPI)AfAm (>60 ml/min/1.73 sqM) Est GFR (CKD-EPI)NonAf (>60 ml/min/1.73 sqM) Glucose (74-99) mg/dL Plasma Lactic Acid Carlos 2.5 H* (0.7-2.0) mmol/L Calcium (8.4-10.2) mg/dL Magnesium (1.6-2.3) mg/dL Total Bilirubin (0.2-1.3) mg/dL AST (14-36) U/L ALT (4-34) U/L Alkaline Phosphatase (38-126) U/L Troponin I <0.012 (0.000-0.034) ng/mL NT-Pro-B Natriuret Pep 30 pg/mL Total Protein (6.3-8.2) g/dL Albumin (3.5-5.0) g/dL Acetone, Qual (Negative) - EKG Data -: EKG Interpreted by Me EKG shows normal: sinus rhythm EKG Comments: There was sinus rhythm of 91. Interval 158 QRS duration 86 QT/QTC 362/[address]-T wave changes - Radiology Data Radiology results: report reviewed (Imaging reviewed evidence of slight pleural effusion the left with some pleural reaction.), image reviewed Disposition Clinical Impression: Hyperglycemia, Dehydration, Lactic acidosis, History of COVID-19 Disposition: ADMITTED IP TO THIS [facility] Condition: Fair Referrals: Murray Braun DO [Primary Care Provider] - 1-2 days
[2021-06-22 16:22] LABS: Basophils % (A) 0 %; Eosinophils % (A) 0 %; HGB 12.5 gm/dL (11.4-16.0); Lymphocytes # (A) 0.6 k/uL (1.0-4.8); Lymphocytes % (A) 7 %; MCH 25.3 pg (25.0-35.0); MCV 76.8 fL (80.0-100.0); Mean Platelet Volume 6.8; Microcytosis Slight; Monocytes # (A) 0.2 k/uL (0-1.0); Monocytes % (A) 3 %; Neutrophils # (A) 7.2 k/uL (1.3-7.7); Neutrophils % (A) 89 %; Platelet Count 392 k/uL (150-450); RBC 4.95 m/uL (3.80-5.40); RDW 15.6 % (11.5-15.5); WBC 8.1 k/uL (3.8-10.6)
[2021-06-22 16:35] LABS: ALT 28 U/L (4-34); AST 22 U/L (14-36); African American GFR (CKD) 87 (>60 ml/min/1.73 sqM); Albumin 3.9 g/dL (3.5-5.0); Alkaline Phosphatase 154 U/L (38-126); Anion Gap 13 mmol/L; Blood Urea Nitrogen 19 mg/dL (7-17); Carbon Dioxide 23 mmol/L (22-30); Chloride 99 mmol/L (98-107); Glucose 394 mg/dL (74-99); Magnesium 1.8 mg/dL (1.6-2.3); Non-African American GFR(CKD) 76 (>60 ml/min/1.73 sqM); Sodium 135 mmol/L (137-145); Total Bilirubin 0.3 mg/dL (0.2-1.3); Total Protein 6.8 g/dL (6.3-8.2)
--- NOTE | 2021-06-22 16:40 | XR ---
EXAMINATION TYPE: XR chest 2V DATE OF EXAM: 06/22/2021 COMPARISON: 03/31/2021 HISTORY: Difficulty breathing TECHNIQUE: 2 views FINDINGS: There is some mild increased density at the left costophrenic angle. Right lung is clear. T here is no heart failure. There are no hilar masses. IMPRESSION: There is small left pleural effusion and pleural reaction that is increased compared to o ld exam. Normal heart.
[2021-06-22 16:43] LABS: INR 0.9 (<1.2); Prothrombin Time 10.1 sec (9.0-12.0)
[2021-06-22 16:51] LABS: Partial Thromboplastin Time 17.6 sec (22.0-30.0)
[2021-06-22] MEDS ORDERED: INSULIN REGULAR 100 UNIT/ML VIAL (IM/SQ) SQ ONE (17:23)
[2021-06-22] MEDS ORDERED: NALOXONE 0.4 MG/ML 1 ML VIAL IV PRN (18:44)
[2021-06-22] MEDS ORDERED: IPRATROPIUM-ALBUTEROL 3 ML NEB INHALATION PRN (18:45)
[2021-06-22] MEDS ORDERED: HYDROcodone/APAP 10-325MG 1 EACH TAB PO PRN (18:45)
[2021-06-22] MEDS ORDERED: MONTELUKAST 10 MG TAB PO SCH (21:00)
[2021-06-22] MEDS ORDERED: ATORVASTATIN 40 MG TAB PO SCH (21:00)
[2021-06-22] MEDS ORDERED: DULoxetine HCL 60 MG CAPSULE.DR PO SCH (21:00)
[2021-06-22] MEDS ORDERED: INSULIN DETEMIR (LEVEMIR) 100 UNIT/ML SYR SQ SCH (21:00)
[2021-06-22] MEDS ORDERED: LATANOPROST 0.005% OPHTH DROPS 2.5 ML BTL BOTH EYES SCH (21:00)
[2021-06-22] MEDS: FLUTICASONE 110 MCG INHALER INHALATION SCH (21:15)
[2021-06-22] MEDS: INSULIN ASPART (NovoLOG) 100 UNIT/ML VIAL SQ SCH (22:19)
[2021-06-22 22:28] LABS: Glucose,Whole Blood 209 mg/dL (75-99)
[2021-06-23] MEDS: GABAPENTIN 400 MG CAP PO SCH ×2 (01:14→10:06)
[2021-06-23] MEDS: SODIUM CHLORIDE 0.9% 1,000 ML IV SCH ×3 (01:15→12:48)
[2021-06-23 02:19] LABS: Glucose,Whole Blood 189 mg/dL (75-99)
[2021-06-23] MEDS: HYDROXYCHLOROQUINE SULFATE 200 MG TAB PO SCH ×2 (02:19→09:26)
[2021-06-23] MEDS ORDERED: GLIMEPIRIDE 2 MG TAB PO SCH (07:30)
[2021-06-23 08:19] LABS: Glucose,Whole Blood 141 mg/dL (75-99)
[2021-06-23] MEDS: FLUTICASONE 110 MCG INHALER INHALATION SCH ×2 (08:24→10:27)
[2021-06-23] MEDS ORDERED: FUROSEMIDE 20 MG TAB PO SCH (09:00)
[2021-06-23] MEDS ORDERED: FLUTICASONE 50MCG/SPRAY NASAL 16GM EA NOSTRIL SCH (09:00)
[2021-06-23] MEDS ORDERED: FAMOTIDINE 20 MG TAB PO SCH (09:00)
[2021-06-23] MEDS ORDERED: ASPIRIN 81 MG PO SCH (09:00)
[2021-06-23] MEDS ORDERED: DILTIAZEM CD 240 MG CAP.ER.24H PO SCH (09:00)
[2021-06-23] MEDS ORDERED: LOSARTAN 25 MG TAB PO SCH (09:00)
[2021-06-23] MEDS ORDERED: ISOSORBIDE MONONITRATE ER 60 MG TAB.ER.24H PO SCH (09:00)
[2021-06-23] MEDS ORDERED: IPRATROPIUM-ALBUTEROL 3 ML NEB INHALATION SCH (09:23)
[2021-06-23] MEDS: INSULIN ASPART (NovoLOG) 100 UNIT/ML VIAL SQ SCH ×2 (09:24→12:54)
[2021-06-23] MEDS ORDERED: CHOLECALCIFEROL 25 MCG (1000 IU) TABLET PO SCH (11:15)
[2021-06-23] MEDS ORDERED: ZINC SULFATE 220 MG CAP PO SCH (11:15)
[2021-06-23] MEDS ORDERED: ASCORBIC ACID 500 MG TAB PO SCH (11:15)
[2021-06-23] MEDS ORDERED: ENOXAPARIN 40 MG/0.4 ML SYRINGE SQ SCH (11:15)
[2021-06-23] MEDS ORDERED: PANTOPRAZOLE 40 MG TABLET PO SCH (11:15)
[2021-06-23 11:41] LABS: Glucose,Whole Blood 153 mg/dL (75-99)
[2021-06-23] MEDS ORDERED: ALBUTEROL HFA INHALER INHALATION SCH (12:00)
[2021-06-23 13:01] VITALS: BP 138/55; PULSE 79; RESP 16
[2021-06-23] MEDS ORDERED: INSULIN NPH 300 UNIT/3 ML VIAL SQ ONE (13:30)
--- NOTE | 2021-06-23 17:00 | P.HPIM ---
History of Present Illness H&P Date: 06/23/21 Chief Complaint: Elevated Accu-Chek History of present complaint: This is a pleasant 56-year-old patient of Dr. Braun. Chronic stable medical conditions include , GERD, hypertension, hyperlipidemia, osteoarthritis, scleroderma, mitochondrial myopathy, chronic respiratory failure on home oxygen that she uses intermittently, chronic kidney disease stage III, COPD hyperlip idemia, hypertension osteoarthritis. Has mitochondrial myopathy.. does follow with a tie layer from [facility] and kindergarten teacher assistant Dr. Earl Rowe. Patient is an ex-smoker. Does use a walker About 12 days ago patient was diagnosed with COVID 19. Respiratory symptoms as started 4-5 days prior to that. 6 days ago AMS at come out to her house to give her antibiotic infusion. She had been put on steroids. She presented to the ER after having the Accu-Chek of of 578. She is feeling weak diet and rundown at home. Shortness of breath was at his baseline. She went to see her family doctor who directed to come to the ER. Patient does not have any fever and chills. Has a decreased symptoms. In the ER she received IV fluids. Yesterday evening she received 8 units of regular insulin. She did not receive her evening dose of Levemir last night. This morning she is feeling much better. Her taste is off. She had about half a breakfast. Accu-Chek this morning was 141. Patient to 9 Fourths 13 when she presented. Review of systems: GEN.: Tired EYES: None HEENT: None NECK: None RESPIRATORY: Baseline shortness of breath. CARDIOVASCULAR: As above GASTROINTESTINAL: None GENITOURINARY: None MUSCULOSKELETAL: None LYMPHATICS: None HEMATOLOGICAL: None PSYCHIATRY: None NEUROLOGICAL: None Past medical history to include: COPD, diabetes, GERD, hyperlipidemia, hypertension, osteoarthritis, goiter, scleroderma, diastolic dysfunction, some difficulty with swallowing, mi tochondrial myopathy, chronic respiratory failure on 3 L of oxygen, CK stage III Social history: Lives with her son. Does use a walker. Smoked for about 20 years stopped in 1996. Family history: Diabetes, metastatic cancer Physical examination: VITAL SIGNS: Afebrile, 104, 18, 151/77, 98% on room air upon presentation GENERAL: BMI 39.3, reclining in bed, awake not in distress EYES: Pupils equal. Conjunctiva normal. HEENT: External appearance of nose and ears normal, oral cavity grossly normal. NECK: JVD not raised; masses not palpable. HEART: First and second heart sounds are normal; no edema. LUNGS: Respiratory rate increased, decreased breath sounds. ABDOMEN: Soft, nontender, liver spleen not palpable, no masses palpable. PSYCH: [Alert and oriented x3; mood and affect normal. NEUROLOGICAL: Cranial nerves grossly intact; no facial asymmetry, power and sensation grossly intact. LYMPHATICS: No lymph nodes palpable in the axilla and neck INVESTIGATIONS, reviewed in the clinical context: White count 8.1 hemoglobin 12.5 platelets 392 d-dimer 0.24 potassium 4.0 BUN 19 creatinine 0.86 blood glucose 394 plasma lactic acid 2.5 Serum acetone negative Coronavirus [PCR]: Detected EKG tracing personally reviewed by me-normal sinus rhythm. Chest x-ray film personally reviewed by me-possible infiltrate Assessment and plan: -Nonketotic hyperosmolar hyperglycemia. Secondary to patient being on steroids. Patient has a negative anion gap Patient is given IV fluids. Regular insulin. Steroids discontinued. -COVID 19 pneumonitis. Symptoms started about 16 days ago. Tested positive for COVID-19 about 12 days ago. About 6 days ago patient received antibiotic infus ion. Currently 98% on 2 L. No further indication for steroids. Discontinued. -COPD in a an ex-smoker Linda Longo -Diabetes mellitus type 2, chronically on insulin Follow Accu-Cheks -GERD Pepcid 40 mg daily at bedtime -Essential hypertension Cardizem ER 240 mg a day -Hyperlipidemia Lipitor 40 mg daily at bedtime -Primary osteoarthritis Pain medications as needed -Scleroderma -Mitochondrial myopathy -Chronic respiratory failure on home oxygen 3 L Follow pulse ox -Obesity BMI 39.3 Weight loss measures -Chronic gait dysfunction uses a walker at baseline Patient is given IV fluids. Home medications resumed. 15 units of Levemir given this morning. We'll give additional 8 units of NPH this afternoon. Soft bland diet. Care was discussed with the patient. Follow Accu-Cheks. Steroids discontinued. Past Medical History Past Medical History: COPD, Diabetes Mellitus, GERD/Reflux, Hyperlipidemia, Hypertension, Osteoarthritis (OA), Pneumonia, Thyroid Disorder Additional Past Medical History / Comment(s): MURMUR, UTI, GOITER, DIASTOLIC DYSFUNCTION,Scleraderma, has had trouble swallowing for past 6 months, mitochondrial myopathy, chronic pulmonary failure, kidney disease stage III History of Any Multi-Drug Resistant Organisms: None Reported Past Surgical History: Appendectomy, Cholecystectomy, Heart Catheterization, Hysterectomy, Joint Replacement Additional Past Surgical History / Comment(s): RT KNEE REPLACEMENT, LT KNEE HAS SCREWS IN PLACE Past Anesthesia/Blood Transfusion Reactions: No Reported Reaction Additional Past Anesthesia/Blood Transfusion Reaction / Comment(s): CLAUSTERPHOBIC Past Psychological History: Anxiety Smoking Status: Former smoker Past Alcohol Use History: Occasional Additional Past Alcohol Use History / Comment(s): STARTED SMOKING AT AGE 11, SM OKED 2 PPD THEN QUIT 1996 Past Drug Use History: None Reported - Past Family History Father Family Medical History: Cancer, Diabetes Mellitus Additional Family Medical History / Comment(s): AT AGE 61, CA throughout the body Mother Family Medical History: Cancer, Congestive Heart Failure (CHF), Diabetes Mellitus, Myocardial Infarction (ND), Thyroid Disorder Additional Family Medical History / Comment(s): Uterine CA Medications and Allergies Home Medications Medication Instructions Recorded Confirmed Type Isosorbide Mononitrate ER [Imdur] 60 mg PO DAILY 07/16/14 06/22/21 History Montelukast [Singulair] 10 mg PO HS 10/20/15 06/22/21 History Gabapentin [Neurontin] 800 mg PO TID 09/07/16 06/22/21 History Latanoprost Ophth [Xalatan 0.005%] 1 drop BOTH EYES HS 09/07/16 06/22/21 History Atorvastatin [Lipitor] 40 mg PO HS 08/20/17 06/22/21 History Ipratropium-Albuterol Nebulize 3 ml INHALATION RT-QID PRN 08/20/17 06/22/21 History [Duoneb 0.5 mg-3 mg/3 ml Soln] Diltiazem HCl [Diltiazem HCl 24Hr 240 mg PO DAILY 08/29/19 06/22/21 History ER] Furosemide [Lasix] 20 mg PO DAILY 08/29/19 06/22/21 History Aspirin EC [Ecotrin Low Dose] 81 mg PO DAILY 03/31/21 06/22/21 History Exenatide Microspheres [Bydureon 2 mg SQ FR 03/31/21 06/22/21 History Bcise Auto-Injector] Famotidine 40 mg PO HS 03/31/21 06/22/21 History Glimepiride [Amaryl] 4 mg PO BID 03/31/21 06/22/21 History Ascorbic Acid [Vitamin C] 1,000 mg PO DAILY 06/22/21 06/22/21 History Cholecalciferol [Vitamin D3 (25 50 mcg PO DAILY 06/22/21 06/22/21 History Mcg = 1000 Iu)] Losartan Potassium 50 mg PO HS 06/22/21 06/22/21 History Pantoprazole [Protonix] 40 mg PO BID 06/22/21 06/22/21 History Zinc Sulfate [Orazinc] 220 mg PO DAILY 06/22/21 06/22/21 History hydrOXYzine pamoate [Vistaril] 50 mg PO HS PRN 06/22/21 06/22/21 History HYDROcodone/APAP 10-325MG [[place] 1 each PO Q4H PRN tab 06/23/21 Rx 10-325] Hydroxychloroquine Sulfate 200 mg PO BID tab 06/23/21 Rx [Plaquenil] Insulin Aspart [NovoLOG] 8 unit SQ TID-W/MEALS #0 06/23/21 06/22/21 Rx Insulin Glargine,Hum.rec.anlog 26 unit SQ HS #0 06/23/21 06/22/21 Rx [Lantus Solostar Pen] Allergies Allergy/AdvReac Type Severity Reaction Status Date / Time Androgenic Anabolic Steroid Allergy Unknown Verified 06/22/21 18:52 meperidine HCl [From Demerol] Allergy Rash/Hives Verified 06/22/21 18:52 propoxyphene napsylate Allergy Dyspnea Verified 06/22/21 18:52 [From Darvocet-N] Physical Exam Vitals: Vital Signs Temp Pulse Pulse Resp BP BP Pulse Ox 06/23/21 02:00 82 18 150/74 99 06/23/21 01:49 65 20 06/22/21 20:42 65 18 140/65 100 06/22/21 15:45 98.7 F 104 H 18 151/77 98 Intake and Output 06/22/21 06/23/21 06/23/21 22:59 06:59 14:59 Intake Total 1560 Balance 1560 Intake: Intake, IV Titration 1560 Amount Sodium Chloride 0.9% 1, 1560 000 ml @ 130 mls/hr IV . Q7H42M [facility] Rx#:[id number] Other: Voiding Method Toilet Toilet Weight 107.048 kg 107.048 kg Results CBC & Chem 7: 06/22/21 16:11 06/22/21 16:11 Labs: Abnormal Lab Results - Last 24 Hours (Table) 06/22/21 06/22/21 06/22/21 Range/Units 16:11 16:11 16:11 MCV 76.8 L (80.0-100.0) fL RDW 15.6 H (11.5-15.5) % Lymphocytes # 0.6 L (1.0-4.8) k/uL APTT 17.6 L (22.0-30.0) sec Sodium 135 L (137-145) mmol/L BUN 19 H (7-17) mg/dL Glucose 394 H (74-99) mg/dL POC Glucose (mg/dL) (75-99) mg/dL Plasma Lactic Acid Carlos (0.7-2.0) mmol/L Alkaline Phosphatase 154 H (38-126) U/L Coronavirus (PCR) (Not Detectd) 06/22/21 06/22/21 06/23/21 Range/Units 16:11 22:26 00:15 MCV (80.0-100.0) fL RDW (11.5-15.5) % Lymphocytes # (1.0-4.8) k/uL APTT (22.0-30.0) sec Sodium (137-145) mmol/L BUN (7-17) mg/dL Glucose (74-99) mg/dL POC Glucose (mg/dL) 209 H (75-99) mg/dL Plasma Lactic Acid Carlos 2.5 H* (0.7-2.0) mmol/L Alkaline Phosphatase (38-126) U/L Coronavirus (PCR) Detected A (Not Detectd) 06/23/21 06/23/21 Range/Units 02:17 08:18 MCV (80.0-100.0) fL RDW (11.5-15.5) % Lymphocytes # (1.0-4.8) k/uL APTT (22.0-30.0) sec Sodium (137-145) mmol/L BUN (7-17) mg/dL Glucose (74-99) mg/dL POC Glucose (mg/dL) 189 H 141 H (75-99) mg/dL Plasma Lactic Acid Carlos (0.7-2.0) mmol/L Alkaline Phosphatase (38-126) U/L Coronavirus (PCR) (Not Detectd) Thrombosis Risk Factor Assmnt - Choose All That Apply Any of the Below Risk Factors Present?: Yes Each Factor Represents 1 point: Age 41-60 years Other Risk Factors: No Other congenital or acquired thrombophilia - If yes, enter type in comment: No Thrombosis Risk Factor Assessment Total Risk Factor Score: 1 Thrombosis Risk Factor Assessment Level: Low Risk
[2021-06-23] MEDS ORDERED: LOSARTAN 50 MG TAB PO SCH (21:00)
--- NOTE | 2021-06-24 10:23 | P.DS ---
Providers Date of admission: 06/22/21 18:49 Expected date of discharge: 06/23/21 Attending physician: Law Adamson Primary care physician: Murray Braun [facility] Course: Chief Complaint: Elevated Accu-Chek History of present complaint: This is a pleasant 56-year-old patient of Dr. Braun. Chronic stable medical conditions include , GERD, hypertension, hyperlipidemia, osteoarthritis, scleroderma, mitochondrial myopathy, chronic respiratory failure on home oxygen that she uses intermittently, chronic kidney disease stage III, COPD hyperlipidemia, hypertension osteoarthritis. Has mitochondrial myopathy.. does follow with a contractor general engineering from [facility] and saturator operator Dr. Earl Rowe. Patient is an ex-smoker. Does use a walker About 12 days ago patient was diagnosed with COVID 19. Respiratory symptoms as started 4-5 days prior to that. 6 days ago AMS at come out to her house to give her antibiotic infusion. She had been put on steroids. She presented to the ER after having the Accu-Chek of of 578. She is feeling weak diet and rundown at home. Shortness of breath was at his baseline. She went to see her family doctor who directed to come to the ER. Patient does not have any fever and chills. Has a decreased symptoms. In the ER she received IV fluids. Yesterday evening she received 8 units of regular insulin. She did not receive her evening dose of Levemir last night. This morning she is feeling much better. Her taste is off. She had about half a breakfast. Accu-Chek this morning was 141. Accu-Chek 394 when she presented. Care was discussed with the patient. Insulin was adjusted. Told to eat softer foods because of loss of taste. Keep a track of her Accu-Cheks and follow up with Dr. Braun. Steroids have been discontinued. Accu-Chek was 153 before discharge Past medical history to include: COPD, diabetes, GERD, hyperlipidemia, hypertension, osteoarthritis, goiter, scleroderma, diastolic dysfunction, some difficulty with swallowing, mitoc hondrial myopathy, chronic respiratory failure on 3 L of oxygen, CK stage III Social history: Lives with her son. Does use a walker. Smoked for about 20 years stopped in 1996. Family history: Diabetes, metastatic cancer Physical examination: VITAL SIGNS: 98.7, 79, 16, 1 38 x 7 55, 98% on 2 L GENERAL: 39.3, reclining in bed, comfortable EYES: Pupils equal. Conjunctiva normal. HEENT: External appearance of nose and ears normal, oral cavity grossly normal. NECK: JVD not raised; masses not palpable. HEART: First and second heart sounds are normal; no edema. LUNGS: Respiratory rate increased, decreased breath sounds. ABDOMEN: Soft, nontender, liver spleen not palpable, no masses palpable. PSYCH: [Alert and oriented x3; mood and affect normal. INVESTIGATIONS, reviewed in the clinical context: White count 8.1 hemoglobin 12.5 platelets 392 d-dimer 0.24 potassium 4.0 BUN 19 creatinine 0.86 blood glucose 394 plasma lactic acid 2.5 Serum acetone negative Coronavirus [PCR]: Detected EKG tracing personally reviewed by me-normal sinus rhythm. Chest x-ray film personally reviewed by me-possible infiltrate Assessment and plan: -Nonketotic hyperosmolar hyperglycemia. Secondary to patient being on steroids. Patient has a negative anion gap Patient is given IV fluids. Regular insulin. Steroids discontinued. -COVID 19 pneumonitis. Symptoms started about 16 days ago. Tested positive for COVID-19 about 12 days ago. About 6 days ago patient received antibiotic infusion. Currently 98% on 2 L. No further indication for steroids. Discontinued. -COPD in a an ex-smoker Linda Longo -Diabetes mellitus type 2, chronically on insulin Lantus decreased to 26 units daily at bedtime. NovoLog 8 units subcu 3 times a day with meals. -GERD Pepcid 40 mg daily at bedtime -Essential hypertension Cardizem ER 240 mg a day -Hyperlipidemia Lipitor 40 mg daily at bedtime -Primary osteoarthritis Pain medications as needed -Scleroderma -Mitochondrial myopathy -Chronic respiratory failure on home oxygen 3 L Follow pulse ox -Obesity BMI 39.3 Weight loss measures -Chronic gait dysfunction uses a walker at baseline Disposition: Home Plan - Discharge Summary Discharge Rx Participant: Yes New Discharge Prescriptions: New HYDROcodone/APAP 10-325MG [[place] 10-325] 1 each PO Q4H PRN tab PRN Reason: Pain Hydroxychloroquine Sulfate [Plaquenil] 200 mg PO BID tab Continue Isosorbide Mononitrate ER [Imdur] 60 mg PO DAILY Montelukast [Singulair] 10 mg PO HS Latanoprost Ophth [Xalatan 0.005%] 1 drop BOTH EYES HS Gabapentin [Neurontin] 800 mg PO TID Ipratropium-Albuterol Nebulize [Duoneb 0.5 mg-3 mg/3 ml Soln] 3 ml INHALATION RT-QID PRN PRN Reason: Shortness Of Breath Atorvastatin [Lipitor] 40 mg PO HS Diltiazem HCl [Diltiazem HCl 24Hr ER] 240 mg PO DAILY Furosemide [Lasix] 20 mg PO DAILY Exenatide Microspheres [Bydureon Bcise Auto-Injector] 2 mg SQ FR Famotidine 40 mg PO HS hydrOXYzine pamoate [Vistaril] 50 mg PO HS PRN PRN Reason: ANXIETY/INSOMNIA Aspirin EC [Ecotrin Low Dose] 81 mg PO DAILY Glimepiride [Amaryl] 4 mg PO BID Zinc Sulfate [Orazinc] 220 mg PO DAILY Cholecalciferol [Vitamin D3 (25 Mcg = 1000 Iu)] 50 mcg PO DAILY Pantoprazole [Protonix] 40 mg PO BID Ascorbic Acid [Vitamin C] 1,000 mg PO DAILY Losartan Potassium 50 mg PO HS Changed Insulin Glargine,Hum.rec.anlog [Lantus Solostar Pen] 26 unit SQ HS #0 Insulin Aspart [NovoLOG] 8 unit SQ TID-W/MEALS #0 Discontinued Azithromycin [Zithromax] 500 mg PO DAILY predniSONE 40 mg PO DAILY Discharge Medication List Isosorbide Mononitrate ER [Imdur] 60 mg PO DAILY 07/16/14 [History] Montelukast [Singulair] 10 mg PO HS 10/20/15 [History] Gabapentin [Neurontin] 800 mg PO TID 09/07/16 [History] Latanoprost Ophth [Xalatan 0.005%] 1 drop BOTH EYES HS 09/07/16 [History] Atorvastatin [Lipitor] 40 mg PO HS 08/20/17 [History] Ipratropium-Albuterol Nebulize [Duoneb 0.5 mg-3 mg/3 ml Soln] 3 ml INHALATION RT-QID PRN 08/20/17 [History] Diltiazem HCl [Diltiazem HCl 24Hr ER] 240 mg PO DAILY 08/29/19 [History] Furosemide [Lasix] 20 mg PO DAILY 08/29/19 [History] Aspirin EC [Ecotrin Low Dose] 81 mg PO DAILY 03/31/21 [History] Exenatide Microspheres [Bydureon Bcise Auto-Injector] 2 mg SQ FR 03/31/21 [History] Famotidine 40 mg PO HS 03/31/21 [History] Glimepiride [Amaryl] 4 mg PO BID 03/31/21 [History] Ascorbic Acid [Vitamin C] 1,000 mg PO DAILY 06/22/21 [History] Cholecalciferol [Vitamin D3 (25 Mcg = 1000 Iu)] 50 mcg PO DAILY 06/22/21 [History] Losartan Potassium 50 mg PO HS 06/22/21 [History] Pantoprazole [Protonix] 40 mg PO BID 06/22/21 [History] Zinc Sulfate [Orazinc] 220 mg PO DAILY 06/22/21 [History] hydrOXYzine pamoate [Vistaril] 50 mg PO HS PRN 06/22/21 [History] HYDROcodone/APAP 10-325MG [[place] 10-325] 1 each PO Q4H PRN tab 06/23/21 [Rx] Hydroxychloroquine Sulfate [Plaquenil] 200 mg PO BID tab 06/23/21 [Rx] Insulin Aspart [NovoLOG] 8 unit SQ TID-W/MEALS #0 06/23/21 [Rx] Insulin Glargine,Hum.rec.anlog [Lantus Solostar Pen] 26 unit SQ HS #0 06/23/21 [Rx] Follow up Appointment(s)/Referral(s): Murray Braun DO [Primary Care Provider] - 1-2 days (Office will call you with an appt. date and time. ) Patient Instructions/Handouts: Coronavirus Disease 2019 (COVID-19), Diabetic Hyperglycemia (DC) Discharge Disposition: HOME SELF-CARE
[2021-06-26] MEDS ORDERED: EXENATIDE SQ SCH (12:00)
== END 2021-06-23 14:33 | disposition home or self-care (01) | DRG 637 ==
LOC: EC 15:38 → 4SSUR 18:49
PROVIDERS: ADMIT Hospitalist; ATTEND Hospitalist
DX: E11.00 Type 2 diabetes mellitus with hyperosmolarity without nonketotic hyperglycemic-hyperosmolar coma (NKHHC) (principal); U07.1 COVID-19; J12.82 Pneumonia due to coronavirus disease 2019; J96.10 Chronic respiratory failure, unspecified whether with hypoxia or hypercapnia; E87.2 Acidosis; J44.0 Chronic obstructive pulmonary disease with (acute) lower respiratory infection; E11.65 Type 2 diabetes mellitus with hyperglycemia; E66.9 Obesity, unspecified; Z68.39 Body mass index [BMI] 39.0-39.9, adult; E11.22 Type 2 diabetes mellitus with diabetic chronic kidney disease; N18.30 Chronic kidney disease, stage 3 unspecified; E78.5 Hyperlipidemia, unspecified; Z99.81 Dependence on supplemental oxygen; I12.9 Hypertensive chronic kidney disease with stage 1 through stage 4 chronic kidney disease, or unspecified chronic kidney disease; E04.9 Nontoxic goiter, unspecified; E86.0 Dehydration; F41.9 Anxiety disorder, unspecified; G71.3 Mitochondrial myopathy, not elsewhere classified; M19.91 Primary osteoarthritis, unspecified site; M34.9 Systemic sclerosis, unspecified; R26.9 Unspecified abnormalities of gait and mobility; K21.9 Gastro-esophageal reflux disease without esophagitis; T38.0X5A Adverse effect of glucocorticoids and synthetic analogues, initial encounter; Z96.651 Presence of right artificial knee joint; Z79.4 Long term (current) use of insulin; Z79.82 Long term (current) use of aspirin; Z79.899 Other long term (current) drug therapy; Z80.49 Family history of malignant neoplasm of other genital organs; Z82.49 Family history of ischemic heart disease and other diseases of the circulatory system; Z83.3 Family history of diabetes mellitus; Z87.891 Personal history of nicotine dependence; Z90.710 Acquired absence of both cervix and uterus; Z98.890 Other specified postprocedural states; Z90.49 Acquired absence of other specified parts of digestive tract
CPT/HCPCS: 36415; 71046; 80053; 82009; 83605; 83735; 83880; 84484; 85025; 85379; 85610; 85730; 87635; 93005; 94640; 96360; 96361; 99285

== ENCOUNTER → 2021-07-06 | Outpatient (CLI) | payer MEDICARE, OTHER ==
--- NOTE | 2021-07-07 07:21 | MM ---
Reason for exam: follow-up at short interval from prior study. Last mammogram was performed 7 months ago. History: Patient is postmenopausal. Family history of breast cancer in paternal aunt at age 45, breast cancer in paternal grandmother at age 60, and breast cancer in maternal aunt. Took estrogen for 17 years beginning at age 35. Physical Findings: Nurse did not find any significant physical abnormalities on exam. MG 3D Diag Mammo W/Cad KEELEY Bilateral CC and MLO view(s) were taken. Prior study comparison: November 25, 2020, right breast MG 3d diag mammo w/cad RT. May 26, 2020, right breast MG 3d work up w/cad RT. There are scattered fibroglandular densities. There is no discrete abnormality. No significant new findings when compared with previous films. These results were verbally communicated with the patient and result sheet given to the patient on 07/06/21. ASSESSMENT: Negative, BI-RAD 1 RECOMMENDATION: Routine screening mammogram of both breasts in 1 year.
== END | disposition home or self-care (01) ==
LOC: RADMAMWWP 13:52
PROVIDERS: ATTEND Family Medicine
DX: R92.2 Inconclusive mammogram (principal); Z80.3 Family history of malignant neoplasm of breast; Z78.0 Asymptomatic menopausal state
CPT/HCPCS: 77066; G0279; 77062

== ENCOUNTER 2021-11-23 19:39 | Observation (INO) | payer MEDICARE, OTHER ==
[2021-11-23] MEDS ORDERED: NITROGLYCERIN OINT 1 INCH/GM PACKET TOPICAL STA (20:07)
[2021-11-23] MEDS ORDERED: SODIUM CHLORIDE 0.9% 1,000 ML IV STA (20:07)
[2021-11-23 20:26] LABS: Basophils # (A) 0.1 k/uL (0-0.2); Basophils % (A) 1 %; Eosinophils # (A) 0.3 k/uL (0-0.7); Eosinophils % (A) 3 %; HCT 39.2 % (34.0-46.0); HGB 12.3 gm/dL (11.4-16.0); Lymphocytes # (A) 1.5 k/uL (1.0-4.8); Lymphocytes % (A) 16 %; MCH 24.9 pg (25.0-35.0); MCHC 31.3 g/dL (31.0-37.0); MCV 79.6 fL (80.0-100.0); Mean Platelet Volume 6.7; Monocytes # (A) 0.4 k/uL (0-1.0); Monocytes % (A) 4 %; Neutrophils # (A) 7.1 k/uL (1.3-7.7); Neutrophils % (A) 76 %; Platelet Count 357 k/uL (150-450); RBC 4.92 m/uL (3.80-5.40); RDW 15.5 % (11.5-15.5); WBC 9.5 k/uL (3.8-10.6)
--- NOTE | 2021-11-23 20:31 | ED ---
Chest Pain HPI - General Chief Complaint: Chest Pain Stated Complaint: Chest Pain Time Seen by Provider: 11/23/21 19:50 Source: patient, EMS Mode of arrival: EMS - History of Present Illness Initial Comments: Tisha is a 56-year-old female with history of COPD on oxygen 3 L at baseline. Patient presents the ER today via ambulance for evaluation of chest pain. Patient reports that she was sitting in her chair when she developed the pain which she describes as a pressure in the chest with radiation to her left jaw. Patient has no history of cardiac disease. Patient states that she was experiencing similar pain on Tuesday and was seen at [facility] emergency department however became displeased that she was there for 9 hours and left. - Related Data Home Medications Medication Instructions Recorded Confirmed Isosorbide Mononitrate ER [Imdur] 60 mg PO DAILY 07/16/14 11/23/21 Montelukast [Singulair] 10 mg PO HS 10/20/15 11/23/21 Gabapentin [Neurontin] 800 mg PO TID 09/07/16 11/23/21 Latanoprost Ophth [Xalatan 0.005%] 1 drop BOTH EYES HS 09/07/16 11/23/21 Atorvastatin [Lipitor] 40 mg PO DAILY 08/20/17 11/23/21 Ipratropium-Albuterol Nebulize 3 ml INHALATION RT-QID PRN 08/20/17 11/23/21 [Duoneb 0.5 mg-3 mg/3 ml Soln] Diltiazem HCl [Diltiazem HCl 24Hr 240 mg PO HS 08/29/19 11/23/21 ER] Furosemide [Lasix] 20 mg PO DAILY 08/29/19 11/23/21 Aspirin EC [Ecotrin Low Dose] 81 mg PO DAILY 03/31/21 11/23/21 Famotidine 40 mg PO DAILY 03/31/21 11/23/21 Losartan Potassium 50 mg PO DAILY 06/22/21 11/23/21 Pantoprazole [Protonix] 40 mg PO BID 06/22/21 11/23/21 hydrOXYzine pamoate [Vistaril] 50 mg PO HS PRN 06/22/21 11/23/21 Budesonide [Pulmicort Flexhaler] 2 puff INHALATION RT-BID PRN 11/23/21 11/23/21 Cyclobenzaprine [Flexeril] 5 mg PO BID PRN 11/23/21 11/23/21 DULoxetine HCL [Cymbalta] 120 mg PO HS 11/23/21 11/23/21 Flovent (Unknown Strength) 1 dose INHALATION RT-DAILY PRN 11/23/21 11/23/21 Fluticasone Nasal [place] [Flonase 2 spray EA NOSTRIL DAILY 11/23/21 11/23/21 Nasal [place]] HYDROcodone/APAP 10-325MG [[place] 1 tab PO Q4H PRN 11/23/21 11/23/21 10-325] Ibuprofen [Motrin] 800 mg PO TID PRN 11/23/21 11/23/21 Insulin Aspart [NovoLOG] 10 unit SQ TID-W/MEALS 11/23/21 11/23/21 Insulin Glargine,Hum.rec.anlog 40 unit SQ HS 11/23/21 11/23/21 [Lantus Solostar Pen] Ondansetron Odt [Zofran Odt] 4 mg PO Q6H PRN 11/23/21 11/23/21 Semaglutide [Ozempic] 1 mg SQ FR 11/23/21 11/23/21 Previous Rx's Medication Instructions Recorded Hydroxychloroquine Sulfate 200 mg PO BID tab 06/23/21 [Plaquenil] Allergies Allergy/AdvReac Type Severity Reaction Status Date / Time Androgenic Anabolic Steroid Allergy Unknown Verified 11/23/21 22:01 meperidine HCl [From Demerol] Allergy Rash/Hives Verified 11/23/21 22:01 propoxyphene napsylate Allergy Dyspnea Verified 11/23/21 22:01 [From Darvocet-N] Review of Systems ROS Statement: Those systems with pertinent positive or pertinent negative responses have been documented in the HPI. ROS Other: All systems not noted in ROS Statement are negative. EKG Findings - EKG Comments: EKG Findings:: EKG was obtained due to complaint of chest pain, EKG was obtained at 1954, rate is 87 rhythm is sinus normal axis, CO 171, QRS 81, QTC 412, no acute ST elevations or depressions no evidence of ischemia or infarction. Past Medical History Past Medical History: COPD, Diabetes Mellitus, GERD/Reflux, Hyperlipidemia, Hypertension, Osteoarthritis (OA), Pneumonia, Thyroid Disorder Additional Past Medical History / Comment(s): MURMUR, UTI, GOITER, DIASTOLIC DYSFUNCTION,Scleraderma, has had trouble swallowing for past 6 months, mitochondrial myopathy, chronic pulmonary failure, kidney disease stage III History of Any Multi-Drug Resistant Organisms: None Reported Past Surgical History: Appendectomy, Cholecystectomy, Heart Catheterization, Hysterectomy, Joint Replacement Additional Past Surgical History / Comment(s): RT KNEE REPLACEMENT, LT KNEE HAS SCREWS IN PLACE Past Anesthesia/Blood Transfusion Reactions: No Reported Reaction Additional Past Anesthesia/Blood Transfusion Reaction / Comment(s): CLAUSTERPH OBIC Past Psychological History: Anxiety Smoking Status: Former smoker Past Alcohol Use History: Occasional Past Drug Use History: None Reported - Past Family History Father Family Medical History: Cancer, Diabetes Mellitus Additional Family Medical History / Comment(s): AT AGE 61, CA throughout the body Mother Family Medical History: Cancer, Congestive Heart Failure (CHF), Diabetes Mellitus, Myocardial Infarction (ID), Thyroid Disorder Additional Family Medical History / Comment(s): Uterine CA General Exam - General Exam Comments Initial Comments: Physical Exam GENERAL: Patient is well-developed and well-nourished. Patient is nontoxic and well- hydrated and is in no distress. HENT: Normocephalic, Atraumatic. EYES: PERRL, EOMI PULMONARY: Unlabored respirations. No audible rales rhonchi or wheezing was noted. CARDIOVASCULAR: There is a regular rate and rhythm without any murmurs gallops or rubs. ABDOMEN: Soft and nontender with normal bowel sounds. SKIN: Skin is clear with no lesions or rashes and otherwise unremarkable. : Deferred NEUROLOGIC: Patient is alert and oriented x3. Moving all extremities spontaneously MUSCULOSKELETAL: Normal extremities with adequate strength and full range of motion. No lower extremity swelling or edema. No calf tenderness. PSYCHIATRIC: Normal psychiatric evaluation. Course Vital Signs 11/23/21 11/23/21 11/23/21 19:47 19:53 23:00 Temperature 98.0 F Pulse Rate 94 90 84 Respiratory 16 16 16 Rate Blood Pressure 173/61 158/80 O2 Sat by Pulse 100 99 98 Oximetry Chest Pain [facility] Patient was seen and evaluated, history is obtained from the patient, as a obese 56-year-old with history of COPD oxygen dependent, diabetes multiple cardiac risk factors. She has sudden onset of chest pressure radiating to the jaw this is second episode this week. She was seen at [facility] earlier in the week but left without completing her workup. The patient did have a clean cardiac cath in March of last year. She received aspirin and nitro in route to the hospital with some relief. Patient's initial EKG is nonischemic, labs are unremarkable however given her multiple risk factors I do feel it appropriate to keep the patient in observation and have a repeat echo to ensure there is no pericardial effusion. Patient was agreeable to this. This plan was discussed with Dr. Tobin who accepts the admission. Disposition Clinical Impression: Chest pain, Hyperglycemia, Hypertension Disposition: ADMITTED IP TO THIS HOSP Condition: Stable Is patient prescribed a controlled substance at d/c from ED?: No Referrals: Murray Braun DO [Primary Care Provider] - 1-2 days
[2021-11-23 20:35] LABS: Albumin 3.7 g/dL (3.5-5.0); Calcium 8.8 mg/dL (8.4-10.2); Magnesium 1.9 mg/dL (1.6-2.3); Potassium 4.5 mmol/L (3.5-5.1); Total Bilirubin 0.4 mg/dL (0.2-1.3); Total Protein 6.5 g/dL (6.3-8.2)
--- NOTE | 2021-11-23 20:50 | XR ---
EXAMINATION TYPE: XR chest 2V DATE OF EXAM: 11/23/2021 8:19 PM COMPARISON: Chest radiographs from 06/22/2021 TECHNIQUE: XR chest 2V Frontal and lateral views of the chest. CLINICAL INDICATION:Female, 56 years old with history of Chest Pain; FINDINGS: Lungs/Pleura: Low lung volumes are present. There is no evidence of pleural effusion, focal consolida tion, or pneumothorax. Pulmonary vascularity: Unremarkable. Heart/mediastinum: Cardiomediastinal silhouette is unremarkable. Musculoskeletal: No acute osseous pathology. IMPRESSION: No acute cardiopulmonary disease/process.
[2021-11-23 20:58] LABS: INR 0.9 (<1.2); Prothrombin Time 9.9 sec (9.0-12.0)
[2021-11-23 21:17] LABS: Partial Thromboplastin Time 21.5 sec (22.0-30.0)
[2021-11-23] MEDS ORDERED: HYDROcodone/APAP 10-325MG 1 EACH TAB PO ONE (23:38)
[2021-11-24] MEDS ORDERED: CYCLOBENZAPRINE 5 MG TAB PO PRN (02:21)
--- NOTE | 2021-11-24 02:28 | P.HPIM ---
History of Present Illness H&P Date: 11/24/21 Chief Complaint: Chest pain 56-year-old female with COPD chronic on home oxygen 3 L, diabetes mellitus Patient comes in due to 3 day history of recurrent episodes of chest pain described as chest pressure she feels it across the chest and radiates to the neck sometimes associated with no vomiting for some associated difficulty breathing and palpitations denies any relation to activity usually episodes happened while resting doing nothing and she would wait it out and told goes away she does take any medications specifically for that she denies any syncope episodes she denies any positive cardiac history she reports having tachycardia in the past. She had negative heart cath done in March 2021. She went earlier this week to [facility] emergency department however due to long wait time nothing was done at that time she left the ER without completing her workup. Currently she denies any chest pain or trouble breathing she seems to be comfortable She reports some worsening of her baseline cough with some occasional chills but denies any runny no sore throat muscle aches or any fevers Blood work in the ED overall was unremarkable EKG shows sinus rhythm Review of Systems Pertinent positives as noted in HPI. All other systems were reviewed and are negative Past Medical History Past Medical History: COPD, Diabetes Mellitus, GERD/Reflux, Hyperlipidemia, Hypertension, Osteoarthritis (OA), Pneumonia, Thyroid Disorder Additional Past Medical History / Comment(s): MURMUR, UTI, GOITER, DIASTOLIC DYSFUNCTION,Scleraderma, has had trouble swallowing for past 6 months, mitochondrial myopathy, chronic pulmonary failure, kidney disease stage III History of Any Multi-Drug Resistant Organisms: None Reported Past Surgical History: Appendectomy, Cholecystectomy, Heart Catheterization, Hysterectomy, Joint Replacement Additional Past Surgical History / Comment(s): RT KNEE REPLACEMENT, LT KNEE HAS SCREWS IN PLACE Past Anesthesia/Blood Transfusion Reactions: No Reported Reaction Additional Past Anesthesia/Blood Transfusion Reaction / Comment(s): CLAUSTERPHOBIC Past Psychological History: Anxiety Smoking Status: Former smoker Past Alcohol Use History: Occasional Past Drug Use History: None Reported - Past Family History Father Family Medical History: Cancer, Diabetes Mellitus Additional Family Medical History / Comment(s): AT AGE 61, CA throughout the body Mother Family Medical History: Cancer, Congestive Heart Failure (CHF), Diabetes Mellitus, Myocardial Infarction (VT), Thyroid Disorder Additional Family Medical History / Comment(s): Uterine CA Medications and Allergies Home Medications Medication Instructions Recorded Confirmed Type Isosorbide Mononitrate ER [Imdur] 60 mg PO DAILY 07/16/14 11/23/21 History Montelukast [Singulair] 10 mg PO HS 10/20/15 11/23/21 History Gabapentin [Neurontin] 800 mg PO TID 09/07/16 11/23/21 History Latanoprost Ophth [Xalatan 0.005%] 1 drop BOTH EYES HS 09/07/16 11/23/21 History Atorvastatin [Lipitor] 40 mg PO DAILY 08/20/17 11/23/21 History Ipratropium-Albuterol Nebulize 3 ml INHALATION RT-QID PRN 08/20/17 11/23/21 History [Duoneb 0.5 mg-3 mg/3 ml Soln] Diltiazem HCl [Diltiazem HCl 24Hr 240 mg PO HS 08/29/19 11/23/21 History ER] Furosemide [Lasix] 20 mg PO DAILY 08/29/19 11/23/21 History Aspirin EC [Ecotrin Low Dose] 81 mg PO DAILY 03/31/21 11/23/21 History Famotidine 40 mg PO DAILY 03/31/21 11/23/21 History Losartan Potassium 50 mg PO DAILY 06/22/21 11/23/21 History Pantoprazole [Protonix] 40 mg PO BID 06/22/21 11/23/21 History hydrOXYzine pamoate [Vistaril] 50 mg PO HS PRN 06/22/21 11/23/21 History Hydroxychloroquine Sulfate 200 mg PO BID tab 06/23/21 11/23/21 Rx [Plaquenil] Budesonide [Pulmicort Flexhaler] 2 puff INHALATION RT-BID PRN 11/23/21 11/23/21 History Cyclobenzaprine [Flexeril] 5 mg PO BID PRN 11/23/21 11/23/21 History DULoxetine HCL [Cymbalta] 120 mg PO HS 11/23/21 11/23/21 History Flovent (Unknown Strength) 1 dose INHALATION RT-DAILY PRN 11/23/21 11/23/21 History Fluticasone Nasal [place] [Flonase 2 spray EA NOSTRIL DAILY 11/23/21 11/23/21 History Nasal [place]] HYDROcodone/APAP 10-325MG [[place] 1 tab PO Q4H PRN 11/23/21 11/23/21 History 10-325] Ibuprofen [Motrin] 800 mg PO TID PRN 11/23/21 11/23/21 History Insulin Aspart [NovoLOG] 10 unit SQ TID-W/MEALS 11/23/21 11/23/21 History Insulin Glargine,Hum.rec.anlog 40 unit SQ HS 11/23/21 11/23/21 History [Lantus Solostar Pen] Ondansetron Odt [Zofran Odt] 4 mg PO Q6H PRN 11/23/21 11/23/21 History Semaglutide [Ozempic] 1 mg SQ FR 11/23/21 11/23/21 History Allergies Allergy/AdvReac Type Severity Reaction Status Date / Time Androgenic Anabolic Steroid Allergy Unknown Verified 11/23/21 22:01 meperidine HCl [From Demerol] Allergy Rash/Hives Verified 11/23/21 22:01 propoxyphene napsylate Allergy Dyspnea Verified 11/23/21 22:01 [From Darvocet-N] Physical Exam Vitals: Vital Signs Temp Pulse Resp BP Pulse Ox 11/24/21 01:00 87 18 137/88 98 11/23/21 23:00 84 16 158/80 98 11/23/21 19:53 90 16 99 11/23/21 19:47 98.0 F 94 16 173/61 100 Intake and Output 11/23/21 11/23/21 11/24/21 14:59 22:59 06:59 Other: Weight 111.584 kg Constitutional: No acute distress, conversant, pleasant Eyes: Anicteric sclerae, moist conjunctiva, Pupils equal round reactive to light ENMT: NC/AT Oropharynx clear, no erythema, or exudates Neck: Supple, , no masses, or JVD No carotid bruits No thyromegaly Lungs: Clear to auscultation Clear to percussion Normal respiratory effort, no accessory muscle use Cardiovascular: Heart regular in rate and rhythm, No murmurs, gallops, or rubs No peripheral edema Abdominal: Soft Nontender, no guarding, rebound or rigidity Abdomen moving with respiration Normoactive bowel sounds No hepatomegaly, No splenomegaly No palpable mass No abdominal wall hernia noted Skin: Normal temperature, tone, texture, turgor No induration No subcutaneous nodules No rash, lesions No ulcers Extremities: No digital cyanosis No clubbing Pedal pulses intact and symmetrical Radial pulses intact and symmetrical No calf tenderness Psychiatric: Alert and oriented to person, place and time Appropriate affect fair judgement Neuro Muscles Strength 5/5 in all 4 extremities Sensation to light touch grossly present throughout Cranial nerves II-XII grossly intact No focal sensory deficits Lymphatics: no palpable cervical or supraclavicular , or inguinal lymph nodes Results CBC & Chem 7: 11/23/21 20:11 11/23/21 20:11 Labs: Abnormal Lab Results - Last 24 Hours (Table) 11/23/21 11/23/21 11/23/21 Range/Units 20:11 20:11 20:11 MCV 79.6 L (80.0-100.0) fL MCH 24.9 L (25.0-35.0) pg APTT 21.5 L (22.0-30.0) sec Sodium 134 L (137-145) mmol/L Glucose 246 H (74-99) mg/dL ALT 36 H (4-34) U/L Alkaline Phosphatase 158 H (38-126) U/L Assessment and Plan Assessment: Atypical chest pain rule out ACS 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
[2021-11-24] MEDS ORDERED: NITROGLYCERIN OINT 1 INCH/GM PACKET TOPICAL SCH (06:00)
[2021-11-24] MEDS ORDERED: INSULIN ASPART (NovoLOG) 100 UNIT/ML VIAL SQ SCH (07:30)
[2021-11-24] MEDS ORDERED: LOSARTAN 50 MG TAB PO SCH (09:00)
[2021-11-24] MEDS ORDERED: ISOSORBIDE MONONITRATE ER 60 MG TAB.ER.24H PO SCH (09:00)
[2021-11-24 09:53] LABS: Glucose,Whole Blood 212 mg/dL (75-99)
[2021-11-24] MEDS: PANTOPRAZOLE 40 MG TABLET PO SCH ×2 (10:18→16:50)
[2021-11-24] MEDS: HEPARIN SODIUM,PORCINE/PF 5,000 UNIT/0.5 ML SYRINGE SQ SCH ×3 (10:19→23:40)
[2021-11-24] MEDS: ATORVASTATIN 40 MG TAB PO SCH (10:19)
[2021-11-24] MEDS: FAMOTIDINE 20 MG TAB PO SCH (10:19)
[2021-11-24] MEDS: FUROSEMIDE 20 MG TAB PO SCH (10:20)
[2021-11-24] MEDS: GABAPENTIN 400 MG CAP PO SCH ×3 (10:20→21:05)
[2021-11-24] MEDS: FLUTICASONE 50MCG/SPRAY NASAL 16GM EA NOSTRIL SCH (10:25)
[2021-11-24] MEDS: INSULIN ASPART (NovoLOG) 100 UNIT/ML VIAL SQ SCH ×7 (11:04→21:06)
[2021-11-24 11:50] LABS: Glucose,Whole Blood 197 mg/dL (75-99)
[2021-11-24] MEDS: HYDROXYCHLOROQUINE SULFATE 200 MG TAB PO SCH ×2 (12:11→21:05)
--- NOTE | 2021-11-24 12:24 | P.CRDCN ---
History of Present Illness Consult date: 11/24/21 History of present illness: HISTORY OF PRESENT ILLNESS: This is a 56-year-old female with a past medical history significant for with scleroderma, pulmonary hypertension, diabetes, hypertension, and hyperlipidemia. Patient follows in the office with Dr. Mendez. We have been asked to see the patient in consultation for chest pain. Patient examined at the bedside. Patient presented to the hospital with a chief complaint of chest pain and shortness of breath. She states her symptoms have been present for a few days. She also reports lightheadedness and dizziness that is been ongoing for the past few months. at the time of examination, the patient denies any chest pain or pressure. * EKG reveals sinus mechanism with no signs of acute ischemia * Chest xray negative for acute process * Laboratory data: WBC 9.5. Hemoglobin 12.3. Platelet count 357. D-dimer 0.22. Sodium 134. Potassium 4.5. B UN 14. Creatinine 0.85.troponin negative 3. * Current home cardiac medications include losartan 50 mg daily, Imdur 60 mg daily, Lasix 20 mg daily, Cardizem 240 mg at night, aspirin 81 mg daily, and Lipitor 40 mg daily * Most recent echocardiogram obtained in March 2021 revealed ejection fraction 55-60%, trace to mild MR, mild TR * Cardiac catheterization history: March 2021 with 50-55% proximal narrowing of the PDA. Medical management was recommended. REVIEW OF SYSTEMS: At the time of my exam: CONSTITUTIONAL: Denies fever or chills. HEENT: Denies blurred vision, vision changes, or eye pain. Denies hemoptysis CARDIOVASCULAR: Denies chest pain. Denies orthopnea. Denies PND. Denies palpitations RESPIRATORY: Denies shortness of breath. GASTROINTESTINAL: Denies abdominal pain. Denies nausea or vomiting. HEMATOLOGIC: Denies bleeding disorders. GENITOURINARY: Denies any blood in urine. SKIN: Denies pruitis. Denies rash. PHYSICAL EXAM: VITAL SIGNS: Reviewed. GENERAL: Well-developed in no acute distress. HEENT: Head is normocephalic. Pupils are equal, round. Sclerae anicteric. Mucous membranes of the mouth are moist. Neck supple. No JVD or thyromegaly LUNGS: Respirations even and unlabored. Lungs essentially clear to auscultation bilaterally. HEART: Regular rate and rhythm. S1 and S2 heard. ABDOMEN: Soft. Nondistended. Nontender. EXTREMITIES: Normal range of motion. No clubbing or cyanosis. Peripheral pulses intact. No lower extremity edema NEUROLOGIC: Awake and alert. Oriented x 3. ASSESSMENT: Chest pain Shortness of breath Coronary artery disease, s/p cath in 03/2021 revealing 50-55% proximal narrowing of the PDA Hypertension Hyperlipidemia Pulmonary hypertension, patient follows at [facility] Diabetes PLAN: An acute coronary event has been ruled out Resume home cardiac medications Increase losartan to 50 mg twice a day for optimal blood pressure control Obtain 2-D echo to assess cardiac structure and function Patient may be discharged home this afternoon and follow up on an outpatient basis with Dr. Mendez Nurse practitioner note has been reviewed by physician. Signing provider agrees with the documented findings, assessment, and plan of care. Past Medical History Past Medical History: COPD, Diabetes Mellitus, GERD/Reflux, Hyperlipidemia, Hypertension, Osteoarthritis (OA), Pneumonia, Thyroid Disorder Additional Past Medical History / Comment(s): MURMUR, UTI, GOITER, DIASTOLIC DYSFUNCTION,Scleraderma, has had trouble swallowing for past 6 months, mitochondrial myopathy, chronic pulmonary failure, kidney disease stage III History of Any Multi-Drug Resistant Organisms: None Reported Past Surgical History: Appendectomy, Cholecystectomy, Heart Catheterization, Hysterectomy, Joint Replacement Additional Past Surgical History / Comment(s): RT KNEE REPLACEMENT, LT KNEE HAS SCREWS IN PLACE Past Anesthesia/Blood Transfusion Reactions: No Reported Reaction Additional Past Anesthesia/Blood Transfusion Reaction / Comment(s): CLAUSTERPHOBIC Past Psychological History: Anxiety Smoking Status: Former smoker Past Alcohol Use History: Occasional Past Drug Use History: None Reported - Past Family History Father Family Medical History: Cancer, Diabetes Mellitus Additional Family Medical History / Comment(s): AT AGE 61, CA throughout the body Mother Family Medical History: Cancer, Congestive Heart Failure (CHF), Diabetes Mellitus, Myocardial Infarction (DE), Thyroid Disorder Additional Family Medical History / Comment(s): Uterine CA Medications and Allergies Home Medications Medication Instructions Recorded Confirmed Type Isosorbide Mononitrate ER [Imdur] 60 mg PO DAILY 07/16/14 11/23/21 History Montelukast [Singulair] 10 mg PO HS 10/20/15 11/23/21 History Gabapentin [Neurontin] 800 mg PO TID 09/07/16 11/23/21 History Latanoprost Ophth [Xalatan 0.005%] 1 drop BOTH EYES HS 09/07/16 11/23/21 History Atorvastatin [Lipitor] 40 mg PO DAILY 08/20/17 11/23/21 History Ipratropium-Albuterol Nebulize 3 ml INHALATION RT-QID PRN 08/20/17 11/23/21 History [Duoneb 0.5 mg-3 mg/3 ml Soln] Diltiazem HCl [Diltiazem HCl 24Hr 240 mg PO HS 08/29/19 11/23/21 History ER] Furosemide [Lasix] 20 mg PO DAILY 08/29/19 11/23/21 History Aspirin EC [Ecotrin Low Dose] 81 mg PO DAILY 03/31/21 11/23/21 History Famotidine 40 mg PO DAILY 03/31/21 11/23/21 History Losartan Potassium 50 mg PO DAILY 06/22/21 11/23/21 History Pantoprazole [Protonix] 40 mg PO BID 06/22/21 11/23/21 History hydrOXYzine pamoate [Vistaril] 50 mg PO HS PRN 06/22/21 11/23/21 History Hydroxychloroquine Sulfate 200 mg PO BID tab 06/23/21 11/23/21 Rx [Plaquenil] Budesonide [Pulmicort Flexhaler] 2 puff INHALATION RT-BID PRN 11/23/21 11/23/21 History Cyclobenzaprine [Flexeril] 5 mg PO BID PRN 11/23/21 11/23/21 History DULoxetine HCL [Cymbalta] 120 mg PO HS 11/23/21 11/23/21 History Flovent (Unknown Strength) 1 dose INHALATION RT-DAILY PRN 11/23/21 11/23/21 History Fluticasone Nasal [place] [Flonase 2 spray EA NOSTRIL DAILY 11/23/21 11/23/21 History Nasal [place]] HYDROcodone/APAP 10-325MG [[place] 1 tab PO Q4H PRN 11/23/21 11/23/21 History 10-325] Ibuprofen [Motrin] 800 mg PO TID PRN 11/23/21 11/23/21 History Insulin Aspart [NovoLOG] 10 unit SQ TID-W/MEALS 11/23/21 11/23/21 History Insulin Glargine,Hum.rec.anlog 40 unit SQ HS 11/23/21 11/23/21 History [Lantus Solostar Pen] Ondansetron Odt [Zofran Odt] 4 mg PO Q6H PRN 11/23/21 11/23/21 History Semaglutide [Ozempic] 1 mg SQ FR 11/23/21 11/23/21 History Allergies Allergy/AdvReac Type Severity Reaction Status Date / Time Androgenic Anabolic Steroid Allergy Unknown Verified 11/23/21 22:01 meperidine HCl [From Demerol] Allergy Rash/Hives Verified 11/23/21 22:01 propoxyphene napsylate Allergy Dyspnea Verified 11/23/21 22:01 [From Darvocet-N] Physical Exam Vitals: Vital Signs Temp Pulse Pulse Resp BP BP Pulse Ox 11/24/21 07:59 98.0 F 80 18 156/78 98 11/24/21 07:52 97.7 F 83 16 136/60 96 11/24/21 05:30 97.6 F 77 16 161/78 99 11/24/21 01:00 87 18 137/88 98 11/23/21 23:00 84 16 158/80 98 11/23/21 19:53 90 16 99 11/23/21 19:47 98.0 F 94 16 173/61 100 Intake and Output 11/23/21 11/24/21 11/24/21 22:59 06:59 14:59 Other: Weight 111.584 kg Results 11/23/21 20:11 11/23/21 20:11 Cardiac Enzymes 11/23/21 11/23/21 11/24/21 Range/Units 20:11 20:11 00:24 AST 25 (14-36) U/L Troponin I <0.012 <0.012 (0.000-0.034) ng/mL 11/24/21 Range/Units 03:05 AST (14-36) U/L Troponin I <0.012 (0.000-0.034) ng/mL Coagulation 11/23/21 Range/Units 20:11 PT 9.9 (9.0-12.0) sec APTT 21.5 L (22.0-30.0) sec CBC 11/23/21 Range/Units 20:11 WBC 9.5 (3.8-10.6) k/uL RBC 4.92 (3.80-5.40) m/uL Hgb 12.3 (11.4-16.0) gm/dL Hct 39.2 (34.0-46.0) % Plt Count 357 (150-450) k/uL Comprehensive Metabolic Panel 11/23/21 Range/Units 20:11 Sodium 134 L (137-145) mmol/L Potassium 4.5 (3.5-5.1) mmol/L Chloride 103 (98-107) mmol/L Carbon Dioxide 24 (22-30) mmol/L BUN 14 (7-17) mg/dL Creatinine 0.85 (0.52-1.04) mg/dL Glucose 246 H (74-99) mg/dL Calcium 8.8 (8.4-10.2) mg/dL AST 25 (14-36) U/L ALT 36 H (4-34) U/L Alkaline Phosphatase 158 H (38-126) U/L Total Protein 6.5 (6.3-8.2) g/dL Albumin 3.7 (3.5-5.0) g/dL Current Medications Generic Name Dose Route Start Last Admin Trade Name Freq PRN Reason Stop Dose Admin Aspirin 325 mg 11/25/21 09:00 Aspirin 325 Mg Tab PO DAILY [facility] Atorvastatin Calcium 40 mg 11/24/21 09:00 Atorvastatin 40 Mg Tab PO DAILY [facility] Cyclobenzaprine HCl 5 mg 11/24/21 02:21 11/24/21 05:40 Cyclobenzaprine 5 Mg Tab PO 5 mg BID PRN Administration Muscle Pain Diltiazem HCl 240 mg 11/24/21 21:00 Diltiazem Cd 240 Mg Cap.Er.24h PO HS [facility] Duloxetine HCl 120 mg 11/24/21 21:00 Duloxetine Hcl 60 Mg Capsule. PO HS [facility] Famotidine 40 mg 11/24/21 09:00 Famotidine 20 Mg Tab PO DAILY [facility] Fluticasone Propionate 1 puff 11/24/21 02:21 Fluticasone 44 Mcg Inhaler INHALATION RT-BID PRN Shortness Of Breath Fluticasone Propionate 2 spray 11/24/21 09:00 Fluticasone 50mcg/[place] Nasal 16gm EA NOSTRIL DAILY [facility] Furosemide 20 mg 11/24/21 09:00 Furosemide 20 Mg Tab PO DAILY [facility] Gabapentin 800 mg 11/24/21 09:00 Gabapentin 400 Mg Cap PO TID [facility] Heparin Sodium (Porcine) 5,000 unit 11/24/21 08:00 Heparin Sodium,Porcine/Pf 5,000 Unit/0.5 Ml Syringe SQ Q8HR [facility] Hydroxychloroquine Sulfate 200 mg 11/24/21 09:00 Hydroxychloroquine Sulfate 200 Mg Tab PO BID [facility] Insulin Aspart 10 unit 11/24/21 07:30 Insulin Aspart (Novolog) 100 Unit/Ml Vial SQ TID-W/MEALS [facility] Insulin Aspart 0 unit 11/24/21 07:30 Insulin Aspart (Novolog) 100 Unit/Ml Vial SQ ACHS [facility] Protocol Insulin Detemir 40 unit 11/24/21 21:00 Insulin Detemir (Levemir) 100 Unit/Ml Syr SQ HS [facility] Isosorbide Mononitrate 60 mg 11/24/21 09:00 Isosorbide Mononitrate Er 60 Mg Tab.Er.24h PO DAILY [facility] Losartan Potassium 50 mg 11/24/21 09:00 Losartan 50 Mg Tab PO DAILY [facility] Montelukast Sodium 10 mg 11/24/21 21:00 Montelukast 10 Mg Tab PO HS [facility] Pantoprazole Sodium 40 mg 11/24/21 07:30 Pantoprazole 40 Mg Tablet PO AC-BID [facility] Intake and Output 11/23/21 11/24/21 11/24/21 22:59 06:59 14:59 Other: Weight 111.584 kg 11/23/21 20:11 11/23/21 20:11
[2021-11-24] MEDS: HYDROcodone/APAP 10-325MG 1 EACH TAB PO PRN ×2 (12:27→21:09)
[2021-11-24 16:23] LABS: Glucose,Whole Blood 189 mg/dL (75-99)
[2021-11-24] MEDS ORDERED: CALCIUM CARBONATE 500 MG CHEWABLE PO PRN (17:34)
--- NOTE | 2021-11-24 18:14 | P.PN ---
Subjective Progress Note Date: 11/24/21 Hospital course: Patient is a very pleasant 56-year-old female with a past medical history of COPD home oxygen dependent on 3 L at all times, hypertension, hyperlipidemia, GERD, and insulin-dependent diabetes mellitus. She presented to the emergency department with a chief complaint of chest pain described as a pressure-like feeling radiating up into her neck. She underwent full evaluation. EKG revealed sinus rhythm at 87 bpm with no noted T-wave or ST abnormalities. Chest x-ray negative for acute cardiopulmonary process. Troponins negative at less than 0.0123 draws. And CMP showing no significant abnormalities. Patient did have mild hyponatremia with sodium of 134, hyperglycemia with glucose of 246, and slightly elevated liver enzymes with ALT 36 and alkaline phosphatase of 158. D-dimer was negative at 0.22. Patient was admitted under our services with consultation to cardiology. Physical exam: Patient seen and fully evaluated at bedside this morning. She reports pain remains to midsternal chest and radiates into her back and neck described as just a light pressure. She denies having any headache, lightheadedness, dizziness, palpitations, or increased shortness of breath. Vital signs stable with the exception of mild hypertension with blood pressure 156/78 this morning. Awaiting echocardiogram to be completed and further recommendations from card iology. Vital signs reviewed and stable. General: Nontoxic, no distress and appears stated age. Morbidly obese. Derm: Skin warm and dry, normal coloration for ethnicity. Head: Atraumatic, normocephalic and symmetric. Eyes: EOMs intact, no lid lag, and anicteric sclera Mouth: no lip lesions, mucus membranes moist Cardiovascular: regular rate and rhythm with normal S1S2, systolic murmur, posit jordyn posterior tibial pulses bilaterally, and cap refill < 2 seconds. Lungs: Respirations even, regular, and unlabored on room air. Lungs CTA bilaterally, no rhonchi, no rales, no wheezing, and no accessory muscle usage. Abdominal: soft, nontender to palpation, no guarding, no appreciable organome rashmi Ext: ROM intact. No gross muscle atrophy, no edema, no contractures Neuro: Speech clear, face symmetrical and CN II-XII grossly intact with no noted focal neuro deficits Psych: Alert and oriented to person, place, time, and situation. Appropriate and pleasant affect. Assessment and Plan of Care: Chest pain, rule out acute coronary event Hypertension Hyperlipidemia -Cardiology consult, appreciate further recommendations -Telemetry monitoring -Trend troponins -Cardiac diet, NPO at midnight -Aspirin, atorvastatin, and metoprolol -Lipid profile with a.m. labs. -Echocardiogram Insulin-dependent diabetes mellitus Glycemic protocol with NovoLog sliding scale and resume scheduled NovoLog 10 units 3 times daily with meals and Levemir 40 units nightly. COPD -Oxygenation to be administered and titrated as needed to maintain SPO2 equal to or greater than 92%, baseline home O2 3 L -Monitor Pulse-oximetry -Duonebs as needed for SOB and/or wheezing -Incentive Spirometry CODE STATUS: Full code DVT prophylaxis: Heparin Discussed with: Patient and RN Anticipated discharge date: Clinical course to determine, likely later today versus tomorrow morning Anticipated discharge place: Home A total of 36 minutes was spent on the care of this complex patient more than 50% of the time was spent in counseling and care coordination. Objective - Vital Signs Vital signs: Vital Signs Temp 98.0 F 11/24/21 07:59 Pulse 80 11/24/21 07:59 Resp 18 11/24/21 07:59 BP 156/78 11/24/21 07:59 Pulse Ox 98 11/24/21 07:59 Intake & Output 11/23/21 11/24/21 11/24/21 18:59 06:59 18:59 Weight 111.584 kg - Labs CBC & Chem 7: 11/23/21 20:11 11/23/21 20:11 Labs: Abnormal Lab Results - Last 24 Hours (Table) 11/23/21 11/23/21 11/23/21 Range/Units 20:11 20:11 20:11 MCV 79.6 L (80.0-100.0) fL MCH 24.9 L (25.0-35.0) pg APTT 21.5 L (22.0-30.0) sec Sodium 134 L (137-145) mmol/L Glucose 246 H (74-99) mg/dL ALT 36 H (4-34) U/L Alkaline Phosphatase 158 H (38-126) U/L Assessment and Plan Assessment: This documentation was completed by the Nurse Practitioner. History, physical examination including assessment and plan were only completed by Nurse Practitioner and was NOT evaluated by myself the attending physician including all plan of care including discharge planning and documentation. I did NOT participate or have any communication regarding the patient, including orders, imaging, diagnostic work up, consultations, communication with registered RN/lead based paint technician and discharge planning/instructions. I will be co-signing this documentation as this is a requirement per [facility] [employer] [facility] and agreement.
[2021-11-24 20:19] LABS: Glucose,Whole Blood 204 mg/dL (75-99)
[2021-11-24] MEDS: FLUTICASONE 44 MCG INHALER INHALATION PRN (20:52)
[2021-11-24] MEDS ORDERED: MONTELUKAST 10 MG TAB PO SCH (21:00)
[2021-11-24] MEDS ORDERED: DULoxetine HCL 60 MG CAPSULE.DR PO SCH (21:00)
[2021-11-24] MEDS ORDERED: DILTIAZEM CD 240 MG CAP.ER.24H PO SCH (21:00)
[2021-11-24] MEDS ORDERED: INSULIN DETEMIR (LEVEMIR) 100 UNIT/ML SYR SQ SCH (21:00)
[2021-11-24] MEDS: LOSARTAN 50 MG TAB PO SCH (21:05)
[2021-11-25 06:04] LABS: Glucose,Whole Blood 192 mg/dL (75-99)
[2021-11-25] MEDS: PANTOPRAZOLE 40 MG TABLET PO SCH (06:48)
[2021-11-25] MEDS: INSULIN ASPART (NovoLOG) 100 UNIT/ML VIAL SQ SCH ×2 (07:05→07:06)
[2021-11-25 08:28] VITALS: BP 118/69; PULSE 83; RESP 18; TEMP 98.5
[2021-11-25] MEDS: FLUTICASONE 44 MCG INHALER INHALATION PRN (08:42)
[2021-11-25] MEDS ORDERED: ISOSORBIDE MONONITRATE ER 60 MG TAB.ER.24H PO SCH (09:00)
[2021-11-25] MEDS ORDERED: ASPIRIN 325 MG TAB PO SCH (09:00)
[2021-11-25] MEDS ORDERED: ASPIRIN 81 MG PO SCH (09:00)
[2021-11-25] MEDS: GABAPENTIN 400 MG CAP PO SCH (09:09)
[2021-11-25] MEDS: FUROSEMIDE 20 MG TAB PO SCH (09:09)
[2021-11-25] MEDS: HEPARIN SODIUM,PORCINE/PF 5,000 UNIT/0.5 ML SYRINGE SQ SCH (09:09)
[2021-11-25] MEDS: ATORVASTATIN 40 MG TAB PO SCH (09:10)
[2021-11-25] MEDS: FAMOTIDINE 20 MG TAB PO SCH (09:10)
[2021-11-25] MEDS: HYDROXYCHLOROQUINE SULFATE 200 MG TAB PO SCH (09:10)
[2021-11-25] MEDS: FLUTICASONE 50MCG/SPRAY NASAL 16GM EA NOSTRIL SCH (09:10)
[2021-11-25] MEDS: LOSARTAN 50 MG TAB PO SCH (09:16)
--- NOTE | 2021-11-25 11:09 | P.DS ---
Providers Date of admission: 11/24/21 00:01 Expected date of discharge: 11/25/21 Attending physician: Santiago Siddiqui MD Consults: 11/24/21 00:01 Consult Physician Urgent Consulting Provider: [facility] Consult Reason/Comments: chest pain Do you want consulting provider notified?: Yes, Notify in am Primary care physician: [facility] Course: Discharge Diagnosis: Chest pain, acute coronary event ruled out Hypertension Hyperlipidemia Insulin-dependent diabetes mellitus COPD Hospital Course: Patient is a very pleasant 56-year-old female with a past medical history of COPD home oxygen dependent on 3 L at all times, hypertension, hyperlipidemia, GERD, and insulin-dependent diabetes mellitus. She presented to the emergency department with a chief complaint of chest pain described as a pressure-like feeling radiating up into her neck. She underwent full evaluation. EKG revealed sinus rhythm at 87 bpm with no noted T-wave or ST abnormalities. Chest x-ray negative for acute cardiopulmonary process. Troponins negative at less than 0.0123 draws. And CMP showing no significant abnormalities. Patient did have mild hyponatremia with sodium of 134, hyperglycemia with glucose of 246, and slightly elevated liver enzymes with ALT 36 and alkaline phosphatase of 158. D-dimer was negative at 0.22. Patient was admitted under our services with consultation to cardiology. Troponins were trended overnight all negative at less than 0.0123 draws. Echocardiogram completed revealing a normal EF of 65% with no significant valvular abnormalities. Patient was having episodes of hypotension and losartan was increased to 50 mg twice daily improvement in blood pressures. Cardiology recommending outpatient follow-up in the office in 2 weeks. Patient is medically stable at this time and to follow up outpatient with her PCP in 1-2 days and cardiology as recommended. Patient is free from any reports of chest pain, palpitations, shortness of breath, and also denies having any numbness/tingling/weakness in her extremities. Patient has been provided with prescription for change of medication losartan 50 mg twice daily and is medically stable for discharge at this time. Physical exam: Vital signs reviewed and stable. General: Nontoxic, no distress and appears stated age. Morbidly obese. Derm: Skin warm and dry, normal coloration for ethnicity. Head: Atraumatic, normocephalic and symmetric. Eyes: EOMs intact, no lid lag, and anicteric sclera Mouth: no lip lesions, mucus membranes moist Cardiovascular: regular rate and rhythm with normal S1S2, no murmur, positive posterior tibial pulses bilaterally, and cap refill < 2 seconds. Lungs: Respirations even, regular, and unlabored on room air. Lungs CTA bilaterally, no rhonchi, no rales, no wheezing, and no accessory muscle usage. Abdominal: soft, nontender to palpation, no guarding, no appreciable organomegaly Ext: ROM intact. No gross muscle atrophy, no edema, no contractures Neuro: Speech clear, face symmetrical and CN II-XII grossly intact with no noted focal neuro deficits Psych: Alert and oriented to person, place, time, and situation. Appropriate and pleasant affect. A total of 39 minutes of time were spent preparing this complex discharge summary. Pt was discharged on 11/25/21 at 9:59 AM Assessment: This documentation was completed by the Nurse Practitioner. History, physical examination including assessment and plan were only completed by Nurse Practitioner and was NOT evaluated by myself the attending physician including all plan of care including discharge planning and documentation. I did NOT participate or have any communication regarding the patient, including orders, imaging, diagnostic work up, consultations, communication with registered RN/pump technician and discharge planning/instructions. I will be co-signing this documentation as this is a requirement per [facility] [facility]. Patient Condition at Discharge: Stable Plan - Discharge Summary Discharge Rx Participant: Yes New Discharge Prescriptions: New Losartan [Cozaar] 50 mg PO BID 30 Days #60 tab Continue Isosorbide Mononitrate ER [Imdur] 60 mg PO DAILY Montelukast [Singulair] 10 mg PO HS Latanoprost Ophth [Xalatan 0.005%] 1 drop BOTH EYES HS Gabapentin [Neurontin] 800 mg PO TID Ipratropium-Albuterol Nebulize [Duoneb 0.5 mg-3 mg/3 ml Soln] 3 ml INHALATION RT-QID PRN PRN Reason: Shortness Of Breath Atorvastatin [Lipitor] 40 mg PO DAILY Diltiazem HCl [Diltiazem HCl 24Hr ER] 240 mg PO HS Furosemide [Lasix] 20 mg PO DAILY Famotidine 40 mg PO DAILY hydrOXYzine pamoate [Vistaril] 50 mg PO HS PRN PRN Reason: ANXIETY/INSOMNIA Hydroxychloroquine Sulfate [Plaquenil] 200 mg PO BID tab Fluticasone Nasal [place] [Flonase Nasal [place]] 2 spray EA NOSTRIL DAILY DULoxetine HCL [Cymbalta] 120 mg PO HS Cyclobenzaprine [Flexeril] 5 mg PO BID PRN PRN Reason: Muscle Pain Semaglutide [Ozempic] 1 mg SQ FR Ondansetron Odt [Zofran ODT] 4 mg PO Q6H PRN PRN Reason: Nausea Ibuprofen [Motrin] 800 mg PO TID PRN PRN Reason: Pain Or Fever > 100.5 Insulin Aspart [NovoLOG] 10 unit SQ TID-W/MEALS HYDROcodone/APAP 10-325MG [[place] 10-325] 1 tab PO Q4H PRN PRN Reason: Pain Flovent (Unknown Strength) 1 dose INHALATION RT-DAILY PRN PRN Reason: Shortness Of Breath Aspirin EC [Ecotrin Low Dose] 81 mg PO DAILY Pantoprazole [Protonix] 40 mg PO BID Insulin Glargine,Hum.rec.anlog [Lantus Solostar Pen] 40 unit SQ HS Budesonide [Pulmicort Flexhaler] 2 puff INHALATION RT-BID PRN PRN Reason: Shortness Of Breath Discontinued Losartan Potassium 50 mg PO DAILY Discharge Medication List Isosorbide Mononitrate ER [Imdur] 60 mg PO DAILY 07/16/14 [History] Montelukast [Singulair] 10 mg PO HS 10/20/15 [History] Gabapentin [Neurontin] 800 mg PO TID 09/07/16 [History] Latanoprost Ophth [Xalatan 0.005%] 1 drop BOTH EYES HS 09/07/16 [History] Atorvastatin [Lipitor] 40 mg PO DAILY 08/20/17 [History] Ipratropium-Albuterol Nebulize [Duoneb 0.5 mg-3 mg/3 ml Soln] 3 ml INHALATION RT-QID PRN 08/20/17 [History] Diltiazem HCl [Diltiazem HCl 24Hr ER] 240 mg PO HS 08/29/19 [History] Furosemide [Lasix] 20 mg PO DAILY 08/29/19 [History] Aspirin EC [Ecotrin Low Dose] 81 mg PO DAILY 03/31/21 [History] Famotidine 40 mg PO DAILY 03/31/21 [History] Pantoprazole [Protonix] 40 mg PO BID 06/22/21 [History] hydrOXYzine pamoate [Vistaril] 50 mg PO HS PRN 06/22/21 [History] Hydroxychloroquine Sulfate [Plaquenil] 200 mg PO BID tab 06/23/21 [Rx] Budesonide [Pulmicort Flexhaler] 2 puff INHALATION RT-BID PRN 11/23/21 [History] Cyclobenzaprine [Flexeril] 5 mg PO BID PRN 11/23/21 [History] DULoxetine HCL [Cymbalta] 120 mg PO HS 11/23/21 [History] Flovent (Unknown Strength) 1 dose INHALATION RT-DAILY PRN 11/23/21 [History] Fluticasone Nasal [place] [Flonase Nasal [place]] 2 spray EA NOSTRIL DAILY 11/23/21 [History] HYDROcodone/APAP 10-325MG [[place] 10-325] 1 tab PO Q4H PRN 11/23/21 [History] Ibuprofen [Motrin] 800 mg PO TID PRN 11/23/21 [History] Insulin Aspart [NovoLOG] 10 unit SQ TID-W/MEALS 11/23/21 [History] Insulin Glargine,Hum.rec.anlog [Lantus Solostar Pen] 40 unit SQ HS 11/23/21 [History] Ondansetron Odt [Zofran ODT] 4 mg PO Q6H PRN 11/23/21 [History] Semaglutide [Ozempic] 1 mg SQ FR 11/23/21 [History] Losartan [Cozaar] 50 mg PO BID 30 Days #60 tab 11/25/21 [Rx] Follow up Appointment(s)/Referral(s): Murray Braun DO [Primary Care Provider] - 1-2 days (they will call you with your appointment time and date) Justin Mendez MD [STAFF PHYSICIAN] - 12/18/21 4:45 pm Patient Instructions/Handouts: Chest Pain (DC), Hypertension (DC) Activity/Diet/Wound Care/Special Instructions: Activity: As tolerated. Take breaks as needed. Diet: Heart healthy and carb consistent diet. Avoid salts, or foods with hidden salts such as canned or boxed foods and frozen dinners. Extra salt makes your heart work harder and traps the fluid in your body for longer. Special Instructions: Take all of your medications as directed and remember to keep all of your doctor's appointments and follow-up as needed. Please review your discharge medication list as your losartan was increased to 50 mg twice daily to optimize better control of your blood pressures. Thank you for allowing us to participate in your care, it was truly a pleasure having you for our patient!!! Discharge Disposition: HOME SELF-CARE Pending Studies Pending Results: This documentation was completed by the Nurse Practitioner. History, physical examination including assessment and plan were only completed by Nurse Practitioner and was NOT evaluated by myself the attending physician including all plan of care including discharge planning and documentation. I did NOT participate or have any communication regarding the patient, including orders, imaging, diagnostic work up, consultations, communication with registered RN/pump technician and discharge planning/instructions. I will be co-signing this documentation as this is a requirement per [employer] [facility] and agreement.
--- NOTE | 2021-11-25 12:40 | P.PN ---
Subjective Progress Note Date: 11/25/21 HISTORY OF PRESENT ILLNESS: This is a 56-year-old female with a past medical history significant for with scleroderma, pulmonary hypertension, diabetes, hypertension, and hyperlipidemia. Patient follows in the office with Dr. Mendez. We have been asked to see the patient in consultation for chest pain. Patient examined at the bedside. Patient presented to the hospital with a chief complaint of chest pain and shortness of breath. She states her symptoms have been present for a few days. She also reports lightheadedness and dizziness that is been ongoing for the past few months. at the time of examination, the patient denies any chest pain or pressure. * EKG reveals sinus mechanism with no signs of acute ischemia * Chest xray negative for acute process * Laboratory data: WBC 9.5. Hemoglobin 12.3. Platelet count 357. D-dimer 0.22. Sodium 134. Potassium 4.5. B UN 14. Creatinine 0.85.troponin negative 3. * Current home cardiac medications include losartan 50 mg daily, Imdur 60 mg daily, Lasix 20 mg daily, Cardizem 240 mg at night, aspirin 81 mg daily, and Lipitor 40 mg daily * Most recent echocardiogram obtained in March 2021 revealed ejection fraction 55-60%, trace to mild MR, mild TR * Cardiac catheterization history: March 2021 with 50-55% proximal narrowing of the PDA. Medical management was recommended. 11/25/2021 Patient examined this morning at the bedside. Patient denies chest pain or pressure. She denies shortness of breath. Blood pressure has improved since increasing her losartan. PHYSICAL EXAM: VITAL SIGNS: Reviewed. GENERAL: Well-developed in no acute distress. HEENT: Head is normocephalic. Pupils are equal, round. Sclerae anicteric. Mucous membranes of the mouth are moist. Neck supple. No JVD or thyromegaly LUNGS: Respirations even and unlabored. Lungs essentially clear to auscultation bilaterally. HEART: Regular rate and rhythm. S1 and S2 heard. ABDOMEN: Soft. Nondistended. Nontender. EXTREMITIES: Normal range of motion. No clubbing or cyanosis. Peripheral pulses intact. No lower extremity edema NEUROLOGIC: Awake and alert. Oriented x 3. ASSESSMENT: Chest pain Shortness of breath Coronary artery disease, s/p cath in 03/2021 revealing 50-55% proximal narrowing of the PDA Hypertension Hyperlipidemia Pulmonary hypertension, [facility] PLAN: Continue current cardiac medications Discontinue Imdur Patient may be discharged home this afternoon and follow up on an outpatient basis with Dr. Mendez Nurse practitioner note has been reviewed by physician. Signing provider agrees with the documented findings, assessment, and plan of care. Objective - Vital Signs Vital signs: Vital Signs Temp 98.5 F 11/25/21 08:00 Pulse 83 11/25/21 08:00 Resp 18 11/25/21 08:00 BP 118/69 11/25/21 08:00 Pulse Ox 94 L 11/25/21 08:00 Intake & Output 11/24/21 11/25/21 11/25/21 18:59 06:59 18:59 Intake Total 1270 118 Output Total 2 Balance 1268 118 Intake: Oral 1270 118 Output: Urine 2 Other: # Voids 1 - Labs CBC & Chem 7: 11/23/21 20:11 11/23/21 20:11 Labs: Abnormal Lab Results - Last 24 Hours (Table) 11/24/21 11/24/21 11/25/21 Range/Units 16:22 20:18 06:03 POC Glucose (mg/dL) 189 H 204 H 192 H (75-99) mg/dL
--- NOTE | 2021-11-25 15:04 | CA ---
Transthoracic Echo Report Name: Tisha San Age: 56 Gender: F : 1965 Exam Date: 11/24/2021 08:42 Exam Location: Echo Lab Ht (in): 65 Wt (lb): 246 Ordering Physician: Michelle Rodrigez DO Attending/Referring Phys: [id number], Elia Hair Rooting Machine Operator Gretta Morris, RD Procedure CPT: Indications: chest pain, patient told she has fluid around manzo Cardiac Hx: Technical Quality: Fair Contrast 1: Total Dose (mL): Contrast 2: Total Dose (mL): MEASUREMENTS (Male / Female) Normal Values 2D ECHO LV Diastolic Diameter PLAX 3.9 cm 4.2 - 5.9 / 3.9 - 5.3 cm LV Systolic Diameter PLAX 2.8 cm IVS Diastolic Thickness 1.2 cm 0.6 - 1.0 / 0.6 - 0.9 cm LVPW Diastolic Thickness 1.1 cm 0.6 - 1.0 / 0.6 - 0.9 cm LV Relative Wall Thickness 0.6 RV Internal Dim ED PLAX 2.8 cm M-MODE Aortic Root Diameter MM 3.0 cm MV E Point Septal Separation 0.6 cm AV Cusp Separation MM 2.0 cm DOPPLER AV Peak Velocity 143.1 cm/s AV Peak Gradient 8.2 mmHg MV Area PHT 2.8 cm Mitral E Point Velocity 83.4 cm/s Mitral A Point Velocity 109.6 cm/s Mitral E to A Ratio 0.8 MV Deceleration Time 272.2 ms MV E' Velocity 8.8 cm/s Mitral E to MV E' Ratio 9.5 FINDINGS Left Ventricle Mildly increased septal wall thickness. Mildly increased posterior wall thickness. Right Ventricle The right ventricle is normal in size and function. Right Atrium The right atrium is normal in size. Left Atrium The left atrium is normal in size. Mitral Valve Structurally normal mitral valve without significant stenosis or prolapse. There is no mitral regurgitation. Aortic Valve Structurally normal aortic valve without significant sclerosis or stenosis. There is no aortic regurgitation. Tricuspid Valve Structurally normal tricuspid valve Pulmonic Valve Structurally normal pulmonic valve without significant stenosis. There is no pulmonic regurgitation. Pericardium Pericardial fat pad, no pericardial effusion. Aorta Normal aortic root dimension. CONCLUSIONS #1. Minimal left ventricle wall thickness. #2. Normal valvular structure and function. #3. There is no pericardial effusion. #4. Normal left function with an ejection fraction of 65% Previewed by: Dr. Lam May MD (Electronically Signed) Final Date: 24 November 2021 12:30
== END 2021-11-25 12:04 | disposition home or self-care (01) ==
LOC: EC 19:39 → 6NMEDSUR 11-24 00:01 → 3SCARD 11-24 03:41
PROVIDERS: ADMIT Internal Medicine; ATTEND Internal Medicine
DX: R07.89 Other chest pain (principal); I12.9 Hypertensive chronic kidney disease with stage 1 through stage 4 chronic kidney disease, or unspecified chronic kidney disease; E11.22 Type 2 diabetes mellitus with diabetic chronic kidney disease; N18.30 Chronic kidney disease, stage 3 unspecified; E78.5 Hyperlipidemia, unspecified; E11.65 Type 2 diabetes mellitus with hyperglycemia; J44.9 Chronic obstructive pulmonary disease, unspecified; I25.10 Atherosclerotic heart disease of native coronary artery without angina pectoris; I27.20 Pulmonary hypertension, unspecified; R09.02 Hypoxemia; E87.1 Hypo-osmolality and hyponatremia; M34.9 Systemic sclerosis, unspecified; I95.9 Hypotension, unspecified; E66.01 Morbid (severe) obesity due to excess calories; Z68.41 Body mass index [BMI] 40.0-44.9, adult; R13.10 Dysphagia, unspecified; K21.9 Gastro-esophageal reflux disease without esophagitis; F40.240 Claustrophobia; E04.9 Nontoxic goiter, unspecified; F41.9 Anxiety disorder, unspecified; N28.9 Disorder of kidney and ureter, unspecified; M19.90 Unspecified osteoarthritis, unspecified site; G71.3 Mitochondrial myopathy, not elsewhere classified; Z79.4 Long term (current) use of insulin; Z79.82 Long term (current) use of aspirin; Z79.899 Other long term (current) drug therapy; Z88.4 Allergy status to anesthetic agent; Z88.5 Allergy status to narcotic agent; Z87.891 Personal history of nicotine dependence; Z99.81 Dependence on supplemental oxygen; Z90.710 Acquired absence of both cervix and uterus; Z96.651 Presence of right artificial knee joint; Z90.49 Acquired absence of other specified parts of digestive tract; Z87.01 Personal history of pneumonia (recurrent); Z87.440 Personal history of urinary (tract) infections; Z83.3 Family history of diabetes mellitus; Z80.49 Family history of malignant neoplasm of other genital organs; Z82.49 Family history of ischemic heart disease and other diseases of the circulatory system
CPT/HCPCS: 99285; 96372 ×2; 96360; 96361; 36415; 94640 ×2; 93005; 93306; 85379; 83880; 80053; 83690; 83735; 84484 ×2; 85025; 85610; 85730; 71046; G0378 ×3; J1644 ×2

== ENCOUNTER → 2022-07-20 | Outpatient (CLI) | payer MEDICARE, OTHER ==
--- NOTE | 2022-07-23 10:59 | MM ---
Reason for Exam: Screening (asymptomatic). Last mammogram was performed 1 year(s) and 1 month(s) ago. Patient History: Menarche at age 11. First Full-Term at age 21. Left ovary removed at age 47. Right ovary removed at age 47. Hysterectomy at age 35. Postmenopausal. Estrogen, starting at age 35 for 17 years. Paternal grandmother had breast cancer, age 60. Paternal aunt had breast cancer, age 45. Maternal aunt had breast cancer. Risk Values: [place] 5 year model risk: 1.2%. NCI Lifetime model risk: 6.9%. Prior Study Comparison: 05/26/2020 Right Diagnostic Mammogram, [facility]. 11/25/2020 Right Diagnostic Mammogram, [facility]. 07/06/2021 Bilateral Diagnostic Mammogram, [facility]. Tissue Density: There are scattered fibroglandular densities. Findings: Analyzed By CAD. There is no suspicious new group of microcalcifications or new suspicious mass in either breast. Overall Assessment: Negative, BI-RAD 1 Management: Screening Mammogram of both breasts in 1 year. A clinical breast exam by your physician is recommended on an annual basis and results should be correlated with mammographic findings. Electronically signed and approved by: Raffi Jacome M.D.
== END | disposition home or self-care (01) ==
LOC: RADMAMWWP 15:29
PROVIDERS: ATTEND Family Medicine
DX: Z12.31 Encounter for screening mammogram for malignant neoplasm of breast (principal); Z78.0 Asymptomatic menopausal state; Z80.3 Family history of malignant neoplasm of breast
CPT/HCPCS: 77063; 77067

== ENCOUNTER 2023-08-24 00:59 | Emergency (ER) | payer MEDICARE, OTHER ==
[2023-08-24 01:32] LABS: Basophils % (A) 0 %; Eosinophils # (A) 0.2 k/uL (0-0.7); Eosinophils % (A) 2 %; HCT 40.2 % (34.0-46.0); HGB 13.3 gm/dL (11.4-16.0); Lymphocytes # (A) 1.6 k/uL (1.0-4.8); Lymphocytes % (A) 17 %; MCH 27.2 pg (25.0-35.0); MCHC 33.1 g/dL (31.0-37.0); MCV 82.4 fL (80.0-100.0); Mean Platelet Volume 6.6; Monocytes # (A) 0.3 k/uL (0-1.0); Monocytes % (A) 4 %; Neutrophils # (A) 6.7 k/uL (1.3-7.7); Neutrophils % (A) 75 %; Platelet Count 314 k/uL (150-450); RBC 4.88 m/uL (3.80-5.40); RDW 13.9 % (11.5-15.5); WBC 8.9 k/uL (3.8-10.6)
[2023-08-24 01:49] LABS: ALT 39 U/L (4-34); AST 24 U/L (14-36); African American GFR (CKD) 78 (>60 ml/min/1.73 sqM); Alkaline Phosphatase 192 U/L (38-126); Anion Gap 8 mmol/L; Blood Urea Nitrogen 16 mg/dL (7-17); Calcium 9.4 mg/dL (8.4-10.2); Carbon Dioxide 28 mmol/L (22-30); Chloride 98 mmol/L (98-107); Glucose 188 mg/dL (74-99); Non-African American GFR(CKD) 68 (>60 ml/min/1.73 sqM); Potassium 4.1 mmol/L (3.5-5.1); Sodium 134 mmol/L (137-145); Total Bilirubin 0.6 mg/dL (0.2-1.3); Total Protein 7.1 g/dL (6.3-8.2)
[2023-08-24 01:53] LABS: Appearance,Urine Cloudy (Clear); Bacteria,Urine Rare /hpf; Bilirubin,Urine Negative (Negative); Blood,Urine Negative (Negative); Color,Urine Colorless; Glucose,Urine (UA) Trace (Negative); Ketones,Urine Negative (Negative); Leukocyte Esterase,Urine Negative (Negative); Nitrite,Urine Negative (Negative); PH, Urine 5.5 (5.0-8.0); Protein,Urine Negative (Negative); RBC,Urine 1 /hpf (0-5); Specific Gravity,Urine 1.008 (1.001-1.035); Squamous Epithelial Cell,Urine 17 /hpf (0-4); Urobilinogen,Urine <2.0 mg/dL (<2.0); WBC,Urine 2 /hpf (0-5)
--- NOTE | 2023-08-24 02:46 | ED ---
Abdominal Pain HPI - General Source: patient Mode of arrival: ambulatory Limitations: no limitations <Jovany Fontana - Last Filed: 08/24/23 03:52> <Thee Crawford - Last Filed: 09/05/23 00:48> - General Chief Complaint: Abdominal Pain Stated Complaint: Abd pain Time Seen by Provider: 08/24/23 02:44 - History of Present Illness Initial Comments: 58-year-old female presenting with chief complaint of abdominal pain. Patient is having sharp left lower quadrant pain which has been worsening for the last 3 days. Admits to nausea. No vomiting or fevers or diarrhea. No urinary symptoms. I performed a quick note portion of this visit electronically signed Jovany Fontana PA-C (Jovany Fontana) - Related Data Home Medications Medication Instructions Recorded Confirmed Isosorbide Mononitrate ER [Imdur] 60 mg PO DAILY 07/16/14 02/04/23 Montelukast [Singulair] 10 mg PO HS 10/20/15 02/04/23 Gabapentin [Neurontin] 800 mg PO TID 09/07/16 09/04/23 Latanoprost Ophth [Xalatan 0.005%] 1 drop BOTH EYES HS 09/07/16 09/04/23 Atorvastatin [Lipitor] 40 mg PO DAILY 08/20/17 02/04/23 Ipratropium-Albuterol Nebulize 3 ml INHALATION RT-QID PRN 08/20/17 09/04/23 [Duoneb 0.5 mg-3 mg/3 ml Soln] Furosemide [Lasix] 20 mg PO DAILY 08/29/19 02/04/23 dilTIAZem HCL [dilTIAZem HCL 24Hr 240 mg PO HS 08/29/19 02/04/23 ER] Aspirin EC [Ecotrin Low Dose] 81 mg PO DAILY 03/31/21 02/04/23 Famotidine 40 mg PO DAILY 03/31/21 02/04/23 Pantoprazole [Protonix] 40 mg PO BID 06/22/21 02/04/23 Budesonide [Pulmicort Flexhaler] 2 puff INHALATION RT-BID 11/23/21 02/04/23 Cyclobenzaprine [Flexeril] 10 mg PO BID PRN 11/23/21 02/04/23 DULoxetine HCL [Cymbalta] 120 mg PO HS 11/23/21 02/04/23 Flovent (Unknown Strength) 2 puff INHALATION DIRECTED PRN 11/23/21 02/04/23 Fluticasone Nasal [place] [Flonase 2 spr EA NOSTRIL DAILY 11/23/21 09/04/23 Nasal [place]] HYDROcodone/APAP 10-325MG [[place] 1 tab PO Q4H PRN 11/23/21 02/04/23 10-325] Ibuprofen [Motrin] 800 mg PO Q8H PRN 11/23/21 02/04/23 Insulin Aspart [NovoLOG] 25 unit SQ TID-W/MEALS 11/23/21 02/04/23 Insulin Glargine,Hum.rec.anlog 50 unit SQ HS 11/23/21 02/04/23 [Lantus Solostar Pen] Ondansetron Odt [Zofran ODT] 4 mg PO Q6H PRN 11/23/21 09/04/23 Ipratropium Nasal [place](Unknown 2 spr EA NOSTRIL DAILY PRN 09/04/23 Dose) Losartan [Cozaar] 50 mg PO DAILY 09/04/23 Previous Rx's Medication Instructions Recorded Hydroxychloroquine Sulfate 200 mg PO BID tab 06/23/21 [Plaquenil] Allergies Allergy/AdvReac Type Severity Reaction Status Date / Time Androgenic Anabolic Steroid Allergy Unknown Verified 09/04/23 15:44 meperidine HCl [From Demerol] Allergy Rash/Hives Verified 09/04/23 15:44 propoxyphene napsylate Allergy Dyspnea Verified 09/04/23 15:44 [From Darvocet-N] Review of Systems ROS Other: All systems not noted in ROS Statement are negative. <Jovany Fontana - Last Filed: 08/24/23 03:52> ROS Other: All systems not noted in ROS Statement are negative. <Thee Crawford - Last Filed: 09/05/23 00:48> ROS Statement: Those systems with pertinent positive or pertinent negative responses have been documented in the HPI. Past Medical History Past Medical History: COPD, CVA/TIA, Diabetes Mellitus, GERD/Reflux, Hyperlipidemia, Hypertension, Neurologic Disorder, Osteoarthritis (OA), Pneumonia, Renal Disease, Thyroid Disorder Additional Past Medical History / Comment(s): Hx CVA few ago, no residual effects. Generalized Neuropathy. Heart murmur. Hx UTI. GOITER. DIASTOLIC DYSFUNC TION. Scleroderma, trouble swalowing. Mitochondrial Myopathy, chronic pulmonary failure, kidney disease stage III. History of Any Multi-Drug Resistant Organisms: None Reported Past Surgical History: Appendectomy, Cholecystectomy, Heart Catheterization, Hysterectomy, Joint Replacement Additional Past Surgical History / Comment(s): RIGHT KNEE REPLACEMENT, LEFT KNEE SURGERY WITH SCREWS IN PLACE. Past Anesthesia/Blood Transfusion Reactions: No Reported Reaction Additional Past Anesthesia/Blood Transfusion Reaction / Comment(s): CLAUSTERPHOBIC. Past Psychological History: Anxiety Smoking Status: Former smoker Past Alcohol Use History: Occasional Past Drug Use History: None Reported - Past Family History Father Family Medical History: Cancer, Diabetes Mellitus Additional Family Medical History / Comment(s): AT AGE 61, CA throughout the body Mother Family Medical History: Cancer, Congestive Heart Failure (CHF), Diabetes Mellitus, Myocardial Infarction (NM), Thyroid Disorder Additional Family Medical History / Comment(s): Uterine CA <Jovany Fontana - Last Filed: 08/24/23 03:52> General Exam Limitations: no limitations <Jovany Fontana - Last Filed: 08/24/23 03:52> - General Exam Comments Initial Comments: Visual Physical Exam Vital signs reviewed General: Well-appearing, nontoxic, no acute distress. Head: Normocephalic, atraumatic Eyes: PERRLA, EOMI ENT: Airway patent Chest: Nonlabored breathing Skin: No visual rash, normal skin tone Neuro: Alert and oriented 3 Musculoskeletal: No gross abnormalities (Jovany Fontana) Course Vital Signs 08/24/23 08/24/23 01:15 04:46 Temperature 97.9 F 98.3 F Pulse Rate 80 72 Respiratory 22 16 Rate Blood Pressure 127/62 141/66 O2 Sat by Pulse 96 100 Oximetry Medical Decision Making - Lab Data Result diagrams: 08/24/23 01:20 08/24/23 01:20 <Jovany Fontana - Last Filed: 08/24/23 03:52> - Lab Data Result diagrams: 08/24/23 01:20 08/24/23 01:20 <Thee Crawford - Last Filed: 09/05/23 00:48> - Medical Decision Making Was pt. sent in by a medical professional or institution (HILLARY Castellano, CUSTOMER DEVELOPMENT MANAGER, urgent care, hospital, or fci...) When possible be specific @ -[No] Did you speak to anyone other than the patient for history (EMS, parent, family, police, friend...)? What history was obtained from this source @ -[No] Did you review nursing and triage notes (agree or disagree)? Why? @ -[I reviewed and agree with nursing and triage notes] Were old charts reviewed (outside hosp., previous admission, EMS record, old EKG, old radiological studies, urgent care reports/EKG's, fci records)? Report findings @ -[No old charts were reviewed] Differential Diagnosis (chest pain, altered mental status, abdominal pain women, abdominal pain men, vaginal bleeding, weakness, fever, dyspnea, syncope, headache, dizziness, GI bleed, back pain, seizure, CVA, palpatations, mental health, musculoskeletal)? @ -[Differential Abdominal Pain Women: Appendicitis, Cholecystitis, diverticulosis, ischemic bowel, pancreatitis, hepatitis, UTI, gastroenteritis, AAA, incarcerated hernia, bowel obstruction, constipation, inflammatory bowel, hepatitis, peptic ulcer disease, splenic infarction, perforated viscus, vulvitis, ovarian torsion, PID, kidney stone, placenta abruption, this is not meant to be an all-inclusive list EKG interpreted by me (3pts min.). @ -[As above] X-rays interpreted by me (1pt min.). @ -[None done] CT interpreted by me (1pt min.). @ -[None done] U/S interpreted by me (1pt. min.). @ -[None done] What testing was considered but not performed or refused? (CT, X-rays, U/S, labs)? Why? @ -[None] What meds were considered but not given or refused? Why? @ -[None] Did you discuss the management of the patient with other professionals (professionals i.e. HILLARY Castellano, CUSTOMER DEVELOPMENT MANAGER, lab, RT, psych nurse, criminal justice social worker, supervisor painting, teacher, consumer safety officer, family preservation caseworker)? Give summary @ -[No] Was smoking cessation discussed for >3mins.? @ -[No] Was critical care preformed (if so, how long)? @ -[No] Were there social determinants of health that impacted care today? How? (Homelessness, low income, unemployed, alcoholism, drug addiction, transportation, low edu. Level, literacy, decrease access to med. care, senior care, rehab)? @ -[No] Was there de-escalation of care discussed even if they declined (Discuss DNR or withdrawal of care, Hospice)? DNR status @ -[No] What co-morbidities impacted this encounter? (DM, HTN, Smoking, COPD, CAD, Cancer, CVA, ARF, Chemo, Hep., AIDS, mental health diagnosis, sleep apnea, morbid obesity)? @ -[None] Was patient admitted / discharged? Hospital course, mention meds given and route, prescriptions, significant lab abnormalities, going to OR and other pertinent info. @ -[hospital course] Undiagnosed new problem with uncertain prognosis? @ -[No] Drug Therapy requiring intensive monitoring for toxicity (Heparin, Nitro, Insulin, Cardizem)? @ -[No] Were any procedures done? @ -[No] Diagnosis/symptom? @ -[Acute abdominal pain Acute colitis Acute, or Chronic, or Acute on Chronic? @ -[Acute Uncomplicated (without systemic symptoms) or Complicated (systemic symptoms)? @ -[Uncomplicated Side effects of treatment? @ -[No] Exacerbation, Progression, or Severe Exacerbation? @ -[No] Poses a threat to life or bodily function? How? (Chest pain, USA, NM, pneumonia, PE, COPD, DKA, ARF, appy, cholecystitis, CVA, Diverticulitis, Homicidal, Suicidal, threat to staff... and all critical care pts) @ -[No] (Thee Crawford) - Lab Data Lab Results 08/24/23 08/24/23 08/24/23 Range/Units 01:20 01:20 01:20 WBC 8.9 (3.8-10.6) k/uL RBC 4.88 (3.80-5.40) m/uL Hgb 13.3 (11.4-16.0) gm/dL Hct 40.2 (34.0-46.0) % MCV 82.4 (80.0-100.0) fL MCH 27.2 (25.0-35.0) pg MCHC 33.1 (31.0-37.0) g/dL RDW 13.9 (11.5-15.5) % Plt Count 314 (150-450) k/uL MPV 6.6 Neutrophils % 75 % Lymphocytes % 17 % Monocytes % 4 % Eosinophils % 2 % Basophils % 0 % Neutrophils # 6.7 (1.3-7.7) k/uL Lymphocytes # 1.6 (1.0-4.8) k/uL Monocytes # 0.3 (0-1.0) k/uL Eosinophils # 0.2 (0-0.7) k/uL Basophils # 0.0 (0-0.2) k/uL Sodium 134 L (137-145) mmol/L Potassium 4.1 (3.5-5.1) mmol/L Chloride 98 (98-107) mmol/L Carbon Dioxide 28 (22-30) mmol/L Anion Gap 8 mmol/L BUN 16 (7-17) mg/dL Creatinine 0.93 (0.52-1.04) mg/dL Est GFR (CKD-EPI)AfAm 78 (>60 ml/min/1.73 sqM) Est GFR (CKD-EPI)NonAf 68 (>60 ml/min/1.73 sqM) Glucose 188 H (74-99) mg/dL Calcium 9.4 (8.4-10.2) mg/dL Total Bilirubin 0.6 (0.2-1.3) mg/dL AST 24 (14-36) U/L ALT 39 H (4-34) U/L Alkaline Phosphatase 192 H (38-126) U/L Total Protein 7.1 (6.3-8.2) g/dL Albumin 4.0 (3.5-5.0) g/dL Urine Color Colorless Urine Appearance Cloudy H (Clear) Urine pH 5.5 (5.0-8.0) Ur Specific [place] 1.008 (1.001-1.035) Urine Protein Negative (Negative) Urine Glucose (UA) Trace H (Negative) Urine Ketones Negative (Negative) Urine Blood Negative (Negative) Urine Nitrite Negative (Negative) Urine Bilirubin Negative (Negative) Urine Urobilinogen <2.0 (<2.0) mg/dL Ur Leukocyte Esterase Negative (Negative) Urine RBC 1 (0-5) /hpf Urine WBC 2 (0-5) /hpf Ur Squamous Epith Cells 17 H (0-4) /hpf Urine Bacteria Rare H (None) /hpf Disposition <Jovany Fontana - Last Filed: 08/24/23 03:52> Is patient prescribed a controlled substance at d/c from ED?: Yes When asked, does pt state using other controlled substances?: No If prescribed controlled substance>3 days was MAPS reviewed?: Prescribed <3 Days If opioid is for acute pain is fill amount 7 days or less?: Yes If Rx opioid, was Start Talking consent form obtained?: Yes <Thee Crawford - Last Filed: 09/05/23 00:48> Clinical Impression: Diverticulitis Disposition: HOME SELF-CARE Condition: Good Referrals: Murray Braun DO [Primary Care Provider] - 1-2 days
[2023-08-24] MEDS ORDERED: AMPICILLIN-SULBACTAM 3 GM in SODIUM CHLORIDE 0.9% 100 ML IVPB STA (05:11)
[2023-08-24] MEDS ORDERED: MORPHINE SULFATE 4 MG/ML SYRINGE IV STA (05:12)
[2023-08-24 05:16] VITALS: BP 141/66; PULSE 72; RESP 16; TEMP 98.3
--- NOTE | 2023-08-24 06:38 | CT ---
EXAM: CT Abdomen and Pelvis With Intravenous Contrast CLINICAL HISTORY: ITS.REASON CT Reason: LLQ pain TECHNIQUE: Axial computed tomography images of the abdomen and pelvis with intravenous contrast. CTDI is 40.8 mGy and DLP is 2141.2 mGy-cm. This CT exam was performed using one or more of the following dose reduction techniques: automated exposure control, adjustment of the mA and/or kV according to patient size, and/or use of iterative reconstruction technique. COMPARISON: CT abdomen pelvis performed 10/15/20 FINDINGS: Lung bases: Unremarkable. No mass. No consolidation. ABDOMEN: Liver: Hepatic steatosis. Gallbladder and bile ducts: Cholecystectomy. No ductal dilation. Pancreas: Unremarkable. No mass. No ductal dilation. Spleen: Unremarkable. No splenomegaly. Adrenals: Unremarkable. No mass. Kidneys and ureters: Unremarkable. No solid mass. No hydronephrosis. Stomach and bowel: Mild wall thickening/inflammatory change adjacent to the descending colon in the left lower quadrant. Query focal colitis. No appreciable diverticula to suggest diverticulitis. No obstruction. PELVIS: Appendix: No findings to suggest acute appendicitis. Bladder: Unremarkable. No mass. Reproductive: Unremarkable as visualized. ABDOMEN and PELVIS: Intraperitoneal space: No free air. No significant fluid collection. Bones/joints: No acute fracture. No dislocation. Soft tissues: Unremarkable. Vasculature: Mild atherosclerosis. No abdominal aortic aneurysm. Lymph nodes: No enlarged lymph nodes. IMPRESSION: Mild wall thickening/inflammatory change adjacent to the descending colon in the left lower quadrant. Query focal colitis. No appreciable diverticula to suggest diverticulitis. Hepatic steatosis.
== END 2023-08-24 06:10 | disposition home or self-care (01) ==
LOC: EC 00:59
DX: K57.32 Diverticulitis of large intestine without perforation or abscess without bleeding (principal); E78.5 Hyperlipidemia, unspecified; E11.22 Type 2 diabetes mellitus with diabetic chronic kidney disease; E11.40 Type 2 diabetes mellitus with diabetic neuropathy, unspecified; J44.9 Chronic obstructive pulmonary disease, unspecified; K21.9 Gastro-esophageal reflux disease without esophagitis; F41.9 Anxiety disorder, unspecified; Z87.891 Personal history of nicotine dependence; Z79.82 Long term (current) use of aspirin; Z79.899 Other long term (current) drug therapy; Z79.4 Long term (current) use of insulin; Z79.51 Long term (current) use of inhaled steroids; Z88.8 Allergy status to other drugs, medicaments and biological substances
CPT/HCPCS: 99284 ×2; 96365 ×2; 96375 ×2; 36415; 80053; 85025; 81001; 74177; J2270; J0295; Q9967

== ENCOUNTER 2023-09-04 15:36 | Observation (INO) | payer MEDICARE, OTHER ==
--- NOTE | 2023-09-04 16:11 | ED ---
Chest Pain HPI - General Chief Complaint: Chest Pain Stated Complaint: chest tight PENNIE Time Seen by Provider: 09/04/23 15:54 Source: patient Mode of arrival: ambulatory Limitations: no limitations - History of Present Illness MD Complaint: chest pain Onset/Timin -: hour(s) Onset: during rest, after eating Pain Location: substernal Pain Radiation: LUE Severity: severe Quality: sharp Consistency: constant, now resolved (Partially) Improves With: nothing Worsens With: nothing Treatments Prior to Arrival: aspirin, nitroglycerin, oxygen - Related Data Home Medications Medication Instructions Recorded Confirmed Isosorbide Mononitrate ER [Imdur] 60 mg PO QAM 07/16/14 02/04/23 Montelukast [Singulair] 10 mg PO HS 10/20/15 02/04/23 Gabapentin [Neurontin] 800 mg PO TID 09/07/16 02/04/23 Latanoprost Ophth [Xalatan 0.005%] 1 drop BOTH EYES HS 09/07/16 02/04/23 Atorvastatin [Lipitor] 40 mg PO DAILY 08/20/17 02/04/23 Ipratropium-Albuterol Nebulize 3 ml INHALATION QID 08/20/17 02/04/23 [Duoneb 0.5 mg-3 mg/3 ml Soln] Furosemide [Lasix] 20 mg PO DAILY 08/29/19 02/04/23 dilTIAZem HCL [dilTIAZem HCL 24Hr 240 mg PO HS 08/29/19 02/04/23 ER] Aspirin EC [Ecotrin Low Dose] 81 mg PO DAILY 03/31/21 02/04/23 Famotidine 40 mg PO QAM 03/31/21 02/04/23 Pantoprazole [Protonix] 40 mg PO BID 06/22/21 02/04/23 hydrOXYzine pamoate [Vistaril] 50 mg PO HS PRN 06/22/21 02/04/23 Budesonide [Pulmicort Flexhaler] 2 puff INHALATION BID 11/23/21 02/04/23 Cyclobenzaprine [Flexeril] 5 mg PO BID PRN 11/23/21 02/04/23 DULoxetine HCL [Cymbalta] 120 mg PO HS 11/23/21 02/04/23 Flovent (Unknown Strength) 1 dose INHALATION DAILY PRN 11/23/21 02/04/23 Fluticasone Nasal [place] [Flonase 2 spray EA NOSTRIL DAILY 11/23/21 02/04/23 Nasal [place]] HYDROcodone/APAP 10-325MG [[place] 1 tab PO Q4H PRN 11/23/21 02/04/23 10-325] Ibuprofen [Motrin] 800 mg PO TID PRN 11/23/21 02/04/23 Insulin Aspart [NovoLOG] 10 unit SQ TID-W/MEALS 11/23/21 02/04/23 Insulin Glargine,Hum.rec.anlog 40 unit SQ HS 11/23/21 02/04/23 [Lantus Solostar Pen] Ondansetron Odt [Zofran ODT] 4 mg PO Q6H PRN 11/23/21 02/04/23 Trulicity(Unknown Dose) 0.5 ml SQ FR 02/04/23 Previous Rx's Medication Instructions Recorded Hydroxychloroquine Sulfate 200 mg PO BID tab 06/23/21 [Plaquenil] Losartan [Cozaar] 50 mg PO BID 30 Days #60 tab 11/25/21 Amoxic-Pot Clav 875-125Mg 1 tab PO Q12HR 1 Days #14 tab 08/24/23 [Augmentin 875-125] HYDROcodone/APAP 7.5-325MG [[place] 1 tab PO Q6HR PRN 3 Days #12 tab 08/24/23 7.5-325] Allergies Allergy/AdvReac Type Severity Reaction Status Date / Time Androgenic Anabolic Steroid Allergy Unknown Verified 09/04/23 15:44 meperidine HCl [From Demerol] Allergy Rash/Hives Verified 09/04/23 15:44 propoxyphene napsylate Allergy Dyspnea Verified 09/04/23 15:44 [From Darvocet-N] Review of Systems ROS Statement: Those systems with pertinent positive or pertinent negative responses have been documented in the HPI. ROS Other: All systems not noted in ROS Statement are negative. Constitutional: Denies: fever, chills Respiratory: Reports: dyspnea. Denies: cough Cardiovascular: Reports: chest pain. Denies: palpitations, edema, syncope Gastrointestinal: Denies: abdominal pain, nausea, vomiting, diarrhea Genitourinary: Denies: dysuria, hematuria Musculoskeletal: Denies: back pain Skin: Denies: rash Neurological: Denies: headache, weakness EKG Findings - EKG Results: EKG: interpreted by ERMD, sinus rhythm (Rate 82 bpm), normal axis - Blocks, Kramer, Hypertrophy, ST Abn: QRS axis and voltage: low voltage (<0.5 MV total QRS and <1.0 MV in each precordial lead) Repolarization changes or abnormalities: nonspecific abnormality, ST segment, and/or T wave Past Medical History Past Medical History: COPD, CVA/TIA, Diabetes Mellitus, GERD/Reflux, Hyperlipidemia, Hypertension, Neurologic Disorder, Osteoarthritis (OA), Pneumonia, Renal Disease, Thyroid Disorder Additional Past Medical History / Comment(s): Hx CVA few ago, no residual effects. Generalized Neuropathy. Heart murmur. Hx UTI. GOITER. DIASTOLIC DYSFUNCTION. Scleroderma, trouble swalowing. Mitochondrial Myopathy, chronic pulmonary failure, kidney disease stage III. History of Any Multi-Drug Resistant Organisms: None Reported Past Surgical History: Appendectomy, Cholecystectomy, Heart Catheterization, Hysterectomy, Joint Replacement Additional Past Surgical History / Comment(s): RIGHT KNEE REPLACEMENT, LEFT KNEE SURGERY WITH SCREWS IN PLACE. Past Anesthesia/Blood Transfusion Reactions: No Reported Reaction Additional Past Anesthesia/Blood Transfusion Reaction / Comment(s): CLAUSTERPHOBIC. Past Psychological History: Anxiety Smoking Status: Former smoker Past Alcohol Use History: Occasional Past Drug Use History: None Reported - Past Family History Father Family Medical History: Cancer, Diabetes Mellitus Additional Family Medical History / Comment(s): AT AGE 61, CA throughout the body Mother Family Medical History: Cancer, Congestive Heart Failure (CHF), Diabetes Mellitus, Myocardial Infarction ([place]), Thyroid Disorder Additional Family Medical History / Comment(s): Uterine CA General Exam Limitations: no limitations General appearance: alert, in no apparent distress Head exam: Present: atraumatic, normocephalic Eye exam: Present: normal appearance. Absent: scleral icterus, conjunctival injection Neck exam: Present: normal inspection Respiratory exam: Present: normal lung sounds bilaterally. Absent: respiratory distress, wheezes, rales, rhonchi, stridor Cardiovascular Exam: Present: regular rate, normal rhythm, normal heart sounds. Absent: systolic murmur, diastolic murmur, rubs, gallop GI/Abdominal exam: Present: soft. Absent: distended, tenderness, guarding, rebound, rigid, mass Extremities exam: Present: normal inspection, normal capillary refill. Absent: pedal edema, calf tenderness Back exam: Present: normal inspection. Absent: CVA tenderness (R), CVA tenderness (L) Neurological exam: Present: alert Skin exam: Present: warm, dry, intact, normal color. 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
[2023-09-04] MEDS ORDERED: MORPHINE SULFATE 4 MG/ML SYRINGE IV STA (16:23)
[2023-09-04] MEDS ORDERED: ASPIRIN 81 MG PO STA (16:23)
--- NOTE | 2023-09-04 16:44 | XR ---
EXAMINATION TYPE: XR chest 2V DATE OF EXAM: 09/04/2023 4:37 PM CLINICAL INDICATION:Female, 58 years old with history of Chest Pain; [facility] COMPARISON: Chest radiographs from 11/23/2021. TECHNIQUE: XR chest 2V Frontal and lateral views of the chest. FINDINGS: Lungs/Pleura: Subsegmental atelectasis is identified. No evidence of pleural effusion or pneumothorax . Pulmonary vascularity: Unremarkable. Heart/mediastinum: Mild cardiomegaly. Musculoskeletal: No acute osseous pathology. IMPRESSION: Mild cardiomegaly. Otherwise no significant cardiopulmonary process.
[2023-09-04 16:46] LABS: Basophils # (A) 0.1 k/uL (0-0.2); Basophils % (A) 1 %; Eosinophils # (A) 0.2 k/uL (0-0.7); Eosinophils % (A) 3 %; HCT 40.1 % (34.0-46.0); HGB 13.1 gm/dL (11.4-16.0); Lymphocytes # (A) 1.3 k/uL (1.0-4.8); Lymphocytes % (A) 17 %; MCH 27.4 pg (25.0-35.0); MCHC 32.6 g/dL (31.0-37.0); MCV 83.9 fL (80.0-100.0); Mean Platelet Volume 6.9; Monocytes # (A) 0.3 k/uL (0-1.0); Monocytes % (A) 4 %; Neutrophils # (A) 5.6 k/uL (1.3-7.7); Neutrophils % (A) 74 %; Platelet Count 336 k/uL (150-450); RBC 4.77 m/uL (3.80-5.40); RDW 14.2 % (11.5-15.5); WBC 7.6 k/uL (3.8-10.6)
[2023-09-04 16:51] LABS: INR 0.9 (<1.2)
[2023-09-04 16:52] LABS: Prothrombin Time 9.9 sec (10.0-12.5)
[2023-09-04 17:10] LABS: ALT 131 U/L (4-34); AST 69 U/L (14-36); African American GFR (CKD) 79 (>60 ml/min/1.73 sqM); Alkaline Phosphatase 204 U/L (38-126); Amylase 44 U/L (30-110); Anion Gap 7 mmol/L; Blood Urea Nitrogen 14 mg/dL (7-17); Calcium 9.7 mg/dL (8.4-10.2); Carbon Dioxide 31 mmol/L (22-30); Chloride 97 mmol/L (98-107); Glucose 282 mg/dL (74-99); Lipase 115 U/L (23-300); Non-African American GFR(CKD) 69 (>60 ml/min/1.73 sqM); Sodium 135 mmol/L (137-145); Total Bilirubin 0.5 mg/dL (0.2-1.3); Total Protein 6.8 g/dL (6.3-8.2)
[2023-09-04 17:18] LABS: NT-Pro-B-Type Natriuretic Pept 50 pg/mL
[2023-09-04] MEDS ORDERED: NITROGLYCERIN SL TABS 0.4 MG TAB SUBLINGUAL PRN (18:57)
[2023-09-04] MEDS ORDERED: SODIUM CHLORIDE 0.9% 1,000 ML IV SCH (19:00)
[2023-09-04] MEDS ORDERED: HYDROcodone/APAP 10-325MG 1 EACH TAB PO PRN (21:18)
[2023-09-04] MEDS ORDERED: IPRATROPIUM-ALBUTEROL 3 ML NEB INHALATION PRN (21:18)
[2023-09-04] MEDS ORDERED: ONDANSETRON ODT 4 MG TAB PO PRN (21:18)
[2023-09-04] MEDS: GABAPENTIN 400 MG CAP PO SCH (21:30)
[2023-09-05] MEDS ORDERED: REGADENOSON 0.4 MG/5 ML SYRINGE IV PRN (08:30)
[2023-09-05] MEDS ORDERED: CAFFEINE CITRATE 60 MG/3 ML VIAL IV PRN (08:30)
[2023-09-05] MEDS ORDERED: AMINOPHYLLINE 500 MG/20 ML VIAL IV PRN (08:30)
[2023-09-05] MEDS: GABAPENTIN 400 MG CAP PO SCH (08:40)
[2023-09-05 08:47] LABS: Chol/HDL Ratio 2.45 Ratio; LDL Cholesterol,Calculated 52.6 mg/dL (0.0-131.0)
[2023-09-05] MEDS ORDERED: ASPIRIN 325 MG TAB PO SCH (09:00)
[2023-09-05] MEDS ORDERED: HYDROXYCHLOROQUINE SULFATE 200 MG TAB PO SCH (09:00)
[2023-09-05] MEDS ORDERED: PANTOPRAZOLE 40 MG TABLET PO SCH (09:00)
[2023-09-05] MEDS ORDERED: ATORVASTATIN 40 MG TAB PO SCH (09:00)
[2023-09-05] MEDS ORDERED: ASPIRIN 81 MG PO SCH (09:00)
[2023-09-05] MEDS ORDERED: LOSARTAN 50 MG TAB PO SCH (09:00)
[2023-09-05] MEDS ORDERED: ISOSORBIDE MONONITRATE ER 60 MG TAB.ER.24H PO SCH (09:00)
--- NOTE | 2023-09-05 09:47 | P.CRDCN ---
History of Present Illness History of present illness: HISTORY OF PRESENT ILLNESS: This is a 58-year-old female with a past medical history significant for scleroderma, pulmonary hypertension, diabetes, hypertension, hyperlipidemia, chronic hypoxic respiratory failure, congestive heart failure, and coronary artery disease. Patient follows in the office with Dr. Mendez. We have been asked to see the patient in consultation for chest pain. Patient examined at the bedside in the emergency room. Patient reports yesterday she began having pain in her left arm and shoulder. She states this pain started yesterday suddenly when she was out to lunch. She denies doing anything strenuous or any recent injury to her left arm. She states when she moves her left arm the pain is reproducible and the pain goes into her chest with movement. She states she did not take any medication such as sublingual nitro to help with the pain. She does report having some shortness of breath and chest pressure with exertion on an outpatient basis. At the time of examination, she denies chest pain or pressure. She denies shortness of breath. Vital signs are stable. DIAGNOSTICS: - EKG reveals sinus mechanism with no signs of acute ischemia. - Chest xray mild cardiomegaly. Otherwise no significant cardiopulmonary process per radiology dictation. - Laboratory data: WBC 7.6. Hemoglobin 13.1. Platelet count 336. D-dimer 0.38. Sodium 135. Potassium 5.0. BUN 14. Creatinine 0.92. Magnesium 2.0. AST 69. ALT 131. Troponin negative x 3. - Current home cardiac medications include losartan 50 mg daily, Imdur 60 mg daily, Lasix 20 mg daily, Cardizem 240 mg at night, Lipitor 40 mg daily, aspirin 81 mg daily. - Most recent echocardiogram obtained in November 2021 revealed ejection fraction 65%, normal valvular structure and function, no pericardial effusion. - Cardiac catheterization history: March 2021 revealing 50% stenosis of proximal PDA. REVIEW OF SYSTEMS: At the time of my exam: CONSTITUTIONAL: Denies fever or chills. HEENT: Denies blurred vision, vision changes, or eye pain. Denies hemoptysis CARDIOVASCULAR: Denies chest pain. Denies orthopnea. Denies PND. Denies palpitations RESPIRATORY: Denies shortness of breath. GASTROINTESTINAL: Denies abdominal pain. Denies nausea or vomiting. HEMATOLOGIC: Denies bleeding disorders. GENITOURINARY: Denies any blood in urine. SKIN: Denies pruitis. Denies rash. PHYSICAL EXAM: VITAL SIGNS: Reviewed. GENERAL: Well-developed in no acute distress. HEENT: Head is normocephalic. Pupils are equal, round. Sclerae anicteric. Mucous membranes of the mouth are moist. Neck supple. No JVD or thyromegaly LUNGS: Respirations even and unlabored. Lungs essentially clear to auscultation bilaterally. HEART: Regular rate and rhythm. S1 and S2 heard. ABDOMEN: Soft. Nondistended. Nontender. EXTREMITIES: Normal range of motion. No clubbing or cyanosis. Peripheral pulses intact. No lower extremity edema. Discomfort with left arm movement. NEUROLOGIC: Awake and alert. Oriented x 3. ASSESSMENT: Atypical chest pain with left arm discomfort, troponin negative x 3 Exertional shortness of breath and chest pressure History of pulmonary hypertension, follows at [facility] Chronic hypoxic respiratory failure on home oxygen Coronary artery disease, nonobstructive, 50% stenosis of proximal PDA Hypertension Hyperlipidemia Diabetes Congestive heart failure with preserved EF, currently euvolemic History of scleroderma History of mitochondrial myopathy Morbid obesity: BMI 41.1 Former nicotine dependence, patient quit smoking in 1996 PLAN: An acute coronary event has been ruled out Resume home cardiac medications Patient to undergo Lexiscan stress test today If negative, she may be discharged home today from a cardiac standpoint Patient to follow-up postdischarge with Dr. Mendez Nurse practitioner note has been reviewed by physician. Signing provider agrees with the documented findings, assessment, and plan of care documented by SAND BUFFER as a scribe. Past Medical History Past Medical History: COPD, CVA/TIA, Diabetes Mellitus, GERD/Reflux, Hyperlipidemia, Hypertension, Neurologic Disorder, Osteoarthritis (OA), Pneumonia, Renal Disease, Thyroid Disorder Additional Past Medical History / Comment(s): Hx CVA few ago, no residual effects. Generalized Neuropathy. Heart murmur. Hx UTI. GOITER. DIASTOLIC D YSFUNCTION. Scleroderma, trouble swalowing. Mitochondrial Myopathy, chronic pulmonary failure, kidney disease stage III. History of Any Multi-Drug Resistant Organisms: None Reported Past Surgical History: Appendectomy, Cholecystectomy, Heart Catheterization, Hysterectomy, Joint Replacement Additional Past Surgical History / Comment(s): RIGHT KNEE REPLACEMENT, LEFT KNEE SURGERY WITH SCREWS IN PLACE. Past Anesthesia/Blood Transfusion Reactions: No Reported Reaction Additional Past Anesthesia/Blood Transfusion Reaction / Comment(s): CLAUSTERPHOBIC. Past Psychological History: Anxiety Smoking Status: Former smoker Past Alcohol Use History: Occasional Past Drug Use History: None Reported - Past Family History Father Family Medical History: Cancer, Diabetes Mellitus Additional Family Medical History / Comment(s): AT AGE 61, CA throughout the body Mother Family Medical History: Cancer, Congestive Heart Failure (CHF), Diabetes Mellitus, Myocardial Infarction ([place]), Thyroid Disorder Additional Family Medical History / Comment(s): Uterine CA Medications and Allergies Home Medications Medication Instructions Recorded Confirmed Type Isosorbide Mononitrate ER [Imdur] 60 mg PO DAILY 07/16/14 09/05/23 History Montelukast [Singulair] 10 mg PO HS 10/20/15 09/05/23 History Gabapentin [Neurontin] 800 mg PO TID 09/07/16 09/04/23 History Latanoprost Ophth [Xalatan 0.005%] 1 drop BOTH EYES HS 09/07/16 09/04/23 History Atorvastatin [Lipitor] 40 mg PO DAILY 08/20/17 09/05/23 History Ipratropium-Albuterol Nebulize 3 ml INHALATION RT-QID PRN 08/20/17 09/04/23 History [Duoneb 0.5 mg-3 mg/3 ml Soln] Furosemide [Lasix] 20 mg PO DAILY 08/29/19 09/05/23 History dilTIAZem HCL [dilTIAZem HCL 24Hr 240 mg PO HS 08/29/19 09/05/23 History ER] Aspirin EC [Ecotrin Low Dose] 81 mg PO DAILY 03/31/21 09/05/23 History Famotidine 40 mg PO DAILY 03/31/21 09/05/23 History Hydroxychloroquine Sulfate 200 mg PO BID tab 06/23/21 09/04/23 Rx [Plaquenil] Budesonide [Pulmicort Flexhaler] 2 puff INHALATION RT-BID 11/23/21 09/05/23 History Cyclobenzaprine [Flexeril] 10 mg PO BID PRN 11/23/21 09/05/23 History DULoxetine HCL [Cymbalta] 120 mg PO HS 11/23/21 09/05/23 History Flovent (Unknown Strength) 2 puff INHALATION DIRECTED PRN 11/23/21 09/05/23 History Fluticasone Nasal [place] [Flonase 2 spr EA NOSTRIL DAILY 11/23/21 09/04/23 History Nasal [place]] HYDROcodone/APAP 10-325MG [[place] 1 tab PO Q4H PRN 11/23/21 09/05/23 History 10-325] Ibuprofen [Motrin] 800 mg PO Q8H PRN 11/23/21 09/05/23 History Insulin Aspart [NovoLOG] 25 unit SQ TID-W/MEALS 11/23/21 09/05/23 History Insulin Glargine,Hum.rec.anlog 50 unit SQ HS 11/23/21 09/05/23 History [Lantus Solostar Pen] Ondansetron Odt [Zofran ODT] 4 mg PO Q6H PRN 11/23/21 09/04/23 History Ipratropium Nasal [place](Unknown 2 spr EA NOSTRIL DIRECTED PRN 09/04/23 09/05/23 History Dose) Losartan [Cozaar] 50 mg PO DAILY 09/04/23 09/05/23 History Pantoprazole Sodium [Protonix] 20 mg PO BID 09/05/23 09/05/23 History Allergies Allergy/AdvReac Type Severity Reaction Status Date / Time Androgenic Anabolic Steroid Allergy Unknown Verified 09/04/23 15:44 meperidine HCl [From Demerol] Allergy Rash/Hives Verified 09/04/23 15:44 propoxyphene napsylate Allergy Dyspnea Verified 09/04/23 15:44 [From Darvocet-N] Physical Exam Vitals: Vital Signs Temp Pulse Pulse Resp BP Pulse Ox 09/05/23 06:00 81 18 136/45 98 09/05/23 04:00 76 18 135/46 99 09/05/23 03:00 74 18 154/75 99 09/05/23 02:00 68 18 149/73 99 09/05/23 01:00 73 18 149/73 99 09/05/23 00:00 79 18 132/48 99 09/04/23 23:00 77 18 135/48 99 09/04/23 19:00 76 18 133/75 99 09/04/23 16:59 81 80 18 133/57 09/04/23 15:41 98.1 F 80 16 173/50 99 Intake and Output 09/04/23 09/05/23 09/05/23 22:59 06:59 14:59 Other: Weight 112.037 kg Results 09/04/23 16:30 09/04/23 16:30 Cardiac Enzymes 09/04/23 09/04/23 09/04/23 Range/Units 16:30 16:30 19:31 AST 69 H (14-36) U/L Troponin I <0.012 <0.012 (0.000-0.034) ng/mL 09/04/23 Range/Units 22:32 AST (14-36) U/L Troponin I <0.012 (0.000-0.034) ng/mL Coagulation 09/04/23 Range/Units 16:30 PT 9.9 L (10.0-12.5) sec APTT 23.0 (22.0-30.0) sec CBC 09/04/23 Range/Units 16:30 WBC 7.6 (3.8-10.6) k/uL RBC 4.77 (3.80-5.40) m/uL Hgb 13.1 (11.4-16.0) gm/dL Hct 40.1 (34.0-46.0) % Plt Count 336 (150-450) k/uL Comprehensive Metabolic Panel 09/04/23 Range/Units 16:30 Sodium 135 L (137-145) mmol/L Potassium 5.0 (3.5-5.1) mmol/L Chloride 97 L (98-107) mmol/L Carbon Dioxide 31 H (22-30) mmol/L BUN 14 (7-17) mg/dL Creatinine 0.92 (0.52-1.04) mg/dL Glucose 282 H (74-99) mg/dL Calcium 9.7 (8.4-10.2) mg/dL AST 69 H (14-36) U/L ALT 131 H (4-34) U/L Alkaline Phosphatase 204 H (38-126) U/L Total Protein 6.8 (6.3-8.2) g/dL Albumin 4.0 (3.5-5.0) g/dL Current Medications Generic Name Dose Route Start Last Admin Trade Name Freq PRN Reason Stop Dose Admin Hydrocodone Bitart/Acetaminophen 1 each 09/04/23 21:18 Hydrocodone/Apap 10-325mg 1 Each Tab PO Q4H PRN Pain Albuterol/Ipratropium 3 ml 09/04/23 21:18 Ipratropium-Albuterol 3 Ml Neb INHALATION RT-QID PRN Shortness Of Breath Aspirin 81 mg 09/05/23 09:00 Aspirin 81 Mg PO DAILY [facility] Atorvastatin Calcium 40 mg 09/05/23 09:00 Atorvastatin 40 Mg Tab PO DAILY [facility] Diltiazem HCl 240 mg 09/05/23 21:00 Diltiazem Cd 240 Mg Cap.Er.24h PO HS [facility] Duloxetine HCl 120 mg 09/05/23 21:00 Duloxetine Hcl 60 Mg Capsule.Dr PO HS [facility] Gabapentin 800 mg 09/04/23 22:00 09/04/23 21:30 Gabapentin 400 Mg Cap PO 800 mg TID [place]IO Administration Hydroxychloroquine Sulfate 200 mg 09/05/23 09:00 Hydroxychloroquine Sulfate 200 Mg Tab PO BID [facility] Sodium Chloride 1,000 mls @ 20 mls/hr 09/04/23 19:00 09/04/23 19:42 Saline 0.9% IV 20 mls/hr .Q24H [facility] Administration Isosorbide Mononitrate 60 mg 09/05/23 09:00 Isosorbide Mononitrate Er 60 Mg Tab.Er.24h PO DAILY [facility] Latanoprost 1 drops 09/05/23 21:00 Latanoprost 0.005% Ophth Drops 2.5 Ml Btl BOTH EYES HS [facility] Losartan Potassium 50 mg 09/05/23 09:00 Losartan 50 Mg Tab PO DAILY [facility] Nitroglycerin 0.4 mg 09/04/23 18:57 Nitroglycerin Sl Tabs 0.4 Mg Tab SUBLINGUAL Q5M PRN Chest Pain Ondansetron HCl 4 mg 09/04/23 21:18 Ondansetron Odt 4 Mg Tab PO Q6H PRN Nausea Pantoprazole Sodium 40 mg 09/05/23 09:00 Pantoprazole 40 Mg Tablet PO BID [facility] Intake and Output 09/04/23 09/05/23 09/05/23 22:59 06:59 14:59 Other: Weight 112.037 kg 09/04/23 16:30 09/04/23 16:30
[2023-09-05] MEDS ORDERED: CYCLOBENZAPRINE 10 MG TAB PO PRN (10:49)
[2023-09-05] MEDS ORDERED: FLUTICASONE 44 MCG INHALER INHALATION SCH (10:49)
[2023-09-05] MEDS ORDERED: NON FORMULARY DRUG (Pantoprazole Sodium [Protonix] 20 MG Tablet) PO SCH (11:00)
[2023-09-05] MEDS ORDERED: ENOXAPARIN 40 MG/0.4 ML SYRINGE SQ SCH (11:00)
[2023-09-05] MEDS ORDERED: INSULIN ASPART (NovoLOG) 100 UNIT/ML VIAL SQ SCH (12:30)
--- NOTE | 2023-09-05 12:47 | NM ---
EXAMINATION TYPE: NM stress lexiscan cardiolite DATE OF EXAM: 09/05/2023 COMPARISON: NONE CLINICAL INDICATION: Female, 58 years old with history of CP; TECHNIQUE: After the intravenous administration of 10.3 mCi Tc 99m Sestamibi - Cardiolite resting SP ECT images acquired 45 minutes post injection. The patient received 0.4mg Lexiscan, 26.1 mCi Tc 99m Sestamibi - Stress images obtained [address] injection FINDINGS: Review of stress and rest SPECT images demonstrates no distinct perfusion abnormality. Gated analysi s shows normal wall motion with an estimated left ventricular ejection fraction of 74 %. IMPRESSION: No scintigraphic evidence for reversible ischemia.
--- NOTE | 2023-09-05 13:14 | CA ---
Lexiscan Nuclear Stress Test Report Name: Tisha San Exam Date: 09/05/2023 10:54 Exam Location: [place] Stress Ht (in): 65 Wt (lb): 247 BSA: 2.16 Ordering Phys: Edith Jacinto Referring Phys: Kade, Technologist: Mk Maynard Age: 58 Gender: F : 1965 Procedure CPT: Indications: Reflex order-Stress test ICD-10 Codes: Patient History: Medications: SEE CHART Meds past 24 hrs: Pretest Chest Pain: STRESS TEST Lexiscan Protocol Exercise Duration (min:sec): 02:[address] Depressions (mm): Angina Score: Hayden Score: Resting HR (bpm): 85 Peak HR (bpm): 107 Resting BP (mmHg): 161 / 71 Peak BP (mmHg): 147 / 67 MPHR: 161 Target HR: 137 % MPHR: 66 METS: 1.0 Total Dose: Peak Dose: Atropine: Double Product: 10002 BP Response: Stress Termination: PROTOCOL COMPLETE Stress Symptoms: NAUSEA, SHORT OF BREATH Stress Summary: ECG ANALYSIS Resting ECG: Normal sinus rhythm Stress ECG: No significant resting ST-T wave changes that are diagnostic for ischemia. CONCLUSIONS Nonischemic ECG response to Lexiscan infusion Normal hemodynamic and clinical response to Lexiscan infusion Please refer to the nuclear portion of the stress test for complete interpretation of this study Dr Stevan Lorenzo (Electronically Signed) Final Date: 05 September 2023 13:12
--- NOTE | 2023-09-05 15:22 | P.HPIM ---
History of Present Illness H&P Date: 09/05/23 Chief Complaint: Chest pain This is a pleasant 58-year-old patient of Dr. Braun. Chronic stable medical conditions include , GERD, hypertension, hyperlipidemia, osteoarthritis, scleroderma, mitochondrial myopathy, chronic respiratory failure on home oxygen- 3 L , chronic kidney disease stage III, COPD hyperlipidemia, hypertension osteoarthritis. Has mitochondrial myopathy.. does follow with a firer automatic stoker from [facility] and pocket assembler Dr. Earl Rowe. Patient is an ex-smoker. Does use a walker For 2 weeks patient has had some viral upper respite tract symptoms including a stuffy runny nose. Does use oxygen at home. No fever no chills. Yesterday developed a's sinus sharp pain in the lower sternal area. Not really related to activity. Localized. No radiation. No dizziness no lightheadedness. Decided to come in for the same. Review of systems: GEN.: Tired EYES: None HEENT: As above NECK: None RESPIRATORY: Baseline shortness of breath. CARDIOVASCULAR: As above GASTROINTESTINAL: None GENITOURINARY: None MUSCULOSKELETAL: Chronic joint pains LYMPHATICS: None HEMATOLOGICAL: None PSYCHIATRY: None NEUROLOGICAL: Does use a walker Past medical history to include: COPD, diabetes, GERD, hyperlipidemia, hypertension, osteoarthritis, goiter, scleroderma, diastolic dysfunction, some difficulty with swallowing, mitochondrial myopathy, chronic respiratory failure on 3 L of oxygen, CK stage III Social history: Lives with her son. Does use a walker. Smoked for about 20 years stopped in 1996. Physical examination: VITAL SIGNS: 97.9, 77, 20, 134 x 67, 97% on 3 L GENERAL: BMI 41.1, reclining in bed awake not in distress EYES: Pupils equal. Conjunctiva normal. HEENT: External appearance of nose and ears normal, oral cavity grossly normal. NECK: JVD not raised; masses not palpable. HEART: First and second heart sounds are normal; no edema. LUNGS: Respiratory rate increased, decreased breath sounds. ABDOMEN: Soft, nontender, liver spleen not palpable, no masses palpable. PSYCH: [Alert and oriented x3; mood and affect a bit anxious NEUROLOGICAL: Cranial nerves grossly intact; no facial asymmetry, power and sensation grossly intact. LYMPHATICS: No lymph nodes palpable in the axilla and neck INVESTIGATIONS, reviewed in the clinical context: September 04: White count 7.6 hemoglobin 13.1 platelets 336 potassium 5 BUN 14 creatinine 0.92 AST 69 ALT 131 Troponin I x 3 less than 0.012 LDL 52.6 EKG tracing personally reviewed by me-normal sinus rhythm Chest x-ray film personally reviewed by me-some cardiomegaly. Underpenetrated film. Assessment and plan: -Anterior chest wall pain localized to a point of the sternum. Given prior history rule out a cardiac cause. Patient is at wire-loop respite tract symptoms for about 2 weeks. This could well be pleurisy. Serial cardiac enzymes are negative. Cardiology consulted. -Viral upper respite tract infection symptoms present for close to 2 weeks -COPD in a an ex-smoker Linda Longo -Diabetes mellitus type 2, chronically on insulin Follow Accu-Cheks with sliding scale insulin. Lantus and NovoLog. -GERD PPI -Essential hypertension Cardizem ER 240 mg a day -Hyperlipidemia Lipitor 40 mg daily at bedtime -Primary osteoarthritis Pain medications as needed -Scleroderma -Mitochondrial myopathy -Chronic respiratory failure on home oxygen 3 L Follow pulse ox -Morbid obesity BMI 41.1 Weight loss measures -Chronic gait dysfunction uses a walker at baseline Care was discussed with the patient. Questions answered. Past Medical History Past Medical History: Heart Failure, COPD, CVA/TIA, Diabetes Mellitus, GERD/Reflux, Hyperlipidemia, Hypertension, Neurologic Disorder, Osteoarthritis (OA), Pneumonia, Renal Disease, Thyroid Disorder Additional Past Medical History / Comment(s): Hx CVA few ago, no residual effects. Generalized Neuropathy. Heart murmur. Hx UTI. GOITER. DIASTOLIC DYSFUNCTION. Scleroderma, trouble swallowing. Mitochondrial Myopathy, chronic pulmonary failure, kidney disease stage III. History of Any Multi-Drug Resistant Organisms: None Reported Past Surgical History: Appendectomy, Cholecystectomy, Heart Catheterization, Hysterectomy, Joint Replacement Additional Past Surgical History / Comment(s): RIGHT KNEE REPLACEMENT, LEFT KNEE SURGERY WITH SCREWS IN PLACE. Past Anesthesia/Blood Transfusion Reactions: No Reported Reaction Additional Past Anesthesia/Blood Transfusion Reaction / Comment(s): CLAUSTERPHOBIC. Past Psychological History: Anxiety Smoking Status: Former smoker Past Alcohol Use History: Occasional Additional Past Alcohol Use History / Comment(s): STARTED SMOKING AT AGE 11, SMOKED 2 PPD, QUIT IN 1996. Past Drug Use History: None Reported - Past Family History Father Family Medical History: Cancer, Diabetes Mellitus Additional Family Medical History / Comment(s): AT AGE 61, CA throughout the body Mother Family Medical History: Cancer, Congestive Heart Failure (CHF), Diabetes Mellitus, Myocardial Infarction (CO), Thyroid Disorder Additional Family Medical History / Comment(s): Uterine CA Medications and Allergies Home Medications Medication Instructions Recorded Confirmed Type Isosorbide Mononitrate ER [Imdur] 60 mg PO DAILY 07/16/14 09/05/23 History Montelukast [Singulair] 10 mg PO HS 10/20/15 09/05/23 History Gabapentin [Neurontin] 800 mg PO TID 09/07/16 09/04/23 History Latanoprost Ophth [Xalatan 0.005%] 1 drop BOTH EYES HS 09/07/16 09/04/23 History Atorvastatin [Lipitor] 40 mg PO DAILY 08/20/17 09/05/23 History Ipratropium-Albuterol Nebulize 3 ml INHALATION RT-QID PRN 08/20/17 09/04/23 History [Duoneb 0.5 mg-3 mg/3 ml Soln] Furosemide [Lasix] 20 mg PO DAILY 08/29/19 09/05/23 History dilTIAZem HCL [dilTIAZem HCL 24Hr 240 mg PO HS 08/29/19 09/05/23 History ER] Aspirin EC [Ecotrin Low Dose] 81 mg PO DAILY 03/31/21 09/05/23 History Famotidine 40 mg PO DAILY 03/31/21 09/05/23 History Hydroxychloroquine Sulfate 200 mg PO BID tab 06/23/21 09/04/23 Rx [Plaquenil] Budesonide [Pulmicort Flexhaler] 2 puff INHALATION RT-BID 11/23/21 09/05/23 History Cyclobenzaprine [Flexeril] 10 mg PO BID PRN 11/23/21 09/05/23 History DULoxetine HCL [Cymbalta] 120 mg PO HS 11/23/21 09/05/23 History Flovent (Unknown Strength) 2 puff INHALATION DIRECTED PRN 11/23/21 09/05/23 History Fluticasone Nasal [place] [Flonase 2 spr EA NOSTRIL DAILY 11/23/21 09/04/23 History Nasal [place]] HYDROcodone/APAP 10-325MG [[place] 1 tab PO Q4H PRN 11/23/21 09/05/23 History 10-325] Ibuprofen [Motrin] 800 mg PO Q8H PRN 11/23/21 09/05/23 History Insulin Aspart [NovoLOG] 25 unit SQ TID-W/MEALS 11/23/21 09/05/23 History Insulin Glargine,Hum.rec.anlog 50 unit SQ HS 11/23/21 09/05/23 History [Lantus Solostar Pen] Ondansetron Odt [Zofran ODT] 4 mg PO Q6H PRN 11/23/21 09/04/23 History Ipratropium Nasal [place](Unknown 2 spr EA NOSTRIL DIRECTED PRN 09/04/23 09/05/23 History Dose) Losartan [Cozaar] 50 mg PO DAILY 09/04/23 09/05/23 History Pantoprazole Sodium [Protonix] 20 mg PO BID 09/05/23 09/05/23 History Allergies Allergy/AdvReac Type Severity Reaction Status Date / Time Androgenic Anabolic Steroid Allergy Unknown Verified 09/04/23 15:44 meperidine HCl [From Demerol] Allergy Rash/Hives Verified 09/04/23 15:44 propoxyphene napsylate Allergy Dyspnea Verified 09/04/23 15:44 [From Darvocet-N] Physical Exam Vitals: Vital Signs Temp Pulse Pulse Resp BP BP Pulse Ox 09/05/23 13:41 98 F 71 16 158/77 98 09/05/23 09:33 98 F 71 16 158/77 98 09/05/23 08:38 97.9 F 77 20 134/67 97 09/05/23 06:00 81 18 136/45 98 09/05/23 04:00 76 18 135/46 99 09/05/23 03:00 74 18 154/75 99 09/05/23 02:00 68 18 149/73 99 09/05/23 01:00 73 18 149/73 99 09/05/23 00:00 79 18 132/48 99 09/04/23 23:00 77 18 135/48 99 09/04/23 19:00 76 18 133/75 99 09/04/23 16:59 81 80 18 133/57 09/04/23 15:41 98.1 F 80 16 173/50 99 Intake and Output 09/05/23 09/05/23 09/05/23 06:59 14:59 22:59 Intake Total 0 Balance 0 Intake: Oral 0 Other: Weight 112.037 kg Results CBC & Chem 7: 09/04/23 16:30 09/04/23 16:30 Labs: Abnormal Lab Results - Last 24 Hours (Table) 09/04/23 09/04/23 Range/Units 16:30 16:30 PT 9.9 L (10.0-12.5) sec Sodium 135 L (137-145) mmol/L Chloride 97 L (98-107) mmol/L Carbon Dioxide 31 H (22-30) mmol/L Glucose 282 H (74-99) mg/dL AST 69 H (14-36) U/L ALT 131 H (4-34) U/L Alkaline Phosphatase 204 H (38-126) U/L
[2023-09-05 15:45] VITALS: BP 155/67; PULSE 93; RESP 18; TEMP 97.5
--- NOTE | 2023-09-05 19:50 | P.DS ---
Providers Date of admission: 09/04/23 18:59 Expected date of discharge: 09/05/23 Attending physician: Law Adamson Primary care physician: Murray Braun [facility] Course: Chief Complaint: Chest pain This is a pleasant 58-year-old patient of Dr. Braun. Chronic stable medical conditions include , GERD, hypertension, hyperlipidemia, osteoarthritis, scleroderma, mitochondrial myopathy, chronic respiratory failure on home oxygen- 3 L , chronic kidney disease stage III, COPD hyperlipidemia, hypertension osteoarthritis. Has mitochondrial myopathy.. does follow with a industrial designer from [facility] and staff nuclear medicine technologist Dr. Earl Rowe. Patient is an ex-smoker. Does use a walker For 2 weeks patient has had some viral upper respite tract symptoms including a stuffy runny nose. Does use oxygen at home. No fever no chills. Yesterday developed a's sinus sharp pain in the lower sternal area. Not really related to activity. Localized. No radiation. No dizziness no lightheadedness. Decided to come in for the same. Lexiscan stress test: Negative per cardiology. Okay to discharge. Pain felt to be pleurisy from r viral upper respite tract infection. Past medical history to include: COPD, diabetes, GERD, hyperlipidemia, hypertension, osteoarthritis, goiter, scleroderma, diastolic dysfunction, some difficulty with swallowing, mitochondrial myopathy, chronic respiratory failure on 3 L of oxygen, CK stage III Social history: Lives with her son. Does use a walker. Smoked for about 20 years stopped in 1996. Physical examination: VITAL SIGNS: 97.9, 77, 20, 134 x 67, 97% on 3 L GENERAL: BMI 41.1, reclining in bed awake not in distress EYES: Pupils equal. Conjunctiva normal. HEENT: External appearance of nose and ears normal, oral cavity grossly normal. NECK: JVD not raised; masses not palpable. HEART: First and second heart sounds are normal; no edema. LUNGS: Respiratory rate increased, decreased breath sounds. ABDOMEN: Soft, nontender, liver spleen not palpable, no masses palpable. PSYCH: [Alert and oriented x3; mood and affect a bit anxious NEUROLOGICAL: Cranial nerves grossly intact; no facial asymmetry, power and sensation grossly intact. LYMPHATICS: No lymph nodes palpable in the axilla and neck INVESTIGATIONS, reviewed in the clinical context: Lexiscan nuclear stress test: Negative for ischemia September 04: White count 7.6 hemoglobin 13.1 platelets 336 potassium 5 BUN 14 creatinine 0.92 AST 69 ALT 131 Troponin I x 3 less than 0.012 LDL 52.6 EKG tracing personally reviewed by me-normal sinus rhythm Chest x-ray film personally reviewed by me-some cardiomegaly. Underpenetrated film. Assessment and plan: -Anterior chest wall pain localized to a point of the sternum.: Likely pleurisy from viral infection Lexiscan stress test: Negative -Viral upper respite tract infection symptoms present for close to 2 weeks -COPD in a an ex-smoker Linda Longo -Diabetes mellitus type 2, chronically on insulin Follow Accu-Cheks with sliding scale insulin. Lantus and NovoLog. -GERD PPI -Essential hypertension Cardizem ER 240 mg a day -Hyperlipidemia Lipitor 40 mg daily at bedtime -Primary osteoarthritis Pain medications as needed -Scleroderma -Mitochondrial myopathy -Chronic respiratory failure on home oxygen 3 L Follow pulse ox -Morbid obesity BMI 41.1 Weight loss measures -Chronic gait dysfunction uses a walker at baseline Disposition: Home Past Medical History Past Medical History: Heart Failure, COPD, CVA/TIA, Diabetes Mellitus, GERD/Reflux, Hyperlipidemia, Hypertension, Neurologic Disorder, Osteoarthritis (OA), Pneumonia, Renal Disease, Thyroid Disorder Additional Past Medical History / Comment(s): Hx CVA few ago, no residual effects. Generalized Neuropathy. Heart murmur. Hx UTI. GOITER. DIASTOLIC DYSFUNCTION. Scleroderma, trouble swallowing. Mitochondrial Myopathy, chronic pulmonary failure, kidney disease stage III. History of Any Multi-Drug Resistant Organisms: None Reported Past Surgical History: Appendectomy, Cholecystectomy, Heart Catheterization, Hysterectomy, Joint Replacement Additional Past Surgical History / Comment(s): RIGHT KNEE REPLACEMENT, LEFT KNEE SURGERY WITH SCREWS IN PLACE. Past Anesthesia/Blood Transfusion Reactions: No Reported Reaction Additional Past Anesthesia/Blood Transfusion Reaction / Comment(s): CLAUSTERPHOBIC. Past Psychological History: Anxiety Smoking Status: Former smoker Past Alcohol Use History: Occasional Additional Past Alcohol Use History / Comment(s): STARTED SMOKING AT AGE 11, SMOKED 2 PPD, QUIT IN 1996. Past Drug Use History: None Reported Plan - Discharge Summary Discharge Rx Participant: Yes New Discharge Prescriptions: Continue Isosorbide Mononitrate ER [Imdur] 60 mg PO DAILY Montelukast [Singulair] 10 mg PO HS Latanoprost Ophth [Xalatan 0.005%] 1 drop BOTH EYES HS Gabapentin [Neurontin] 800 mg PO TID Ipratropium-Albuterol Nebulize [Duoneb 0.5 mg-3 mg/3 ml Soln] 3 ml INHALATION RT-QID PRN PRN Reason: Shortness Of Breath Atorvastatin [Lipitor] 40 mg PO DAILY dilTIAZem HCL [dilTIAZem HCL 24Hr ER] 240 mg PO HS Furosemide [Lasix] 20 mg PO DAILY Famotidine 40 mg PO DAILY Hydroxychloroquine Sulfate [Plaquenil] 200 mg PO BID tab Fluticasone Nasal [place] [Flonase Nasal [place]] 2 spr EA NOSTRIL DAILY DULoxetine HCL [Cymbalta] 120 mg PO HS Cyclobenzaprine [Flexeril] 10 mg PO BID PRN PRN Reason: Muscle Pain Ondansetron Odt [Zofran ODT] 4 mg PO Q6H PRN PRN Reason: Nausea Ibuprofen [Motrin] 800 mg PO Q8H PRN PRN Reason: Pain Insulin Aspart [NovoLOG] 25 unit SQ TID-W/MEALS HYDROcodone/APAP 10-325MG [[place] 10-325] 1 tab PO Q4H PRN PRN Reason: Pain Flovent (Unknown Strength) 2 puff INHALATION DIRECTED PRN PRN Reason: Shortness Of Breath Losartan [Cozaar] 50 mg PO DAILY Ipratropium Nasal [place](Unknown Dose) 2 spr EA NOSTRIL DIRECTED PRN PRN Reason: Allergy Symptoms Aspirin EC [Ecotrin Low Dose] 81 mg PO DAILY Insulin Glargine,Hum.rec.anlog [Lantus Solostar Pen] 50 unit SQ HS Budesonide [Pulmicort Flexhaler] 2 puff INHALATION RT-BID Pantoprazole Sodium [Protonix] 20 mg PO BID Discharge Medication List Isosorbide Mononitrate ER [Imdur] 60 mg PO DAILY 07/16/14 [History] Montelukast [Singulair] 10 mg PO HS 10/20/15 [History] Gabapentin [Neurontin] 800 mg PO TID 09/07/16 [History] Latanoprost Ophth [Xalatan 0.005%] 1 drop BOTH EYES HS 09/07/16 [History] Atorvastatin [Lipitor] 40 mg PO DAILY 08/20/17 [History] Ipratropium-Albuterol Nebulize [Duoneb 0.5 mg-3 mg/3 ml Soln] 3 ml INHALATION RT-QID PRN 08/20/17 [History] Furosemide [Lasix] 20 mg PO DAILY 08/29/19 [History] dilTIAZem HCL [dilTIAZem HCL 24Hr ER] 240 mg PO HS 08/29/19 [History] Aspirin EC [Ecotrin Low Dose] 81 mg PO DAILY 03/31/21 [History] Famotidine 40 mg PO DAILY 03/31/21 [History] Hydroxychloroquine Sulfate [Plaquenil] 200 mg PO BID tab 06/23/21 [Rx] Budesonide [Pulmicort Flexhaler] 2 puff INHALATION RT-BID 11/23/21 [History] Cyclobenzaprine [Flexeril] 10 mg PO BID PRN 11/23/21 [History] DULoxetine HCL [Cymbalta] 120 mg PO HS 11/23/21 [History] Flovent (Unknown Strength) 2 puff INHALATION DIRECTED PRN 11/23/21 [History] Fluticasone Nasal [place] [Flonase Nasal [place]] 2 spr EA NOSTRIL DAILY 11/23/21 [History] HYDROcodone/APAP 10-325MG [[place] 10-325] 1 tab PO Q4H PRN 11/23/21 [History] Ibuprofen [Motrin] 800 mg PO Q8H PRN 11/23/21 [History] Insulin Aspart [NovoLOG] 25 unit SQ TID-W/MEALS 11/23/21 [History] Insulin Glargine,Hum.rec.anlog [Lantus Solostar Pen] 50 unit SQ HS 11/23/21 [History] Ondansetron Odt [Zofran ODT] 4 mg PO Q6H PRN 11/23/21 [History] Ipratropium Nasal [place](Unknown Dose) 2 spr EA NOSTRIL DIRECTED PRN 09/04/23 [History] Losartan [Cozaar] 50 mg PO DAILY 09/04/23 [History] Pantoprazole Sodium [Protonix] 20 mg PO BID 09/05/23 [History] Follow up Appointment(s)/Referral(s): Souphis,Murray, DO [Primary Care Provider] - 1-2 days Justin Mendez MD [STAFF PHYSICIAN] - 09/09/23 10:15 am (Appointment made at the main office ) Hesham Anthony MD [STAFF PHYSICIAN] - 1 Week (left shoulder pain) Patient Instructions/Handouts: Chest Pain (GEN) Discharge Disposition: HOME SELF-CARE
[2023-09-05] MEDS ORDERED: LATANOPROST 0.005% OPHTH DROPS 2.5 ML BTL BOTH EYES SCH (21:00)
[2023-09-05] MEDS ORDERED: INSULIN DETEMIR (LEVEMIR) 100 UNIT/ML SYR SQ SCH (21:00)
[2023-09-05] MEDS ORDERED: MONTELUKAST 10 MG TAB PO SCH (21:00)
[2023-09-05] MEDS ORDERED: DILTIAZEM CD 240 MG CAP.ER.24H PO SCH (21:00)
[2023-09-05] MEDS ORDERED: DULoxetine HCL 60 MG CAPSULE.DR PO SCH (21:00)
== END 2023-09-05 15:52 | disposition home or self-care (01) ==
LOC: EC 15:36 → 6NMEDSUR 18:59
PROVIDERS: ADMIT Hospitalist; ATTEND Hospitalist
DX: R07.89 Other chest pain (principal); J06.9 Acute upper respiratory infection, unspecified; J44.9 Chronic obstructive pulmonary disease, unspecified; I25.10 Atherosclerotic heart disease of native coronary artery without angina pectoris; I27.20 Pulmonary hypertension, unspecified; M25.512 Pain in left shoulder; M79.602 Pain in left arm; I13.0 Hypertensive heart and chronic kidney disease with heart failure and stage 1 through stage 4 chronic kidney disease, or unspecified chronic kidney disease; I50.30 Unspecified diastolic (congestive) heart failure; N18.30 Chronic kidney disease, stage 3 unspecified; K21.9 Gastro-esophageal reflux disease without esophagitis; E11.22 Type 2 diabetes mellitus with diabetic chronic kidney disease; E11.42 Type 2 diabetes mellitus with diabetic polyneuropathy; E78.5 Hyperlipidemia, unspecified; M19.91 Primary osteoarthritis, unspecified site; M34.9 Systemic sclerosis, unspecified; G71.3 Mitochondrial myopathy, not elsewhere classified; J96.11 Chronic respiratory failure with hypoxia; Z99.81 Dependence on supplemental oxygen; E66.01 Morbid (severe) obesity due to excess calories; Z68.41 Body mass index [BMI] 40.0-44.9, adult; R26.9 Unspecified abnormalities of gait and mobility; Z87.891 Personal history of nicotine dependence; Z79.82 Long term (current) use of aspirin; Z79.51 Long term (current) use of inhaled steroids; Z79.4 Long term (current) use of insulin; Z79.85 Long-term (current) use of injectable non-insulin antidiabetic drugs; Z79.899 Other long term (current) drug therapy; Z88.5 Allergy status to narcotic agent; Z88.8 Allergy status to other drugs, medicaments and biological substances; Z83.3 Family history of diabetes mellitus; Z82.49 Family history of ischemic heart disease and other diseases of the circulatory system
CPT/HCPCS: 96374; 99285; 36415; 93005; 93017; 85379; 83880; 80061; 80053; 82150; 83690; 83735; 84484; 85025; 85610; 85730; 71046; 78452; G0378 ×2; A9500; J2270; J2785

== ENCOUNTER → 2023-09-19 | Outpatient (CLI) | payer MEDICARE, OTHER ==
--- NOTE | 2023-09-20 08:47 | MM ---
Reason for Exam: Screening (asymptomatic). Last mammogram was performed 1 year(s) and 2 month(s) ago. Patient History: Menarche at age 11. First Full-Term at age 21. Left ovary removed at age 47. Right ovary removed at age 47. Hysterectomy at age 35. Postmenopausal. Estrogen, starting at age 35 for 17 years. Paternal grandmother had breast cancer, age 60. Paternal aunt had breast cancer, age 45. Maternal aunt had breast cancer. Risk Values: Ramona 5 year model risk: 1.2%. NCI Lifetime model risk: 6.7%. Prior Study Comparison: 11/25/2020 Right Diagnostic Mammogram, [facility]. 07/06/2021 Bilateral Diagnostic Mammogram, [facility]. 07/20/2022 Bilateral MG 3D screening mammo w/cad, [facility]. Tissue Density: The breast tissue is almost entirely fat. Findings: Analyzed By CAD. There is no suspicious group of microcalcifications or new suspicious mass. Overall Assessment: Negative, BI-RAD 1 Management: Screening Mammogram of both breasts in [address] [facility] will attempt to contact patient to return for supplemental views and ultrasound if indicated. Patient should continue monthly self-breast exams. A clinical breast exam by your physician is recommended on an annual basis. This exam should not preclude additional follow-up of suspicious palpable abnormalities. Note on Ramona scores and lifetime risk: 1. A Ramona score greater than 3% is considered moderate risk. If this is the case, consider specialist referral to assess eligibility for a risk reducing agent. 2. If overall lifetime risk for the development of breast cancer is 20% or higher, the patient may qualify for future screening with alternating mammogram and breast MRI. Electronically signed and approved by: Manuel Etienne DO
== END | disposition home or self-care (01) ==
LOC: RADMAMWWP 14:39
PROVIDERS: ATTEND Family Medicine
DX: Z12.31 Encounter for screening mammogram for malignant neoplasm of breast (principal); Z80.3 Family history of malignant neoplasm of breast; Z78.0 Asymptomatic menopausal state
CPT/HCPCS: 77063; 77067

== ENCOUNTER → 2023-11-03 | Outpatient (CLI) | payer MEDICARE | END | disposition home or self-care (01) | LOC: LABWHC1 13:15 | PROVIDERS: ATTEND Psychiatry & Neurology Neurology | DX: I49.9 Cardiac arrhythmia, unspecified (principal) | CPT/HCPCS: 36415; 93005 ==

== ENCOUNTER 2023-11-10 15:21 | Emergency (ER) | payer MEDICARE ==
[2023-11-10 15:42] VITALS: RESP 20
[2023-11-10] MEDS: IPRATROPIUM 0.5 MG/2.5 ML NEBU INHALATION STA (15:59)
[2023-11-10] MEDS: ALBUTEROL NEBULIZED 2.5 MG/3 ML INHALATION STA (15:59)
--- NOTE | 2023-11-10 16:04 | ED ---
General Adult HPI - General Chief complaint: Shortness of Breath Stated complaint: SOB/Dizziness Time Seen by Provider: 11/10/23 15:26 Source: patient, RN notes reviewed, old records reviewed Mode of arrival: ambulatory Limitations: no limitations - History of Present Illness Initial comments: 58-year-old female presenting for evaluation of cough and dyspnea. Patient has history of oxygen dependent COPD she is currently on 3 L. She states over the p ast 3 days she has had symptoms of cough and dyspnea and mild chest discomfort. No fever. No lower extremity pain or swelling. - Related Data Home Medications Medication Instructions Recorded Confirmed Isosorbide Mononitrate ER [Imdur] 60 mg PO DAILY 07/16/14 11/10/23 Montelukast [Singulair] 10 mg PO HS 10/20/15 11/10/23 Gabapentin [Neurontin] 800 mg PO TID 09/07/16 11/10/23 Latanoprost Ophth [Xalatan 0.005%] 1 drop BOTH EYES HS 09/07/16 11/10/23 Atorvastatin [Lipitor] 40 mg PO HS 08/20/17 11/10/23 Ipratropium-Albuterol Nebulize 3 ml INHALATION RT-QID PRN 08/20/17 11/10/23 [Duoneb 0.5 mg-3 mg/3 ml Soln] Furosemide [Lasix] 20 mg PO DAILY 08/29/19 11/10/23 dilTIAZem HCL [dilTIAZem HCL 24Hr 240 mg PO HS 08/29/19 11/10/23 ER] Aspirin EC [Ecotrin Low Dose] 81 mg PO DAILY 03/31/21 11/10/23 Famotidine 40 mg PO DAILY 03/31/21 11/10/23 Budesonide [Pulmicort Flexhaler] 2 puff INHALATION RT-BID 11/23/21 11/10/23 Cyclobenzaprine [Flexeril] 10 mg PO BID PRN 11/23/21 11/10/23 DULoxetine HCL [Cymbalta] 120 mg PO HS 11/23/21 11/10/23 Flovent (Unknown Strength) 2 puff INHALATION DIRECTED PRN 11/23/21 11/10/23 Fluticasone Nasal [place] [Flonase 2 spr EA NOSTRIL DAILY 11/23/21 11/10/23 Nasal [place]] HYDROcodone/APAP 10-325MG [Cisco 1 tab PO Q4H PRN 11/23/21 11/10/23 10-325] Ibuprofen [Motrin] 800 mg PO Q8H PRN 11/23/21 11/10/23 Insulin Aspart [NovoLOG] 25 unit SQ TID-W/MEALS 11/23/21 11/10/23 Insulin Glargine,Hum.rec.anlog 50 unit SQ HS 11/23/21 11/10/23 [Lantus Solostar Pen] Ondansetron Odt [Zofran ODT] 4 mg PO Q6H PRN 11/23/21 11/10/23 Ipratropium Nasal [place](Unknown 2 spr EA NOSTRIL DIRECTED PRN 09/04/23 11/10/23 Dose) Losartan [Cozaar] 50 mg PO DAILY 09/04/23 11/10/23 Esomeprazole Magnesium [NexIUM] 40 mg PO BID 11/10/23 11/10/23 Previous Rx's Medication Instructions Recorded Hydroxychloroquine Sulfate 200 mg PO BID tab 06/23/21 [Plaquenil] Amoxic-Pot Clav 875-125Mg 1 tab PO Q12HR 10 Days #20 tab 11/10/23 [Augmentin 875-125] predniSONE 50 mg PO DAILY #5 tab 11/10/23 Allergies Allergy/AdvReac Type Severity Reaction Status Date / Time Androgenic Anabolic Steroid Allergy Unknown Verified 11/10/23 15:24 meperidine HCl [From Demerol] Allergy Rash/Hives Verified 11/10/23 15:24 propoxyphene napsylate Allergy Dyspnea Verified 11/10/23 15:24 [From Darvocet-N] Review of Systems ROS Statement: Those systems with pertinent positive or pertinent negative responses have been documented in the HPI. ROS Other: All systems not noted in ROS Statement are negative. Past Medical History Past Medical History: Heart Failure, COPD, CVA/TIA, Diabetes Mellitus, GERD/Reflux, Hyperlipidemia, Hypertension, Neurologic Disorder, Osteoarthritis (OA), Pneumonia, Renal Disease, Thyroid Disorder Additional Past Medical History / Comment(s): Hx CVA few ago, no residual effects. Generalized Neuropathy. Heart murmur. Hx UTI. GOITER. DIASTOLIC DYSFUNCTION. Scleroderma, trouble swallowing. Mitochondrial Myopathy, chronic pulmonary failure, kidney disease stage III. History of Any Multi-Drug Resistant Organisms: None Reported Past Surgical History: Appendectomy, Cholecystectomy, Heart Catheterization, Hysterectomy, Joint Replacement Additional Past Surgical History / Comment(s): RIGHT KNEE REPLACEMENT, LEFT KNEE SURGERY WITH SCREWS IN PLACE. Past Anesthesia/Blood Transfusion Reactions: No Reported Reaction Additional Past Anesthesia/Blood Transfusion Reaction / Comment(s): CLAUSTERPHOBIC. Past Psychological History: Anxiety Smoking Status: Former smoker Past Alcohol Use History: Occasional Past Drug Use History: None Reported - Past Family History Father Family Medical History: Cancer, Diabetes Mellitus Additional Family Medical History / Comment(s): AT AGE 61, CA throughout the body Mother Family Medical History: Cancer, Congestive Heart Failure (CHF), Diabetes Mellitus, Myocardial Infarction (CA), Thyroid Disorder Additional Family Medical History / Comment(s): Uterine CA General Exam Limitations: no limitations General appearance: alert, in no apparent distress Head exam: Present: atraumatic, normocephalic Eye exam: Present: normal appearance, PERRL ENT exam: Present: mucous membranes dry Neck exam: Present: normal inspection. Absent: tenderness, meningismus Respiratory exam: Present: decreased breath sounds. Absent: respiratory distress, wheezes, rales Cardiovascular Exam: Present: regular rate, normal rhythm GI/Abdominal exam: Present: soft. Absent: distended, tenderness Extremities exam: Present: normal inspection, normal capillary refill. Absent: pedal edema, calf tenderness Neurological exam: Present: alert, oriented X3, CN II-XII intact. Absent: motor sensory deficit Psychiatric exam: Present: normal affect, normal mood Skin exam: Present: warm, dry, intact Course Vital Signs 11/10/23 11/10/23 11/10/23 15:22 15:38 16:00 Temperature 97.9 F Pulse Rate 101 H 98 95 Respiratory 24 20 Rate Blood Pressure 197/77 175/80 O2 Sat by Pulse 95 98 Oximetry 11/10/23 16:23 Temperature Pulse Rate 101 H Respiratory Rate Blood Pressure O2 Sat by Pulse Oximetry Medical Decision Making - Medical Decision Making Was pt. sent in by a medical professional or institution (, [place], COUNTY COURT JUDGE, urgent care, hospital, or long-term...) When possible be specific @ -No Did you speak to anyone other than the patient for history (EMS, parent, family, police, friend...)? What history was obtained from this source @ -No Did you review nursing and triage notes (agree or disagree)? Why? @ -I reviewed and agree with nursing and triage notes Were old charts reviewed (outside hosp., previous admission, EMS record, old EKG, old radiological studies, urgent care reports/EKG's, long-term records)? Report findings @ -No old charts were reviewed Differential Diagnosis (chest pain, altered mental status, abdominal pain women, abdominal pain men, vaginal bleeding, weakness, fever, dyspnea, syncope, headache, dizziness, GI bleed, back pain, seizure, CVA, palpatations, mental health, musculoskeletal)? @ -Differential Dyspnea: Coronary syndrome, arrhythmia, tamponade, asthma, COPD, pulmonary embolism, pneumonia, pneumothorax, pulmonary effusion, anaphylaxis, diabetic ketoacidosis, flailed chest, pulmonary contusion, diaphragmatic rupture, anemia, neuromuscular, this is not meant to be an all-inclusive list. EKG interpreted by me (3pts min.). @EKG: Sinus rhythm, rate of 95, MA interval 169, QRS duration 88, QTc [address] segment elevation. X-rays interpreted by me (1pt min.). @ -Chest x-ray negative for acute cardiopulmonary disease CT interpreted by me (1pt min.). @ -None done U/S interpreted by me (1pt. min.). @ -None done What testing was considered but not performed or refused? (CT, X-rays, U/S, labs)? Why? @ -None What meds were considered but not given or refused? Why? @ -None Did you discuss the management of the patient with other professionals (professionals i.e. , [place], COUNTY COURT JUDGE, lab, RT, psych nurse, social service liaison, sales and marketing associate, teacher, youth corrections officer, onsite case manager)? Give summary @ -No Was smoking cessation discussed for >3mins.? @ -No Was critical care preformed (if so, how long)? @ -No Were there social determinants of health that impacted care today? How? (Homelessness, low income, unemployed, alcoholism, drug addiction, transporta tion, low edu. Level, literacy, decrease access to med. care, fci, rehab)? @ -No Was there de-escalation of care discussed even if they declined (Discuss DNR or withdrawal of care, Hospice)? DNR status @ -No What co-morbidities impacted this encounter? (DM, HTN, Smoking, COPD, CAD, Cancer, CVA, ARF, Chemo, Hep., AIDS, mental health diagnosis, sleep apnea, morbid obesity)? @ -[Oxygen dependent COPD Was patient admitted / discharged? Hospital course, mention meds given and route, prescriptions, significant lab abnormalities, going to OR and other pertinent info. @ -58-year-old female with cough and dyspnea over the past several days, diminished breath sounds bilaterally. Workup is initiated including x-ray, CBC, CMP, D-dimer, troponin, BNP. Laboratory testing is unremarkable with the exception of hyperglycemia. X-rays negative for focal pneumonia. Patient feels better after steroids, Atrovent and albuterol. Patient is stable and eager for discharge. Treated for COPD exacerbation. Undiagnosed new problem with uncertain prognosis? @ -[No Drug Therapy requiring intensive monitoring for toxicity (Heparin, Nitro, Insulin, Cardizem)? @ -No Were any procedures done? @ -No Diagnosis/symptom? @ -COPD exacerbation Acute, or Chronic, or Acute on Chronic? @ -Default Uncomplicated (without systemic symptoms) or Complicated (systemic symptoms)? @ -Default Side effects of treatment? @ -No Exacerbation, Progression, or Severe Exacerbation? @ -No Poses a threat to life or bodily function? How? (Chest pain, [place], CA, pneumonia, PE, COPD, DKA, ARF, appy, cholecystitis, CVA, Diverticulitis, Homicidal, Suicidal, threat to staff... and all critical care pts) @ -Low risk at this time - Lab Data Result diagrams: 11/10/23 15:56 11/10/23 15:56 Lab Results 11/10/23 11/10/23 11/10/23 Range/Units 15:56 15:56 15:56 WBC 10.5 (3.8-10.6) k/uL RBC 4.51 (3.80-5.40) m/uL Hgb 12.3 (11.4-16.0) gm/dL Hct 38.5 (34.0-46.0) % MCV 85.3 (80.0-100.0) fL MCH 27.3 (25.0-35.0) pg MCHC 32.0 (31.0-37.0) g/dL RDW 14.8 (11.5-15.5) % Plt Count 313 (150-450) k/uL MPV 6.7 Neutrophils % 81 % Lymphocytes % 13 % Monocytes % 3 % Eosinophils % 1 % Basophils % 0 % Neutrophils # 8.5 H (1.3-7.7) k/uL Lymphocytes # 1.4 (1.0-4.8) k/uL Monocytes # 0.4 (0-1.0) k/uL Eosinophils # 0.1 (0-0.7) k/uL Basophils # 0.0 (0-0.2) k/uL PT 9.6 L (10.0-12.5) sec INR 0.8 (<1.2) APTT 22.1 (22.0-30.0) sec D-Dimer 0.21 (<0.60) mg/L FEU Sodium 134 L (137-145) mmol/L Potassium 4.7 (3.5-5.1) mmol/L Chloride 100 (98-107) mmol/L Carbon Dioxide 24 (22-30) mmol/L Anion Gap 10 mmol/L BUN 18 H (7-17) mg/dL Creatinine 0.82 (0.52-1.04) mg/dL Est GFR (CKD-EPI)AfAm >90 (>60 ml/min/1.73 sqM) Est GFR (CKD-EPI)NonAf 79 (>60 ml/min/1.73 sqM) Glucose 310 H (74-99) mg/dL Plasma Lactic Acid Carlos (0.7-2.0) mmol/L Calcium 9.2 (8.4-10.2) mg/dL Magnesium 1.9 (1.6-2.3) mg/dL Total Bilirubin 0.4 (0.2-1.3) mg/dL AST 21 (14-36) U/L ALT 38 H (4-34) U/L Alkaline Phosphatase 163 H (38-126) U/L Troponin I (0.000-0.034) ng/mL NT-Pro-B Natriuret Pep 31 pg/mL Total Protein 6.7 (6.3-8.2) g/dL Albumin 3.9 (3.5-5.0) g/dL Urine Color Urine Appearance (Clear) Urine pH (5.0-8.0) Ur Specific [place] (1.001-1.035) Urine Protein (Negative) Urine Glucose (UA) (Negative) Urine Ketones (Negative) Urine Blood (Negative) Urine Nitrite (Negative) Urine Bilirubin (Negative) Urine Urobilinogen (<2.0) mg/dL Ur Leukocyte Esterase (Negative) Urine RBC (0-5) /hpf Urine WBC (0-5) /hpf Ur Squamous Epith Cells (0-4) /hpf Urine Mucus (None) /hpf Influenza Type A (PCR) (Not Detectd) Influenza Type B (PCR) (Not Detectd) RSV (PCR) (Not Detectd) SARS-CoV-2 (PCR) (Not Detectd) 11/10/23 11/10/23 11/10/23 Range/Units 15:56 15:56 15:56 WBC (3.8-10.6) k/uL RBC (3.80-5.40) m/uL Hgb (11.4-16.0) gm/dL Hct (34.0-46.0) % MCV (80.0-100.0) fL MCH (25.0-35.0) pg MCHC (31.0-37.0) g/dL RDW (11.5-15.5) % Plt Count (150-450) k/uL MPV Neutrophils % % Lymphocytes % % Monocytes % % Eosinophils % % Basophils % % Neutrophils # (1.3-7.7) k/uL Lymphocytes # (1.0-4.8) k/uL Monocytes # (0-1.0) k/uL Eosinophils # (0-0.7) k/uL Basophils # (0-0.2) k/uL PT (10.0-12.5) sec INR (<1.2) APTT (22.0-30.0) sec D-Dimer (<0.60) mg/L FEU Sodium (137-145) mmol/L Potassium (3.5-5.1) mmol/L Chloride (98-107) mmol/L Carbon Dioxide (22-30) mmol/L Anion Gap mmol/L BUN (7-17) mg/dL Creatinine (0.52-1.04) mg/dL Est GFR (CKD-EPI)AfAm (>60 ml/min/1.73 sqM) Est GFR (CKD-EPI)NonAf (>60 ml/min/1.73 sqM) Glucose (74-99) mg/dL Plasma Lactic Acid Carlos 2.0 (0.7-2.0) mmol/L Calcium (8.4-10.2) mg/dL Magnesium (1.6-2.3) mg/dL Total Bilirubin (0.2-1.3) mg/dL AST (14-36) U/L ALT (4-34) U/L Alkaline Phosphatase (38-126) U/L Troponin I <0.012 (0.000-0.034) ng/mL NT-Pro-B Natriuret Pep pg/mL Total Protein (6.3-8.2) g/dL Albumin (3.5-5.0) g/dL Urine Color Urine Appearance (Clear) Urine pH (5.0-8.0) Ur Specific [place] (1.001-1.035) Urine Protein (Negative) Urine Glucose (UA) (Negative) Urine Ketones (Negative) Urine Blood (Negative) Urine Nitrite (Negative) Urine Bilirubin (Negative) Urine Urobilinogen (<2.0) mg/dL Ur Leukocyte Esterase (Negative) Urine RBC (0-5) /hpf Urine WBC (0-5) /hpf Ur Squamous Epith Cells (0-4) /hpf Urine Mucus (None) /hpf Influenza Type A (PCR) Not Detected (Not Detectd) Influenza Type B (PCR) Not Detected (Not Detectd) RSV (PCR) Not Detected (Not Detectd) SARS-CoV-2 (PCR) Not Detected (Not Detectd) 11/10/23 Range/Units 17:20 WBC (3.8-10.6) k/uL RBC (3.80-5.40) m/uL Hgb (11.4-16.0) gm/dL Hct (34.0-46.0) % MCV (80.0-100.0) fL MCH (25.0-35.0) pg MCHC (31.0-37.0) g/dL RDW (11.5-15.5) % Plt Count (150-450) k/uL MPV Neutrophils % % Lymphocytes % % Monocytes % % Eosinophils % % Basophils % % Neutrophils # (1.3-7.7) k/uL Lymphocytes # (1.0-4.8) k/uL Monocytes # (0-1.0) k/uL Eosinophils # (0-0.7) k/uL Basophils # (0-0.2) k/uL PT (10.0-12.5) sec INR (<1.2) APTT (22.0-30.0) sec D-Dimer (<0.60) mg/L FEU Sodium (137-145) mmol/L Potassium (3.5-5.1) mmol/L Chloride (98-107) mmol/L Carbon Dioxide (22-30) mmol/L Anion Gap mmol/L BUN (7-17) mg/dL Creatinine (0.52-1.04) mg/dL Est GFR (CKD-EPI)AfAm (>60 ml/min/1.73 sqM) Est GFR (CKD-EPI)NonAf (>60 ml/min/1.73 sqM) Glucose (74-99) mg/dL Plasma Lactic Acid [place] (0.7-2.0) mmol/L Calcium (8.4-10.2) mg/dL Magnesium (1.6-2.3) mg/dL Total Bilirubin (0.2-1.3) mg/dL AST (14-36) U/L ALT (4-34) U/L Alkaline Phosphatase (38-126) U/L Troponin I (0.000-0.034) ng/mL NT-Pro-B Natriuret Pep pg/mL Total Protein (6.3-8.2) g/dL Albumin (3.5-5.0) g/dL Urine Color Colorless Urine Appearance Cloudy H (Clear) Urine pH 5.5 (5.0-8.0) Ur Specific [place] 1.021 (1.001-1.035) Urine Protein Trace H (Negative) Urine Glucose (UA) 4+ H (Negative) Urine Ketones Negative (Negative) Urine Blood Negative (Negative) Urine Nitrite Negative (Negative) Urine Bilirubin Negative (Negative) Urine Urobilinogen <2.0 (<2.0) mg/dL Ur Leukocyte Esterase Trace H (Negative) Urine RBC 1 (0-5) /hpf Urine WBC 2 (0-5) /hpf Ur Squamous Epith Cells 14 H (0-4) /hpf Urine Mucus Rare H (None) /hpf Influenza Type A (PCR) (Not Detectd) Influenza Type B (PCR) (Not Detectd) RSV (PCR) (Not Detectd) SARS-CoV-2 (PCR) (Not Detectd) Disposition Clinical Impression: Acute exacerbation of chronic obstructive pulmonary disease Disposition: HOME SELF-CARE Condition: Fair Instructions (If sedation given, give patient instructions): COPD (Chronic Obstructive Pulmonary Disease) (ED) Prescriptions: Amoxic-Pot Clav 875-125Mg [Augmentin 875-125] 1 tab PO Q12HR 10 Days #20 tab predniSONE 50 mg PO DAILY #5 tab Is patient prescribed a controlled substance at d/c from ED?: No Referrals: Murray Braun DO [Primary Care Provider] - 1-2 days Time of Disposition: 18:11
[2023-11-10 16:17] LABS: Basophils % (A) 0 %; Eosinophils # (A) 0.1 k/uL (0-0.7); Eosinophils % (A) 1 %; HCT 38.5 % (34.0-46.0); HGB 12.3 gm/dL (11.4-16.0); Lymphocytes # (A) 1.4 k/uL (1.0-4.8); Lymphocytes % (A) 13 %; MCH 27.3 pg (25.0-35.0); MCV 85.3 fL (80.0-100.0); Mean Platelet Volume 6.7; Monocytes # (A) 0.4 k/uL (0-1.0); Monocytes % (A) 3 %; Neutrophils # (A) 8.5 k/uL (1.3-7.7); Neutrophils % (A) 81 %; Platelet Count 313 k/uL (150-450); RBC 4.51 m/uL (3.80-5.40); RDW 14.8 % (11.5-15.5); WBC 10.5 k/uL (3.8-10.6)
[2023-11-10 16:33] LABS: ALT 38 U/L (4-34); AST 21 U/L (14-36); African American GFR (CKD) >90 (>60 ml/min/1.73 sqM); Albumin 3.9 g/dL (3.5-5.0); Alkaline Phosphatase 163 U/L (38-126); Anion Gap 10 mmol/L; Blood Urea Nitrogen 18 mg/dL (7-17); Calcium 9.2 mg/dL (8.4-10.2); Carbon Dioxide 24 mmol/L (22-30); Chloride 100 mmol/L (98-107); Glucose 310 mg/dL (74-99); Magnesium 1.9 mg/dL (1.6-2.3); Non-African American GFR(CKD) 79 (>60 ml/min/1.73 sqM); Potassium 4.7 mmol/L (3.5-5.1); Sodium 134 mmol/L (137-145); Total Bilirubin 0.4 mg/dL (0.2-1.3); Total Protein 6.7 g/dL (6.3-8.2)
[2023-11-10 16:40] LABS: INR 0.8 (<1.2); Partial Thromboplastin Time 22.1 sec (22.0-30.0); Prothrombin Time 9.6 sec (10.0-12.5)
[2023-11-10 16:41] LABS: NT-Pro-B-Type Natriuretic Pept 31 pg/mL
--- NOTE | 2023-11-10 17:06 | XR ---
EXAMINATION: XR chest 2V: 11/10/2023 4:50 PM CLINICAL INDICATION: difficulty breathing TECHNIQUE: Departmental protocol COMPARISON: 09/04/2023 FINDINGS: The overlying soft tissues are prominent. The lungs are relatively hypoinflated. No definite acute pu lmonary process. The pleural spaces are negative. The cardiac silhouette is not enlarged. The skeletal structures and soft tissues are negative for acute findings. IMPRESSION: No definite acute radiographic process.
[2023-11-10] MEDS: SODIUM CHLORIDE 0.9% 1,000 ML IV ONE (17:41)
[2023-11-10] MEDS: methylPREDNISolone SOD SUCCI 125 MG/2 ML VIAL IV STA (17:41)
[2023-11-10 17:54] LABS: Appearance,Urine Cloudy (Clear); Bilirubin,Urine Negative (Negative); Blood,Urine Negative (Negative); Color,Urine Colorless; Glucose,Urine (UA) 4+ (Negative); Ketones,Urine Negative (Negative); Leukocyte Esterase,Urine Trace (Negative); Mucus,Urine Rare /hpf; Nitrite,Urine Negative (Negative); PH, Urine 5.5 (5.0-8.0); Protein,Urine Trace (Negative); RBC,Urine 1 /hpf (0-5); Specific Gravity,Urine 1.021 (1.001-1.035); Squamous Epithelial Cell,Urine 14 /hpf (0-4); Urobilinogen,Urine <2.0 mg/dL (<2.0); WBC,Urine 2 /hpf (0-5)
[2023-11-10 18:44] VITALS: BP 135/70; PULSE 96; TEMP 98.2
== END 2023-11-10 18:31 | disposition home or self-care (01) ==
LOC: EC 15:21
DX: J44.1 Chronic obstructive pulmonary disease with (acute) exacerbation (principal); Z87.891 Personal history of nicotine dependence; Z88.5 Allergy status to narcotic agent; Z88.8 Allergy status to other drugs, medicaments and biological substances; Z90.49 Acquired absence of other specified parts of digestive tract; Z86.73 Personal history of transient ischemic attack (TIA), and cerebral infarction without residual deficits; Z99.81 Dependence on supplemental oxygen
CPT/HCPCS: 99285; 96374; 96361; 36415; 94640; 93005; 85379; 83880; 80053; 83605; 83735; 84484; 85025; 85610; 85730; 81001; 87636; 71046; J2930

== ENCOUNTER → 2023-12-13 | Outpatient (CLI) | payer MEDICARE | END | disposition home or self-care (01) | LOC: RADNMMAIN 10:37 | PROVIDERS: ATTEND Psychiatry & Neurology Neurology | DX: Z53.9 Procedure and treatment not carried out, unspecified reason (principal) ==

== ENCOUNTER 2024-01-30 14:59 | Emergency (ER) | payer MEDICARE ==
[2024-01-30 15:13] VITALS: RESP 16
[2024-01-30 15:19] LABS: Glucose,Whole Blood 271 mg/dL (70-110)
--- NOTE | 2024-01-30 15:36 | ED ---
General Adult HPI - General Chief complaint: Dizziness Stated complaint: fall Time Seen by Provider: 01/30/24 15:23 Source: patient, RN notes reviewed Mode of arrival: EMS Limitations: no limitations - History of Present Illness Initial comments: Patient is a 59-year-old female present to the emergency department with dizziness. Patient does get frequent dizziness, several times a month. Patient states this has been occurring for years. Patient [place] episode today [place] the [place] and did [place] down. Patient does not believe she lost consciousness. No injury. Patient only has minimal dizziness at this time, no other specific complaints. - Related Data Home Medications Medication Instructions Recorded Confirmed Isosorbide Mononitrate ER [Imdur] 60 mg PO DAILY 07/16/14 11/10/23 Montelukast [Singulair] 10 mg PO HS 10/20/15 11/10/23 Gabapentin [Neurontin] 800 mg PO TID 09/07/16 11/10/23 Latanoprost Ophth [Xalatan 0.005%] 1 drop BOTH EYES HS 09/07/16 11/10/23 Atorvastatin [Lipitor] 40 mg PO HS 08/20/17 11/10/23 Ipratropium-Albuterol Nebulize 3 ml INHALATION RT-QID PRN 08/20/17 11/10/23 [Duoneb 0.5 mg-3 mg/3 ml Soln] Furosemide [Lasix] 20 mg PO DAILY 08/29/19 11/10/23 dilTIAZem HCL [dilTIAZem HCL 24Hr 240 mg PO HS 08/29/19 11/10/23 ER] Aspirin EC [Ecotrin Low Dose] 81 mg PO DAILY 03/31/21 11/10/23 Famotidine 40 mg PO DAILY 03/31/21 11/10/23 Budesonide [Pulmicort Flexhaler] 2 puff INHALATION RT-BID 11/23/21 11/10/23 Cyclobenzaprine [Flexeril] 10 mg PO BID PRN 11/23/21 11/10/23 DULoxetine HCL [Cymbalta] 120 mg PO HS 11/23/21 11/10/23 Flovent (Unknown Strength) 2 puff INHALATION DIRECTED PRN 11/23/21 11/10/23 Fluticasone Nasal [place] [Flonase 2 spr EA NOSTRIL DAILY 11/23/21 11/10/23 Nasal [place]] HYDROcodone/APAP 10-325MG [[place] 1 tab PO Q4H PRN 11/23/21 11/10/23 10-325] Ibuprofen [Motrin] 800 mg PO Q8H PRN 11/23/21 11/10/23 Insulin Aspart [NovoLOG] 25 unit SQ TID-W/MEALS 11/23/21 11/10/23 Insulin Glargine,Hum.rec.anlog 50 unit SQ HS 11/23/21 11/10/23 [Lantus Solostar Pen] Ondansetron Odt [Zofran ODT] 4 mg PO Q6H PRN 11/23/21 11/10/23 Ipratropium Nasal [place](Unknown 2 spr EA NOSTRIL DIRECTED PRN 09/04/23 11/10/23 Dose) Losartan [Cozaar] 50 mg PO DAILY 09/04/23 11/10/23 Esomeprazole Magnesium [NexIUM] 40 mg PO BID 11/10/23 11/10/23 Previous Rx's Medication Instructions Recorded Hydroxychloroquine Sulfate 200 mg PO BID tab 06/23/21 [Plaquenil] Amoxic-Pot Clav 875-125Mg 1 tab PO Q12HR 10 Days #20 tab 11/10/23 [Augmentin 875-125] predniSONE 50 mg PO DAILY #5 tab 11/10/23 Allergies Allergy/AdvReac Type Severity Reaction Status Date / Time Androgenic Anabolic Steroid Allergy Unknown Verified 01/30/24 15:13 meperidine HCl [From Demerol] Allergy Rash/Hives Verified 01/30/24 15:13 propoxyphene napsylate Allergy Dyspnea Verified 01/30/24 15:13 [From Darvocet-N] Review of Systems ROS Statement: Those systems with pertinent positive or pertinent negative responses have been documented in the HPI. ROS Other: All systems not noted in ROS Statement are negative. Constitutional: Denies: fever Eyes: Denies: eye pain ENT: Denies: ear pain Respiratory: Denies: cough, dyspnea Cardiovascular: Denies: chest pain Gastrointestinal: Denies: abdominal pain Musculoskeletal: Denies: back pain Neurological: Reports: vertigo. Denies: headache, weakness, confusion Past Medical History Past Medical History: Heart Failure, COPD, CVA/TIA, Diabetes Mellitus, GERD/Reflux, Hyperlipidemia, Hypertension, Neurologic Disorder, Osteoarthritis (OA), Pneumonia, Renal Disease, Thyroid Disorder Additional Past Medical History / Comment(s): Hx CVA few ago, no residual effects. Generalized Neuropathy. Heart murmur. Hx UTI. GOITER. DIASTOLIC DYSFUNCTION. Scleroderma, trouble swallowing. Mitochondrial Myopathy, chronic pulmonary failure, kidney disease stage III. History of Any Multi-Drug Resistant Organisms: None Reported Past Surgical History: Appendectomy, Cholecystectomy, Heart Catheterization, Hysterectomy, Joint Replacement Additional Past Surgical History / Comment(s): RIGHT KNEE REPLACEMENT, LEFT KNEE SURGERY WITH SCREWS IN PLACE. Past Anesthesia/Blood Transfusion Reactions: No Reported Reaction Additional Past Anesthesia/Blood Transfusion Reaction / Comment(s): C LAUSTERPHOBIC. Past Psychological History: Anxiety Smoking Status: Former smoker Past Alcohol Use History: Occasional Past Drug Use History: None Reported - Past Family History Father Family Medical History: Cancer, Diabetes Mellitus Additional Family Medical History / Comment(s): AT AGE 61, CA throughout the body Mother Family Medical History: Cancer, Congestive Heart Failure (CHF), Diabetes Mellitus, Myocardial Infarction ([place]), Thyroid Disorder Additional Family Medical History / Comment(s): Uterine CA General Exam Limitations: no limitations General appearance: alert, in no apparent distress Head exam: Present: atraumatic, normocephalic Eye exam: Present: normal appearance, PERRL, EOMI. Absent: nystagmus ENT exam: Present: normal oropharynx Neck exam: Present: normal inspection. Absent: tenderness Respiratory exam: Present: normal lung sounds bilaterally Cardiovascular Exam: Present: regular rate, normal rhythm GI/Abdominal exam: Present: soft. Absent: tenderness Extremities exam: Present: normal inspection, full ROM. Absent: pedal edema, calf tenderness Neurological exam: Present: alert, CN II-XII intact. Absent: motor sensory deficit Expanded Neurological exam: Present: protecting the airway Speech: Present: fluid speech Cranial nerves: EOM's Intact: Normal Motor strength exam: RUE: 5, LUE: 5, RLE: 5, LLE: 5 Eye Response: (4) open spontaneously Motor Response: (6) obeys commands Verbal Response: (5) oriented Psychiatric exam: Present: normal affect, normal mood Skin exam: Present: normal color Course Vital Signs 01/30/24 01/30/24 15:11 16:43 Temperature 98.7 F Pulse Rate 87 90 Respiratory 16 16 Rate Blood Pressure 175/73 139/53 O2 Sat by Pulse 98 96 Oximetry EKG Findings - EKG Results: EKG: interpreted by JOSE (Low QRS voltage), sinus rhythm, normal axis, normal ST/T Medical Decision Making - Medical Decision Making Was pt. sent in by a medical professional or institution (, PA, EMERGENCY GENERATOR MECHANIC, urgent care, hospital, or correction...) When possible be specific @ -No Did you speak to anyone other than the patient for history (EMS, parent, family, police, friend...)? What history was obtained from this source @ -No Did you review nursing and triage notes (agree or disagree)? Why? @ -I reviewed and agree with nursing and triage notes Were old charts reviewed (outside hosp., previous admission, EMS record, old EKG, old radiological studies, urgent care reports/EKG's, correction records)? Report findings @ -No old charts were reviewed Differential Diagnosis (chest pain, altered mental status, abdominal pain women, abdominal pain men, vaginal bleeding, weakness, fever, dyspnea, syncope, headache, dizziness, GI bleed, back pain, seizure, CVA, palpatations, mental health, musculoskeletal)? @ -Differential Dizziness: Benign paroxysmal positional Vertigo, Menieres disease, otitis media, acoustic neuroma, vertebrobasilar insufficiency, cerebellar stroke, encephalitis, hypovolemic, arrhythmia, coronary artery syndrome, anemia, this is not meant to be an all-inclusive list EKG interpreted by me (3pts min.). @ -As above X-rays interpreted by me (1pt min.). @ -Chest x-ray shows nonspecific change CT interpreted by me (1pt min.). @ -Brain CT without acute abnormality U/S interpreted by me (1pt. min.). @ -None done What testing was considered but not performed or refused? (CT, X-rays, U/S, labs)? Why? @ -None What meds were considered but not given or refused? Why? @ -None Did you discuss the management of the patient with other professionals (professionals i.e. , PA, EMERGENCY GENERATOR MECHANIC, lab, RT, psych nurse, social work case manager, farm adviser, teacher, chief sustainability officer, case packer and sealer)? Give summary @ -No Was smoking cessation discussed for >3mins.? @ -No Was critical care preformed (if so, how long)? @ -No Were there social determinants of health that impacted care today? How? (Homelessness, low income, unemployed, alcoholism, drug addiction, transportation, low edu. Level, literacy, decrease access to med. care, long term, rehab)? @ -No Was there de-escalation of care discussed even if they declined (Discuss DNR or withdrawal of care, Hospice)? DNR status @ -No What co-morbidities impacted this encounter? (DM, HTN, Smoking, COPD, CAD, Cancer, CVA, ARF, Chemo, Hep., AIDS, mental health diagnosis, sleep apnea, morbid obesity)? @ -None Was patient admitted / discharged? Hospital course, mention meds given and route, prescriptions, significant lab abnormalities, going to OR and other pertinent info. @ -Patient presents with dizziness episode and fall. No syncope. Patient does have chronic dizziness. Unremarkable evaluation. Patient will be discharged with follow-up with primary care physician. Patient does request some Tylenol prior to discharge Undiagnosed new problem with uncertain prognosis? @ -No Drug Therapy requiring intensive monitoring for toxicity (Heparin, Nitro, In sulin, Cardizem)? @ -No Were any procedures done? @ -No Diagnosis/symptom? @ -Dizziness Acute, or Chronic, or Acute on Chronic? @ -Acute on chronic Uncomplicated (without systemic symptoms) or Complicated (systemic symptoms)? @ -Default Side effects of treatment? @ -No Exacerbation, Progression, or Severe Exacerbation? @ -No Poses a threat to life or bodily function? How? (Chest pain, [place], [place], pneumonia, PE, COPD, DKA, ARF, appy, cholecystitis, CVA, Diverticulitis, Homicidal, Suicidal, threat to staff... and all critical care pts) @ -No - Lab Data Result diagrams: 01/30/24 15:38 01/30/24 15:38 Lab Results 01/30/24 01/30/24 01/30/24 Range/Units 15:17 15:38 15:38 WBC 9.7 (3.8-10.6) k/uL RBC 4.70 (3.80-5.40) m/uL Hgb 12.8 (11.4-16.0) gm/dL Hct 40.7 (34.0-46.0) % MCV 86.5 (80.0-100.0) fL MCH 27.1 (25.0-35.0) pg MCHC 31.4 (31.0-37.0) g/dL RDW 13.8 (11.5-15.5) % Plt Count 316 (150-450) k/uL MPV 6.8 Neutrophils % 80 % Lymphocytes % 12 % Monocytes % 4 % Eosinophils % 2 % Basophils % 0 % Neutrophils # 7.8 H (1.3-7.7) k/uL Lymphocytes # 1.2 (1.0-4.8) k/uL Monocytes # 0.4 (0-1.0) k/uL Eosinophils # 0.2 (0-0.7) k/uL Basophils # 0.0 (0-0.2) k/uL PT 9.8 L (10.0-12.5) sec INR 0.9 (<1.2) APTT 18.6 L (22.0-30.0) sec Sodium (137-145) mmol/L Potassium (3.5-5.1) mmol/L Chloride (98-107) mmol/L Carbon Dioxide (22-30) mmol/L Anion Gap mmol/L BUN (7-17) mg/dL Creatinine (0.52-1.04) mg/dL Est GFR (CKD-EPI)AfAm (>60 ml/min/1.73 sqM) Est GFR (CKD-EPI)NonAf (>60 ml/min/1.73 sqM) Glucose (74-99) mg/dL POC Glucose (mg/dL) 271 H (70-110) mg/dL POC Glu [employer] Plant Operator ID Eugenia Jameson Plasma Lactic Acid Carlos (0.7-2.0) mmol/L Calcium (8.4-10.2) mg/dL Magnesium (1.6-2.3) mg/dL Total Bilirubin (0.2-1.3) mg/dL AST (14-36) U/L ALT (4-34) U/L Alkaline Phosphatase (38-126) U/L Troponin I (0.000-0.034) ng/mL Total Protein (6.3-8.2) g/dL Albumin (3.5-5.0) g/dL 01/30/24 01/30/24 01/30/24 Range/Units 15:38 15:38 15:38 WBC (3.8-10.6) k/uL RBC (3.80-5.40) m/uL Hgb (11.4-16.0) gm/dL Hct (34.0-46.0) % MCV (80.0-100.0) fL MCH (25.0-35.0) pg MCHC (31.0-37.0) g/dL RDW (11.5-15.5) % Plt Count (150-450) k/uL MPV Neutrophils % % Lymphocytes % % Monocytes % % Eosinophils % % Basophils % % Neutrophils # (1.3-7.7) k/uL Lymphocytes # (1.0-4.8) k/uL Monocytes # (0-1.0) k/uL Eosinophils # (0-0.7) k/uL Basophils # (0-0.2) k/uL PT (10.0-12.5) sec INR (<1.2) APTT (22.0-30.0) sec Sodium 133 L (137-145) mmol/L Potassium 4.7 (3.5-5.1) mmol/L Chloride 98 (98-107) mmol/L Carbon Dioxide 30 (22-30) mmol/L Anion Gap 5 mmol/L BUN 16 (7-17) mg/dL Creatinine 0.87 (0.52-1.04) mg/dL Est GFR (CKD-EPI)AfAm 84 (>60 ml/min/1.73 sqM) Est GFR (CKD-EPI)NonAf 73 (>60 ml/min/1.73 sqM) Glucose 257 H (74-99) mg/dL POC Glucose (mg/dL) (70-110) mg/dL POC Glu Wastewater Plant Operator ID Plasma Lactic Acid Carlos 2.4 H* (0.7-2.0) mmol/L Calcium 9.2 (8.4-10.2) mg/dL Magnesium 1.8 (1.6-2.3) mg/dL Total Bilirubin 0.5 (0.2-1.3) mg/dL AST 58 H (14-36) U/L ALT 47 H (4-34) U/L Alkaline Phosphatase 154 H (38-126) U/L Troponin I <0.012 (0.000-0.034) ng/mL Total Protein 6.4 (6.3-8.2) g/dL Albumin 3.8 (3.5-5.0) g/dL Disposition Clinical Impression: Dizziness Disposition: HOME SELF-CARE Condition: Stable Instructions (If sedation given, give patient instructions): Dizziness (ED) Additional Instructions: Please do follow-up with your primary care physician in the next day or 2 for recheck. Consider follow-up with ENT and neurology. [id number] Antivert as needed for dizziness. Return for passing out, weakness, confusion, worsening or changing symptoms or other concerns. Is patient prescribed a controlled substance at d/c from ED?: No Referrals: Marco A Oliver MD [Primary Care Provider] - 1-2 days Elias Yanez MD [STAFF PHYSICIAN] - 1-2 days Mei Cardona MD [Medical Doctor] - 1-2 days Time of Disposition: 17:31
[2024-01-30 15:48] LABS: Basophils % (A) 0 %; Eosinophils # (A) 0.2 k/uL (0-0.7); Eosinophils % (A) 2 %; HCT 40.7 % (34.0-46.0); HGB 12.8 gm/dL (11.4-16.0); Lymphocytes # (A) 1.2 k/uL (1.0-4.8); Lymphocytes % (A) 12 %; MCH 27.1 pg (25.0-35.0); MCHC 31.4 g/dL (31.0-37.0); MCV 86.5 fL (80.0-100.0); Mean Platelet Volume 6.8; Monocytes # (A) 0.4 k/uL (0-1.0); Monocytes % (A) 4 %; Neutrophils # (A) 7.8 k/uL (1.3-7.7); Neutrophils % (A) 80 %; Platelet Count 316 k/uL (150-450); RDW 13.8 % (11.5-15.5); WBC 9.7 k/uL (3.8-10.6)
[2024-01-30] MEDS: MECLIZINE 12.5 MG TAB PO STA (15:56)
[2024-01-30] MEDS: SODIUM CHLORIDE 0.9% 1,000 ML IV STA (15:57)
[2024-01-30 16:10] LABS: ALT 47 U/L (4-34); AST 58 U/L (14-36); African American GFR (CKD) 84 (>60 ml/min/1.73 sqM); Albumin 3.8 g/dL (3.5-5.0); Alkaline Phosphatase 154 U/L (38-126); Anion Gap 5 mmol/L; Blood Urea Nitrogen 16 mg/dL (7-17); Calcium 9.2 mg/dL (8.4-10.2); Carbon Dioxide 30 mmol/L (22-30); Chloride 98 mmol/L (98-107); Glucose 257 mg/dL (74-99); INR 0.9 (<1.2); Magnesium 1.8 mg/dL (1.6-2.3); Non-African American GFR(CKD) 73 (>60 ml/min/1.73 sqM); Potassium 4.7 mmol/L (3.5-5.1); Prothrombin Time 9.8 sec (10.0-12.5); Sodium 133 mmol/L (137-145); Total Bilirubin 0.5 mg/dL (0.2-1.3); Total Protein 6.4 g/dL (6.3-8.2)
[2024-01-30 16:15] LABS: Partial Thromboplastin Time 18.6 sec (22.0-30.0)
--- NOTE | 2024-01-30 16:45 | XR ---
EXAMINATION TYPE: XR chest 2V DATE OF EXAM: 01/30/2024 COMPARISON: 11/10/2023 HISTORY: 59-year-old female with weakness TECHNIQUE: AP and lateral views FINDINGS: Portable exam further limited by large body habitus and underpenetration. Heart mildly enlarged. Left base in particular is underpenetrated. Opacity posterior basal lateral view but without pleural effu marquis. IMPRESSION: 1. Portable exam further limited by body habitus. Correlate to exclude mild pulmonary vascular conges tion. 2. Patchy atelectasis posterior base favored over infiltrate.
--- NOTE | 2024-01-30 17:03 | CT ---
EXAMINATION TYPE: CT brain wo con CT DLP: 1176.4 mGycm, Automated exposure control for dose reduction was used. DATE OF EXAM: 01/30/2024 4:39 PM COMPARISON: 05/04/2021. CLINICAL INDICATION:Female, 59 years old with history of dizziness, dizziness TECHNIQUE: Brain: Axial CT images of the brain were obtained with coronal and sagittal reformats created and rev iewed. Contrast used: None. Oral contrast used: None. FINDINGS: Brain: Extra-axial spaces: No abnormal extra-axial fluid collections. Ventricular system: Within normal limits Cerebral parenchyma: No acute intraparenchymal hemorrhage or mass effect. The mooney-white junction is well differentiated. Cerebellum: Unremarkable. Mass effect: No evidence of midline shift. Intracranial vasculature: unremarkable Soft tissues: Normal. Calvarium/osseous structures: No depressed skull fracture. Paranasal sinuses and mastoid air cells: Mild scattered paranasal sinus disease. Visualized orbits: Orbital contents are intact. IMPRESSION: No acute intracranial process.
[2024-01-30] MEDS: ACETAMINOPHEN TAB 500 MG TAB PO STA (17:43)
[2024-01-30 18:05] VITALS: BP 154/78; PULSE 91; TEMP 98
== END 2024-01-30 18:03 | disposition home or self-care (01) ==
LOC: EC 14:59
DX: R42 Dizziness and giddiness (principal); Z87.891 Personal history of nicotine dependence; Z88.5 Allergy status to narcotic agent; Z88.8 Allergy status to other drugs, medicaments and biological substances; Z90.49 Acquired absence of other specified parts of digestive tract; Z86.73 Personal history of transient ischemic attack (TIA), and cerebral infarction without residual deficits
CPT/HCPCS: 36415; 70450; 71046; 80053; 83605; 83735; 84484; 85025; 85610; 85730; 93005; 96360; 96361; 99285

== ENCOUNTER → 2024-09-04 | Outpatient (CLI) | payer MEDICARE ==
--- NOTE | 2024-09-04 16:36 | XR ---
EXAMINATION TYPE: XR abdomen 2V DATE OF EXAM: 09/04/2024 3:59 PM COMPARISON: None CLINICAL INDICATION: Female, 59 years old with history of R19.00 INTRA-ABD AND PELVIC SWELLING, , FINDINGS: Left base underpenetrated and not well assessed. No evidence for free intraperitoneal air. Small air-fluid level in the transverse colon is suggested. Moderate stool along the left side of the colon. Cholecystectomy clips. No dilated small bowel loops are seen. Mild degenerative change of both hips. Overall limited due to large patient body habitus. IMPRESSION: 1. Overall nonobstructive bowel gas pattern. No free air. 2. Some liquid stool along the transverse colon could reflect an enteritis. [facility], , 09/04/2024 4:34 PM
[2024-09-04 19:28] LABS: Basophils # (A) 0.05 X 10*3/uL (0.00-0.10); Basophils % (A) 0.6 %; Eosinophils # (A) 0.27 X 10*3/uL (0.04-0.35); Eosinophils % (A) 3.1 %; HCT 36.9 % (37.2-46.3); HGB 11.7 g/dL (12.0-15.0); Lymphocytes # (A) 1.46 X 10*3/uL (0.90-5.00); Lymphocytes % (A) 16.5 %; MCH 26.2 pg (27.0-32.0); MCHC 31.7 g/dL (32.0-37.0); MCV 82.6 FL (80.0-97.0); Mean Platelet Volume 8.9 FL (9.5-12.2); Monocytes # (A) 0.51 X 10*3/uL (0.20-1.00); Monocytes % (A) 5.8 %; NRBC Per 100 WBC 0 X 10*3/uL (0.00-0.01); Neutrophils % (A) 73.5 %; Platelet Count 328 X 10*3/uL (140-440); RBC 4.47 X 10*6/uL (4.10-5.20); RDW 15.1 % (11.5-14.5); WBC 8.83 X 10*3/uL (4.50-10.00)
[2024-09-04 21:06] LABS: T4, Free (Free Thyroxine) 0.84 ng/dL (0.80-1.80)
[2024-09-04 21:14] LABS: ALT 41 U/L (8-44); AST 31 U/L (13-35); Albumin 4.2 g/dL (3.8-4.9); Albumin/Globulin Ratio 1.62 Ratio (1.60-3.17); Alkaline Phosphatase 153 U/L (41-126); Amylase 30 U/L (23-121); Blood Urea Nitrogen 14.8 mg/dL (9.0-27.0); Calcium 9.6 mg/dL (8.7-10.3); Carbon Dioxide 26.7 mmol/L (21.6-31.8); Chloride 100 mmol/L (96-109); Globulin 2.6 g/dL (1.6-3.3); Glucose 149 mg/dL (70-110); Lipase 35 U/L (14-63); Potassium 4.7 mmol/L (3.5-5.5); Sodium 141 mmol/L (135-145); Total Bilirubin 0.3 mg/dL (0.3-1.2); Total Protein 6.8 g/dL (6.2-8.2)
== END | disposition home or self-care (01) ==
LOC: LABWHC1 15:14
PROVIDERS: ATTEND Family Medicine
DX: E11.65 Type 2 diabetes mellitus with hyperglycemia (principal); R19.00 Intra-abdominal and pelvic swelling, mass and lump, unspecified site; R10.10 Upper abdominal pain, unspecified
CPT/HCPCS: 36415; 74019; 80053; 82150; 83036; 83690; 84439; 84443; 85025

== ENCOUNTER → 2024-09-05 | Outpatient (CLI) | payer MEDICARE ==
--- NOTE | 2024-09-05 10:33 | US ---
EXAMINATION TYPE: US abdomen complete DATE OF EXAM: 09/05/2024 COMPARISON: 08/24/2023 CLINICAL INDICATION: Female, 59 years old with history of R19.00 INTRA-ABD AND PELVIC SWELLING, MASS AND LUM; LUQ PAIN TECHNIQUE: Grayscale and color Doppler imaging of the abdomen was performed. FINDINGS: EXAM MEASUREMENTS: Liver Length: 20.2 cm Gallbladder : Surgically absent CBD: Unable to visualize due to attenuating tissues. Spleen: 12.7 cm Right Kidney: 12.4 x 5.3 x 5.2 cm Left Kidney: 12.6 x 5.6 x 6.0 cm Pancreas: Only a small portion of the pancreatic neck is seen. Remainder is obscured by bowel gas sh adowing. Liver: Very echogenic and attenuating limiting evaluation. Gallbladder: Surgically absent Evidence for sonographic Covington's sign: Yes CBD: Obscured by overlying bowel gas Spleen: wnl Right Kidney: wnl, No hydronephrosis, calculi or masses seen Left Kidney: wnl, No hydronephrosis, calculi or masses seen Upper IVC: Obscured by overlying bowel gas Abd Aorta: Obscured by overlying bowel gas IMPRESSION: 1. Hepatomegaly at 20.2 cm with severe hepatic steatosis. Appropriate clinical management is advised. 2. Gallbladder surgically absent but the three dimensional map modeler indicates a positive sonographic Covington's sign. This may be referred from the liver. 3. Unable to adequately visualize the bile duct or pancreas. [facility], , 09/05/2024 10:31 AM
== END | disposition home or self-care (01) ==
LOC: RADUSWWP 09:46
PROVIDERS: ATTEND Family Medicine
DX: R16.0 Hepatomegaly, not elsewhere classified (principal); K76.0 Fatty (change of) liver, not elsewhere classified; R19.09 Other intra-abdominal and pelvic swelling, mass and lump; Z90.49 Acquired absence of other specified parts of digestive tract
CPT/HCPCS: 76700

== ENCOUNTER 2024-10-17 12:16 | Emergency (ER) | payer MEDICARE, OTHER ==
--- NOTE | 2024-10-17 13:05 | ED ---
General Adult HPI - General Chief complaint: Shortness of Breath Stated complaint: Chest pain,PENNIE Time Seen by Provider: 10/17/24 12:33 Source: patient Mode of arrival: ambulatory Limitations: no limitations - History of Present Illness Initial comments: Dictation was produced using [employer] dictation software. please excuse any grammatical, word or spelling errors. Chief Complaint: 59-year-old female presents to the ER for persistent cough and shortness of breath History of Present Illness: Patient 59-year-old female presents emergency department for cough and shortness of breath. Patient states she was on steroids for 3 weeks and completed course of Levaquin. States that those medications did not help. Denies any fever, chills or night sweats. 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 The ROS documented in this emergency department record has been reviewed and confirmed by me. Those systems with pertinent positive or negative responses have been documented in the HPI. All other systems are other negative and/or noncontributory. - Related Data Home Medications Medication Instructions Recorded Confirmed Isosorbide Mononitrate ER [Imdur] 60 mg PO DAILY 07/16/14 11/10/23 Montelukast [Singulair] 10 mg PO HS 10/20/15 11/10/23 Gabapentin [Neurontin] 800 mg PO TID 09/07/16 11/10/23 Latanoprost Ophth [Xalatan 0.005%] 1 drop BOTH EYES HS 09/07/16 11/10/23 Atorvastatin [Lipitor] 40 mg PO HS 08/20/17 11/10/23 Ipratropium-Albuterol Nebulize 3 ml INHALATION RT-QID PRN 08/20/17 11/10/23 [Duoneb 0.5 mg-3 mg/3 ml Soln] Furosemide [Lasix] 20 mg PO DAILY 08/29/19 11/10/23 dilTIAZem HCL [dilTIAZem HCL 24Hr 240 mg PO HS 08/29/19 11/10/23 ER] Aspirin EC [Ecotrin Low Dose] 81 mg PO DAILY 03/31/21 11/10/23 Famotidine 40 mg PO DAILY 03/31/21 11/10/23 Budesonide [Pulmicort Flexhaler] 2 puff INHALATION RT-BID 11/23/21 11/10/23 Cyclobenzaprine [Flexeril] 10 mg PO BID PRN 11/23/21 11/10/23 DULoxetine HCL [Cymbalta] 120 mg PO HS 11/23/21 11/10/23 Flovent (Unknown Strength) 2 puff INHALATION DIRECTED PRN 11/23/21 11/10/23 Fluticasone Nasal [place] [Flonase 2 spr EA NOSTRIL DAILY 11/23/21 11/10/23 Nasal [place]] HYDROcodone/APAP 10-325MG [Divide 1 tab PO Q4H PRN 11/23/21 11/10/23 10-325] Ibuprofen [Motrin] 800 mg PO Q8H PRN 11/23/21 11/10/23 Insulin Aspart [NovoLOG] 25 unit SQ TID-W/MEALS 11/23/21 11/10/23 Insulin Glargine,Hum.rec.anlog 50 unit SQ HS 11/23/21 11/10/23 [Lantus Solostar Pen] Ondansetron Odt [Zofran ODT] 4 mg PO Q6H PRN 11/23/21 11/10/23 Ipratropium Nasal [place](Unknown 2 spr EA NOSTRIL DIRECTED PRN 09/04/23 11/10/23 Dose) Losartan [Cozaar] 50 mg PO DAILY 09/04/23 11/10/23 Esomeprazole Magnesium [NexIUM] 40 mg PO BID 11/10/23 11/10/23 Previous Rx's Medication Instructions Recorded Hydroxychloroquine Sulfate 200 mg PO BID tab 06/23/21 [Plaquenil] Amoxic-Pot Clav 875-125Mg 1 tab PO Q12HR 10 Days #20 tab 11/10/23 [Augmentin 875-125] predniSONE 50 mg PO DAILY #5 tab 11/10/23 Allergies Allergy/AdvReac Type Severity Reaction Status Date / Time Androgenic Anabolic Steroid Allergy Unknown Verified 10/17/24 12:29 meperidine HCl [From Demerol] Allergy Rash/Hives Verified 10/17/24 12:29 propoxyphene napsylate Allergy Dyspnea Verified 10/17/24 12:29 [From Darvocet-N] Review of Systems ROS Statement: Those systems with pertinent positive or pertinent negative responses have been documented in the HPI. ROS Other: All systems not noted in ROS Statement are negative. Past Medical History Past Medical History: Heart Failure, COPD, CVA/TIA, Diabetes Mellitus, GERD/Reflux, Hyperlipidemia, Hypertension, Neurologic Disorder, Osteoarthritis (OA), Pneumonia, Renal Disease, Thyroid Disorder Additional Past Medical History / Comment(s): Hx CVA few ago, no residual effects. Generalized Neuropathy. Heart murmur. Hx UTI. GOITER. DIASTOLIC DYSFUNCTION. Scleroderma, trouble swallowing. Mitochondrial Myopathy, chronic pulmonary failure, kidney disease stage III. History of Any Multi-Drug Resistant Organisms: None Reported Past Surgical History: Appendectomy, Cholecystectomy, Heart Catheterization, Hysterectomy, Joint Replacement Additional Past Surgical History / Comment(s): RIGHT KNEE REPLACEMENT, LEFT KNEE SURGERY WITH SCREWS IN PLACE. Past Anesthesia/Blood Transfusion Reactions: No Reported Reaction Additional Past Anesthesia/Blood Transfusion Reaction / Comment(s): CLAUSTERPHOBIC. Past Psychological History: Anxiety Smoking Status: Former smoker Past Alcohol Use History: Occasional Past Drug Use History: None Reported - Past Family History Father Family Medical History: Cancer, Diabetes Mellitus Additional Family Medical History / Comment(s): AT AGE 61, CA throughout the body Mother Family Medical History: Cancer, Congestive Heart Failure (CHF), Diabetes Mellitus, Myocardial Infarction (PR), Thyroid Disorder Additional Family Medical History / Comment(s): Uterine CA General Exam - General Exam Comments Initial Comments: PHYSICAL EXAM: General Impression: Alert and oriented x3, not in acute distress HEENT: Normocephalic atraumatic, extra-ocular movements intact, pupils equal and reactive to light bilaterally, mucous membranes moist. Cardiovascular: Heart regular rate and rhythm Chest: Able to complete full sentences, no retractions, no tachypnea Abdomen: abdomen soft, non-tender, non-distended, no organomegaly Musculoskeletal: Pulses present and equal in all extremities, no peripheral edema Motor: no focal deficits noted Neurological: CN II-XII grossly intact, no focal motor or sensory deficits noted Skin: Intact with no visualized rashes Psych: Normal affect and mood Limitations: no limitations Course Vital Signs 10/17/24 10/17/24 10/17/24 12:27 13:00 14:00 Temperature 97.4 F L 97.6 F Pulse Rate 88 82 84 Respiratory 18 18 19 Rate Blood Pressure 141/72 130/80 O2 Sat by Pulse 99 99 100 Oximetry 10/17/24 10/17/24 15:00 16:00 Temperature 97.8 F Pulse Rate 80 78 Respiratory 16 16 Rate Blood Pressure 138/83 O2 Sat by Pulse 98 100 Oximetry EKG Findings - EKG Comments: EKG Findings:: My EKG interpretation: Ventricular rate 85, sinus rhythm,. 169, QRS 84, QTc 384. No CA prolongation, no QTC prolongation, no ST or T-wave changes noted. Overall, this EKG is unremarkable Medical Decision Making - Medical Decision Making Was pt. sent in by a medical professional or institution (, PA, COMPANY MANAGER, urgent care, hospital, or detention...) When possible be specific @ -No Did you speak to anyone other than the patient for history (EMS, parent, family, police, friend...)? What history was obtained from this source @ -No Did you review nursing and triage notes (agree or disagree)? Why? @ -I reviewed and agree with nursing and triage notes Were old charts reviewed (outside hosp., previous admission, EMS record, old EKG, old radiological studies, urgent care reports/EKG's, detention records)? Report findings @ -No old charts were reviewed Differential Diagnosis (chest pain, altered mental status, abdominal pain women, abdominal pain men, vaginal bleeding, musculoskeletal, weakness, fever, dyspnea, syncope, headache, dizziness, GI bleed, back pain, seizure, CVA, palpatations, mental health)? @ -Differential Dyspnea: Coronary syndrome, arrhythmia, tamponade, asthma, COPD, pulmonary embolism, pneumonia, pneumothorax, pulmonary effusion, anaphylaxis, diabetic ketoacidosis, flailed chest, pulmonary contusion, diaphragmatic rupture, anemia, neuromuscular, this is not meant to be an all-inclusive list. EKG interpreted by me (3pts min.). @ -See above X-rays interpreted by me (1pt min.). @ -X-ray is nonacute CT interpreted by me (1pt min.). @ -None done U/S interpreted by me (1pt. min.). @ -None done What testing was considered but not performed or refused? (CT, X-rays, U/S, labs)? Why? @ -None What meds were considered but not given or refused? Why? @ -None Was smoking cessation discussed for >3mins.? @ -No Were there social determinants of health that impacted care today? How? (Homelessness, low income, unemployed, alcoholism, drug addiction, transportation, low edu. Level, literacy, decrease access to med. care, senior care, rehab)? @ -No Was there de-escalation of care discussed even if they declined (Discuss DNR or withdrawal of care, Hospice)? DNR status @ -No What co-morbidities impacted this encounter? (DM, HTN, Smoking, COPD, CAD, Cancer, CVA, ARF, Chemo, Hep., AIDS, mental health diagnosis, sleep apnea, morbid obesity)? @ -home o2, heart failure, COPD Was patient admitted / discharged? Hospital course, mention meds given and route, prescriptions, significant lab abnormalities, going to OR and other pertinent info. @ -59-year-old female with persistent respiratory infectious type symptoms. Completed course of Levaquin and long duration steroid treatment. States that she still having cough. States its slightly productive. Denies any chest pain starting for ACS. Lungs are clear. Patient well-appearing at the bedside. Laboratory evaluation obtained. Labs unremarkable including troponin and D- dimer. X-ray is nonacute. Patient reevaluated bedside 4:53 PM found to be stable to condition. This point no significant concern for any life-threatening processes. Patient offered hospital admission with pulmonary consultation due to extensive cardiopulmonary history. Patient prefers to be discharged with close outpatient follow-up. Return precautions discussed. Did you discuss the management of the patient with other professionals (professionals i.e. , PA, COMPANY MANAGER, lab, RT, psych nurse, health care social worker, real estate lawyer, teacher, hospital security officer, corrections caseworker)? Give summary @ -No Was critical care preformed (if so, how long)? @ -No Undiagnosed new problem with uncertain prognosis? @ -No Drug Therapy requiring intensive monitoring for toxicity (Heparin, Nitro, Insulin, Cardizem)? @ -No Were any procedures done? @ -No Diagnosis/symptom? Acute, or Chronic, or Acute on Chronic? Uncomplicated (without systemic symptoms) or Complicated (systemic symptoms)? @ -URI, likely viral Side effects of treatment? @ -No Exacerbation, Progression, or Severe Exacerbation? @ -No Poses a threat to life or bodily function? How? (Chest pain, USA, PR, pneumonia, PE, COPD, DKA, ARF, appy, cholecystitis, CVA, Diverticulitis, Homicidal, Suicidal, threat to staff... and all critical care pts) @ -No - Lab Data Result diagrams: 10/17/24 13:52 10/17/24 13:52 Lab Results 10/17/24 10/17/24 10/17/24 Range/Units 13:52 13:52 13:52 WBC 13.4 H (3.8-10.6) k/uL RBC 5.02 (3.80-5.40) m/uL Hgb 13.0 (11.4-16.0) gm/dL Hct 41.5 (34.0-46.0) % MCV 82.6 (80.0-100.0) fL MCH 25.9 (25.0-35.0) pg MCHC 31.4 (31.0-37.0) g/dL RDW 15.2 (11.5-15.5) % Plt Count 436 (150-450) k/uL MPV 7.2 Neutrophils % 78 % Lymphocytes % 15 % Monocytes % 5 % Eosinophils % 1 % Basophils % 0 % Neutrophils # 10.4 H (1.3-7.7) k/uL Lymphocytes # 2.0 (1.0-4.8) k/uL Monocytes # 0.7 (0-1.0) k/uL Eosinophils # 0.2 (0-0.7) k/uL Basophils # 0.0 (0-0.2) k/uL PT (10.0-12.5) sec INR (<1.2) APTT (22.0-30.0) sec D-Dimer (<0.60) mg/L FEU Sodium 136 L (137-145) mmol/L Potassium 4.4 (3.5-5.1) mmol/L Chloride 95 L (98-107) mmol/L Carbon Dioxide 34 H (22-30) mmol/L Anion Gap 7 mmol/L BUN 31 H (7-17) mg/dL Creatinine 0.96 (0.52-1.04) mg/dL Est GFR (CKD-EPI)AfAm 74 (>60 ml/min/1.73 sqM) Est GFR (CKD-EPI)NonAf 65 (>60 ml/min/1.73 sqM) Glucose 169 H (74-99) mg/dL Plasma Lactic Acid Carlos 1.5 (0.7-2.0) mmol/L Calcium 9.5 (8.4-10.2) mg/dL Magnesium 2.2 (1.6-2.3) mg/dL Total Bilirubin 0.7 (0.2-1.3) mg/dL AST 21 (14-36) U/L ALT 22 (4-34) U/L Alkaline Phosphatase 89 (38-126) U/L Troponin I (0.000-0.034) ng/mL NT-Pro-B Natriuret Pep 25 pg/mL Total Protein 7.0 (6.3-8.2) g/dL Albumin 4.2 (3.5-5.0) g/dL 10/17/24 10/17/24 Range/Units 13:52 15:45 WBC (3.8-10.6) k/uL RBC (3.80-5.40) m/uL Hgb (11.4-16.0) gm/dL Hct (34.0-46.0) % MCV (80.0-100.0) fL MCH (25.0-35.0) pg MCHC (31.0-37.0) g/dL RDW (11.5-15.5) % Plt Count (150-450) k/uL MPV Neutrophils % % Lymphocytes % % Monocytes % % Eosinophils % % Basophils % % Neutrophils # (1.3-7.7) k/uL Lymphocytes # (1.0-4.8) k/uL Monocytes # (0-1.0) k/uL Eosinophils # (0-0.7) k/uL Basophils # (0-0.2) k/uL PT 10.6 (10.0-12.5) sec INR 1.0 (<1.2) APTT 19.3 L (22.0-30.0) sec D-Dimer 0.18 (<0.60) mg/L FEU Sodium (137-145) mmol/L Potassium (3.5-5.1) mmol/L Chloride (98-107) mmol/L Carbon Dioxide (22-30) mmol/L Anion Gap mmol/L BUN (7-17) mg/dL Creatinine (0.52-1.04) mg/dL Est GFR (CKD-EPI)AfAm (>60 ml/min/1.73 sqM) Est GFR (CKD-EPI)NonAf (>60 ml/min/1.73 sqM) Glucose (74-99) mg/dL Plasma Lactic Acid Carlos (0.7-2.0) mmol/L Calcium (8.4-10.2) mg/dL Magnesium (1.6-2.3) mg/dL Total Bilirubin (0.2-1.3) mg/dL AST (14-36) U/L ALT (4-34) U/L Alkaline Phosphatase (38-126) U/L Troponin I 0.015 (0.000-0.034) ng/mL NT-Pro-B Natriuret Pep pg/mL Total Protein (6.3-8.2) g/dL Albumin (3.5-5.0) g/dL Disposition Clinical Impression: URI (upper respiratory infection) Disposition: HOME SELF-CARE Condition: Fair Instructions (If sedation given, give patient instructions): Acute Bronchitis (ED) Is patient prescribed a controlled substance at d/c from ED?: No Referrals: Murray Braun DO [Primary Care Provider] - 1-2 days Nani Quezada MD [STAFF PHYSICIAN] - 1-2 days Time of Disposition: 16:54
--- NOTE | 2024-10-17 13:43 | XR ---
EXAMINATION TYPE: XR chest 2V DATE OF EXAM: 10/17/2024 1:20 PM COMPARISON: Chest radiographs from 01/30/2024 CLINICAL INDICATION: Female, 59 years old with history of persistent cough, dyspnea; [facility] TECHNIQUE: XR chest 2V Frontal and lateral views of the chest. FINDINGS: Lungs/Pleura: There is no evidence of pleural effusion, focal consolidation, or pneumothorax. Pulmonary vascularity: Unremarkable. Heart/mediastinum: Cardiomediastinal silhouette is unremarkable. Musculoskeletal: No acute osseous pathology. Other findings: None IMPRESSION: No acute cardiopulmonary disease/process. [facility], , 10/17/2024 1:28 PM
[2024-10-17 14:00] LABS: Basophils % (A) 0 %; Eosinophils # (A) 0.2 k/uL (0-0.7); Eosinophils % (A) 1 %; HCT 41.5 % (34.0-46.0); Lymphocytes % (A) 15 %; MCH 25.9 pg (25.0-35.0); MCHC 31.4 g/dL (31.0-37.0); MCV 82.6 fL (80.0-100.0); Mean Platelet Volume 7.2; Monocytes # (A) 0.7 k/uL (0-1.0); Monocytes % (A) 5 %; Neutrophils # (A) 10.4 k/uL (1.3-7.7); Neutrophils % (A) 78 %; Platelet Count 436 k/uL (150-450); RBC 5.02 m/uL (3.80-5.40); RDW 15.2 % (11.5-15.5); WBC 13.4 k/uL (3.8-10.6)
[2024-10-17 14:13] LABS: ALT 22 U/L (4-34); African American GFR (CKD) 74 (>60 ml/min/1.73 sqM); Albumin 4.2 g/dL (3.5-5.0); Anion Gap 7 mmol/L; Blood Urea Nitrogen 31 mg/dL (7-17); Calcium 9.5 mg/dL (8.4-10.2); Carbon Dioxide 34 mmol/L (22-30); Chloride 95 mmol/L (98-107); Glucose 169 mg/dL (74-99); Non-African American GFR(CKD) 65 (>60 ml/min/1.73 sqM); Sodium 136 mmol/L (137-145); Total Bilirubin 0.7 mg/dL (0.2-1.3)
[2024-10-17 14:17] LABS: AST 21 U/L (14-36); Alkaline Phosphatase 89 U/L (38-126); Magnesium 2.2 mg/dL (1.6-2.3); Potassium 4.4 mmol/L (3.5-5.1)
[2024-10-17 14:20] LABS: NT-Pro-B-Type Natriuretic Pept 25 pg/mL
[2024-10-17 16:34] LABS: Prothrombin Time 10.6 sec (10.0-12.5)
[2024-10-17 16:36] LABS: Partial Thromboplastin Time 19.3 sec (22.0-30.0)
[2024-10-17 17:09] VITALS: RESP 20
[2024-10-17 17:10] VITALS: BP 140/72; PULSE 76; TEMP 98
== END 2024-10-17 17:09 | disposition home or self-care (01) ==
LOC: EC 12:16
DX: J06.9 Acute upper respiratory infection, unspecified (principal); J44.9 Chronic obstructive pulmonary disease, unspecified; I50.9 Heart failure, unspecified; Z86.73 Personal history of transient ischemic attack (TIA), and cerebral infarction without residual deficits; Z99.81 Dependence on supplemental oxygen; Z87.891 Personal history of nicotine dependence
CPT/HCPCS: 36415; 71046; 80053; 83605; 83735; 83880; 84484; 85025; 85379; 85610; 85730; 93005; 99285

== ENCOUNTER → 2024-10-19 | Outpatient (CLI) | payer MEDICARE ==
--- NOTE | 2024-10-19 13:32 | MM ---
Reason for Exam: Screening (asymptomatic). Last mammogram was performed 1 year(s) and 1 month(s) ago. Patient History: Menarche at age 11. First Full-Term at age 21. Left ovary removed at age 47. Right ovary removed at age 47. Hysterectomy at age 35. Postmenopausal. Estrogen, starting at age 35 for 17 years. Paternal grandmother had breast cancer, age 60. Paternal aunt had breast cancer, age 45. Maternal aunt had breast cancer. Risk Values: Ramona 5 year model risk: 1.3%. NCI Lifetime model risk: 6.6%. Prior Study Comparison: 07/06/2021 Bilateral Diagnostic Mammogram, [facility]. 07/20/2022 Bilateral MG 3D screening mammo w/cad, [facility]. 09/19/2023 Bilateral MG 3D screening mammo w/cad, [facility]. Tissue Density: There are scattered areas of fibroglandular density. Findings: Analyzed By CAD. There is no suspicious group of microcalcifications or new suspicious mass in either breast. Overall Assessment: Negative, BI-RAD 1 Management: Screening Mammogram of both breasts in 1 year. . Patient should continue monthly self-breast exams. A clinical breast exam by your physician is recommended on an annual basis. This exam should not preclude additional follow-up of suspicious palpable abnormalities. Note on Ramona scores and lifetime risk: 1. A Ramona score greater than 3% is considered moderate risk. If this is the case, consider specialist referral to assess eligibility for a risk reducing agent. 2. If overall lifetime risk for the development of breast cancer is 20% or higher, the patient may qualify for future screening with alternating mammogram and breast MRI. [facility], , 10/19/2024 1:29 PM. Electronically signed and approved by: Jerman Robles M.D. Radiologis
== END | disposition home or self-care (01) ==
LOC: RADMAMWWP 13:04
PROVIDERS: ATTEND Family Medicine
DX: Z12.31 Encounter for screening mammogram for malignant neoplasm of breast (principal); R92.323 Mammographic fibroglandular density, bilateral breasts; Z78.0 Asymptomatic menopausal state; Z80.3 Family history of malignant neoplasm of breast
CPT/HCPCS: 77063; 77067

== ENCOUNTER → 2024-10-23 | Outpatient (CLI) | payer MEDICARE, OTHER ==
--- NOTE | 2024-10-23 15:11 | CT ---
EXAMINATION TYPE: CT chest wo con CT DLP: 715.1 mGycm, Automated exposure control for dose reduction was used. DATE OF EXAM: 10/23/2024 3:03 PM COMPARISON: Chest radiograph 10/17/2024, CTA chest 08/30/2019, CT chest 10/22/2015. CLINICAL INDICATION:Female, 59 years old with history of R05.3 CHRONIC COUGH; PHH, Chronic cough and shortness of breath. TECHNIQUE: Multiple axial images were obtained through the chest without IV contrast. Lack of IV or o ral contrast limits evaluation of solid and hollow organ viscera. . Coronal and sagittal reformats re viewed. FINDINGS: LUNGS/ PLEURA: No pleural effusion, pneumothorax, focal consolidation. Mild bilateral lower lobe depe ndent subsegmental atelectasis. Linear atelectasis within the left lower lobe. No honeycombing or tasia dence of interstitial lung disease. No suspicious pulmonary nodule or mass. AIRWAY: Patent and unremarkable.. HEART: Cardiomegaly is demonstrated.No pericardial effusion No significant coronary artery calcificat ions. MEDIASTINUM: No gross evidence of adenopathy. VASCULATURE: No aortic aneurysm. Mild atherosclerotic calcification of the aorta and its branches. MUSCULOSKELETAL: No acute osseous abnormalities. Mild multilevel degenerative disc disease. SOFT TISSUES/LYMPH NODES: Unremarkable. LOWER NECK: No significant findings. UPPER ABDOMEN: Gallbladder is surgically absent. IMPRESSION: 1. No acute thoracic process. 2. Mild bilateral lower lobe dependent subsegmental atelectasis. [facility], , 10/23/2024 3:08 PM
== END | disposition home or self-care (01) ==
LOC: RADCTMAIN 14:24
PROVIDERS: ATTEND Family Medicine
DX: J98.11 Atelectasis (principal); R05.3 Chronic cough
CPT/HCPCS: 71250

== ENCOUNTER 2024-10-26 09:20 | Day surgery (SDC) | payer MEDICARE ==
[2024-10-25 12:19] VITALS: BMI 42.7
[~2024-10-26 09:20] MED LIST: LIDOCAINE 1% (10MG/ML) FOR IV START INTRADERMA PRN
[2024-10-26 09:48] VITALS: TEMP 97.1
[2024-10-26] MEDS: IV FLUID CONTINUATION 1,000 ML IV ONE (09:59)
[2024-10-26] MEDS: LACTATED RINGERS 1,000 ML IV SCH (10:00)
[2024-10-26 10:02] LABS: Glucose,Whole Blood 160 mg/dL (70-110)
[2024-10-26] MEDS ORDERED: PROPOFOL 10 MG/ML 20 ML VIAL IV ONE (10:44)
[2024-10-26] MEDS ORDERED: LIDOCAINE 1% INJ 10MG/ML (20 ML MDV) ONE (10:44)
--- NOTE | 2024-10-26 11:08 | P.PCN ---
Date of Procedure: 10/26/24 Procedure(s) Performed: Brief history: Patient is a pleasant scheduled for an elective upper endoscopy as well as colonoscopy as a part of evaluation of evaluation of abdominal pain, abdominal bloating and change in bowel habits for the last several months duration Procedure performed: Esophagogastroduodenoscopy with biopsy Colonoscopy Preoperative diagnosis: Abdominal pain, abdominal bloating and change in bowel habits Anesthesia: MAC Procedure: After informed consent was obtained from the patient was brought into the endoscopy unit and IV sedation was administered by anesthesia under continuous monitoring. Initially upper endoscopy was done. The Olympus GF 160 video endoscope was inserted inserted into the mouth and esophagus intubated without any difficulty and was gradually advanced into the stomach and duodenum and carefully examined. The bulb and second part of the duodenum appeared normal. The scope was then withdrawn into the stomach adequately insufflated with air and upon careful examination the antrum had mild gastritis and biopsies were done.. Small gastric polyps noted in the gastric body of the stomach. Rest of the and body, cardia and fundus appeared normal. The scope was then withdrawn into the esophagus. The GE junction was located at 40 cm to the incisors. It appeared regular with no erythema erosions or ulcerations. Rest of the esophagus appeared normal. Patient tolerated the procedure well. At this time the patient continued to remain sedation. Initial digital rectal examination was normal. Olympus CF 160 video colonoscope was then inserted into the rectum and gradually advanced to the cecum without any difficulty. Careful examination was performed as the scope was gradually being withdrawn. The prep was fair.. The cecum, ascending colon, transverse colon, descending colon, sigmoid colon and rectum appeared normal. Retroflexion was performed in the rectum and no lesions were noted. Patient tolerated the procedure well. Impression: 1. Upper endoscopy revealed antral gastritis and small gastric polyps 2. Colonoscopy was within normal limits with no evidence of colorectal neoplasia Recommendations: Findings of this examination were discussed with the patient as well as her family. She was advised to follow-up with the biopsy results. She was advised to start on MiraLAX 1 scoop twice daily and continue with high fiber diet and fiber supplements as needed. Recommended repeat colonoscopy in 10 years.
[2024-10-26 11:16] VITALS: RESP 14
[2024-10-26 11:28] VITALS: BP 146/68; PULSE 86
== END 2024-10-26 11:50 | disposition home or self-care (01) ==
LOC: ORWHC2ENDO 09:20
PROVIDERS: ATTEND Internal Medicine Gastroenterology
DX: K29.50 Unspecified chronic gastritis without bleeding (principal); K31.7 Polyp of stomach and duodenum; R19.4 Change in bowel habit; I11.0 Hypertensive heart disease with heart failure; I50.9 Heart failure, unspecified; E78.5 Hyperlipidemia, unspecified; J44.9 Chronic obstructive pulmonary disease, unspecified; G47.33 Obstructive sleep apnea (adult) (pediatric); E03.9 Hypothyroidism, unspecified; K21.9 Gastro-esophageal reflux disease without esophagitis; E11.40 Type 2 diabetes mellitus with diabetic neuropathy, unspecified; Z86.73 Personal history of transient ischemic attack (TIA), and cerebral infarction without residual deficits; Z79.4 Long term (current) use of insulin; Z79.899 Other long term (current) drug therapy; Z99.89 Dependence on other enabling machines and devices
CPT/HCPCS: 88305; 45378; 43239; J2003; J2704

== ENCOUNTER 2024-11-05 23:09 | Observation (INO) | payer MEDICARE, OTHER ==
--- NOTE | 2024-11-05 23:40 | ED ---
Dizziness HPI - General Chief Complaint: Dizziness Stated Complaint: Syncope,Dizzy Time Seen by Provider: 11/05/24 23:23 Source: patient, RN notes reviewed, old records reviewed Mode of arrival: ambulatory Limitations: no limitations - History of Present Illness Initial Comments: This is a 59-year-old female to the ER for evaluation patient presents today for evaluation regarding significant shortness of breath, especially with activity. History of heart failure history of COPD patient has had repeated episodes of syncope near syncope falling to the ground over and over again and at this point is concern for these events not improving, she does wear oxygen as prescribed shortness CPAP at night as prescribed and nothing seems to help with the sy mptoms continuing to recur, she has been told she has vertigo but she states she does not get dizzy she is in the room does not spin around she gets a little lightheaded and passes out or almost passes out and then hits the ground MD Complaint: dizziness, lightheadedness, near syncope -: month(s) (6) Description: near-syncope History of Same: Yes History of Trauma: No Severity: severe Improves With: nothing Worsens With: movement, position, exertion Associated Symptoms: shortness of breath, syncope - Related Data Home Medications Medication Instructions Recorded Confirmed Isosorbide Mononitrate ER [Imdur] 60 mg PO DAILY 07/16/14 10/26/24 Montelukast [Singulair] 10 mg PO HS 10/20/15 10/26/24 Gabapentin [Neurontin] 800 mg PO TID 09/07/16 10/26/24 Latanoprost Ophth [Xalatan 0.005%] 1 drop BOTH EYES HS 09/07/16 10/26/24 Atorvastatin [Lipitor] 40 mg PO 08/20/17 10/26/24 Ipratropium-Albuterol Nebulize 3 ml INHALATION RT-QID PRN 08/20/17 10/26/24 [Duoneb 0.5 mg-3 mg/3 ml Soln] Furosemide [Lasix] 20 mg PO DAILY 08/29/19 10/26/24 dilTIAZem HCL [dilTIAZem HCL 24Hr 240 mg PO HS 08/29/19 10/26/24 ER] Aspirin EC [Ecotrin Low Dose] 81 mg PO DAILY 03/31/21 10/26/24 Famotidine 40 mg PO DAILY 03/31/21 10/26/24 Cyclobenzaprine [Flexeril] 10 mg PO BID PRN 11/23/21 10/26/24 DULoxetine HCL [Cymbalta] 120 mg PO HS 11/23/21 10/26/24 Fluticasone Nasal [place] [Flonase 2 spr EA NOSTRIL DAILY 11/23/21 10/26/24 Nasal [place]] HYDROcodone/APAP 10-325MG [[place] 1 tab PO Q4H PRN 11/23/21 10/26/24 10-325] Ibuprofen [Motrin] 800 mg PO Q8H PRN 11/23/21 10/26/24 Insulin Aspart [NovoLOG] 26 unit SQ TID-W/MEALS 11/23/21 10/26/24 Insulin Glargine,Hum.rec.anlog 50 unit SQ HS 11/23/21 10/26/24 [Lantus Solostar Pen] Ondansetron Odt [Zofran ODT] 4 mg PO Q6H PRN 11/23/21 10/26/24 Ipratropium Nasal [place](Unknown 2 spr EA NOSTRIL DIRECTED PRN 09/04/23 10/26/24 Dose) Blood-Glucose Sensor [Freestyle 1 each MC Q14D 10/25/24 10/26/24 Eric 3 Plus Sensor] Calcium Carb-Mag Carb-Folic 1 each PO AC-BRKFST 10/25/24 10/26/24 [Magnebind 400] Cholecalciferol [Vitamin D3 (125 125 mcg PO DAILY 10/25/24 10/26/24 Mcg = 5000 Iu)] Dulaglutide [Trulicity] 4.5 mg SQ FR 10/25/24 10/26/24 Insulin Glargine,Hum.rec.anlog 35 units SQ QAM 10/25/24 10/26/24 [Lantus Solostar Pen] Losartan Potassium 100 mg PO HS 10/25/24 10/26/24 Meclizine HCl 12.5 mg PO BID PRN 10/25/24 10/26/24 Pantoprazole [Protonix] 40 mg PO BID 10/25/24 10/26/24 hydrOXYzine HCL [Atarax] 50 mg PO HS 10/25/24 10/26/24 Previous Rx's Medication Instructions Recorded Hydroxychloroquine Sulfate 200 mg PO BID tab 06/23/21 [Plaquenil] Allergies Allergy/AdvReac Type Severity Reaction Status Date / Time Androgenic Anabolic Steroid Allergy Unknown Verified 11/05/24 23:14 meperidine HCl [From Demerol] Allergy Rash/Hives Verified 11/05/24 23:14 propoxyphene napsylate Allergy Dyspnea Verified 11/05/24 23:14 [From Darvocet-N] Review of Systems ROS Statement: Those systems with pertinent positive or pertinent negative responses have been documented in the HPI. ROS Other: All systems not noted in ROS Statement are negative. Past Medical History Past Medical History: Heart Failure, COPD, CVA/TIA, Diabetes Mellitus, GERD/Reflux, Hyperlipidemia, Hypertension, Neurologic Disorder, Osteoarthritis (OA), Pneumonia, Renal Disease, Thyroid Disorder Additional Past Medical History / Comment(s): Hx CVA few ago, no residual effects. Generalized Neuropathy. Heart murmur. Hx UTI. GOITER. DIASTOLIC DYSFUNCTION. Scleroderma, trouble swallowing. Mitochondrial Myopathy, chronic pulmonary failure, kidney disease stage III. History of Any Multi-Drug Resistant Organisms: None Reported Past Surgical History: Appendectomy, Cholecystectomy, Heart Catheterization, Hysterectomy, Joint Replacement Additional Past Surgical History / Comment(s): RIGHT KNEE REPLACEMENT, LEFT KNEE SURGERY WITH SCREWS IN PLACE. Past Anesthesia/Blood Transfusion Reactions: No Reported Reaction Additional Past Anesthesia/Blood Transfusion Reaction / Comment(s): CLAUSTERPHOBIC. Past Psychological History: Anxiety Smoking Status: Former smoker Past Alcohol Use History: None Reported Past Drug Use History: None Reported - Past Family History Father Family Medical History: Cancer, Diabetes Mellitus Additional Family Medical History / Comment(s): AT AGE 61, CA throughout the body Mother Family Medical History: Cancer, Congestive Heart Failure (CHF), Diabetes Mellitus, Myocardial Infarction (AL), Thyroid Disorder Additional Family Medical History / Comment(s): Uterine CA General Exam Limitations: no limitations General appearance: alert, in no apparent distress Head exam: Present: atraumatic, normocephalic, normal inspection Eye exam: Present: normal appearance, PERRL, EOMI. Absent: scleral icterus, conjunctival injection, periorbital swelling ENT exam: Present: normal exam, mucous membranes moist Neck exam: Present: normal inspection. Absent: tenderness, meningismus, l ymphadenopathy Respiratory exam: Present: normal lung sounds bilaterally. Absent: respiratory distress, wheezes, rales, rhonchi, stridor Cardiovascular Exam: Present: regular rate, normal rhythm, normal heart sounds. Absent: systolic murmur, diastolic murmur, rubs, gallop, clicks GI/Abdominal exam: Present: soft, normal bowel sounds. Absent: distended, tenderness, guarding, rebound, rigid Extremities exam: Present: normal inspection, full ROM, normal capillary refill. Absent: tenderness, pedal edema, joint swelling, calf tenderness Back exam: Present: normal inspection Neurological exam: Present: alert, oriented X3, CN II-XII intact Psychiatric exam: Present: normal affect, normal mood Skin exam: Present: warm, dry, intact, normal color. Absent: rash Course Vital Signs 11/05/24 11/05/24 23:11 23:58 Temperature 97.4 F L 97.7 F Pulse Rate 79 74 Respiratory 16 19 Rate Blood Pressure 134/59 133/67 O2 Sat by Pulse 100 100 Oximetry - Reevaluation(s) Reevaluation #1: 11/06/24 00:28 Medical records reviewed No prior ER visits for syncope or near syncope Reevaluation #2: 11/06/24 00:28 No recurrent syncope here in the ER Patient is in no respiratory distress Patient does not feel comfortable with discharge due to recurrent syncopal events and either do feel numbers at bedside Reevaluation #3: 11/06/24 00:28 Patient informed of results questions answered Reevaluation #4: Still 27Was pt. sent in by a medical professional or institution (, PA, HOUSE DESIGNER, urgent care, hospital, or fci...) When possible be specific @ -no Did you speak to anyone other than the patient for history (EMS, parent, family, police, friend...)? What history was obtained from this source @ -no Did you review nursing and triage notes (agree or disagree)? Why? @ -agree Are old charts reviewed (outside hosp., previous admission, EMS record, old EKG, old radiological studies, urgent care reports/EKG's, fci records)? Report findings @ -yes Differential Diagnosis (chest pain, altered mental status, abdominal pain women, abdominal pain men, vaginal bleeding, weakness, fever, dyspnea, syncope, headache, dizziness, GI bleed, back pain, seizure, CVA, palpatations, mental health, musculoskeletal)? @ -prior EKG interpreted by me (3pts min.). @ -yes X-rays interpreted by me (1pt min.). @ -yes negative for acute disease CT interpreted by me (1pt min.). @ -no U/S interpreted by me (1pt. min.). @ -no What testing was considered but not performed or refused? (CT, X-rays, U/S, labs)? Why? @ -none What meds were considered but not given or refused? Why? @ -none Did you discuss the management of the patient with other professionals (professionals i.e. , PA, HOUSE DESIGNER, lab, RT, psych nurse, social media intern, optical lathe operator, teacher, light armored reconnaissance officer, senior case manager)? Give summary @ -no Was smoking cessation discussed for >3mins.? @ -no Was critical care preformed (if so, how long)? @ -no Were there social determinants of health that impacted care today? How? (Homelessness, low income, unemployed, alcoholism, drug addiction, transportation, low edu. Level, literacy, decrease access to med. care, fci, rehab)? @ -none Was there de-escalation of care discussed even if they declined (Discuss DNR or withdrawal of care, Hospice)? DNR status @ -no What co-morbidities impacted this encounter? (DM, HTN, Smoking, COPD, CAD, Cancer, CVA, ARF, Chemo, Hep., AIDS, mental health diagnosis, sleep apnea, morbid obesity)? @ -none Was patient admitted / discharged? Hospital course, mention meds given and route, prescriptions, significant lab abnormalities, going to OR and other pertinent info. @ - Undiagnosed new problem with uncertain prognosis? @ -no Drug Therapy requiring intensive monitoring for toxicity (Heparin, Nitro, Insulin, Cardizem)? @ -no Were any procedures done? @ -no Diagnosis/symptom? @ - Acute, or Chronic, or Acute on Chronic? @ -Acute Uncomplicated (without systemic symptoms) or Complicated (systemic symptoms)? @ -Complicated Side effects of treatment? @ -no Exacerbation, Progression, or Severe Exacerbation? @ -exacerbation Poses a threat to life or bodily function? How? (Chest pain, USA, AL, pneumonia, PE, COPD, DKA, ARF, appy, cholecystitis, CVA, Diverticulitis, Homicidal, Suicidal, threat to staff... and all critical care pts) @ -yes Reevaluation #5: Differential Syncope: Valvular disease, hypertrophic cardiomyopathy, pulmonary embolism, tamponade, tachycardia, bradycardia, AL, hypovolemia, hemorrhage, dissection, anemia, intracranial hemorrhage, seizure, hypoglycemia, carbon monoxide poisoning, this is not meant to be an all-inclusive list. - Consultations Consultation #1: Spoke with [facility] who agrees to admit this patient EKG Findings - EKG Comments: EKG Findings:: EKG is sinus 76 OR 177 QRS 89 QTc 355 - EKG Results: EKG: interpreted by JOSE Medical Decision Making - Medical Decision Making 59 female to ER with near syncopal events of syncope recurrent, 6 months of these events that are progressively increasing in severity and current occurrence. Patient is on 4 L home O2 that she wears 24/7 as well as CPAP at night and she still gets short of breath especially with exertion exertional dyspnea although she does not feel respiratory stress before she passes out the chest appears to hit her out of nowhere patient admitted for syncopal event - Lab Data Result diagrams: 11/05/24 23:41 Lab Results 11/05/24 Range/Units 23:41 WBC 11.1 H (3.8-10.6) k/uL RBC 5.14 (3.80-5.40) m/uL Hgb 13.3 (11.4-16.0) gm/dL Hct 41.6 (34.0-46.0) % MCV 80.9 (80.0-100.0) fL MCH 25.9 (25.0-35.0) pg MCHC 32.0 (31.0-37.0) g/dL RDW 14.9 (11.5-15.5) % Plt Count 302 (150-450) k/uL MPV 6.5 Neutrophils % 76 % Lymphocytes % 15 % Monocytes % 5 % Eosinophils % 2 % Basophils % 0 % Neutrophils # 8.4 H (1.3-7.7) k/uL Lymphocytes # 1.7 (1.0-4.8) k/uL Monocytes # 0.5 (0-1.0) k/uL Eosinophils # 0.3 (0-0.7) k/uL Basophils # 0.0 (0-0.2) k/uL - EKG Data -: EKG Interpreted by Me - Radiology Data Radiology results: report reviewed, image reviewed Disposition Clinical Impression: History of COVID-19, Acute exacerbation of chronic obstructive pulmonary disease, Dyspnea, Chronic obstructive pulmonary disease with acute exacerbation, Near syncope, Syncope Disposition: ADMITTED IP TO THIS [facility] Condition: Fair Is patient prescribed a controlled substance at d/c from ED?: No Time of Disposition: 00:55
[2024-11-06] MEDS ORDERED: MORPHINE SULFATE 4 MG/ML SYRINGE IV PRN (00:05)
[2024-11-06] MEDS ORDERED: ONDANSETRON 4 MG/2 ML VIAL IVP PRN (00:05)
[2024-11-06] MEDS ORDERED: NALOXONE 0.4 MG/ML 1 ML VIAL IV PRN (00:05)
[2024-11-06] MEDS ORDERED: IPRATROPIUM-ALBUTEROL 3 ML NEB INHALATION PRN (00:18)
[2024-11-06 00:20] LABS: Basophils % (A) 0 %; Eosinophils # (A) 0.3 k/uL (0-0.7); Eosinophils % (A) 2 %; HCT 41.6 % (34.0-46.0); HGB 13.3 gm/dL (11.4-16.0); Lymphocytes # (A) 1.7 k/uL (1.0-4.8); Lymphocytes % (A) 15 %; MCH 25.9 pg (25.0-35.0); MCV 80.9 fL (80.0-100.0); Mean Platelet Volume 6.5; Monocytes # (A) 0.5 k/uL (0-1.0); Monocytes % (A) 5 %; Neutrophils # (A) 8.4 k/uL (1.3-7.7); Neutrophils % (A) 76 %; Platelet Count 302 k/uL (150-450); RBC 5.14 m/uL (3.80-5.40); RDW 14.9 % (11.5-15.5); WBC 11.1 k/uL (3.8-10.6)
[2024-11-06 00:27] LABS: ALT 36 U/L (4-34); AST 20 U/L (14-36); African American GFR (CKD) 70 (>60 ml/min/1.73 sqM); Alkaline Phosphatase 139 U/L (38-126); Anion Gap 10 mmol/L; Blood Urea Nitrogen 23 mg/dL (7-17); Calcium 9.4 mg/dL (8.4-10.2); Carbon Dioxide 29 mmol/L (22-30); Chloride 93 mmol/L (98-107); Glucose 166 mg/dL (74-99); Non-African American GFR(CKD) 61 (>60 ml/min/1.73 sqM); Phosphorus 4.5 mg/dL (2.5-4.5); Potassium 3.9 mmol/L (3.5-5.1); Sodium 132 mmol/L (137-145); Total Bilirubin 0.5 mg/dL (0.2-1.3); Total Protein 6.8 g/dL (6.3-8.2)
[2024-11-06 00:35] LABS: NT-Pro-B-Type Natriuretic Pept 24 pg/mL
[2024-11-06 00:50] LABS: INR 0.9 (<1.2); Partial Thromboplastin Time 22.1 sec (22.0-30.0)
[2024-11-06] MEDS: methylPREDNISolone SOD SUCCI 125 MG/2 ML VIAL IV STA (01:00)
[2024-11-06] MEDS: SODIUM CHLORIDE 0.9% 1,000 ML IV SCH ×2 (01:02→09:12)
--- NOTE | 2024-11-06 01:45 | XR ---
EXAM: XR Chest, 2 Views CLINICAL HISTORY: dizziness x 6 months that is getting worse. Pt has not seen ENT or neuro doctor for complaint. Dizziness gets worse with movement. Neuro fast exam negative in triage. Weakness TECHNIQUE: Frontal and lateral views of the chest. COMPARISON: CT chest from 10/23/24 FINDINGS: Lungs: Unremarkable. No consolidation. Pleural space: Unremarkable. Mediastinum: Normal mediastinal contour. Bones/joints: No acute findings. IMPRESSION: No acute findings.
[2024-11-06] MEDS: LACTATED RINGERS 1,000 ML IV SCH (02:10)
[2024-11-06] MEDS: IPRATROPIUM-ALBUTEROL 3 ML NEB INHALATION STA (04:50)
[2024-11-06 05:12] LABS: Glucose,Whole Blood 325 mg/dL (70-110)
[2024-11-06] MEDS ORDERED: DEXTROSE 50% SYRINGE 50 ML IVP PRN ×2 (06:46)
[2024-11-06] MEDS: methylPREDNISolone SOD SUCCI 125 MG/2 ML VIAL IV SCH (06:57)
[2024-11-06 06:58] LABS: Glucose,Whole Blood 340 mg/dL (70-110)
[2024-11-06] MEDS: INSULIN LISPRO (HumaLOG) 100 UNIT/ML 10 mL VL SQ SCH ×2 (06:58→13:02)
[2024-11-06] MEDS: ACETAMINOPHEN TAB 500 MG TAB PO PRN (09:08)
[2024-11-06] MEDS: ENOXAPARIN 40 MG/0.4 ML SYRINGE SQ SCH (12:02)
[2024-11-06] MEDS: FAMOTIDINE 20 MG TAB PO SCH (12:02)
[2024-11-06] MEDS: ASPIRIN 81 MG PO SCH (12:02)
[2024-11-06] MEDS: FLUTICASONE NASAL 50MCG/SPRAY 16GM BTL EA NOSTRIL SCH (12:02)
[2024-11-06] MEDS: GABAPENTIN 400 MG CAP PO SCH (12:02)
[2024-11-06] MEDS: ISOSORBIDE MONONITRATE ER 60 MG TAB.ER.24H PO SCH (12:12)
[2024-11-06] MEDS: HYDROXYCHLOROQUINE SULFATE 200 MG TAB PO SCH (12:12)
--- NOTE | 2024-11-06 12:17 | P.CRDCN ---
History of Present Illness Consult date: 11/06/24 Reason for Consult (text): Syncope History of present illness: This is a 59-year-old female patient of Dr. Mendez with past medical history of co ronary vasospasm, scleroderma, pulmonary hypertension, diabetes, hypertension, dyslipidemia, morbid obesity, heart failure with preserved EF, chronic hypoxic respiratory failure. We have been asked to evaluate the patient for syncope. Patient states for the past 6 months when she gets up she starts feeling dizzy and sometimes her legs fell out from underneath her. She states that she had had medication changes made by Dr. Mendez without improvement. She states she has recently fallen 4-5 times. Regarding her blood pressure medications, patient takes all of her medications at the same time every day. Discussed recommendations for tilt table testing which she is agreeable to go through [facility]. Blood pressure 139/73, heart rate 89, pulse ox 99% on 3 L nasal cannula. Orthostatic vital signs are negative. -EKG: Sinus rhythm with no acute ST-T wave changes. -Chest x-ray: No acute findings. -Laboratory studies: WBC 11.1, hemoglobin 13.3, sodium 132, potassium 3.9, BUN 23 and creatinine 1.01. ALT 36, alkaline phosphatase 139, proBNP 24. -Home cardiac medications: Aspirin 81 mg daily, atorvastatin 40 mg at bedtime, diltiazem 240 mg at bedtime, Lasix 20 mg daily, Imdur 60 mg daily, losartan 100 mg at bedtime, magnesium oxide 400 mg daily. - Review Of Systems: At the time of my exam: CONSTITUTIONAL: Denies fever or chills. HEENT: Denies blurred vision, vision changes, or eye pain. Denies hemoptysis CARDIOVASCULAR: Denies chest pain. Denies orthopnea. Denies PND. Denies palpitat ions RESPIRATORY: Denies shortness of breath. GASTROINTESTINAL: Denies abdominal pain. Denies nausea or vomiting. HEMATOLOGIC: Denies bleeding disorders. GENITOURINARY: Denies any blood in urine. SKIN: Denies puritis. Denies rash. Physical examination: Gen: This is 59-year-old female in no acute distress VS: reviewed HEENT: Head is atraumatic, normocephalic. Pupils equal, round. Sclerae is ani cteric. NECK: Supple. No JVD. LUNGS: Clear to auscultation. No wheezes or rhonchi. No intercostal retractions. HEART: Regular rate and rhythm. Systolic murmur. ABDOMEN: Soft No tenderness. EXTREMITIES: No pedal edema. No calf tenderness. NEUROLOGICAL: Patient is awake, alert and oriented x3. Assessment: Syncopal episodes of unclear etiology possible vasovagal History of coronary vasospasm Scleroderma Pulmonary hypertension Diabetes Hypertension Dyslipidemia Morbid obesity with BMI 41 Chronic diastolic heart failure Chronic hypoxic respiratory failure Plan: Resume patient's home cardiac medications and recommend that patient take Imdur in the morning, diltiazem a.m. in the afternoon and losartan at bedtime Obtain tilt table test today. Patient does not need to wait for results Patient is cleared for discharge and follow-up with Dr. Mendez in 2 weeks. Thank you kindly for this consultation. Nurse practitioner note has been reviewed, I agree with documented findings and plan of care. Patient was seen and examined. Past Medical History Past Medical History: Heart Failure, COPD, CVA/TIA, Diabetes Mellitus, GERD/Reflux, Hyperlipidemia, Hypertension, Neurologic Disorder, Osteoarthritis (OA), Pneumonia, Renal Disease, Thyroid Disorder Additional Past Medical History / Comment(s): Hx CVA few ago, no residual eff ects. Generalized Neuropathy. Heart murmur. Hx UTI. GOITER. DIASTOLIC DYSFUNCTION. Scleroderma, trouble swallowing. Mitochondrial Myopathy, chronic pulmonary failure, kidney disease stage III. History of Any Multi-Drug Resistant Organisms: None Reported Past Surgical History: Appendectomy, Cholecystectomy, Heart Catheterization, Hysterectomy, Joint Replacement Additional Past Surgical History / Comment(s): RIGHT KNEE REPLACEMENT, LEFT KNEE SURGERY WITH SCREWS IN PLACE. Past Anesthesia/Blood Transfusion Reactions: No Reported Reaction Additional Past Anesthesia/Blood Transfusion Reaction / Comment(s): CLAUSTERPHOBIC. Past Psychological History: Anxiety Smoking Status: Former smoker Past Alcohol Use History: None Reported Additional Past Alcohol Use History / Comment(s): STARTED SMOKING AT AGE 11, SMOKED 2 PPD, QUIT IN 1996. Past Drug Use History: None Reported - Past Family History Father Family Medical History: Cancer, Diabetes Mellitus Additional Family Medical History / Comment(s): AT AGE 61, CA throughout the body Mother Family Medical History: Cancer, Congestive Heart Failure (CHF), Diabetes Mellitus, Myocardial Infarction ([place]), Thyroid Disorder Additional Family Medical History / Comment(s): Uterine CA Medications and Allergies Home Medications Medication Instructions Recorded Confirmed Type Isosorbide Mononitrate ER [Imdur] 60 mg PO DAILY 07/16/14 11/06/24 History Montelukast [Singulair] 10 mg PO HS 10/20/15 11/06/24 History Gabapentin [Neurontin] 800 mg PO TID 09/07/16 11/06/24 History Latanoprost Ophth [Xalatan 0.005%] 1 drop BOTH EYES HS 09/07/16 11/06/24 History Atorvastatin [Lipitor] 40 mg PO HS 08/20/17 11/06/24 History Ipratropium-Albuterol Nebulize 3 ml INHALATION RT-QID PRN 08/20/17 11/06/24 History [Duoneb 0.5 mg-3 mg/3 ml Soln] Furosemide [Lasix] 20 mg PO DAILY 08/29/19 11/06/24 History dilTIAZem HCL [dilTIAZem HCL 24Hr 240 mg PO HS 08/29/19 11/06/24 History ER] Aspirin EC [Ecotrin Low Dose] 81 mg PO DAILY 03/31/21 11/06/24 History Famotidine 40 mg PO DAILY 03/31/21 11/06/24 History Hydroxychloroquine Sulfate 200 mg PO BID tab 06/23/21 11/06/24 Rx [Plaquenil] Cyclobenzaprine [Flexeril] 10 mg PO BID PRN 11/23/21 11/06/24 History DULoxetine HCL [Cymbalta] 120 mg PO HS 11/23/21 11/06/24 History Fluticasone Nasal [place] [Flonase 2 spr EA NOSTRIL DAILY 11/23/21 11/06/24 History Nasal [place]] HYDROcodone/APAP 10-325MG [[place] 1 tab PO Q4H PRN 11/23/21 11/06/24 History 10-325] Ibuprofen [Motrin] 800 mg PO Q8H PRN 11/23/21 11/06/24 History Insulin Glargine,Hum.rec.anlog 50 unit SQ HS 11/23/21 11/06/24 History [Lantus Solostar Pen] Ondansetron Odt [Zofran ODT] 4 mg PO Q8H PRN 11/23/21 11/06/24 History Cholecalciferol [Vitamin D3 (125 125 mcg PO DAILY 10/25/24 11/06/24 History Mcg = 5000 Iu)] Dulaglutide [Trulicity] 4.5 mg SQ FR 10/25/24 11/06/24 History Insulin Glargine,Hum.rec.anlog 25 units SQ DAILY 10/25/24 11/06/24 History [Lantus Solostar Pen] Losartan Potassium 100 mg PO HS 10/25/24 11/06/24 History Pantoprazole [Protonix] 40 mg PO BID 10/25/24 11/06/24 History hydrOXYzine HCL [Atarax] 50 mg PO HS 10/25/24 11/06/24 History Insulin Aspart [NovoLOG Flexpen] 26 units SQ AC-TID 11/06/24 11/06/24 History Magnesium Oxide [Mag-Ox] 400 mg PO DAILY 11/06/24 11/06/24 History Allergies Allergy/AdvReac Type Severity Reaction Status Date / Time Androgenic Anabolic Steroid Allergy Unknown Verified 11/06/24 08:20 meperidine HCl [From Demerol] Allergy Rash/Hives Verified 11/06/24 08:20 propoxyphene napsylate Allergy Dyspnea Verified 11/06/24 08:20 [From Darvocet-N] Physical Exam Vitals: Vital Signs Temp Pulse Pulse Resp BP BP Pulse Ox 11/06/24 02:09 97.9 F 74 20 133/58 98 11/06/24 02:00 97.5 F L 74 73 17 133/58 135/75 98 11/06/24 01:08 76 20 100 11/05/24 23:58 97.7 F 74 19 133/67 100 11/05/24 23:11 97.4 F L 79 16 134/59 100 Intake and Output 11/05/24 11/06/24 11/06/24 22:59 06:59 14:59 Other: Voiding Method Toilet # Voids 2 Weight 114.305 kg Results 11/05/24 23:41 11/05/24 23:41 Cardiac Enzymes 11/05/24 Range/Units 23:41 AST 20 (14-36) U/L Coagulation 11/05/24 Range/Units 23:41 PT 10.0 (10.0-12.5) sec APTT 22.1 (22.0-30.0) sec CBC 11/05/24 Range/Units 23:41 WBC 11.1 H (3.8-10.6) k/uL RBC 5.14 (3.80-5.40) m/uL Hgb 13.3 (11.4-16.0) gm/dL Hct 41.6 (34.0-46.0) % Plt Count 302 (150-450) k/uL Comprehensive Metabolic Panel 11/05/24 Range/Units 23:41 Sodium 132 L (137-145) mmol/L Potassium 3.9 (3.5-5.1) mmol/L Chloride 93 L (98-107) mmol/L Carbon Dioxide 29 (22-30) mmol/L BUN 23 H (7-17) mg/dL Creatinine 1.01 (0.52-1.04) mg/dL Glucose 166 H (74-99) mg/dL Calcium 9.4 (8.4-10.2) mg/dL AST 20 (14-36) U/L ALT 36 H (4-34) U/L Alkaline Phosphatase 139 H (38-126) U/L Total Protein 6.8 (6.3-8.2) g/dL Albumin 4.0 (3.5-5.0) g/dL Current Medications Generic Name Dose Route Start Last Admin Trade Name Freq PRN Reason Stop Dose Admin Acetaminophen 500 mg 11/06/24 07:40 Acetaminophen Tab 500 Mg Tab PO Q6HR PRN Fever and/ or Pain Albuterol/Ipratropium 3 ml 11/06/24 00:18 Ipratropium-Albuterol 3 Ml Neb INHALATION RT-TID PRN Shortness Of Breath Or Wheezing Dextrose/Water 25 ml 11/06/24 06:46 Dextrose 50% Syringe 50 Ml IVP PER PROTOCOL PRN Hypoglycemia Protocol Dextrose/Water 50 ml 11/06/24 06:46 Dextrose 50% Syringe 50 Ml IVP PER PROTOCOL PRN Hypoglycemia Protocol Sodium Chloride 1,000 mls @ 75 mls/hr 11/06/24 00:15 11/06/24 01:02 Saline 0.9% IV 75 mls/hr .[id number] ROMARIO Administration Insulin Human Lispro 0 unit 11/06/24 07:30 11/06/24 06:58 Insulin Lispro (Humalog) 100 Unit/Ml 10 Ml Vl SQ 8 unit ACHS ROMARIO Administration Protocol Methylprednisolone Sodium Succinate 60 mg 11/06/24 06:00 11/06/24 06:57 Methylprednisolone Sod Succi 125 Mg/2 Ml Vial IV 60 mg Q6HR ROMARIO Administration Morphine Sulfate 4 mg 11/06/24 00:05 Morphine Sulfate 4 Mg/Ml Syringe IV Q4HR PRN Severe Pain (Scale 7 to 10) Naloxone HCl 0.2 mg 11/06/24 00:05 Naloxone 0.4 Mg/Ml 1 Ml Vial IV Q2M PRN Opioid Reversal Ondansetron HCl 4 mg 11/06/24 00:05 Ondansetron 4 Mg/2 Ml Vial IVP Q8HR PRN Nausea And Vomiting Intake and Output 11/05/24 11/06/24 11/06/24 22:59 06:59 14:59 Other: Voiding Method Toilet # Voids 2 Weight 114.305 kg 11/05/24 23:41 11/05/24 23:41
[2024-11-06] MEDS: MAGNESIUM OXIDE 400 MG TAB PO SCH (12:29)
[2024-11-06] MEDS: INSULIN GLARGINE (LANTUS) 100 UNIT/ML SYR SQ SCH ×2 (12:29→20:44)
[2024-11-06] MEDS: PANTOPRAZOLE 40 MG TABLET PO SCH (12:29)
[2024-11-06 12:33] LABS: Glucose,Whole Blood 351 mg/dL (70-110)
[2024-11-06] MEDS: IPRATROPIUM-ALBUTEROL 3 ML NEB INHALATION SCH (12:50)
[2024-11-06] MEDS: methylPREDNISolone SOD SUCCI 40 MG/ML 1 ML VIAL IV SCH (14:52)
--- NOTE | 2024-11-06 17:27 | P.HPIM ---
History of Present Illness H&P Date: 11/06/24 Chief Complaint: Falls This is a pleasant 59-year-old patient of Dr. Braun. Chronic stable medical conditions include , GERD, hypertension, hyperlipidemia, osteoarthritis, scleroderma, mitochondrial myopathy, chronic respiratory failure on home oxygen- 3 L , chronic kidney disease stage III, COPD hyperlipidemia, hypertension osteoarthritis. Has mitochondrial myopathy.. 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 Earl Rowe. Mary youssef is an ex-smoker. Does use a walker Patient presents with episodes of dizziness and falling. Has had 4-5 episodes in the last 1 month. He is normally followed when she is standing or walking. Not lying down. Denies any fever or chills. No chest pain no palpitations. She has put on weight in the last few months. Noted to be increasing short of breath. Occasionally wheezing. Slight cough. Review of systems: GEN.: Tired EYES: None HEENT: As above NECK: None RESPIRATORY: As above. CARDIOVASCULAR: As above GASTROINTESTINAL: None GENITOURINARY: None MUSCULOSKELETAL: Chronic joint pains LYMPHATICS: None HEMATOLOGICAL: None PSYCHIATRY: None NEUROLOGICAL: Does use a walker Past medical history to include: COPD, diabetes, GERD, hyperlipidemia, hypertension, osteoarthritis, goiter, scleroderma, diastolic dysfunction, some difficulty with swallowing, mitochondrial myopathy, chronic respiratory failure on 3 L of oxygen, CK stage III Social history: Lives with her son. Does use a walker. Smoked for about 20 years stopped in 1996. Physical examination: VITAL SIGNS: 97.9, 79, 20, 133 x 58, 98% room GENERAL: BMI 41.1, reclining in bed, bit tired EYES: Pupils equal. Conjunctiva normal. HEENT: External appearance of nose and ears normal, oral cavity grossly normal. NECK: JVD unable to assess; masses not palpable. HEART: First and second heart sounds are normal; no edema. LUNGS: Respiratory rate increased, distant breath sounds. ABDOMEN: Soft, nontender, liver spleen not palpable, no masses palpable. PSYCH: [Alert and oriented x3; mood and affect a bit anxious NEUROLOGICAL: Cranial nerves grossly intact; no facial asymmetry, power and sensation grossly intact. LYMPHATICS: No lymph nodes palpable in the axilla and neck INVESTIGATIONS, reviewed in the clinical context: November 05, 2024: White count 9.1 hemoglobin 13.3 platelets 302 sodium 132 potassium 3.9 BUN 23 creatinine 1.01 EKG tracing personally reviewed by me-normal sinus rhythms. Chest x-ray film personally reviewed by me-underpenetrated. Some cardiomegaly Assessment and plan: -Patient is presenting with recurrent falls and dizziness. Negative for orthostatic. Tilt table test done today. Results pending. Telemetry rule out any underlying arrhythmia -Shortness of breath with exertion. Ennice to be combination of restrictive lung disease and obesity hypoventilation syndrome. Note that patient's put on weight as she states. Also contribution from COPD -COPD acute exacerbation and ex smoker Linda Longo. IV Solu-Medrol -Diabetes mellitus type 2, chronically on insulin Follow Accu-Cheks with sliding scale insulin. Lantus and NovoLog. Trulicity -GERD PPI -Essential hypertension Cardizem ER 240 mg a day -Hyperlipidemia Lipitor 40 mg daily at bedtime -Primary osteoarthritis Pain medications as needed -Scleroderma -Mitochondrial myopathy -Chronic respiratory failure on home oxygen 3 L Follow pulse ox -Morbid obesity BMI 41.9 Weight loss measures -Chronic gait dysfunction uses a walker at baseline Cardiology and Dr. Calixto Rowe from pulmonary consulted. Tilt table test today. Home medication resumed. Past Medical History Past Medical History: Heart Failure, COPD, CVA/TIA, Diabetes Mellitus, GERD/Reflux, Hyperlipidemia, Hypertension, Neurologic Disorder, Osteoarthritis (OA), Pneumonia, Renal Disease, Thyroid Disorder Additional Past Medical History / Comment(s): Hx CVA few ago, no residual effects. Generalized Neuropathy. Heart murmur. Hx UTI. GOITER. DIASTOLIC DYSFUNCTION. Scleroderma, trouble swallowing. Mitochondrial Myopathy, chronic pulmonary failure, kidney disease stage III. History of Any Multi-Drug Resistant Organisms: None Reported Past Surgical History: Appendectomy, Cholecystectomy, Heart Catheterization, Hysterectomy, Joint Replacement Additional Past Surgical History / Comment(s): RIGHT KNEE REPLACEMENT, LEFT KNEE SURGERY WITH SCREWS IN PLACE. Past Anesthesia/Blood Transfusion Reactions: No Reported Reaction Additional Past Anesthesia/Blood Transfusion Reaction / Comment(s): CLAUSTERPHOBIC. Past Psychological History: Anxiety Smoking Status: Former smoker Past Alcohol Use History: None Reported Additional Past Alcohol Use History / Comment(s): STARTED SMOKING AT AGE 11, SMOKED 2 PPD, QUIT IN 1996. Past Drug Use History: None Reported - Past Family History Father Family Medical History: Cancer, Diabetes Mellitus Additional Family Medical History / Comment(s): AT AGE 61, CA throughout the body Mother Family Medical History: Cancer, Congestive Heart Failure (CHF), Diabetes Mellitus, Myocardial Infarction ([place]), Thyroid Disorder Additional Family Medical History / Comment(s): Uterine CA Medications and Allergies Home Medications Medication Instructions Recorded Confirmed Type Isosorbide Mononitrate ER [Imdur] 60 mg PO DAILY 07/16/14 11/06/24 History Montelukast [Singulair] 10 mg PO HS 10/20/15 11/06/24 History Gabapentin [Neurontin] 800 mg PO TID 09/07/16 11/06/24 History Latanoprost Ophth [Xalatan 0.005%] 1 drop BOTH EYES HS 09/07/16 11/06/24 History Atorvastatin [Lipitor] 40 mg PO HS 08/20/17 11/06/24 History Ipratropium-Albuterol Nebulize 3 ml INHALATION RT-QID PRN 08/20/17 11/06/24 Hi story [Duoneb 0.5 mg-3 mg/3 ml Soln] Furosemide [Lasix] 20 mg PO DAILY 08/29/19 11/06/24 History dilTIAZem HCL [dilTIAZem HCL 24Hr 240 mg PO HS 08/29/19 11/06/24 History ER] Aspirin EC [Ecotrin Low Dose] 81 mg PO DAILY 03/31/21 11/06/24 History Famotidine 40 mg PO DAILY 03/31/21 11/06/24 History Hydroxychloroquine Sulfate 200 mg PO BID tab 06/23/21 11/06/24 Rx [Plaquenil] Cyclobenzaprine [Flexeril] 10 mg PO BID PRN 11/23/21 11/06/24 History DULoxetine HCL [Cymbalta] 120 mg PO HS 11/23/21 11/06/24 History Fluticasone Nasal [place] [Flonase 2 spr EA NOSTRIL DAILY 11/23/21 11/06/24 History Nasal [place]] HYDROcodone/APAP 10-325MG [[place] 1 tab PO Q4H PRN 11/23/21 11/06/24 History 10-325] Ibuprofen [Motrin] 800 mg PO Q8H PRN 11/23/21 11/06/24 History Insulin Glargine,Hum.rec.anlog 50 unit SQ HS 11/23/21 11/06/24 History [Lantus Solostar Pen] Ondansetron Odt [Zofran ODT] 4 mg PO Q8H PRN 11/23/21 11/06/24 History Cholecalciferol [Vitamin D3 (125 125 mcg PO DAILY 10/25/24 11/06/24 History Mcg = 5000 Iu)] Dulaglutide [Trulicity] 4.5 mg SQ FR 10/25/24 11/06/24 History Insulin Glargine,Hum.rec.anlog 25 units SQ DAILY 10/25/24 11/06/24 History [Lantus Solostar Pen] Losartan Potassium 100 mg PO HS 10/25/24 11/06/24 History Pantoprazole [Protonix] 40 mg PO BID 10/25/24 11/06/24 History hydrOXYzine HCL [Atarax] 50 mg PO HS 10/25/24 11/06/24 History Insulin Aspart [NovoLOG Flexpen] 26 units SQ AC-TID 11/06/24 11/06/24 History Magnesium Oxide [Mag-Ox] 400 mg PO DAILY 11/06/24 11/06/24 History Allergies Allergy/AdvReac Type Severity Reaction Status Date / Time Androgenic Anabolic Steroid Allergy Unknown Verified 11/06/24 08:20 meperidine HCl [From Demerol] Allergy Rash/Hives Verified 11/06/24 08:20 propoxyphene napsylate Allergy Dyspnea Verified 11/06/24 08:20 [From Darvocet-N] Physical Exam Vitals: Vital Signs Temp Pulse Pulse Pulse Pulse Pulse Pulse 11/06/24 16:06 88 11/06/24 15:56 90 11/06/24 14:00 97.4 F L 98 11/06/24 13:00 92 11/06/24 12:55 11/06/24 12:51 96 11/06/24 07:00 89 100 82 11/06/24 02:09 97.9 F 74 11/06/24 02:00 97.5 F L 74 73 11/06/24 01:08 76 11/05/24 23:58 97.7 F 74 11/05/24 23:11 97.4 F L 79 Resp BP BP BP BP BP Pulse Ox 11/06/24 16:06 16 11/06/24 15:56 16 11/06/24 14:00 18 151/52 97 11/06/24 13:00 16 11/06/24 12:55 100 11/06/24 12:51 18 11/06/24 07:00 18 139/73 133/66 126/72 99 11/06/24 02:09 20 133/58 98 11/06/24 02:00 17 133/58 135/75 98 11/06/24 01:08 20 100 11/05/24 23:58 19 133/67 100 11/05/24 23:11 16 134/59 100 Intake and Output 11/06/24 11/06/24 11/06/24 06:59 14:59 22:59 Intake Total 118 Balance 118 Intake: Oral 118 Other: Voiding Method Toilet # Voids 2 Weight 114.305 kg Results CBC & Chem 7: 11/05/24 23:41 11/05/24 23:41 Labs: Abnormal Lab Results - Last 24 Hours (Table) 11/05/24 11/05/24 11/06/24 Range/Units 23:41 23:41 05:10 WBC 11.1 H (3.8-10.6) k/uL Neutrophils # 8.4 H (1.3-7.7) k/uL Sodium 132 L (137-145) mmol/L Chloride 93 L (98-107) mmol/L BUN 23 H (7-17) mg/dL Glucose 166 H (74-99) mg/dL POC Glucose (mg/dL) 325 H (70-110) mg/dL ALT 36 H (4-34) U/L Alkaline Phosphatase 139 H (38-126) U/L 11/06/24 11/06/24 Range/Units 06:57 12:31 WBC (3.8-10.6) k/uL Neutrophils # (1.3-7.7) k/uL Sodium (137-145) mmol/L Chloride (98-107) mmol/L BUN (7-17) mg/dL Glucose (74-99) mg/dL POC Glucose (mg/dL) 340 H 351 H (70-110) mg/dL ALT (4-34) U/L Alkaline Phosphatase (38-126) U/L Thrombosis Risk Factor Assmnt - Choose All That Apply Any of the Below Risk Factors Present?: Yes Each Factor Represents 1 point: Age 41-60 years, Obesity (BMI >25) Other Risk Factors: Yes Thrombosis Risk Factor Assessment Total Risk Factor Score: 2 Thrombosis Risk Factor Assessment Level: Low Risk
[2024-11-06 17:33] LABS: Glucose,Whole Blood 312 mg/dL (70-110)
[2024-11-06 19:03] LABS: Glucose,Whole Blood 353 mg/dL (70-110)
[2024-11-06] MEDS: DULoxetine HCL 60 MG CAPSULE.DR PO SCH (20:28)
[2024-11-06] MEDS: DILTIAZEM CD 240 MG CAP.ER.24H PO SCH (20:28)
[2024-11-06] MEDS: LATANOPROST 0.005% OPHTH DROPS 2.5 ML BTL BOTH EYES SCH (20:28)
[2024-11-06] MEDS: ATORVASTATIN 40 MG TAB PO SCH (20:28)
[2024-11-06] MEDS: LOSARTAN 50 MG TAB PO SCH (20:29)
[2024-11-06] MEDS: hydrOXYzine HCL 25 MG TAB PO SCH (20:29)
[2024-11-06] MEDS: MONTELUKAST 10 MG TAB PO SCH (20:29)
[2024-11-06] MEDS: CYCLOBENZAPRINE 10 MG TAB PO PRN (20:30)
--- NOTE | 2024-11-06 20:49 | P.EPPROC ---
- EP Procedure Note Electrophysiology Procedure Note: Diagnosis Recurrent dizzy spells and presyncope Twelve-lead EKG shows sinus rhythm normal AR narrow QRS Tilt table test per protocol Baseline blood pressure 178/78 mmHg, baseline heart rate 95 beats a minute Patient was tilted upright in angle of 70 degrees per protocol The blood pressure remained elevated throughout the procedure without any syncope or evidence for neurocardiogenic syncope or dysautonomia She was laid supine the end of the procedure Impression e evated blood pressure readings during both the supine position and during standing Normal twelve-lead EKG
[2024-11-06] MEDS: HYDROcodone/APAP 10-325MG 1 EACH TAB PO PRN (21:09)
[2024-11-07 06:08] LABS: Glucose,Whole Blood 355 mg/dL (70-110)
[2024-11-07 08:14] VITALS: BP 116/70; RESP 18; TEMP 97.7
[2024-11-07 08:21] LABS: Basophils # (A) 0.01 X 10*3/uL (0.00-0.10); Basophils % (A) 0.1 %; Eosinophils # (A) 0 X 10*3/uL (0.04-0.35); Eosinophils % (A) 0 %; HCT 40.3 % (37.2-46.3); HGB 12.6 g/dL (12.0-15.0); Lymphocytes # (A) 0.74 X 10*3/uL (0.90-5.00); Lymphocytes % (A) 5.4 %; MCH 26.3 pg (27.0-32.0); MCHC 31.3 g/dL (32.0-37.0); MCV 84.1 FL (80.0-97.0); Mean Platelet Volume 8.8 FL (9.5-12.2); Monocytes # (A) 0.42 X 10*3/uL (0.20-1.00); NRBC Per 100 WBC 0 X 10*3/uL (0.00-0.01); Neutrophils # (A) 12.52 X 10*3/uL (1.80-7.70); Neutrophils % (A) 90.8 %; Platelet Count 310 X 10*3/uL (140-440); RBC 4.79 X 10*6/uL (4.10-5.20); RDW 15.3 % (11.5-14.5); WBC 13.79 X 10*3/uL (4.50-10.00)
[2024-11-07 08:32] LABS: ALT 30 U/L (8-44); AST 13 U/L (13-35); Albumin 3.9 g/dL (3.8-4.9); Alkaline Phosphatase 128 U/L (41-126); BUN/Creat Ratio 21.88 Ratio (12.00-20.00); Blood Urea Nitrogen 17.5 mg/dL (9.0-27.0); Calcium 9.6 mg/dL (8.7-10.3); Carbon Dioxide 23.7 mmol/L (21.6-31.8); Chloride 99 mmol/L (96-109); Globulin 2.6 g/dL (1.6-3.3); Glucose 340 mg/dL (70-110); Magnesium 2.3 mg/dL (1.5-2.4); Potassium 4.9 mmol/L (3.5-5.5); Sodium 135 mmol/L (135-145); Total Bilirubin 0.3 mg/dL (0.3-1.2); Total Protein 6.5 g/dL (6.2-8.2)
[2024-11-07] MEDS: CHOLECALCIFEROL 125 MCG (5000 IU) TABLET PO SCH (09:37)
--- NOTE | 2024-11-07 09:47 | P.CNPUL ---
History of Present Illness Consult date: 11/07/24 Reason for consult: dyspnea, cough, hypoxemia, pulmonary hypertension, o bstructive sleep apnea Chief complaint: Dizziness lightheadedness History of present illness: Patient is a 59-year-old female well-known to me patient has sleep disordered breathing and sleep apnea on CPAP, exertional dyspnea morbid obesity scleroderma and mitochondrial myopathy, patient is being followed up at [facility], last time evaluated there in April, she has been compliant with her CPAP machine she presented to hospital with intermittent episode of dizziness lightheadedness and near fall. 4-5 episodes transiently happen last 1 month occur usually when she tries to stand up or walking on specific questioning no fever chills shortness of breath is present on exertion, she has intermittent wheezing takes bronchodilator, ongoing dry cough which has not been changed patient is on chronic oxygen 3 L nasal cannula also have chronic kidney disease stage III has remote history of smoking quit in mid . Currently patient is afebrile, with stable blood pressure within normal range saturation 99% on 3 L nasal cannula heart rate is 85. ECG revealed sinus rhythm no significant changes identified QT interval within normal range. Chest x-ray no acute finding identified. CT scan of the chest performed in October 2024 no acute process identified. No pulmonary embolism seen, subsegmental basal dependent atelectasis. Echocardiogram performed in cardiovascular office normal ejection fraction with diastolic dysfunction no comments were made for pulmonary hypertension. Labs include WBC count 11 hemoglobin hematocrit 13/41 platelet count of 302, BUN/creatinine 23/1.01 sodium is 132 potassium 3.9 CBC fairly within normal limit Patient underwent tilt table testing November 06 as per protocol, blood pressure remains elevated, no symptoms of syncope or dysautonomia identified. Review of Systems All systems: negative Past Medical History Past Medical History: Heart Failure, COPD, CVA/TIA, Diabetes Mellitus, GERD/Reflux, Hyperlipidemia, Hypertension, Neurologic Disorder, Osteoarthritis (OA), Pneumonia, Renal Disease, Thyroid Disorder Additional Past Medical History / Comment(s): Hx CVA few ago, no residual effect s. Generalized Neuropathy. Heart murmur. Hx UTI. GOITER. DIASTOLIC DYSFUNCTION. Scleroderma, trouble swallowing. Mitochondrial Myopathy, chronic pulmonary failure, kidney disease stage III. History of Any Multi-Drug Resistant Organisms: None Reported Past Surgical History: Appendectomy, Cholecystectomy, Heart Catheterization, Hysterectomy, Joint Replacement Additional Past Surgical History / Comment(s): RIGHT KNEE REPLACEMENT, LEFT KNEE SURGERY WITH SCREWS IN PLACE. Past Anesthesia/Blood Transfusion Reactions: No Reported Reaction Additional Past Anesthesia/Blood Transfusion Reaction / Comment(s): CLAUSTERPHOBIC. Past Psychological History: Anxiety Smoking Status: Former smoker Past Alcohol Use History: None Reported Additional Past Alcohol Use History / Comment(s): STARTED SMOKING AT AGE 11, SMOKED 2 PPD, QUIT IN 1996. Past Drug Use History: None Reported - Past Family History Father Family Medical History: Cancer, Diabetes Mellitus Additional Family Medical History / Comment(s): AT AGE 61, CA throughout the body Mother Family Medical History: Cancer, Congestive Heart Failure (CHF), Diabetes Mellitus, Myocardial Infarction ([place]), Thyroid Disorder Additional Family Medical History / Comment(s): Uterine CA Medications and Allergies Home Medications Medication Instructions Recorded Confirmed Type Isosorbide Mononitrate ER [Imdur] 60 mg PO DAILY 07/16/14 11/06/24 History Montelukast [Singulair] 10 mg PO HS 10/20/15 11/06/24 History Gabapentin [Neurontin] 800 mg PO TID 09/07/16 11/06/24 History Latanoprost Ophth [Xalatan 0.005%] 1 drop BOTH EYES HS 09/07/16 11/06/24 History Atorvastatin [Lipitor] 40 mg PO HS 08/20/17 11/06/24 History Ipratropium-Albuterol Nebulize 3 ml INHALATION RT-QID PRN 08/20/17 11/06/24 History [Duoneb 0.5 mg-3 mg/3 ml Soln] Furosemide [Lasix] 20 mg PO DAILY 08/29/19 11/06/24 History dilTIAZem HCL [dilTIAZem HCL 24Hr 240 mg PO HS 08/29/19 11/06/24 History ER] Aspirin EC [Ecotrin Low Dose] 81 mg PO DAILY 03/31/21 11/06/24 History Famotidine 40 mg PO DAILY 03/31/21 11/06/24 History Hydroxychloroquine Sulfate 200 mg PO BID tab 06/23/21 11/06/24 Rx [Plaquenil] Cyclobenzaprine [Flexeril] 10 mg PO BID PRN 11/23/21 11/06/24 History DULoxetine HCL [Cymbalta] 120 mg PO HS 11/23/21 11/06/24 History Fluticasone Nasal [place] [Flonase 2 spr EA NOSTRIL DAILY 11/23/21 11/06/24 History Nasal [place]] HYDROcodone/APAP 10-325MG [[place] 1 tab PO Q4H PRN 11/23/21 11/06/24 History 10-325] Ibuprofen [Motrin] 800 mg PO Q8H PRN 11/23/21 11/06/24 History Insulin Glargine,Hum.rec.anlog 50 unit SQ HS 11/23/21 11/06/24 History [Lantus Solostar Pen] Ondansetron Odt [Zofran ODT] 4 mg PO Q8H PRN 11/23/21 11/06/24 History Cholecalciferol [Vitamin D3 (125 125 mcg PO DAILY 10/25/24 11/06/24 History Mcg = 5000 Iu)] Dulaglutide [Trulicity] 4.5 mg SQ FR 10/25/24 11/06/24 History Insulin Glargine,Hum.rec.anlog 25 units SQ DAILY 10/25/24 11/06/24 History [Lantus Solostar Pen] Losartan Potassium 100 mg PO HS 10/25/24 11/06/24 History Pantoprazole [Protonix] 40 mg PO BID 10/25/24 11/06/24 History hydrOXYzine HCL [Atarax] 50 mg PO HS 10/25/24 11/06/24 History Insulin Aspart [NovoLOG Flexpen] 26 units SQ AC-TID 11/06/24 11/06/24 History Magnesium Oxide [Mag-Ox] 400 mg PO DAILY 11/06/24 11/06/24 History Allergies Allergy/AdvReac Type Severity Reaction Status Date / Time Androgenic Anabolic Steroid Allergy Unknown Verified 11/06/24 08:20 meperidine HCl [From Demerol] Allergy Rash/Hives Verified 11/06/24 08:20 propoxyphene napsylate Allergy Dyspnea Verified 11/06/24 08:20 [From Darvocet-N] Physical Exam Vitals: Vital Signs Temp Pulse Pulse Resp BP Pulse Ox 11/07/24 07:38 80 11/07/24 07:30 97.7 F 85 18 116/70 99 11/07/24 07:26 78 98 04/02/25 02:00 97.6 F 86 17 133/77 96 11/06/24 20:20 84 11/06/24 20:09 85 11/06/24 20:00 97.6 F 96 17 139/76 97 11/06/24 16:06 88 16 11/06/24 15:56 90 16 11/06/24 14:00 97.4 F L 98 18 151/52 97 11/06/24 13:00 92 16 11/06/24 12:55 100 11/06/24 12:51 96 18 Intake and Output 11/06/24 11/07/24 11/07/24 22:59 06:59 14:59 Intake Total 663 Balance 663 Intake: Oral 663 Other: Voiding Method Toilet Toilet # Voids 2 2 - Constitutional General appearance: disheveled, morbidly obese, no acute distress - EENT Eyes: EOMI, PERRLA ENT: normal oropharynx Ears: bilateral: normal - Neck Carotids: bilateral: upstroke normal Thyroid: negative: normal size - Respiratory Respiratory: bilateral: CTA, diminished - Cardiovascular Rhythm: regular Heart sounds: normal: S1, S2 - Gastrointestinal General gastrointestinal: decreased bowel sounds, normal bowel sounds, soft - Integumentary Integumentary: normal turgor - Neurologic Neurologic: CNII-XII intact - Musculoskeletal Musculoskeletal: gait normal, generalized weakness, strength equal bilaterally - Psychiatric Psychiatric: A&O x's 3, appropriate affect, intact judgment & insight Results - Laboratory Findings CBC and BMP: 11/07/24 05:28 11/07/24 05:28 PT/INR, D-dimer PT 10.0 sec (10.0-12.5) 11/05/24 23:41 INR 0.9 (<1.2) 11/05/24 23:41 Abnormal lab findings: Abnormal Labs 11/05/24 11/05/24 11/06/24 23:41 23:41 05:10 WBC 11.1 H MCH MCHC RDW MPV Immature Gran # Neutrophils # 8.4 H Lymphocytes # Eosinophils # Sodium 132 L Chloride 93 L Anion Gap BUN 23 H BUN/Creatinine Ratio Glucose 166 H POC Glucose (mg/dL) 325 H Hemoglobin A1c ALT 36 H Alkaline Phosphatase 139 H Albumin/Globulin Ratio 04/09/0111/06/24 11/06/24 06:57 12:31 17:32 WBC MCH MCHC RDW MPV Immature Gran # Neutrophils # Lymphocytes # Eosinophils # Sodium Chloride Anion Gap BUN BUN/Creatinine Ratio Glucose POC Glucose (mg/dL) 340 H 351 H 312 H Hemoglobin A1c ALT Alkaline Phosphatase Albumin/Globulin Ratio 11/06/24 11/07/24 11/07/24 19:01 05:28 05:28 WBC 13.79 H MCH 26.3 L MCHC 31.3 L RDW 15.3 H MPV 8.8 L Immature Gran # 0.10 H Neutrophils # 12.52 H Lymphocytes # 0.74 L Eosinophils # 0 L Sodium Chloride Anion Gap BUN BUN/Creatinine Ratio Glucose POC Glucose (mg/dL) 353 H Hemoglobin A1c 9.2 H ALT Alkaline Phosphatase Albumin/Globulin Ratio 11/07/24 11/07/24 05:28 06:06 WBC MCH MCHC RDW MPV Immature Gran # Neutrophils # Lymphocytes # Eosinophils # Sodium Chloride Anion Gap 12.30 H BUN BUN/Creatinine Ratio 21.88 H Glucose 340 H POC Glucose (mg/dL) 355 H Hemoglobin A1c ALT Alkaline Phosphatase 128 H Albumin/Globulin Ratio 1.50 L - Diagnostic Findings Chest x-ray: report reviewed, image reviewed CT scan - chest: report reviewed, image reviewed (Finding as noted above) Assessment and Plan Assessment: Intermittent syncopal episode/near syncope with symptoms of dizziness lightheadedness Electrolyte imbalance with hyponatremia and hypokalemia Bilateral basal subsegmental atelectasis History of pulmonary hypertension History of scleroderma Sleep disordered breathing and sleep apnea Severe morbid obesity, with BMI of 41 Mitochondrial myopathy Type 2 diabetes mellitus with hyperglycemia Chronic diastolic heart failure Chronic hypoxic respiratory failure Plan: Replace electrolytes Tilt table testing results reviewed and noted Will obtain recent echocardiogram to estimate RVSP and degree of pulmonary hypertension Continue supplemental oxygen Continue deep breathing exercise incentive spirometry for bilateral basal atelectasis Patient to be continued on CPAP each night and as needed during the day Continue sliding scale insulin and Accu-Chek Continue bronchodilator hold on steroids or prednisone DVT prophylaxis mechanical as well as pharmacologic with Lovenox Time with Patient: Greater than 30
[2024-11-07 12:08] VITALS: PULSE 84
--- NOTE | 2024-11-07 12:36 | P.PN ---
Subjective Progress Note Date: 11/07/24 Reason for Consult (text): Syncope History of present illness: This is a 59-year-old female patient of Dr. Mendez with past medical history of coronary vasospasm, scleroderma, pulmonary hypertension, diabetes, hypertension, dyslipidemia, morbid obesity, heart failure with preserved EF, chronic hypoxic respiratory failure. We have been asked to evaluate the patient for syncope. Patient states for the past 6 months when she gets up she starts feeling dizzy and sometimes her legs fell out from underneath her. She states that she had had medication changes made by Dr. Mendez without improvement. She states she has recently fallen 4-5 times. Regarding her blood pressure medications, patient takes all of her medications at the same time every day. Discussed recommendations for tilt table testing which she is agreeable to go through today. Blood pressure 139/73, heart rate 89, pulse ox 99% on 3 L nasal cannula. Orthostatic vital signs are negative. -EKG: Sinus rhythm with no acute ST-T wave changes. -Chest x-ray: No acute findings. -Laboratory studies: WBC 11.1, hemoglobin 13.3, sodium 132, potassium 3.9, BUN 23 and creatinine 1.01. ALT 36, alkaline phosphatase 139, proBNP 24. -Home cardiac medications: Aspirin 81 mg daily, atorvastatin 40 mg at bedtime, diltiazem 240 mg at bedtime, Lasix 20 mg daily, Imdur 60 mg daily, losartan 100 mg at bedtime, magnesium oxide 400 mg daily. / Yesterday, patient underwent tilt table test which revealed elevated blood pressure readings during both the supine position and during standing. Patient had a normal twelve-lead EKG. Blood pressures currently 116/70, heart rate 85, pulse ox 99% on 3 L nasal cannula. Repeat blood work reveals WBC 13.7, hemoglobin 12.6, creatinine 0.8, potassium 4.9. Physical examination: Gen: This is 59-year-old female in no acute distress VS: reviewed HEENT: Head is atraumatic, normocephalic. Pupils equal, round. Sclerae is anicteric. NECK: Supple. No JVD. LUNGS: Clear to auscultation. No wheezes or rhonchi. No intercostal retractions. HEART: Regular rate and rhythm. Systolic murmur. ABDOMEN: Soft No tenderness. EXTREMITIES: No pedal edema. No calf tenderness. NEUROLOGICAL: Patient is awake, alert and oriented x3. Assessment: Syncopal episodes of unclear etiology possible vasovagal History of coronary vasospasm Scleroderma Pulmonary hypertension Diabetes Hypertension Dyslipidemia Morbid obesity with BMI 41 Chronic diastolic heart failure Chronic hypoxic respiratory failure Plan: Continue patient's home cardiac medications and recommend that patient take Imdur in the morning, diltiazem at noon and losartan at bedtime Patient is cleared for discharge and follow-up with Dr. Mendez in 2 weeks. Nurse practitioner note has been reviewed, I agree with documented findings and plan of care. Patient was seen and examined. Objective - Vital Signs Vital signs: Vital Signs Temp 97.6 F 11/07/24 02:00 Pulse 80 11/07/24 07:38 Resp 17 11/07/24 02:00 BP 133/77 11/07/24 02:00 Pulse Ox 98 11/07/24 07:26 FiO2 Intake & Output 11/06/24 11/07/24 11/07/24 18:59 06:59 18:59 Intake Total 781 Balance 781 Intake: Oral 781 Other: Voiding Method Toilet # Voids 4 2 - Labs CBC & Chem 7: 11/07/24 05:28 11/07/24 05:28 Labs: Abnormal Lab Results - Last 24 Hours (Table) 11/06/24 11/06/24 11/06/24 Range/Units 12:31 17:32 19:01 POC Glucose (mg/dL) 351 H 312 H 353 H (70-110) mg/dL 11/07/24 Range/Units 06:06 POC Glucose (mg/dL) 355 H (70-110) mg/dL
[2024-11-07 12:39] LABS: Glucose,Whole Blood 360 mg/dL (70-110)
[2024-11-07] MEDS: DILTIAZEM CD 240 MG CAP.ER.24H PO SCH (14:29)
--- NOTE | 2024-11-07 20:48 | P.DS ---
Providers Date of admission: 11/06/24 00:11 Expected date of discharge: 11/07/24 Attending physician: Law Adamson Consults: 11/06/24 00:05 Consult Physician Routine Consulting Provider: Severino Ross Consult Reason/Comments: syncope Do you want consulting provider notified?: Yes 11/06/24 11:18 Consult Physician Routine Consulting Provider: Earl Rowe Consult Reason/Comments: sob Do you want consulting provider notified?: Yes Primary care physician: [facility] Course: Chief Complaint: Falls This is a pleasant 59-year-old patient of Dr. Braun. Chronic stable medical conditions include , GERD, hypertension, hyperlipidemia, osteoarthritis, scleroderma, mitochondrial myopathy, chronic respiratory failure on home oxygen- 3 L , chronic kidney disease stage III, COPD hyperlipidemia, hypertension osteoarthritis. Has mitochondrial myopathy.. does follow with a landscaper from [facility] and employment program representative Dr. Earl Rowe. Patient is an ex-smoker. Does use a walker Patient presents with episodes of dizziness and falling. Has had 4-5 episodes in the last 1 month. He is normally followed when she is standing or walking. Not lying down. Denies any fever or chills. No chest pain no palpitations. She has put on weight in the last few months. Noted to be increasing short of breath. Occasionally wheezing. Slight cough. November 07: Breathing stable. Patient given RAKAN stockings also weight loss measures. Patient to follow-up with Dr. Rojas from pulmonary. Also Holter monitor for 7 days with cardiology. Questions answered. Negative tilt table test. Discussion and discharge planning more than 35 minutes Past medical history to include: COPD, diabetes, GERD, hyperlipidemia, hypertension, osteoarthritis, goiter, scleroderma, diastolic dysfunction, some difficulty with swallowing, mitochondrial myopathy, chronic respiratory failure on 3 L of oxygen, CK stage III Social history: Lives with her son. Does use a walker. Smoked for about 20 years stopped in 1996. Physical examination: VITAL SIGNS: 97.7, 85, 18, 116 x 70, 99% 3 L GENERAL: BMI 41.1, reclining in bed EYES: Pupils equal. Conjunctiva normal. HEENT: External appearance of nose and ears normal, oral cavity grossly normal. NECK: JVD unable to assess; masses not palpable. HEART: First and second heart sounds are normal; no edema. LUNGS: Respiratory rate i normal distant breath sounds. ABDOMEN: Soft, nontender, liver spleen not palpable, no masses palpable. PSYCH: [Alert and oriented x3; mood and affect a bit anxious INVESTIGATIONS, reviewed in the clinical context: November 07: White count 13.7 hemoglobin 12.6 platelets 310 sodium 135 potassium 4.9 creatinine 0.8 November 05, 2024: White count 9.1 hemoglobin 13.3 platelets 302 sodium 132 potassium 3.9 BUN 23 creatinine 1.01 EKG tracing personally reviewed by me-normal sinus rhythms. Chest x-ray film personally reviewed by me-underpenetrated. Some cardiomegaly Assessment and plan: -Patient is presenting with recurrent falls and dizziness. Negative for orthostatic. Tilt table test negative. For outpatient Holter monitor for 7 days Rakan stockings given. -Shortness of breath with exertion. [place] to be combination of restrictive lung disease and obesity hypoventilation syndrome. Note that patient's put on weight as she states. Also contribution from COPD Follow-up with Dr. Calixto Rowe pulmonary -COPD acute exacerbation and ex smoker Linda Longo. IV Solu-Medrol Discharged on prednisone taper -Diabetes mellitus type 2, chronically on insulin, uncontrolled with hyperglycemia secondary steroids Follow Accu-Cheks with sliding scale insulin. Lantus and NovoLog. Trulicity -GERD PPI -Essential hypertension Cardizem ER 240 mg a day -Hyperlipidemia Lipitor 40 mg daily at bedtime -Primary osteoarthritis Pain medications as needed -Scleroderma -Mitochondrial myopathy -Chronic respiratory failure on home oxygen 3 L Follow pulse ox -Morbid obesity BMI 41.9 Weight loss measures -Chronic gait dysfunction uses a walker at baseline Disposition: Home Past Medical History Past Medical History: Heart Failure, COPD, CVA/TIA, Diabetes Mellitus, GERD/Reflux, Hyperlipidemia, Hypertension, Neurologic Disorder, Osteoarthritis (OA), Pneumonia, Renal Disease, Thyroid Disorder Additional Past Medical History / Comment(s): Hx CVA few ago, no residual effects. Generalized Neuropathy. Heart murmur. Hx UTI. GOITER. DIASTOLIC DYSFUNCTION. Scleroderma, trouble swallowing. Mitochondrial Myopathy, chronic pulmonary failure, kidney disease stage III. History of Any Multi-Drug Resistant Organisms: None Reported Past Surgical History: Appendectomy, Cholecystectomy, Heart Catheterization, Hysterectomy, Joint Replacement Additional Past Surgical History / Comment(s): RIGHT KNEE REPLACEMENT, LEFT KNEE SURGERY WITH SCREWS IN PLACE. Past Anesthesia/Blood Transfusion Reactions: No Reported Reaction Additional Past Anesthesia/Blood Transfusion Reaction / Comment(s): CLAUSTERPHOBIC. Past Psychological History: Anxiety Smoking Status: Former smoker Past Alcohol Use History: None Reported Additional Past Alcohol Use History / Comment(s): STARTED SMOKING AT AGE 11, SMOKED 2 PPD, QUIT IN 1996. Past Drug Use History: None Reported Plan - Discharge Summary Discharge Rx Participant: No New Discharge Prescriptions: New predniSONE 10 mg PO DAILY #30 tab Continue Isosorbide Mononitrate ER [Imdur] 60 mg PO DAILY Montelukast [Singulair] 10 mg PO HS Latanoprost Ophth [Xalatan 0.005%] 1 drop BOTH EYES HS Gabapentin [Neurontin] 800 mg PO TID Ipratropium-Albuterol Nebulize [Duoneb 0.5 mg-3 mg/3 ml Soln] 3 ml INHALATION RT-QID PRN PRN Reason: Shortness Of Breath Atorvastatin [Lipitor] 40 mg PO HS dilTIAZem HCL [dilTIAZem HCL 24Hr ER] 240 mg PO HS Famotidine 40 mg PO DAILY Hydroxychloroquine Sulfate [Plaquenil] 200 mg PO BID tab Fluticasone Nasal [place] [Flonase Nasal [place]] 2 spr EA NOSTRIL DAILY DULoxetine HCL [Cymbalta] 120 mg PO HS Cyclobenzaprine [Flexeril] 10 mg PO BID PRN PRN Reason: Muscle Pain Ondansetron Odt [Zofran ODT] 4 mg PO Q8H PRN PRN Reason: Nausea Ibuprofen [Motrin] 800 mg PO Q8H PRN PRN Reason: Pain HYDROcodone/APAP 10-325MG [[place] 10-325] 1 tab PO Q4H PRN PRN Reason: Pain hydrOXYzine HCL [Atarax] 50 mg PO HS Losartan Potassium 100 mg PO HS Pantoprazole [Protonix] 40 mg PO BID Cholecalciferol [Vitamin D3 (125 Mcg = 5000 Iu)] 125 mcg PO DAILY Insulin Aspart [NovoLOG Flexpen] 26 units SQ AC-TID Aspirin EC [Ecotrin Low Dose] 81 mg PO DAILY Insulin Glargine,Hum.rec.anlog [Lantus Solostar Pen] 50 unit SQ HS Insulin Glargine,Hum.rec.anlog [Lantus Solostar Pen] 25 units SQ DAILY Dulaglutide [Trulicity] 4.5 mg SQ FR Magnesium Oxide [Mag-Ox] 400 mg PO DAILY Discontinued Furosemide [Lasix] 20 mg PO DAILY Discharge Medication List Isosorbide Mononitrate ER [Imdur] 60 mg PO DAILY 07/16/14 [History] Montelukast [Singulair] 10 mg PO HS 10/20/15 [History] Gabapentin [Neurontin] 800 mg PO TID 09/07/16 [History] Latanoprost Ophth [Xalatan 0.005%] 1 drop BOTH EYES HS 09/07/16 [History] Atorvastatin [Lipitor] 40 mg PO HS 08/20/17 [History] Ipratropium-Albuterol Nebulize [Duoneb 0.5 mg-3 mg/3 ml Soln] 3 ml INHALATION RT-QID PRN 08/20/17 [History] dilTIAZem HCL [dilTIAZem HCL 24Hr ER] 240 mg PO HS 08/29/19 [History] Aspirin EC [Ecotrin Low Dose] 81 mg PO DAILY 03/31/21 [History] Famotidine 40 mg PO DAILY 03/31/21 [History] Hydroxychloroquine Sulfate [Plaquenil] 200 mg PO BID tab 06/23/21 [Rx] Cyclobenzaprine [Flexeril] 10 mg PO BID PRN 11/23/21 [History] DULoxetine HCL [Cymbalta] 120 mg PO HS 11/23/21 [History] Fluticasone Nasal [place] [Flonase Nasal [place]] 2 spr EA NOSTRIL DAILY 11/23/21 [History] HYDROcodone/APAP 10-325MG [[place] 10-325] 1 tab PO Q4H PRN 11/23/21 [History] Ibuprofen [Motrin] 800 mg PO Q8H PRN 11/23/21 [History] Insulin Glargine,Hum.rec.anlog [Lantus Solostar Pen] 50 unit SQ HS 11/23/21 [History] Ondansetron Odt [Zofran ODT] 4 mg PO Q8H PRN 11/23/21 [History] Cholecalciferol [Vitamin D3 (125 Mcg = 5000 Iu)] 125 mcg PO DAILY 10/25/24 [History] Dulaglutide [Trulicity] 4.5 mg SQ FR 10/25/24 [History] Insulin Glargine,Hum.rec.anlog [Lantus Solostar Pen] 25 units SQ DAILY 10/25/24 [History] Losartan Potassium 100 mg PO HS 10/25/24 [History] Pantoprazole [Protonix] 40 mg PO BID 10/25/24 [History] hydrOXYzine HCL [Atarax] 50 mg PO HS 10/25/24 [History] Insulin Aspart [NovoLOG Flexpen] 26 units SQ AC-TID 11/06/24 [History] Magnesium Oxide [Mag-Ox] 400 mg PO DAILY 11/06/24 [History] predniSONE 10 mg PO DAILY #30 tab 11/07/24 [Rx] Follow up Appointment(s)/Referral(s): Murray Braun DO [Primary Care Provider] - 1-2 days Justin Mendez MD [STAFF PHYSICIAN] - 1 Week Earl Rowe [STAFF PHYSICIAN] - 1 Week Patient Instructions/Handouts: Chronic Hypertension (DC), Dizziness (ED) Activity/Diet/Wound Care/Special Instructions: Take BP twice daily for one week. Take list of these readings to your appointment with Dr. Mendez. Make sure you obtain large BP cuff. fluid restrict - 2000 cc/day holter monitor arrange dc home with TEDs Discharge Disposition: HOME SELF-CARE
[2024-11-09] MEDS ORDERED: NON FORMULARY DRUG (Dulaglutide [Trulicity] 4.5 MG/0.5 ML Each) SQ SCH (09:00)
== END 2024-11-07 15:23 | disposition home or self-care (01) ==
LOC: EC 23:09 → 6NMEDSUR 11-06 00:11
PROVIDERS: ADMIT Hospitalist; ATTEND Hospitalist
DX: R55 Syncope and collapse (principal); R42 Dizziness and giddiness; R29.6 Repeated falls; J44.1 Chronic obstructive pulmonary disease with (acute) exacerbation; E87.1 Hypo-osmolality and hyponatremia; E87.6 Hypokalemia; J98.11 Atelectasis; G47.33 Obstructive sleep apnea (adult) (pediatric); G71.3 Mitochondrial myopathy, not elsewhere classified; E11.65 Type 2 diabetes mellitus with hyperglycemia; I13.0 Hypertensive heart and chronic kidney disease with heart failure and stage 1 through stage 4 chronic kidney disease, or unspecified chronic kidney disease; I50.32 Chronic diastolic (congestive) heart failure; N18.30 Chronic kidney disease, stage 3 unspecified; J96.11 Chronic respiratory failure with hypoxia; K21.9 Gastro-esophageal reflux disease without esophagitis; E78.5 Hyperlipidemia, unspecified; F41.9 Anxiety disorder, unspecified; M34.9 Systemic sclerosis, unspecified; E11.40 Type 2 diabetes mellitus with diabetic neuropathy, unspecified; E11.22 Type 2 diabetes mellitus with diabetic chronic kidney disease; M19.91 Primary osteoarthritis, unspecified site; I27.20 Pulmonary hypertension, unspecified; E66.01 Morbid (severe) obesity due to excess calories; Z68.41 Body mass index [BMI] 40.0-44.9, adult; Z86.16 Personal history of COVID-19; Z86.73 Personal history of transient ischemic attack (TIA), and cerebral infarction without residual deficits; Z87.891 Personal history of nicotine dependence; Z99.81 Dependence on supplemental oxygen; Z79.4 Long term (current) use of insulin; Z79.51 Long term (current) use of inhaled steroids; Z79.82 Long term (current) use of aspirin; Z79.85 Long-term (current) use of injectable non-insulin antidiabetic drugs; Z79.899 Other long term (current) drug therapy; Z88.5 Allergy status to narcotic agent; Z88.6 Allergy status to analgesic agent
CPT/HCPCS: 96376 ×2; 96372; 96374; 99285; 36415; 94640 ×4; 94760 ×2; 93005; 93270; 93660; 83880; 80053 ×2; 83605; 83735 ×2; 84100 ×2; 85025 ×2; 85610; 85730; 83036; 71046; G0378 ×2; J1650; J2919 ×3